=== PATIENT | female | born 1970 | race Caucasian/White ===

== ENCOUNTER → 2019-11-07 | Outpatient (CLI) | payer MEDICAID, SELFPAY | PROVIDERS: Family Provider Family Medicine; Visit Provider Social Worker Clinical | DX: F41.1 Generalized anxiety disorder (principal); F33.2 Major depressive disorder, recurrent severe without psychotic features | CPT/HCPCS: 90834 ==

== ENCOUNTER → 2019-11-16 09:13 | Outpatient (BNVA) | payer MEDICAID, SELFPAY | PROVIDERS: Family Provider Family Medicine; PCP Family Medicine; Visit Provider Social Worker Clinical | DX: F41.1 Generalized anxiety disorder (principal); F33.2 Major depressive disorder, recurrent severe without psychotic features | CPT/HCPCS: 90834 ==

== ENCOUNTER → 2019-11-27 09:47 | Outpatient (BNVA) | payer MEDICAID, SELFPAY | PROVIDERS: Family Provider Family Medicine; PCP Family Medicine; Visit Provider Social Worker Clinical | DX: F41.1 Generalized anxiety disorder (principal); F33.2 Major depressive disorder, recurrent severe without psychotic features | CPT/HCPCS: 90834 ==

== ENCOUNTER → 2019-12-05 08:46 | Outpatient (BNVA) | payer MEDICAID, SELFPAY | PROVIDERS: Family Provider Family Medicine; PCP Family Medicine; Visit Provider Social Worker Clinical | DX: F41.1 Generalized anxiety disorder (principal); F33.2 Major depressive disorder, recurrent severe without psychotic features | CPT/HCPCS: 90834 ==

== ENCOUNTER 2019-12-08 09:39 | Outpatient (CLI) | payer MEDICAID, SELFPAY ==
--- NOTE | 2019-12-08 | US_ITS ---
WS: [id number] ULTRASOUND SOFT TISSUES RIGHT wrist HISTORY: Paresthesias OF RIGHT ARM COMPARISON: None available. TECHNIQUE: 2-D and color Doppler imaging is submitted. Images submitted are labeled RIGHT wrist. On the images submitted there is no soft tissue abnormality . No masses or cystic areas are identified. US/US soft tissue/extremity [id number] IMPRESSION: No abnormality noted in the soft tissues submitted for interpretation.
== END 2019-12-08 09:40 | disposition home or self-care (01) ==
LOC: RADOUTREAD 14:03
PROVIDERS: Family Provider Family Medicine; PCP Family Medicine; Visit Provider Family Medicine
DX: R20.2 Paresthesia of skin (principal)

== ENCOUNTER → 2019-12-12 08:59 | Outpatient (BNVA) | payer MEDICAID, SELFPAY | PROVIDERS: Family Provider Family Medicine; PCP Family Medicine; Visit Provider Social Worker Clinical | DX: F41.1 Generalized anxiety disorder (principal); F33.2 Major depressive disorder, recurrent severe without psychotic features | CPT/HCPCS: 90834 ==

== ENCOUNTER → 2019-12-19 07:59 | Outpatient (BNVA) | payer MEDICAID, SELFPAY | PROVIDERS: Family Provider Family Medicine; PCP Family Medicine; Visit Provider Social Worker Clinical | DX: F41.1 Generalized anxiety disorder (principal) | CPT/HCPCS: 90834 ==

== ENCOUNTER → 2019-12-26 07:58 | Outpatient (BNVA) | payer MEDICAID, SELFPAY | PROVIDERS: Family Provider Family Medicine; PCP Family Medicine; Visit Provider Social Worker Clinical | DX: F41.1 Generalized anxiety disorder (principal); F33.2 Major depressive disorder, recurrent severe without psychotic features | CPT/HCPCS: 90834 ==

== ENCOUNTER → 2020-01-02 08:53 | Outpatient (BNVA) | payer MEDICAID, SELFPAY | PROVIDERS: Family Provider Family Medicine; PCP Family Medicine; Visit Provider Social Worker Clinical | DX: F41.1 Generalized anxiety disorder (principal); F33.2 Major depressive disorder, recurrent severe without psychotic features | CPT/HCPCS: 90832; 90834 ==

== ENCOUNTER → 2020-01-10 08:56 | Outpatient (BNVA) | payer MEDICAID, SELFPAY | PROVIDERS: Family Provider Family Medicine; PCP Family Medicine; Visit Provider Social Worker Clinical | DX: F41.1 Generalized anxiety disorder (principal); F33.2 Major depressive disorder, recurrent severe without psychotic features | CPT/HCPCS: 90834 ==

== ENCOUNTER → 2020-01-24 08:54 | Outpatient (BNVA) | payer MEDICAID, SELFPAY | PROVIDERS: Family Provider Family Medicine; PCP Family Medicine; Visit Provider Social Worker Clinical | DX: F41.1 Generalized anxiety disorder (principal); F33.2 Major depressive disorder, recurrent severe without psychotic features; F68.10 Factitious disorder imposed on self, unspecified | CPT/HCPCS: 90834 ==

== ENCOUNTER → 2020-01-31 08:43 | Outpatient (BNVA) | payer MEDICAID, SELFPAY | PROVIDERS: Family Provider Family Medicine; PCP Family Medicine; Visit Provider Social Worker Clinical | DX: F41.1 Generalized anxiety disorder (principal); F68.10 Factitious disorder imposed on self, unspecified | CPT/HCPCS: 90834 ==

== ENCOUNTER → 2020-02-01 15:34 | Outpatient (BNVA) | payer MEDICAID, SELFPAY | PROVIDERS: Family Provider Family Medicine; PCP Family Medicine; Visit Provider Specialist | DX: G43.711 Chronic migraine without aura, intractable, with status migrainosus (principal); H81.10 Benign paroxysmal vertigo, unspecified ear; R45.89 Other symptoms and signs involving emotional state | CPT/HCPCS: 64615; 99213 ==

== ENCOUNTER → 2020-02-07 08:26 | Outpatient (BNVA) | payer MEDICAID, SELFPAY | PROVIDERS: Family Provider Family Medicine; PCP Family Medicine; Visit Provider Social Worker Clinical | DX: R45.89 Other symptoms and signs involving emotional state (principal); F41.1 Generalized anxiety disorder; F33.2 Major depressive disorder, recurrent severe without psychotic features | CPT/HCPCS: 90834 ==

== ENCOUNTER → 2020-02-14 09:01 | Outpatient (BNVA) | payer MEDICAID, SELFPAY | PROVIDERS: Family Provider Family Medicine; PCP Family Medicine; Visit Provider Social Worker Clinical | DX: F41.1 Generalized anxiety disorder (principal); F60.3 Borderline personality disorder; F68.10 Factitious disorder imposed on self, unspecified | CPT/HCPCS: 90834 ==

== ENCOUNTER → 2020-02-21 07:52 | Outpatient (BNVA) | payer MEDICAID, SELFPAY | PROVIDERS: Family Provider Family Medicine; PCP Family Medicine; Visit Provider Social Worker Clinical | DX: F41.1 Generalized anxiety disorder (principal); F33.2 Major depressive disorder, recurrent severe without psychotic features; F68.10 Factitious disorder imposed on self, unspecified | CPT/HCPCS: 90834 ==

== ENCOUNTER → 2020-02-28 07:54 | Outpatient (BNVA) | payer MEDICAID, SELFPAY | PROVIDERS: Family Provider Family Medicine; PCP Family Medicine; Visit Provider Social Worker Clinical | DX: F41.1 Generalized anxiety disorder (principal); F33.2 Major depressive disorder, recurrent severe without psychotic features; F68.10 Factitious disorder imposed on self, unspecified | CPT/HCPCS: 90834 ==

== ENCOUNTER → 2020-03-11 07:55 | Outpatient (BNVA) | payer MEDICAID, SELFPAY | PROVIDERS: Family Provider Family Medicine; PCP Family Medicine; Visit Provider Social Worker Clinical | DX: F41.1 Generalized anxiety disorder (principal); F33.2 Major depressive disorder, recurrent severe without psychotic features; F68.10 Factitious disorder imposed on self, unspecified | CPT/HCPCS: 90834 ==

== ENCOUNTER → 2020-03-20 08:36 | Outpatient (BNVA) | payer MEDICAID, SELFPAY | PROVIDERS: Family Provider Family Medicine; PCP Family Medicine; Visit Provider Social Worker Clinical | DX: F41.1 Generalized anxiety disorder (principal); F33.2 Major depressive disorder, recurrent severe without psychotic features; F68.10 Factitious disorder imposed on self, unspecified | CPT/HCPCS: 90832; 90834 ==

== ENCOUNTER → 2020-03-25 08:20 | Outpatient (BNVA) | payer MEDICAID, SELFPAY | PROVIDERS: Family Provider Family Medicine; PCP Family Medicine; Visit Provider Social Worker Clinical | DX: F41.1 Generalized anxiety disorder (principal); F33.2 Major depressive disorder, recurrent severe without psychotic features; F68.10 Factitious disorder imposed on self, unspecified | CPT/HCPCS: 90832; 90834 ==

== ENCOUNTER 2020-03-27 09:14 | Outpatient (CLI) | payer MEDICAID, SELFPAY ==
--- NOTE | 2020-03-27 | MR_ITS ---
WS: [id number] MRI LUMBAR SPINE NONCONTRAST TECHNIQUE: Sagittal T1, T2 and STIR imaging. Axial T1 and T2 imaging. CLINICAL INFORMATION: SPINAL STENOSIS COMPARISON: None. FINDINGS: Mild lumbar curve. No acute compression. No high-grade central canal stenosis. L1-L2: Normal L2-L3: Mild annular bulging. Small right foraminal protrusion with mild right foraminal narrowing. Mi ld facet arthropathy. Spinal canal is patent. L3-L4: Mild annular bulging. Small right foraminal protrusion with mild right foraminal narrowing. Sl ight narrowing of the right subarticular recess. Mild facet arthropathy. L4-L5: Mild annular bulging. Mild right and no significant left foraminal narrowing. Moderate facet a rthropathy. Spinal canal is patent. L5-S1: No significant disc bulging. Moderate facet arthropathy. Spinal canal and foramen are patent. Visualized pelvic bony structures: Normal. Paravertebral soft tissues: Normal. MR/MR lumbar spine wo con* [id number] IMPRESSION: 1. Mild lumbar curve. No acute compression. No high-grade central canal stenos is. 2. Small right foraminal protrusion L2-L3 L3-L4 with mild right foraminal narr owing. Slight contact of the exiting right L3 nerve root. 3. Mild right L4-5 foraminal narrowing. 4. Moderate facet arthropathy L3-L5.
== END 2020-03-27 09:15 | disposition home or self-care (01) ==
PROVIDERS: PCP Family Medicine; Visit Provider Family Medicine
DX: M48.00 Spinal stenosis, site unspecified (principal); M51.26 Other intervertebral disc displacement, lumbar region; M47.816 Spondylosis without myelopathy or radiculopathy, lumbar region
CPT/HCPCS: 72148

== ENCOUNTER → 2020-04-02 08:04 | Outpatient (BNVA) | payer MEDICAID, SELFPAY | PROVIDERS: PCP Family Medicine; Visit Provider Social Worker Clinical | DX: F41.1 Generalized anxiety disorder (principal); F33.2 Major depressive disorder, recurrent severe without psychotic features; F68.10 Factitious disorder imposed on self, unspecified | CPT/HCPCS: 90834 ==

== ENCOUNTER → 2020-04-09 07:51 | Outpatient (BNVA) | payer MEDICAID, SELFPAY | PROVIDERS: PCP Family Medicine; Visit Provider Social Worker Clinical | DX: F41.1 Generalized anxiety disorder (principal); F33.2 Major depressive disorder, recurrent severe without psychotic features; F68.10 Factitious disorder imposed on self, unspecified | CPT/HCPCS: 90832 ==

== ENCOUNTER → 2020-04-16 07:57 | Outpatient (BNVA) | payer MEDICAID, SELFPAY | PROVIDERS: PCP Family Medicine; Visit Provider Social Worker Clinical | DX: F41.1 Generalized anxiety disorder (principal); F33.2 Major depressive disorder, recurrent severe without psychotic features; F68.10 Factitious disorder imposed on self, unspecified | CPT/HCPCS: 90834 ==

== ENCOUNTER → 2020-04-23 07:52 | Outpatient (BNVA) | payer MEDICAID, SELFPAY | PROVIDERS: PCP Family Medicine; Visit Provider Social Worker Clinical | DX: F41.1 Generalized anxiety disorder (principal); F33.2 Major depressive disorder, recurrent severe without psychotic features; F68.10 Factitious disorder imposed on self, unspecified | CPT/HCPCS: 90834 ==

== ENCOUNTER → 2020-04-30 07:57 | Outpatient (BNVA) | payer MEDICAID, SELFPAY | PROVIDERS: PCP Family Medicine; Visit Provider Social Worker Clinical | DX: F41.1 Generalized anxiety disorder (principal); F33.2 Major depressive disorder, recurrent severe without psychotic features; F68.10 Factitious disorder imposed on self, unspecified | CPT/HCPCS: 90834 ==

== ENCOUNTER → 2020-05-07 07:22 | Outpatient (BNVA) | payer MEDICAID, SELFPAY | PROVIDERS: PCP Family Medicine; Visit Provider Social Worker Clinical | DX: F41.1 Generalized anxiety disorder (principal); F33.2 Major depressive disorder, recurrent severe without psychotic features; F68.10 Factitious disorder imposed on self, unspecified | CPT/HCPCS: 90834 ==

== ENCOUNTER → 2020-05-14 08:11 | Outpatient (BNVA) | payer MEDICAID, SELFPAY | PROVIDERS: PCP Family Medicine; Visit Provider Social Worker Clinical | DX: F41.1 Generalized anxiety disorder (principal); F33.2 Major depressive disorder, recurrent severe without psychotic features; F68.10 Factitious disorder imposed on self, unspecified | CPT/HCPCS: 90834 ==

== ENCOUNTER → 2020-05-22 07:34 | Outpatient (BNVA) | payer MEDICAID, SELFPAY | PROVIDERS: PCP Family Medicine; Visit Provider Social Worker Clinical | DX: F41.1 Generalized anxiety disorder (principal); F33.2 Major depressive disorder, recurrent severe without psychotic features; F68.10 Factitious disorder imposed on self, unspecified | CPT/HCPCS: 90834 ==

== ENCOUNTER → 2020-05-28 08:03 | Outpatient (BNVA) | payer MEDICAID, SELFPAY | PROVIDERS: PCP Family Medicine; Visit Provider Social Worker Clinical | DX: F41.1 Generalized anxiety disorder (principal); F33.2 Major depressive disorder, recurrent severe without psychotic features; F68.10 Factitious disorder imposed on self, unspecified | CPT/HCPCS: 90834 ==

== ENCOUNTER → 2020-06-04 08:04 | Outpatient (BNVA) | payer MEDICAID, SELFPAY | PROVIDERS: PCP Family Medicine; Visit Provider Social Worker Clinical | DX: F41.1 Generalized anxiety disorder (principal); F33.2 Major depressive disorder, recurrent severe without psychotic features; F68.10 Factitious disorder imposed on self, unspecified | CPT/HCPCS: 90834 ==

== ENCOUNTER → 2020-06-11 08:28 | Outpatient (BNVA) | payer MEDICAID, SELFPAY | PROVIDERS: PCP Family Medicine; Visit Provider Social Worker Clinical | DX: F33.2 Major depressive disorder, recurrent severe without psychotic features (principal); F41.1 Generalized anxiety disorder; F68.10 Factitious disorder imposed on self, unspecified | CPT/HCPCS: 90791 ==

== ENCOUNTER 2020-06-14 07:42 | Outpatient (CLI) | payer MEDICAID, SELFPAY ==
--- NOTE | 2020-06-14 | CT_ITS ---
WS: [id number] CT HEAD TECHNIQUE: Noncontrast and contrast-enhanced CT of the head. CLINICAL INFORMATION: FALL AT HOME COMPARISON: CT head January 27, 2018 DLP: 1984.[address] scans at [facility] use at least one of these dose optimization techniques: automat ed exposure control; mA and/or kV adjustment per patient size (includes targeted exams where dose is matched to clinical indication); or iterative reconstruction. FINDINGS: No evidence of intracranial hemorrhage or mass effect. Ventricular system and basilar cisterns are pa tent. Mild white matter changes. Mild parenchymal volume loss. Stable scattered punctate calcificatio ns unchanged. Paranasal sinuses and mastoid air cells are well aerated. No abnormal intracranial enhancement. CT/CT head wo/w con [id number] IMPRESSION: 1. No evidence of intracranial hemorrhage or mass effect. 2. Stable white matter punctate calcifications unchanged 3. No abnormal intracranial enhancement. 4. Paranasal sinuses and mastoid air cells well aerated.
[2020-06-14] MEDS: iohexol 300 mg/mL 100 mL Btl IV (08:27)
== END 2020-06-14 07:43 | disposition home or self-care (01) ==
PROVIDERS: PCP Family Medicine; Visit Provider Family Medicine
DX: S09.90XA Unspecified injury of head, initial encounter (principal); W19.XXXA Unspecified fall, initial encounter
CPT/HCPCS: 70470; Q9967

== ENCOUNTER → 2020-06-18 08:19 | Outpatient (BNVA) | payer MEDICAID, SELFPAY | PROVIDERS: PCP Family Medicine; Visit Provider Social Worker Clinical | DX: F41.1 Generalized anxiety disorder (principal); F33.2 Major depressive disorder, recurrent severe without psychotic features; F68.10 Factitious disorder imposed on self, unspecified | CPT/HCPCS: 90832 ==

== ENCOUNTER 2020-06-19 07:36 | Emergency (ER) | payer MEDICAID, SELFPAY ==
[2020-06-19 07:41] VITALS: BMI 42.5
[2020-06-19 07:45] VITALS: BP 148/82; PULSE 68; RESP 18; TEMP 37.3; O2SAT 96
--- NOTE | 2020-06-19 07:52 | CT_ITS ---
WS: [id number] CT ABDOMEN PELVIS TECHNIQUE: Contrast-enhanced CT of the abdomen and pelvis with coronal and sagittal reformatted image s. CLINICAL INFORMATION: acute pain,LLQ COMPARISON: None. DLP: 1660.[address] scans at [facility] use at least one of these dose optimization techniques: automat ed exposure control; mA and/or kV adjustment per patient size (includes targeted exams where dose is matched to clinical indication); or iterative reconstruction. FINDINGS: Diffuse fatty infiltration the liver. Cholecystectomy clips. Normal spleen. Adrenal glands are normal . Normal renal parenchymal enhancement. No hydronephrosis. Normal pancreatic enhancement. Portal vein s and splenic vein are normal. Hazy groundglass infiltrates in the lung bases. Normal GE junction. Normal sigmoid colon. No evidence of small or large bowel obstruction. Fat-containing umbilical herni a. Prior postoperative changes hysterectomy with oophorectomy and bladder suspension procedure. Notified NII Chou at 06/19/2020 9:[address]/CT abdomen pelvis w con* [id number] IMPRESSION: 1. Diffuse fatty infiltration liver. 2. Prior cholecystectomy. 3. Prior postoperative changes hysterectomy with bladder suspension procedure 4. No hydronephrosis. Normal renal parenchymal enhancement. 5. No evidence of small or large bowel obstruction. 6. Fat-containing umbilical hernia. 7. Hazy groundglass infiltrates in the lung bases. Recommend correlation for v iral pneumonitis.
--- NOTE | 2020-06-19 07:53 | ED_ITS ---
HPI - Abdominal Pain General: Chief Complaint: Abdominal Pain Stated Complaint: left side pain Time Seen by Provider: 06/19/20 07:41 History of Present Illness: HPI narrative: Patient arrives here with abdominal pain that she has had since this weekend and she saw Dr. Jeffery on Wednesday was diagnosed with a colitis prescribed metronidazole ciprofloxacin and Zofran. Patient states she is not better hurts down her left lower quadrant denies any fever chills nausea vomiting does have some diarrhea. MD elicited complaint: abdominal pain Onset (ago): day(s) Pain Consistency: constant Location: LLQ Severity: moderate Quality: cramping and aching Exacerbating factors: nothing Relieving factors: nothing Associated Symptoms: Reports no associated symptoms; Denies chills, fever(s), nausea and vomiting Review of Systems Const: Denies: fever(s), chills or body aches Eyes: Denies: change in vision or blurry vision ENMT: Denies: throat pain or nasal congestion Card: Denies: chest pain or dyspnea on exertion Resp: Denies: dyspnea, productive cough or non-productive cough GI: Reports: abdominal pain; Denies: nausea or vomiting Musc: Denies: extremity pain Skin/Breast: Denies: rash Neuro: Denies: headache(s) Psych: Denies: anxiety or depression Shimon/Lymph: Denies: easy bruising PFSH ED PFSH: Social History Current gender identity: Female Physical Exam Const: COMMON NORMALS: no acute distress, average body habitus and patient oriented x3 HENMT: COMMON NORMALS: normocephalic HEAD & SCALP: normal to inspection and normocephalic FACE & SINUS: normal facial exam Eye: COMMON NORMALS: conjunctivae normal GENERAL EYE: appearance normal, both eyes and all related structures CONJUNCTIVA: Yes conjunctivae normal Neck/C-Spine: COMMON NORMALS: no JVD Chest: COMMONS NORMALS: normal inspection of the chest Resp: COMMON NORMALS: normal respiratory effort and clear to auscultation bilaterally AUSCULTATION: clear to auscultation bilaterally Cardio: COMMON NORMALS: no JVD, regular rate and regular rhythm RATE: regular rate RHYTHM: regular rhythm GI: COMMON NORMALS: Normal to inspection, nondistended, normoactive bowel sounds present PALPATION: Yes Tenderness to palpation present (GI) Details: LLQ Extremity: COMMON NORMALS: normal to inspection and full ROM Neuro: COMMON NORMALS: patient oriented x3 Course Vital Signs: Vital signs: Vital Signs Temperature 99.1 F 06/19/20 07:45 Pulse Rate 63 06/19/20 08:24 Respiratory Rate 20 H 06/19/20 08:24 Blood Pressure 118/46 06/19/20 08:24 Pulse Oximetry 96 06/19/20 08:24 MDM - Abdominal Pain MDM Narrative: Medical decision making narrative: Discussed CT results with Dr. Bradley. Patient does not have any COVID type symptoms denies any cough shortness of breath fever muscle aches loss of taste or smell. Just says her left lower quadrant hurts. Lab Data: Labs: Lab Results 06/19/20 06/19/20 06/19/20 Range/Units 08:00 08:09 08:09 WBC 7.0 (4.0-10.0) 10^3/ uL RBC 5.48 H (4.1-5.3) 10^6/u L Hgb 16.4 H (11.5-15.3) g/dL Hct 50.3 H (37.0-47.0) % MCV 91.8 (81-99) fL MCH 29.9 (28.0-34.0) pg MCHC 32.6 (30.0-36.0) g/dL RDW 12.9 (12.1-15.1) % Plt Count 136 (130-400) 10^3/c mm MPV 11.5 H (7.4-10.4) fL Neut % (Auto) 83.9 % Lymph % (Auto) 9.6 % Screven % (Auto) 6.2 % Eos % (Auto) 0.0 % Baso % (Auto) 0.0 % Neut # (Auto) 5.83 (1.8-7.7) 10^3/u L Lymph # (Auto) 0.7 L (0.8-4.8) 10^3/u L Screven # (Auto) 0.4 (0.2-0.9) 10^3/u L Eos # (Auto) 0.0 (0.0-0.8) 10^3/u L Baso # (Auto) 0.0 (0.0-0.1) 10^3/u L Nucleated RBC % (a uto) 0 % Nucleated RBCs # 0.0 /100WBC Sodium 137 (136-145) mmol/L Potassium 3.6 (3.5-5.1) mmol/L Chloride 99 (98-107) mmol/L Carbon Dioxide 24 (22-29) mmol/L Anion Gap 17.6 (5-19) BUN 25 H (6-20) mg/dL Creatinine 2.4 H (0.5-0.9) mg/dL GFR Calculation 21.4 L (90-130) mL/min Glucose 122 H (65-115) mg/dL Calculated Osmolal ity 282 L (285-295) mOsm/k g Calcium 9.3 (8.5-10.5) mg/dL Total Bilirubin 0.7 (0.15-1.2) mg/dL AST 37 H (0-32) U/L ALT 42 H (0-33) U/L Alkaline Phosphata se 89 (35-105) IU/L Total Protein 8.1 (6.6-8.7) g/dL Albumin 4.7 (3.5-5.2) g/dL Globulin 3.4 (1.3-4.6) g/dL Lipase 95 H (13-60) U/L Urine Color Yellow (Yellow) Urine Appearance Clear (CLEAR) Urine pH 5.0 (5-7) Ur Specific Gravit y 1.015 (1.005-1.030) Urine Protein Trace (Negative) Urine Glucose (UA) Norm (Normal) Urine Ketones 1+ H (Negative) Urine Blood Neg (Negative) Urine Nitrate Negative (Negative) Urine Bilirubin Neg (NEGATIVE) Urine Urobilinogen Norm (Negative) mg/dL Ur Leukocyte Le ase Negative (Negative) Urine RBC None (0-2) /hpf Urine WBC None (0-5) /hpf Ur Squamous Epith Cells 25-40 H (0-5) Amorphous Sediment Not Reportable Urine Bacteria 1+ H (NONE) Urine Mucus Trace Discharge Plan Discharge Patient Disposition: Home Clinical Impression: Abdominal pain Qualifiers: Abdominal location: left lower quadrant Qualified Code(s): R10.32 - Left lower quadrant pain Condition: Stable Prescriptions: New ketorolac 10 mg tablet 10 mg PO TID PRN (Reason: pain) 2 Days Qty: 7 RF: 0 No Action zonisamide [Zonegran] 100 mg capsule 400 mg PO DAILY RF: 0 pregabalin [Lyrica] 50 mg capsule 50 mg PO BID RF: 0 tramadol 50 mg tablet 50 mg PO TID PRNRF: 0 cyclobenzaprine 5 mg tablet 5 mg PO DAILY PRNRF: 0 bupropion HCl [Wellbutrin XL] 300 mg tablet extended release 24 hr 450 mg PO QAM RF: 0 alprazolam 1 mg tablet 1 mg PO TID PRNRF: 0 propranolol 20 mg tablet 20 mg PO BID Qty: 60 RF: 3 Discharge Orders: Discharge Order (Routine); Ordered 06/19/20 Ordered By: Reji Lombardo Referrals: Don Jeffery MD [Primary Care Provider] - Discharge Diet: Clear Liquid Discharge Activity: Increase activity as tolerated Patient Instructions: Abdominal Pain (ED) Activity Restrictions/Additional Instructions: Follow-up with medical provider as directed. Take medications as prescribed. Return to the ER or your medical provider if condition worsens. Please read and understand discharge instructions. If any questions ask please. Follow-up with Dr. Jeffery if symptoms do not improve Coding Level of Care Code ED Riverboat Captain for Senia Fwd Exam Comprehensive
[2020-06-19 08:24] VITALS: BP 118/46; PULSE 63; RESP 20; O2SAT 96
[2020-06-19 08:25] LABS: Hematocrit 50.3 % (37.0-47.0); Hemoglobin 16.4 g/dL (11.5-15.3); Lymphocytes # 0.7 10^3/uL (0.8-4.8); Lymphocytes % 9.6 %; Mean Corpuscular HGB Conc 32.6 g/dL (30.0-36.0); Mean Corpuscular Hemoglobin 29.9 pg (28.0-34.0); Mean Corpuscular Volume 91.8 fL (81-99); Mean Platelet Volume 11.5 fL (7.4-10.4); Monocytes # 0.4 10^3/uL (0.2-0.9); Monocytes % 6.2 %; Neutrophils # 5.83 10^3/uL (1.8-7.7); Neutrophils % 83.9 %; Nucleated Red Blood Cells % 0 %; Platelet Count 136 10^3/cmm (130-400); Red Blood Count 5.48 10^6/uL (4.1-5.3); Red Cell Distribution Width 12.9 % (12.1-15.1)
[2020-06-19] MEDS: ketorolac 30 mg/mL INJ IVP (08:32)
[2020-06-19] MEDS: sodium chloride 0.9% 1,000 ML 999 ML IV (08:32)
[2020-06-19] MEDS: ondansetron 2 mg/ML SDV 2 mL 8 MG IVP (08:32)
[2020-06-19 08:49] LABS: Alanine Aminotransferase 42 U/L (0-33); Albumin Level 4.7 g/dL (3.5-5.2); Alkaline Phosphatase 89 IU/L (35-105); Anion Gap 17.6 (5-19); Aspartate Amino Transferase 37 U/L (0-32); Blood Urea Nitrogen 25 mg/dL (6-20); Calcium 9.3 mg/dL (8.5-10.5); Carbon Dioxide 24 mmol/L (22-29); Chloride 99 mmol/L (98-107); Globulin 3.4 g/dL (1.3-4.6); Glomerular Filtration Rate 21.4 mL/min (90-130); Glucose 122 mg/dL (65-115); Lipase 95 U/L (13-60); Osmolality Calculated 282 mOsm/kg (285-295); Potassium 3.6 mmol/L (3.5-5.1); Sodium 137 mmol/L (136-145); Total Bilirubin 0.7 mg/dL (0.15-1.2); Total Protein 8.1 g/dL (6.6-8.7)
[2020-06-19] MEDS: iohexol 300 mg/mL 100 mL Btl IV (08:49)
[2020-06-19 08:55] LABS: Add Urine Microscopic? YES; Bilirubin Urine Neg (NEGATIVE); Blood Urine Neg (Negative); Glucose Urine UA Norm (Normal); Ketones Urine 1+ (Negative); Leukocyte Esterase Urine Negative (Negative); Nitrate Urine Negative (Negative); Protein Urine Trace (Negative); Specific Gravity, Urine 1.015 (1.005-1.030); Urine Appearance Clear (CLEAR); Urine Color Yellow (Yellow); Urobilinogen Urine Norm (Negative)
[2020-06-19 09:12] LABS: Add Urine Culture? No; Bacteria Urine 1+; Mucus Urine TRACE; Squamous Epithelial Cell Urine 25-40 (0-5)
[2020-06-19 10:04] VITALS: BP 113/50; PULSE 75; RESP 18; TEMP 36.6; O2SAT 96
[2020-06-19 10:05] VITALS: BP 113/50; PULSE 68; RESP 18; TEMP 37.1; O2SAT 97
[2020-06-19 10:14] VITALS: BP 148/82; PULSE 77; RESP 16; TEMP 36.8; O2SAT 98
== END 2020-06-19 10:28 | disposition home or self-care (01) ==
PROVIDERS: Emergency Provider Nurse Practitioner Family; PCP Family Medicine
DX: R10.32 Left lower quadrant pain (principal)
CPT/HCPCS: 12345; 36415; 74177; 80053; 81001; 83690; 85025; 96361; 96374; 96375; 99283; J1885; J2405; J7030; Q9967

== ENCOUNTER → 2020-06-25 08:11 | Outpatient (BNVA) | payer MEDICAID, SELFPAY | PROVIDERS: PCP Family Medicine; Visit Provider Social Worker Clinical | DX: F41.1 Generalized anxiety disorder (principal); F33.2 Major depressive disorder, recurrent severe without psychotic features; F68.10 Factitious disorder imposed on self, unspecified | CPT/HCPCS: 90834 ==

== ENCOUNTER → 2020-07-02 08:17 | Outpatient (BNVA) | payer MEDICAID, SELFPAY | PROVIDERS: PCP Family Medicine; Visit Provider Social Worker Clinical | DX: F41.1 Generalized anxiety disorder (principal); F33.2 Major depressive disorder, recurrent severe without psychotic features; F68.10 Factitious disorder imposed on self, unspecified | CPT/HCPCS: 90834 ==

== ENCOUNTER → 2020-07-09 08:20 | Outpatient (BNVA) | payer MEDICAID, SELFPAY | PROVIDERS: PCP Family Medicine; Visit Provider Social Worker Clinical | DX: F41.1 Generalized anxiety disorder (principal); F33.2 Major depressive disorder, recurrent severe without psychotic features; F68.10 Factitious disorder imposed on self, unspecified | CPT/HCPCS: 90832 ==

== ENCOUNTER → 2020-07-16 10:14 | Outpatient (BNVA) | payer MEDICAID, SELFPAY | PROVIDERS: PCP Family Medicine; Visit Provider Orthopaedic Surgery | DX: M17.12 Unilateral primary osteoarthritis, left knee (principal); M25.562 Pain in left knee | CPT/HCPCS: 73560; 73565 ==

== ENCOUNTER → 2020-07-17 08:28 | Outpatient (BNVA) | payer MEDICAID, SELFPAY | PROVIDERS: PCP Family Medicine; Visit Provider Social Worker Clinical | DX: F68.10 Factitious disorder imposed on self, unspecified (principal); F33.2 Major depressive disorder, recurrent severe without psychotic features; F41.1 Generalized anxiety disorder | CPT/HCPCS: 90832 ==

== ENCOUNTER → 2020-07-24 08:21 | Outpatient (BNVA) | payer MEDICAID, SELFPAY | PROVIDERS: PCP Family Medicine; Visit Provider Social Worker Clinical | DX: F68.10 Factitious disorder imposed on self, unspecified (principal); F33.2 Major depressive disorder, recurrent severe without psychotic features; F41.1 Generalized anxiety disorder | CPT/HCPCS: 90834 ==

== ENCOUNTER 2020-07-30 06:00 | Outpatient (RCR) | payer MEDICAID, SELFPAY | END 2020-08-07 23:59 | disposition home or self-care (01) | LOC: SPT 06:00 | PROVIDERS: PCP Family Medicine; Referring Provider Orthopaedic Surgery; Visit Provider Orthopaedic Surgery | DX: G89.29 Other chronic pain (principal); M25.562 Pain in left knee | CPT/HCPCS: 97110; 97161 ==

== ENCOUNTER → 2020-07-31 08:19 | Outpatient (BNVA) | payer MEDICAID, SELFPAY | PROVIDERS: PCP Family Medicine; Visit Provider Social Worker Clinical | DX: F68.10 Factitious disorder imposed on self, unspecified (principal); F33.2 Major depressive disorder, recurrent severe without psychotic features; F41.1 Generalized anxiety disorder | CPT/HCPCS: 90834 ==

== ENCOUNTER → 2020-08-01 12:13 | Outpatient (BNVA) | payer MEDICAID, SELFPAY | PROVIDERS: PCP Family Medicine; Visit Provider Specialist | DX: G43.711 Chronic migraine without aura, intractable, with status migrainosus (principal) | CPT/HCPCS: 64615; J0585 ==

== ENCOUNTER → 2020-08-07 08:09 | Outpatient (BNVA) | payer MEDICAID, SELFPAY | PROVIDERS: PCP Family Medicine; Visit Provider Social Worker Clinical | DX: F68.10 Factitious disorder imposed on self, unspecified (principal); F33.2 Major depressive disorder, recurrent severe without psychotic features; F41.1 Generalized anxiety disorder | CPT/HCPCS: 90834 ==

== ENCOUNTER 2020-08-08 06:00 | Outpatient (RCR) | payer MEDICAID, SELFPAY | END 2020-09-07 23:59 | disposition home or self-care (01) | LOC: SPT 06:00 | PROVIDERS: PCP Family Medicine; Referring Provider Orthopaedic Surgery; Visit Provider Orthopaedic Surgery | DX: M25.562 Pain in left knee (principal); G89.29 Other chronic pain | CPT/HCPCS: 97110 ==

== ENCOUNTER 2020-08-09 07:13 | Outpatient (CLI) | payer MEDICAID, SELFPAY ==
--- NOTE | 2020-08-09 07:15 | MR_ITS ---
WS: [id number] MRI HEAD WITHOUT CONTRAST TECHNIQUE: Sagittal T1, T2 axial, T2 axial FLAIR, axial and coronal T1 images, axial susceptibility w eighted imaging, axial diffusion weighted images, and coronal T2 images were obtained. CLINICAL INFORMATION: R42 Dizziness and giddiness COMPARISON: CT June 14, 2020 FINDINGS: No evidence of restricted diffusion to suggest acute ischemia. Ventricular system and basal cisterns are patent. Mild supratentorial white matter changes nonspecific in a patient this age but can be see n with hypertension, diabetes, collagen vascular disease, and migraine headaches. Normal posterior fo ssa. Normal vascular flow voids at the skull base. No extra-axial fluid collections. No evidence of m ass or mass effect. 2 small foci of susceptibility artifact in the left and right parietal lobes largest in the left holly etal lobe measuring 3.5 mm. Findings compatible with small foci of microhemorrhage. No evidence of re cent hemorrhage. Normal optic chiasm and pituitary infundibulum. Temporal lobes hippocampal formations are normal in a ppearance. Cavernous sinuses and Meckel's cave are normal in appearance. Paranasal sinuses and mastoi d air cells are well aerated. MR/MR head wo con* [id number] IMPRESSION: 1. No evidence of restricted diffusion to suggest acute ischemia. 2. Mild supratentorial white matter changes nonspecific in a patient this age but can be seen with hypertension, diabetes, collagen vascular disease, and flip yanely headaches. No significant parenchymal volume loss. 3. Two Small foci of susceptibility artifact in the left and right parietal lo bes compatible with tiny foci of microhemorrhage. 4. Paranasal sinuses and mastoid air cells are well aerated.
== END 2020-08-09 07:14 | disposition home or self-care (01) ==
LOC: RADSHAW 07:15
PROVIDERS: PCP Family Medicine; Visit Provider Specialist
DX: R42 Dizziness and giddiness (principal)
CPT/HCPCS: 70551

== ENCOUNTER → 2020-08-14 08:28 | Outpatient (BNVA) | payer MEDICAID, SELFPAY | PROVIDERS: PCP Family Medicine; Visit Provider Social Worker Clinical | DX: F68.10 Factitious disorder imposed on self, unspecified (principal); F33.2 Major depressive disorder, recurrent severe without psychotic features; F41.1 Generalized anxiety disorder | CPT/HCPCS: 90834 ==

== ENCOUNTER → 2020-08-21 08:18 | Outpatient (BNVA) | payer MEDICAID, SELFPAY | PROVIDERS: PCP Family Medicine; Visit Provider Social Worker Clinical | DX: F68.10 Factitious disorder imposed on self, unspecified (principal); F33.1 Major depressive disorder, recurrent, moderate | CPT/HCPCS: 90834 ==

== ENCOUNTER → 2020-08-28 08:15 | Outpatient (BNVA) | payer MEDICAID, SELFPAY | PROVIDERS: PCP Family Medicine; Visit Provider Social Worker Clinical | DX: F68.10 Factitious disorder imposed on self, unspecified; F33.1 Major depressive disorder, recurrent, moderate | CPT/HCPCS: 90834 ==

== ENCOUNTER 2020-09-08 06:00 | Outpatient (RCR) | payer MEDICAID, SELFPAY | END 2020-10-07 23:59 | disposition home or self-care (01) | LOC: SPT 06:00 | PROVIDERS: PCP Family Medicine; Referring Provider Orthopaedic Surgery; Visit Provider Orthopaedic Surgery | DX: M25.562 Pain in left knee (principal); G89.29 Other chronic pain | CPT/HCPCS: 97110 ==

== ENCOUNTER → 2020-09-09 08:34 | Outpatient (BNVA) | payer MEDICAID, SELFPAY | PROVIDERS: PCP Family Medicine; Visit Provider Social Worker Clinical | DX: F68.10 Factitious disorder imposed on self, unspecified (principal); F33.1 Major depressive disorder, recurrent, moderate | CPT/HCPCS: 90834 ==

== ENCOUNTER → 2020-09-18 07:56 | Outpatient (BNVA) | payer MEDICAID, SELFPAY | PROVIDERS: PCP Family Medicine; Visit Provider Social Worker Clinical | DX: F68.10 Factitious disorder imposed on self, unspecified (principal); F33.1 Major depressive disorder, recurrent, moderate | CPT/HCPCS: 90834 ==

== ENCOUNTER → 2020-09-25 09:38 | Outpatient (BNVA) | payer MEDICAID, SELFPAY | PROVIDERS: PCP Family Medicine; Visit Provider Specialist | DX: I61.8 Other nontraumatic intracerebral hemorrhage (principal); I10 Essential (primary) hypertension; G43.711 Chronic migraine without aura, intractable, with status migrainosus; M17.12 Unilateral primary osteoarthritis, left knee; M96.1 Postlaminectomy syndrome, not elsewhere classified; G37.9 Demyelinating disease of central nervous system, unspecified; E66.01 Morbid (severe) obesity due to excess calories; Z68.41 Body mass index [BMI] 40.0-44.9, adult | CPT/HCPCS: 99215 ==

== ENCOUNTER → 2020-09-27 07:29 | Outpatient (BNVA) | payer MEDICAID, SELFPAY | PROVIDERS: PCP Family Medicine; Visit Provider Social Worker Clinical | DX: F68.10 Factitious disorder imposed on self, unspecified (principal); F33.2 Major depressive disorder, recurrent severe without psychotic features | CPT/HCPCS: 90834 ==

== ENCOUNTER 2020-10-01 06:00 | Outpatient (RCR) | payer MEDICAID, SELFPAY | END 2020-10-07 23:59 | disposition home or self-care (01) | LOC: SPT 06:00 | PROVIDERS: PCP Family Medicine; Referring Provider Family Medicine; Visit Provider Family Medicine | DX: M25.519 Pain in unspecified shoulder (principal) | CPT/HCPCS: 97110; 97161 ==

== ENCOUNTER 2020-10-08 06:00 | Outpatient (RCR) | payer MEDICAID, SELFPAY | END 2020-11-07 23:59 | disposition home or self-care (01) | LOC: SPT 06:00 | PROVIDERS: PCP Family Medicine; Referring Provider Family Medicine; Visit Provider Family Medicine | DX: M25.519 Pain in unspecified shoulder (principal) | CPT/HCPCS: 97110 ==

== ENCOUNTER → 2020-10-14 08:23 | Outpatient (BNVA) | payer MEDICAID, SELFPAY | PROVIDERS: PCP Family Medicine; Visit Provider Social Worker Clinical | DX: F68.10 Factitious disorder imposed on self, unspecified (principal); F33.2 Major depressive disorder, recurrent severe without psychotic features | CPT/HCPCS: 90834 ==

== ENCOUNTER → 2020-10-21 07:51 | Outpatient (BNVA) | payer MEDICAID, SELFPAY | PROVIDERS: PCP Family Medicine; Visit Provider Social Worker Clinical | DX: F68.10 Factitious disorder imposed on self, unspecified (principal); F33.2 Major depressive disorder, recurrent severe without psychotic features | CPT/HCPCS: 90834 ==

== ENCOUNTER → 2020-10-24 08:38 | Outpatient (BNVA) | payer MEDICAID, SELFPAY | PROVIDERS: PCP Family Medicine; Visit Provider Specialist | DX: G43.711 Chronic migraine without aura, intractable, with status migrainosus (principal); E85.4 Organ-limited amyloidosis; I68.0 Cerebral amyloid angiopathy; G31.84 Mild cognitive impairment of uncertain or unknown etiology; I61.8 Other nontraumatic intracerebral hemorrhage; G37.9 Demyelinating disease of central nervous system, unspecified | CPT/HCPCS: 64615; 96116; 99214; J0585 ==

== ENCOUNTER → 2020-10-28 07:34 | Outpatient (BNVA) | payer MEDICAID, SELFPAY | PROVIDERS: PCP Family Medicine; Visit Provider Social Worker Clinical | DX: F68.10 Factitious disorder imposed on self, unspecified (principal); F33.2 Major depressive disorder, recurrent severe without psychotic features | CPT/HCPCS: 90834 ==

== ENCOUNTER → 2020-11-07 07:48 | Outpatient (BNVA) | payer MEDICAID, SELFPAY | PROVIDERS: PCP Family Medicine; Visit Provider Social Worker Clinical | DX: F68.10 Factitious disorder imposed on self, unspecified (principal); F33.2 Major depressive disorder, recurrent severe without psychotic features | CPT/HCPCS: 90834 ==

== ENCOUNTER → 2020-11-12 08:22 | Outpatient (BNVA) | payer MEDICAID, SELFPAY | PROVIDERS: PCP Family Medicine; Visit Provider Social Worker Clinical | DX: F33.2 Major depressive disorder, recurrent severe without psychotic features (principal) | CPT/HCPCS: 90834 ==

== ENCOUNTER → 2020-11-20 08:18 | Outpatient (BNVA) | payer MEDICAID, SELFPAY | PROVIDERS: PCP Family Medicine; Visit Provider Social Worker Clinical | DX: F33.2 Major depressive disorder, recurrent severe without psychotic features (principal); F68.10 Factitious disorder imposed on self, unspecified | CPT/HCPCS: 90834 ==

== ENCOUNTER → 2020-11-27 08:19 | Outpatient (BNVA) | payer MEDICAID, SELFPAY | PROVIDERS: PCP Family Medicine; Visit Provider Social Worker Clinical | DX: F33.2 Major depressive disorder, recurrent severe without psychotic features (principal); F68.10 Factitious disorder imposed on self, unspecified | CPT/HCPCS: 90834; 90832 ==

== ENCOUNTER → 2020-12-03 08:21 | Outpatient (BNVA) | payer MEDICAID, SELFPAY | PROVIDERS: PCP Family Medicine; Visit Provider Social Worker Clinical | DX: F68.10 Factitious disorder imposed on self, unspecified (principal); F33.2 Major depressive disorder, recurrent severe without psychotic features | CPT/HCPCS: 90834 ==

== ENCOUNTER → 2020-12-11 08:17 | Outpatient (BNVA) | payer MEDICAID, SELFPAY | PROVIDERS: PCP Family Medicine; Visit Provider Social Worker Clinical | DX: F68.10 Factitious disorder imposed on self, unspecified (principal); F33.2 Major depressive disorder, recurrent severe without psychotic features | CPT/HCPCS: 90832 ==

== ENCOUNTER → 2020-12-18 07:40 | Outpatient (BNVA) | payer MEDICAID, SELFPAY | PROVIDERS: PCP Family Medicine; Visit Provider Social Worker Clinical | DX: F68.10 Factitious disorder imposed on self, unspecified (principal); F33.2 Major depressive disorder, recurrent severe without psychotic features | CPT/HCPCS: 90834 ==

== ENCOUNTER → 2020-12-25 07:45 | Outpatient (BNVA) | payer MEDICAID, SELFPAY | PROVIDERS: PCP Family Medicine; Visit Provider Social Worker Clinical | DX: F68.10 Factitious disorder imposed on self, unspecified (principal); F33.2 Major depressive disorder, recurrent severe without psychotic features | CPT/HCPCS: 90832 ==

== ENCOUNTER → 2021-01-01 08:03 | Outpatient (BNVA) | payer MEDICAID, SELFPAY | PROVIDERS: PCP Family Medicine; Visit Provider Social Worker Clinical | DX: F68.10 Factitious disorder imposed on self, unspecified (principal); F33.2 Major depressive disorder, recurrent severe without psychotic features | CPT/HCPCS: 90832 ==

== ENCOUNTER → 2021-01-14 08:03 | Outpatient (BNVA) | payer MEDICAID, SELFPAY | PROVIDERS: PCP Family Medicine; Visit Provider Social Worker Clinical | DX: F68.10 Factitious disorder imposed on self, unspecified (principal); F33.2 Major depressive disorder, recurrent severe without psychotic features | CPT/HCPCS: 90834 ==

== ENCOUNTER → 2021-01-16 09:06 | Outpatient (BNVA) | payer MEDICAID, SELFPAY | PROVIDERS: PCP Family Medicine; Visit Provider Specialist | DX: G43.711 Chronic migraine without aura, intractable, with status migrainosus (principal); G31.84 Mild cognitive impairment of uncertain or unknown etiology; G37.9 Demyelinating disease of central nervous system, unspecified | CPT/HCPCS: 64615; 96116; 99215; J0585 ==

== ENCOUNTER → 2021-01-28 08:07 | Outpatient (BNVA) | payer MEDICAID, SELFPAY | PROVIDERS: PCP Family Medicine; Visit Provider Social Worker Clinical | DX: F33.2 Major depressive disorder, recurrent severe without psychotic features (principal); F68.10 Factitious disorder imposed on self, unspecified | CPT/HCPCS: 90832 ==

== ENCOUNTER → 2021-02-04 08:17 | Outpatient (BNVA) | payer MEDICAID, SELFPAY | PROVIDERS: PCP Family Medicine; Visit Provider Social Worker Clinical | DX: F33.2 Major depressive disorder, recurrent severe without psychotic features (principal); F68.10 Factitious disorder imposed on self, unspecified | CPT/HCPCS: 90832 ==

== ENCOUNTER → 2021-02-12 08:22 | Outpatient (BNVA) | payer MEDICAID, SELFPAY | PROVIDERS: PCP Family Medicine; Visit Provider Social Worker Clinical | DX: F33.2 Major depressive disorder, recurrent severe without psychotic features (principal); F68.10 Factitious disorder imposed on self, unspecified | CPT/HCPCS: 90834; 90832 ==

== ENCOUNTER → 2021-02-19 07:57 | Outpatient (BNVA) | payer MEDICAID, SELFPAY | PROVIDERS: PCP Family Medicine; Visit Provider Social Worker Clinical | DX: F33.2 Major depressive disorder, recurrent severe without psychotic features (principal); F68.10 Factitious disorder imposed on self, unspecified | CPT/HCPCS: 90834 ==

== ENCOUNTER → 2021-02-27 07:28 | Outpatient (BNVA) | payer MEDICAID, SELFPAY | PROVIDERS: PCP Family Medicine; Visit Provider Social Worker Clinical | DX: F33.2 Major depressive disorder, recurrent severe without psychotic features (principal); F68.10 Factitious disorder imposed on self, unspecified | CPT/HCPCS: 90834 ==

== ENCOUNTER → 2021-03-10 07:21 | Outpatient (BNVA) | payer MEDICAID, SELFPAY | PROVIDERS: PCP Family Medicine; Visit Provider Social Worker Clinical | DX: F33.2 Major depressive disorder, recurrent severe without psychotic features (principal); F68.10 Factitious disorder imposed on self, unspecified | CPT/HCPCS: 90834 ==

== ENCOUNTER → 2021-03-12 10:06 | Outpatient (BNVA) | payer MEDICAID, SELFPAY | PROVIDERS: PCP Family Medicine; Visit Provider Specialist | DX: G43.711 Chronic migraine without aura, intractable, with status migrainosus (principal) | CPT/HCPCS: 96372; J1885 ==

== ENCOUNTER → 2021-03-17 07:30 | Outpatient (BNVA) | payer MEDICAID, SELFPAY | PROVIDERS: PCP Family Medicine; Visit Provider Social Worker Clinical | DX: F33.2 Major depressive disorder, recurrent severe without psychotic features (principal); F68.10 Factitious disorder imposed on self, unspecified | CPT/HCPCS: 90834 ==

== ENCOUNTER → 2021-03-24 07:38 | Outpatient (BNVA) | payer MEDICAID, SELFPAY | PROVIDERS: PCP Family Medicine; Visit Provider Social Worker Clinical | DX: F33.2 Major depressive disorder, recurrent severe without psychotic features (principal); F68.10 Factitious disorder imposed on self, unspecified | CPT/HCPCS: 90834 ==

== ENCOUNTER → 2021-04-03 08:04 | Outpatient (BNVA) | payer MEDICAID, SELFPAY | PROVIDERS: PCP Family Medicine; Visit Provider Social Worker Clinical | DX: F33.2 Major depressive disorder, recurrent severe without psychotic features (principal); F68.10 Factitious disorder imposed on self, unspecified | CPT/HCPCS: 90834 ==

== ENCOUNTER → 2021-04-08 07:50 | Outpatient (BNVA) | payer MEDICAID, SELFPAY | PROVIDERS: PCP Family Medicine; Visit Provider Social Worker Clinical | DX: F33.2 Major depressive disorder, recurrent severe without psychotic features (principal); F68.10 Factitious disorder imposed on self, unspecified | CPT/HCPCS: 90834 ==

== ENCOUNTER → 2021-04-10 10:13 | Outpatient (BNVA) | payer MEDICAID, SELFPAY | PROVIDERS: PCP Family Medicine; Visit Provider Specialist | DX: G43.709 Chronic migraine without aura, not intractable, without status migrainosus (principal) | CPT/HCPCS: 96372; 99214; J1885 ==

== ENCOUNTER → 2021-04-15 08:17 | Outpatient (BNVA) | payer MEDICAID, SELFPAY | PROVIDERS: PCP Family Medicine; Visit Provider Social Worker Clinical | DX: F33.2 Major depressive disorder, recurrent severe without psychotic features (principal); F68.10 Factitious disorder imposed on self, unspecified | CPT/HCPCS: 90834 ==

== ENCOUNTER → 2021-04-24 08:53 | Outpatient (BNVA) | payer MEDICAID, SELFPAY | PROVIDERS: PCP Family Medicine; Visit Provider Social Worker Clinical | DX: F33.2 Major depressive disorder, recurrent severe without psychotic features (principal); F68.10 Factitious disorder imposed on self, unspecified | CPT/HCPCS: 90834 ==

== ENCOUNTER → 2021-04-29 15:04 | Outpatient (BNVA) | payer MEDICAID, SELFPAY | PROVIDERS: PCP Family Medicine; Visit Provider Specialist | DX: G43.711 Chronic migraine without aura, intractable, with status migrainosus (principal); Z71.89 Other specified counseling | CPT/HCPCS: 96372 ==

== ENCOUNTER → 2021-05-13 09:09 | Outpatient (BNVA) | payer MEDICAID, SELFPAY | PROVIDERS: PCP Family Medicine; Visit Provider Social Worker Clinical | DX: F33.2 Major depressive disorder, recurrent severe without psychotic features (principal); F68.10 Factitious disorder imposed on self, unspecified | CPT/HCPCS: 90832 ==

== ENCOUNTER → 2021-05-23 07:52 | Outpatient (BNVA) | payer MEDICAID, SELFPAY | PROVIDERS: PCP Family Medicine; Visit Provider Social Worker Clinical | DX: F33.2 Major depressive disorder, recurrent severe without psychotic features (principal); F68.10 Factitious disorder imposed on self, unspecified | CPT/HCPCS: 90832 ==

== ENCOUNTER → 2021-05-29 07:54 | Outpatient (BNVA) | payer MEDICAID, SELFPAY | PROVIDERS: PCP Family Medicine; Visit Provider Specialist | DX: G43.711 Chronic migraine without aura, intractable, with status migrainosus (principal); Z71.89 Other specified counseling | CPT/HCPCS: G0463 ==

== ENCOUNTER → 2021-05-30 08:15 | Outpatient (BNVA) | payer MEDICAID, SELFPAY | PROVIDERS: PCP Family Medicine; Visit Provider Social Worker Clinical | DX: F33.2 Major depressive disorder, recurrent severe without psychotic features (principal); F68.10 Factitious disorder imposed on self, unspecified | CPT/HCPCS: 90834 ==

== ENCOUNTER → 2021-06-03 07:34 | Outpatient (BNVA) | payer MEDICAID, SELFPAY | PROVIDERS: PCP Family Medicine; Visit Provider Social Worker Clinical | DX: F33.2 Major depressive disorder, recurrent severe without psychotic features (principal); F68.10 Factitious disorder imposed on self, unspecified | CPT/HCPCS: 90834 ==

== ENCOUNTER → 2021-06-23 07:56 | Outpatient (BNVA) | payer MEDICAID, SELFPAY | PROVIDERS: PCP Family Medicine; Visit Provider Social Worker Clinical | DX: F33.2 Major depressive disorder, recurrent severe without psychotic features (principal); F68.10 Factitious disorder imposed on self, unspecified | CPT/HCPCS: 90834 ==

== ENCOUNTER → 2021-06-30 08:39 | Outpatient (BNVA) | payer MEDICAID, SELFPAY | PROVIDERS: PCP Family Medicine; Visit Provider Specialist | DX: G43.711 Chronic migraine without aura, intractable, with status migrainosus (principal) | CPT/HCPCS: 96372 ==

== ENCOUNTER → 2021-07-01 07:56 | Outpatient (BNVA) | payer MEDICAID, SELFPAY | PROVIDERS: PCP Family Medicine; Visit Provider Social Worker Clinical | DX: F33.2 Major depressive disorder, recurrent severe without psychotic features (principal); F68.10 Factitious disorder imposed on self, unspecified | CPT/HCPCS: 90834 ==

== ENCOUNTER → 2021-07-08 08:09 | Outpatient (BNVA) | payer MEDICAID, SELFPAY | PROVIDERS: PCP Family Medicine; Visit Provider Social Worker Clinical | DX: F33.2 Major depressive disorder, recurrent severe without psychotic features (principal); F68.10 Factitious disorder imposed on self, unspecified | CPT/HCPCS: 90834 ==

== ENCOUNTER → 2021-07-15 08:00 | Outpatient (BNVA) | payer MEDICAID, SELFPAY | PROVIDERS: PCP Family Medicine; Visit Provider Social Worker Clinical | DX: F33.2 Major depressive disorder, recurrent severe without psychotic features (principal); F68.10 Factitious disorder imposed on self, unspecified | CPT/HCPCS: 90834; 90832 ==

== ENCOUNTER → 2021-07-17 07:58 | Outpatient (BNVA) | payer MEDICAID, SELFPAY | PROVIDERS: PCP Family Medicine; Visit Provider Specialist | DX: G43.711 Chronic migraine without aura, intractable, with status migrainosus (principal); G31.84 Mild cognitive impairment of uncertain or unknown etiology; G37.9 Demyelinating disease of central nervous system, unspecified; R45.89 Other symptoms and signs involving emotional state; M54.81 Occipital neuralgia | CPT/HCPCS: 64405; 64450; 99214; J1030; J1885; J3490 ==

== ENCOUNTER → 2021-07-22 08:12 | Outpatient (BNVA) | payer MEDICAID, SELFPAY | PROVIDERS: PCP Family Medicine; Visit Provider Social Worker Clinical | DX: F33.2 Major depressive disorder, recurrent severe without psychotic features (principal); F68.10 Factitious disorder imposed on self, unspecified | CPT/HCPCS: 90791 ==

== ENCOUNTER → 2021-07-29 09:52 | Outpatient (BNVA) | payer MEDICAID, SELFPAY | PROVIDERS: PCP Family Medicine; Visit Provider Social Worker Clinical | DX: F33.2 Major depressive disorder, recurrent severe without psychotic features (principal); F68.10 Factitious disorder imposed on self, unspecified | CPT/HCPCS: 90834 ==

== ENCOUNTER → 2021-08-04 08:14 | Outpatient (BNVA) | payer MEDICAID, SELFPAY | PROVIDERS: PCP Family Medicine; Visit Provider Specialist | DX: G43.711 Chronic migraine without aura, intractable, with status migrainosus (principal) | CPT/HCPCS: 96372 ==

== ENCOUNTER → 2021-08-14 07:37 | Outpatient (BNVA) | payer MEDICAID, SELFPAY | PROVIDERS: PCP Family Medicine; Visit Provider Social Worker Clinical | DX: F33.2 Major depressive disorder, recurrent severe without psychotic features (principal); F68.10 Factitious disorder imposed on self, unspecified | CPT/HCPCS: 90834 ==

== ENCOUNTER → 2021-08-21 07:29 | Outpatient (BNVA) | payer MEDICAID, SELFPAY | PROVIDERS: PCP Family Medicine; Visit Provider Social Worker Clinical | DX: F33.2 Major depressive disorder, recurrent severe without psychotic features (principal); F68.10 Factitious disorder imposed on self, unspecified | CPT/HCPCS: 90834 ==

== ENCOUNTER → 2021-08-27 08:24 | Outpatient (BNVA) | payer MEDICAID, SELFPAY | PROVIDERS: PCP Family Medicine; Visit Provider Social Worker Clinical | DX: F33.2 Major depressive disorder, recurrent severe without psychotic features (principal); F68.10 Factitious disorder imposed on self, unspecified | CPT/HCPCS: 90834 ==

== ENCOUNTER → 2021-09-01 08:58 | Outpatient (BNVA) | payer MEDICAID, SELFPAY | PROVIDERS: PCP Family Medicine; Visit Provider Specialist | DX: G43.711 Chronic migraine without aura, intractable, with status migrainosus (principal); Z71.89 Other specified counseling | CPT/HCPCS: 96372; G0463 ==

== ENCOUNTER → 2021-09-02 07:45 | Outpatient (BNVA) | payer MEDICAID, SELFPAY | PROVIDERS: PCP Family Medicine; Visit Provider Social Worker Clinical | DX: F33.2 Major depressive disorder, recurrent severe without psychotic features (principal); F68.10 Factitious disorder imposed on self, unspecified; G43.711 Chronic migraine without aura, intractable, with status migrainosus | CPT/HCPCS: 90832; 96372 ==

== ENCOUNTER → 2021-09-11 08:10 | Outpatient (BNVA) | payer MEDICAID, SELFPAY | PROVIDERS: PCP Family Medicine; Visit Provider Social Worker Clinical | DX: F33.2 Major depressive disorder, recurrent severe without psychotic features (principal); F68.10 Factitious disorder imposed on self, unspecified | CPT/HCPCS: 90834 ==

== ENCOUNTER → 2021-09-18 07:27 | Outpatient (BNVA) | payer MEDICAID, SELFPAY | PROVIDERS: PCP Family Medicine; Visit Provider Social Worker Clinical | DX: F33.2 Major depressive disorder, recurrent severe without psychotic features (principal); F68.10 Factitious disorder imposed on self, unspecified | CPT/HCPCS: 90834 ==

== ENCOUNTER → 2021-09-22 07:40 | Outpatient (BNVA) | payer MEDICAID, SELFPAY | PROVIDERS: PCP Family Medicine; Visit Provider Social Worker Clinical | DX: F33.2 Major depressive disorder, recurrent severe without psychotic features (principal); F68.10 Factitious disorder imposed on self, unspecified | CPT/HCPCS: 90834 ==

== ENCOUNTER → 2021-09-29 07:19 | Outpatient (BNVA) | payer MEDICAID, SELFPAY | PROVIDERS: PCP Family Medicine; Visit Provider Social Worker Clinical | DX: F33.2 Major depressive disorder, recurrent severe without psychotic features (principal); F68.10 Factitious disorder imposed on self, unspecified | CPT/HCPCS: 90834 ==

== ENCOUNTER → 2021-09-30 08:03 | Outpatient (BNVA) | payer MEDICAID, SELFPAY | PROVIDERS: PCP Family Medicine; Visit Provider Specialist | DX: G43.711 Chronic migraine without aura, intractable, with status migrainosus (principal); Z71.89 Other specified counseling | CPT/HCPCS: 96372 ==

== ENCOUNTER → 2021-10-06 08:00 | Outpatient (BNVA) | payer MEDICAID, SELFPAY | PROVIDERS: PCP Family Medicine; Visit Provider Social Worker Clinical | DX: F33.2 Major depressive disorder, recurrent severe without psychotic features (principal); F68.10 Factitious disorder imposed on self, unspecified | CPT/HCPCS: 90834 ==

== ENCOUNTER → 2021-10-13 08:47 | Outpatient (BNVA) | payer MEDICAID, SELFPAY | PROVIDERS: PCP Family Medicine; Visit Provider Social Worker Clinical | DX: F33.2 Major depressive disorder, recurrent severe without psychotic features (principal); F68.10 Factitious disorder imposed on self, unspecified | CPT/HCPCS: 90834 ==

== ENCOUNTER → 2021-10-20 07:44 | Outpatient (BNVA) | payer MEDICAID, SELFPAY | PROVIDERS: PCP Family Medicine; Visit Provider Social Worker Clinical | DX: F33.2 Major depressive disorder, recurrent severe without psychotic features (principal); F68.10 Factitious disorder imposed on self, unspecified | CPT/HCPCS: 90834 ==

== ENCOUNTER → 2021-10-29 07:48 | Outpatient (BNVA) | payer MEDICAID, SELFPAY | PROVIDERS: PCP Family Medicine; Visit Provider Social Worker Clinical | DX: F33.2 Major depressive disorder, recurrent severe without psychotic features (principal); F68.10 Factitious disorder imposed on self, unspecified | CPT/HCPCS: 90834 ==

== ENCOUNTER → 2021-10-30 10:55 | Outpatient (BNVA) | payer MEDICAID, SELFPAY | PROVIDERS: PCP Family Medicine; Visit Provider Specialist | DX: G43.711 Chronic migraine without aura, intractable, with status migrainosus (principal); Z71.89 Other specified counseling | CPT/HCPCS: 96372 ==

== ENCOUNTER → 2021-11-06 07:40 | Outpatient (BNVA) | payer MEDICAID, SELFPAY | PROVIDERS: PCP Family Medicine; Visit Provider Social Worker Clinical | DX: F33.2 Major depressive disorder, recurrent severe without psychotic features (principal); F43.12 Post-traumatic stress disorder, chronic; F68.10 Factitious disorder imposed on self, unspecified | CPT/HCPCS: 90834 ==

== ENCOUNTER → 2021-11-17 07:50 | Outpatient (BNVA) | payer MEDICAID, SELFPAY | PROVIDERS: PCP Family Medicine; Visit Provider Social Worker Clinical | DX: F33.2 Major depressive disorder, recurrent severe without psychotic features (principal); F68.10 Factitious disorder imposed on self, unspecified | CPT/HCPCS: 90834 ==

== ENCOUNTER → 2021-11-25 07:17 | Outpatient (BNVA) | payer MEDICAID, SELFPAY | PROVIDERS: PCP Family Medicine; Visit Provider Social Worker Clinical | DX: F33.2 Major depressive disorder, recurrent severe without psychotic features (principal); F68.10 Factitious disorder imposed on self, unspecified | CPT/HCPCS: 90834 ==

== ENCOUNTER → 2021-11-27 07:49 | Outpatient (BNVA) | payer MEDICAID, SELFPAY | PROVIDERS: PCP Family Medicine; Visit Provider Specialist | DX: G43.711 Chronic migraine without aura, intractable, with status migrainosus (principal); Z71.89 Other specified counseling | CPT/HCPCS: 96372 ==

== ENCOUNTER → 2021-12-01 07:10 | Outpatient (BNVA) | payer MEDICAID, SELFPAY | PROVIDERS: PCP Family Medicine; Visit Provider Social Worker Clinical | DX: F33.2 Major depressive disorder, recurrent severe without psychotic features (principal); F68.10 Factitious disorder imposed on self, unspecified | CPT/HCPCS: 90834 ==

== ENCOUNTER → 2021-12-08 07:11 | Outpatient (BNVA) | payer MEDICAID, SELFPAY | PROVIDERS: PCP Family Medicine; Visit Provider Social Worker Clinical | DX: F33.2 Major depressive disorder, recurrent severe without psychotic features (principal); F68.10 Factitious disorder imposed on self, unspecified; G43.711 Chronic migraine without aura, intractable, with status migrainosus | CPT/HCPCS: 90834; 99213; 99214 ==

== ENCOUNTER → 2021-12-15 07:30 | Outpatient (BNVA) | payer MEDICAID, SELFPAY | PROVIDERS: PCP Family Medicine; Visit Provider Social Worker Clinical | DX: F33.2 Major depressive disorder, recurrent severe without psychotic features (principal); F68.10 Factitious disorder imposed on self, unspecified | CPT/HCPCS: 90834 ==

== ENCOUNTER → 2021-12-22 07:11 | Outpatient (BNVA) | payer MEDICAID, SELFPAY | PROVIDERS: PCP Family Medicine; Visit Provider Social Worker Clinical | DX: F33.2 Major depressive disorder, recurrent severe without psychotic features (principal); F68.10 Factitious disorder imposed on self, unspecified | CPT/HCPCS: 90834 ==

== ENCOUNTER → 2021-12-25 10:19 | Outpatient (BNVA) | payer MEDICAID, SELFPAY | PROVIDERS: PCP Family Medicine; Visit Provider Specialist | DX: G43.711 Chronic migraine without aura, intractable, with status migrainosus (principal); Z71.89 Other specified counseling | CPT/HCPCS: 96372 ==

== ENCOUNTER → 2021-12-30 07:05 | Outpatient (BNVA) | payer MEDICAID, SELFPAY | PROVIDERS: PCP Family Medicine; Visit Provider Social Worker Clinical | DX: F33.2 Major depressive disorder, recurrent severe without psychotic features (principal); F68.10 Factitious disorder imposed on self, unspecified | CPT/HCPCS: 90834 ==

== ENCOUNTER → 2022-01-06 07:47 | Outpatient (BNVA) | payer MEDICAID, SELFPAY | PROVIDERS: PCP Family Medicine; Visit Provider Social Worker Clinical | DX: F33.2 Major depressive disorder, recurrent severe without psychotic features (principal); F68.10 Factitious disorder imposed on self, unspecified | CPT/HCPCS: 90834 ==

== ENCOUNTER → 2022-01-13 08:03 | Outpatient (BNVA) | payer MEDICAID, SELFPAY | PROVIDERS: PCP Family Medicine; Visit Provider Social Worker Clinical | DX: F33.2 Major depressive disorder, recurrent severe without psychotic features (principal); F68.10 Factitious disorder imposed on self, unspecified | CPT/HCPCS: 90834 ==

== ENCOUNTER → 2022-01-20 07:32 | Outpatient (BNVA) | payer MEDICAID, SELFPAY | PROVIDERS: PCP Family Medicine; Visit Provider Social Worker Clinical | DX: F33.2 Major depressive disorder, recurrent severe without psychotic features (principal); F68.10 Factitious disorder imposed on self, unspecified | CPT/HCPCS: 90832 ==

== ENCOUNTER → 2022-01-22 08:23 | Outpatient (BNVA) | payer MEDICAID, SELFPAY | PROVIDERS: PCP Family Medicine; Visit Provider Specialist | DX: Z71.89 Other specified counseling (principal) | CPT/HCPCS: G0463 ==

== ENCOUNTER → 2022-01-28 08:15 | Outpatient (BNVA) | payer MEDICAID, SELFPAY | PROVIDERS: PCP Family Medicine; Visit Provider Social Worker Clinical | DX: F33.2 Major depressive disorder, recurrent severe without psychotic features (principal); F68.10 Factitious disorder imposed on self, unspecified | CPT/HCPCS: 90834 ==

== ENCOUNTER → 2022-02-03 07:36 | Outpatient (BNVA) | payer MEDICAID, SELFPAY | PROVIDERS: PCP Family Medicine; Visit Provider Social Worker Clinical | DX: F33.2 Major depressive disorder, recurrent severe without psychotic features (principal); F68.10 Factitious disorder imposed on self, unspecified | CPT/HCPCS: 90834 ==

== ENCOUNTER → 2022-02-18 08:26 | Outpatient (BNVA) | payer MEDICAID, SELFPAY | PROVIDERS: PCP Family Medicine; Visit Provider Social Worker Clinical | DX: F33.2 Major depressive disorder, recurrent severe without psychotic features (principal); F68.10 Factitious disorder imposed on self, unspecified | CPT/HCPCS: 90834 ==

== ENCOUNTER → 2022-02-23 07:58 | Outpatient (BNVA) | payer MEDICAID, SELFPAY | PROVIDERS: PCP Family Medicine; Visit Provider Specialist | DX: G43.711 Chronic migraine without aura, intractable, with status migrainosus (principal) | CPT/HCPCS: 96372 ==

== ENCOUNTER → 2022-02-25 08:26 | Outpatient (BNVA) | payer MEDICAID, SELFPAY | PROVIDERS: PCP Family Medicine; Visit Provider Social Worker Clinical | DX: F33.2 Major depressive disorder, recurrent severe without psychotic features (principal); F68.10 Factitious disorder imposed on self, unspecified | CPT/HCPCS: 90832 ==

== ENCOUNTER → 2022-03-03 07:59 | Outpatient (BNVA) | payer MEDICAID, SELFPAY | PROVIDERS: PCP Family Medicine; Visit Provider Social Worker Clinical | DX: F33.2 Major depressive disorder, recurrent severe without psychotic features (principal); F68.10 Factitious disorder imposed on self, unspecified | CPT/HCPCS: 90834 ==

== ENCOUNTER → 2022-03-17 07:15 | Outpatient (BNVA) | payer MEDICAID, SELFPAY | PROVIDERS: PCP Family Medicine; Visit Provider Social Worker Clinical | DX: F33.2 Major depressive disorder, recurrent severe without psychotic features (principal); F68.10 Factitious disorder imposed on self, unspecified | CPT/HCPCS: 90834 ==

== ENCOUNTER 2022-03-25 11:17 | Outpatient (CLI) | payer MEDICAID, SELFPAY ==
--- NOTE | 2022-03-25 11:28 | MM_ITS ---
WS: [id number] Bilateral screening 3D tomosynthesis digital mammogram, 03/25/2022 Clinical Data: SCREENING Comparison: None. Findings: The breast parenchymal pattern shows fibroglandular tissue No spiculated masses or clustered calcific ations are seen. There are no secondary signs of carcinoma. MM/[place] [id number] Impression: 1. Negative bilateral mammogram with no prior exam for review. 2. Recommend annual screening mammograms. BIRADS: 1-Negative FOLLOW UP: 1 Year Follow-up The CAD lumber checker was used.
== END 2022-03-25 11:18 | disposition home or self-care (01) ==
PROVIDERS: PCP Family Medicine; Visit Provider Family Medicine
DX: F33.2 Major depressive disorder, recurrent severe without psychotic features (principal); F68.10 Factitious disorder imposed on self, unspecified; G43.711 Chronic migraine without aura, intractable, with status migrainosus
CPT/HCPCS: 90834; 77063; 77067; 96372

== ENCOUNTER → 2022-03-31 07:31 | Outpatient (BNVA) | payer MEDICAID, SELFPAY | PROVIDERS: PCP Family Medicine; Visit Provider Social Worker Clinical | DX: F33.2 Major depressive disorder, recurrent severe without psychotic features (principal); F68.10 Factitious disorder imposed on self, unspecified | CPT/HCPCS: 90834 ==

== ENCOUNTER → 2022-04-07 07:33 | Outpatient (BNVA) | payer MEDICAID, SELFPAY | PROVIDERS: PCP Family Medicine; Visit Provider Social Worker Clinical | DX: F33.2 Major depressive disorder, recurrent severe without psychotic features (principal); F68.10 Factitious disorder imposed on self, unspecified | CPT/HCPCS: 90834 ==

== ENCOUNTER → 2022-04-08 10:30 | Outpatient (BNVA) | payer MEDICAID, SELFPAY | PROVIDERS: PCP Family Medicine; Visit Provider Specialist | DX: G43.711 Chronic migraine without aura, intractable, with status migrainosus (principal) | CPT/HCPCS: 96372; 99213; 99214 ==

== ENCOUNTER → 2022-04-14 11:05 | Outpatient (BNVA) | payer MEDICAID, SELFPAY | PROVIDERS: PCP Family Medicine; Visit Provider Social Worker Clinical | DX: F41.1 Generalized anxiety disorder (principal) | CPT/HCPCS: 90791 ==

== ENCOUNTER → 2022-04-21 09:00 | Outpatient (BNVA) | payer MEDICAID, SELFPAY | PROVIDERS: PCP Family Medicine; Visit Provider Social Worker Clinical | DX: F33.2 Major depressive disorder, recurrent severe without psychotic features (principal); F68.10 Factitious disorder imposed on self, unspecified | CPT/HCPCS: 90832 ==

== ENCOUNTER → 2022-04-22 07:51 | Outpatient (BNVA) | payer MEDICAID, SELFPAY | PROVIDERS: PCP Family Medicine; Visit Provider Specialist | DX: G43.711 Chronic migraine without aura, intractable, with status migrainosus (principal); Z71.89 Other specified counseling | CPT/HCPCS: 96372 ==

== ENCOUNTER → 2022-05-05 07:33 | Outpatient (BNVA) | payer MEDICAID, SELFPAY | PROVIDERS: PCP Family Medicine; Visit Provider Social Worker Clinical | DX: F68.10 Factitious disorder imposed on self, unspecified (principal); F41.1 Generalized anxiety disorder | CPT/HCPCS: 90834 ==

== ENCOUNTER → 2022-05-20 07:58 | Outpatient (BNVA) | payer MEDICAID, SELFPAY | PROVIDERS: PCP Family Medicine; Visit Provider Specialist | DX: G43.711 Chronic migraine without aura, intractable, with status migrainosus (principal) | CPT/HCPCS: 96372 ==

== ENCOUNTER → 2022-06-23 07:58 | Outpatient (BNVA) | payer MEDICAID, SELFPAY | PROVIDERS: PCP Family Medicine; Visit Provider Specialist | DX: G43.711 Chronic migraine without aura, intractable, with status migrainosus (principal); Z71.89 Other specified counseling | CPT/HCPCS: 96372 ==

== ENCOUNTER → 2022-07-23 08:02 | Outpatient (BNVA) | payer MEDICAID, SELFPAY | PROVIDERS: PCP Family Medicine; Visit Provider Specialist | DX: G43.711 Chronic migraine without aura, intractable, with status migrainosus (principal); Z71.89 Other specified counseling | CPT/HCPCS: 96372; G0463 ==

== ENCOUNTER → 2022-08-24 07:46 | Outpatient (BNVA) | payer MEDICARE, MEDICAID, SELFPAY | PROVIDERS: PCP Family Medicine; Visit Provider Specialist | DX: G43.711 Chronic migraine without aura, intractable, with status migrainosus (principal) | CPT/HCPCS: 96372 ==

== ENCOUNTER → 2022-09-14 08:58 | Outpatient (BNVA) | payer MEDICARE, MEDICAID, SELFPAY | PROVIDERS: PCP Family Medicine; Visit Provider Specialist | DX: G43.711 Chronic migraine without aura, intractable, with status migrainosus (principal) | CPT/HCPCS: 96372 ==

== ENCOUNTER → 2022-09-24 07:59 | Outpatient (BNVA) | payer MEDICARE, MEDICAID, SELFPAY | PROVIDERS: PCP Family Medicine; Visit Provider Specialist | DX: G43.711 Chronic migraine without aura, intractable, with status migrainosus (principal) | CPT/HCPCS: 96372 ==

== ENCOUNTER → 2022-10-12 11:04 | Outpatient (BNVA) | payer MEDICARE, MEDICAID, SELFPAY | PROVIDERS: PCP Family Medicine; Visit Provider Specialist | DX: G43.711 Chronic migraine without aura, intractable, with status migrainosus (principal) | CPT/HCPCS: 99213 ==

== ENCOUNTER → 2022-10-27 08:00 | Outpatient (BNVA) | payer MEDICARE, MEDICAID, SELFPAY | PROVIDERS: PCP Family Medicine; Visit Provider Specialist | DX: G43.711 Chronic migraine without aura, intractable, with status migrainosus (principal) | CPT/HCPCS: 96372 ==

== ENCOUNTER → 2022-11-26 07:54 | Outpatient (BNVA) | payer MEDICARE, MEDICAID, SELFPAY | PROVIDERS: PCP Family Medicine; Visit Provider Specialist | DX: G43.711 Chronic migraine without aura, intractable, with status migrainosus (principal) | CPT/HCPCS: 96372 ==

== ENCOUNTER → 2022-12-28 07:45 | Outpatient (BNVA) | payer MEDICARE, MEDICAID, SELFPAY | PROVIDERS: PCP Family Medicine; Visit Provider Specialist | DX: G43.711 Chronic migraine without aura, intractable, with status migrainosus (principal) | CPT/HCPCS: 96372 ==

== ENCOUNTER → 2022-12-30 09:02 | Outpatient (BNVA) | payer MEDICARE, MEDICAID, SELFPAY | PROVIDERS: PCP Family Medicine; Visit Provider Internal Medicine Pulmonary Disease | DX: R05.3 Chronic cough (principal); R06.02 Shortness of breath; R06.09 Other forms of dyspnea | CPT/HCPCS: 36415; 80053; 82785; 83880; 85651; 86003; 86140 ==

== ENCOUNTER → 2022-12-30 11:19 | Outpatient (BNVA) | payer MEDICARE, MEDICAID, SELFPAY | PROVIDERS: PCP Family Medicine; Visit Provider Internal Medicine Pulmonary Disease | DX: R05.3 Chronic cough (principal); R06.02 Shortness of breath; J45.909 Unspecified asthma, uncomplicated; M25.541 Pain in joints of right hand; M25.542 Pain in joints of left hand | CPT/HCPCS: 36415; 71046; 80053; 82785; 83880; 85651; 86003; 86140; 99204 ==

== ENCOUNTER 2023-01-20 07:14 | Outpatient (CLI) | payer MEDICARE, MEDICAID, SELFPAY ==
[2023-01-20 07:44] VITALS: PULSE 69; RESP 18; O2SAT 96
[2023-01-20] MEDS: albuterol 2.5 mg/3 mL Neb INHALATION (07:44)
[2023-01-20 07:49] VITALS: PULSE 73
== END 2023-01-20 07:15 | disposition home or self-care (01) ==
PROVIDERS: PCP Family Medicine; Visit Provider Internal Medicine Pulmonary Disease
DX: R06.09 Other forms of dyspnea (principal)
CPT/HCPCS: 36415; 80053; 82785; 83880; 85651; 86003; 86140; 94060; 94618; 94726; 94729; J7613

== ENCOUNTER → 2023-01-25 07:52 | Outpatient (BNVA) | payer MEDICARE, MEDICAID, SELFPAY | PROVIDERS: PCP Family Medicine; Visit Provider Specialist | DX: G43.711 Chronic migraine without aura, intractable, with status migrainosus (principal) | CPT/HCPCS: 96372 ==

== ENCOUNTER → 2023-02-09 13:35 | Outpatient (BNVA) | payer MEDICARE, MEDICAID, SELFPAY | PROVIDERS: PCP Family Medicine; Visit Provider Internal Medicine Pulmonary Disease | DX: R05.3 Chronic cough (principal); J45.909 Unspecified asthma, uncomplicated; M25.541 Pain in joints of right hand; M25.542 Pain in joints of left hand | CPT/HCPCS: 99214 ==

== ENCOUNTER → 2023-03-01 08:42 | Outpatient (BNVA) | payer MEDICARE, MEDICAID, SELFPAY | PROVIDERS: PCP Family Medicine; Visit Provider Specialist | DX: G43.711 Chronic migraine without aura, intractable, with status migrainosus (principal) | CPT/HCPCS: 96372 ==

== ENCOUNTER → 2023-04-06 13:03 | Outpatient (BNVA) | payer MEDICARE, MEDICAID, SELFPAY | PROVIDERS: PCP Family Medicine; Visit Provider Specialist | DX: G43.711 Chronic migraine without aura, intractable, with status migrainosus (principal) | CPT/HCPCS: 99213 ==

== ENCOUNTER → 2023-08-06 07:59 | Outpatient (BNVA) | payer MEDICARE, MEDICAID, SELFPAY | PROVIDERS: PCP Family Medicine; Visit Provider Internal Medicine Pulmonary Disease | DX: R05.3 Chronic cough (principal); J45.909 Unspecified asthma, uncomplicated; M25.541 Pain in joints of right hand; M25.542 Pain in joints of left hand | CPT/HCPCS: 99214 ==

== ENCOUNTER → 2024-02-03 07:44 | Outpatient (BNVA) | payer MEDICARE, MEDICAID, SELFPAY | PROVIDERS: PCP Family Medicine; Visit Provider Internal Medicine Pulmonary Disease | DX: R05.3 Chronic cough (principal); J45.909 Unspecified asthma, uncomplicated; M25.541 Pain in joints of right hand; M25.542 Pain in joints of left hand | CPT/HCPCS: 99214 ==

== ENCOUNTER → 2024-03-13 08:00 | Outpatient (BNVA) | payer MEDICARE, MEDICAID, SELFPAY | PROVIDERS: PCP Family Medicine; Visit Provider Internal Medicine Pulmonary Disease | DX: R05.3 Chronic cough (principal); J45.40 Moderate persistent asthma, uncomplicated; M25.541 Pain in joints of right hand; M25.542 Pain in joints of left hand | CPT/HCPCS: 99214 ==

== ENCOUNTER → 2024-03-17 13:50 | Outpatient (BNVA) | payer MEDICARE, OTHER, SELFPAY | PROVIDERS: PCP Family Medicine; Visit Provider Nurse Practitioner Psychiatric/Mental Health | DX: Z79.899 Other long term (current) drug therapy (principal); F33.1 Major depressive disorder, recurrent, moderate; F43.12 Post-traumatic stress disorder, chronic; F41.1 Generalized anxiety disorder | CPT/HCPCS: 82306; 82607 ==

== ENCOUNTER → 2024-03-29 12:24 | Outpatient (BNVA) | payer MEDICARE, MEDICAID, SELFPAY | PROVIDERS: PCP Family Medicine; Visit Provider Specialist | DX: G43.711 Chronic migraine without aura, intractable, with status migrainosus (principal) | CPT/HCPCS: 99213 ==

== ENCOUNTER 2024-05-05 14:48 | Outpatient (CLI) | payer MEDICARE, MEDICAID, SELFPAY ==
--- NOTE | 2024-05-05 14:53 | USCV_ITS ---
Greta Alvarado Age: 53 Gender: F : 1970 Exam Date: 05/05/2024 15:09 Ordering Phys: Don Jeffery MD Technologist: JACKELIN Exam Location: [facility] [place], [place] Indication: LLE PAIN AND SWELLING HISTORY: Lower extremity pain. Lower extremity swelling. PROCEDURES: Venous duplex imaging was performed in only the left lower extremity. The following venous structures were evaluated: common femoral vein, profunda vein, proximal portion of the greater saphenous vein, superficial femoral vein, and the popliteal vein. In addition, the posterior tibial and peroneal trunk were evaluated. Serial compression, augmentation maneuvers, and spectral Doppler flow evaluation were performed. FINDINGS: Normal 2-D Doppler and augmentation and compressibility throughout the lower extremity venous structures. Additional imaging through the proximal calf veins also reveals no thrombus. Limited evaluation of the greater saphenous vein is patent with no thrombus. CONCLUSIONS No DVT left lower extremity. Technically limited evaluation due to poor imaging parameters. Dr. Sita Jacobson DO (Electronically Signed) Final Date: 05 May 2024 15:47 S
== END 2024-05-05 14:49 | disposition home or self-care (01) ==
PROVIDERS: PCP Family Medicine; Visit Provider Family Medicine
DX: M79.662 Pain in left lower leg (principal)
CPT/HCPCS: 93971

== ENCOUNTER → 2024-12-26 10:28 | Outpatient (BNVA) | payer MEDICARE, MEDICAID, SELFPAY | PROVIDERS: PCP Family Medicine; Visit Provider Specialist | DX: G43.711 Chronic migraine without aura, intractable, with status migrainosus (principal); I61.8 Other nontraumatic intracerebral hemorrhage | CPT/HCPCS: 99213 ==

== ENCOUNTER 2025-01-30 07:54 | Outpatient (CLI) | payer MEDICARE, MEDICAID, SELFPAY ==
--- NOTE | 2025-01-30 07:58 | MR_ITS ---
WS: [id number] MRI BRAIN WITHOUT CONTRAST HISTORY: CHRONIC MIGRAINE W/O AURA, INTRACTABLE/MICROHEMORRHAGES COMPARISON: 08/09/2020 TECHNIQUE: Diffusion imaging, multiplanar T1, T2 and FLAIR imaging obtained. No evidence for acute infarct or hemorrhage. Maddox-white matter differentiation is normal. No large territory infarct. Mild supratentorial white matter changes are nonspecific. These are unchanged since the prior study with no progression. No significant volume loss in the posterior fossa. Reidentified are 2 small foci of susceptibility artifact in the LEFT and RIGHT parietal lobes. No interval change. No surrounding edema and no progression of microhemorrhages. No hippocampal atrophy. Ventricles and extra-axial spaces are normal. No inferior displacement of cerebellar tonsils. The sella turcica and pituitary gland are unremarkable. Dural venous sinuses and soboba of Hawthorne demonstrate no abnormality on this unenhanced studies. Paranasal sinuses: Tiny air-fluid level in the LEFT maxillary sinus. Mastoid air cells: Normal. Calvarium and scalp: Intact. MR/MR head wo con* [id number] IMPRESSION: 1. No acute infarct, edema or mass effect. 2. Stable microhemorrhages in the LEFT and RIGHT parietal lobes since 2019. 3. Mild and stable white matter changes as seen on the prior study. This can b e seen with small vessel disease, migraines, diabetes and hypertension. 4. No significant volume loss. No hippocampal atrophy.
== END 2025-01-30 07:55 | disposition home or self-care (01) ==
PROVIDERS: PCP Family Medicine; Visit Provider Specialist
DX: G43.711 Chronic migraine without aura, intractable, with status migrainosus (principal); R93.0 Abnormal findings on diagnostic imaging of skull and head, not elsewhere classified; I61.8 Other nontraumatic intracerebral hemorrhage
CPT/HCPCS: 70551

== ENCOUNTER 2025-05-29 18:59 | Emergency (ER) | payer MEDICARE, MEDICAID, SELFPAY ==
[2025-05-29 19:00] VITALS: BP 123/77; PULSE 76; RESP 16; TEMP 36.6; O2SAT 100
--- OUTSIDE RECORDS SUMMARY | 2025-05-29 19:04 | XMS_ITS | Clinical Summary ---
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 Gender Identity Not on file Sexual Orientation Not on file Plan of Treatment Health Maintenance Due Date Last Done Comments DTAP/TDAP/TD VACCINES (1 - Tdap) 1988 HEPATITIS B VACCINES (1 of 3 - 19+ 3-dose series) 10/08 HPV/Cotest (21-29) 1990 CERVICAL CANCER SCREENING 1999 HPV/Cotest (30-65) 1999 PAP SMEAR 1999 BREAST CANCER SCREENING 2009 COLORECTAL SCREENING 2014 Colorectal Cancer Screening 2014 FIT-DNA Q 3 years 2014 FIT/FOBT Q 1 year 2014 Flex Sig/CT Colonography Q 5 years 2014 ZOSTER VACCINE (1 of 2) 2019 INFLUENZA VACCINE (#1) 2025 Insurance [place]ICAID [place] Care Teams Wallpaperer Relationship Specialty Start Date End Date Conversion, History NO ADDRESS ON FILE PCP - General 05/22/07
--- OUTSIDE RECORDS SUMMARY | 2025-05-29 19:04 | XMS_ITS | Encounter Summary ---
Author Organization [facility] Address [address] [place] [address] Care Team Providers Care Ditch Tender Name Role Phone Conversion, History Primary Care Provider Paolo loza Encounter Details Date Type Department Care Team (Late st Contact Info) Description 05/22/2007 Emergency [facility] Emergency Services [address] [place] [phone] Javier Marino, DO NO ADDRESS ON FILE Ed, Physician NO ADDRESS ON FILE Other Closed Fractures of Distal End of Radius (Alone) (Primary Dx) Social History Tobacco Use Types Packs/Day Years Used Date Smoking Tobacco: Never Assessed Comments Unknown Sex and Gender Information Value Date Recorded Sex Assigned at Not on file 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
--- OUTSIDE RECORDS SUMMARY | 2025-05-29 19:04 | XMS_ITS | Patient Health Record ---
Author Organization [facility] Address [address] [place], [place] [id number] Care Team Providers Care Mounter Hand Name Role Phone Don Jeffery MD Primary Care Provider Nupur Llamas MD, Nick Unavailable [phone] Allergies Allergen (clinical drug ingredient) Drug/Non Drug Allergy documented on EMR Reaction Allergy Type Onset Date Status Not verifiable (uncoded) Unknown Allergy Active Reason For Referral No Information Medications Medication SIG (Take, Route, Frequency, Duration) Notes Start Date End Date Status Linzess 145 mcg 1 cap orally once a day Active omeprazole 20 mg 1 cap orally once a day Active montelukast 10 mg 1 tab orally once a day Active busPIRone 30 mg 1 tab orally 2 times a day Active hydrOXYzine hydrochloride 25 mg 1 tab orally 3 times a day Active ibuprofen 600 mg 1 tab po orally Q6H prn pain; take with food Active propranolol 20 mg 1 tab orally 2 times a day Active tiZANidine 4 mg 1 tab po orally QID prn spasm Active buPROPion 300 mg/24 hours 1 tab orally e very 24 hours / also takes 150 mg once a day Active doxepin 50 mg 1 cap orally 3 times a day Active gabapentin 100 mg 1 cap po orally TID Active traMADol 50 mg 1 tab po orally Q4H prn pain Active dicyclomine 20 mg 1 tab orally 2 times a day Active clonazePAM 0.5 mg 1/2 - 1 tab orally 2 times a day Active Social History Tobacco Use: Social History Observation Description Date Details (start date - stop date) Never Smoker NA - NA alcohol Question Answer Notes Did you have a drink containing alcohol in the p ast year? No Points 0 Interpretation Negative Tobacco use: Question Answer Notes : nonsmoker Problems Problem Type SNOMED Code ICD Code Onset Dates Problem Status W/U Status Risk Notes Problem Solitary sacroiliitis (291285742) Sacroiliitis, not elsewhere classified (M46.1) Active confirmed Problem Low back pain (025850440) Low back pain (M54.5) Active confirmed Problem High risk drug monitoring status (916970014) custodial (current) use of opiate analgesic (Z79.891) Active confirmed Problem Obstructive sleep apnea syndrome (34395519) Obstructive sleep apnea (adult) (pediatric) (G47.33) Active confirmed Problem Acquired spondylolisthesis (969636895) Spondylolisthesis , lumbar region (M43.16) Active confirmed Problem Disorder of lumbar disc (187374913) Other intervertebral disc disorders, 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) Active confirmed Problem Long-term current use of drug therapy (023100021) Other snf (current) drug therapy (Z79.899) Active confirmed Plan Of Treatment No Information Insurance Providers Payer Name Payer Address Payer Phone Subscriber Number Group Number Insured Name Patient Relationship to Insured Coverage Start Date Coverage End Date [facility] [employer] [address] [place] [address] [id number] Greta Cash Self - patient is the insured Medical (General) History Medical History History ICD Code See prior documentation Surgical History Surgery Date(Month/Year) , 1995 LAVH (ovaries remain), 2001 Cholecystectomy, 03/2016 Neck surgery, performed at [facility] [place] by Dr. Victoriano drake, 11/2017 Hospitalization History Reason Date(Month/Year) Child , 02/02/92, 05/05/96, 05/18/97
--- OUTSIDE RECORDS SUMMARY | 2025-05-29 19:04 | XMS_ITS | Encounter Summary ---
Author Organization [facility] Address [address] [place] [address] Care Team Providers Care Lot Boss Name Role Phone Conversion, History Primary Care Provider Paolo loza Encounter Details Date Type Department Care Team (Latest Contact Info) Description 03/11/2005 Outpatient Historical [facility] Oral and Maxillo Surgery[address] [place] [address] Shabbir Emanuel, DDS [address] [place] [phone] UNSPEC DENTAL CARIES (Primary Dx) Social History Tobacco Use Types Packs/Day Years Used Date Smoking Tobacco: Never Assessed Comments Unknown Sex and Gender Information Value Date Recorded Sex Assigned at Not on file 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
[2025-05-29 19:35] VITALS: BP 155/88; PULSE 74; O2SAT 97
[2025-05-29 19:54] LABS: Hematocrit 44.8 % (36-47); Hemoglobin 14.60 g/dL (11.27-16.99); Mean Corpuscular HGB Conc 32.6 g/dL (30-55); Mean Corpuscular Hemoglobin 30.0 pg (27-33); Mean Corpuscular Volume 92.0 fl (85-98); Nucleated Red Blood Cells % 0 %; Platelet Count 224 10^3/cmm (157-399); Red Blood Count 4.87 10^6/uL (3.85-5.65); White Blood Count 8.28 10^3/uL (3.29-11.43)
[2025-05-29 20:04] LABS: Glucose Urine UA Negative (Normal); Nitrate Urine Positive (Negative); Specific Gravity, Urine 1.028 (1.005-1.030)
[2025-05-29 20:09] LABS: Add Urine Microscopic? YES; Universal Test for UA Present (0)
--- NOTE | 2025-05-29 20:15 | CTR_ITS ---
PROCEDURE INFORMATION: Exam: CT Abdomen And Pelvis With Contrast Exam date and time: 05/29/2025 8:36 PM Age: 54 years old Clinical indication: Abdominal pain; Epigastric; Prior surgery; Surgery date: 6+ months; Surgery type: Gb, tubal, gastric bypass; Additional info: Sbo, gastric pain, h/o gastric bypass TECHNIQUE: Imaging protocol: Computed tomography of the abdomen and pelvis with contrast. Radiation optimization: All CT scans at this facility use at least one of these dose optimization techniques: automated exposure control; mA and/or kV adjustment per patient size (includes targeted exams where dose is matched to clinical indication); or iterative reconstruction. Contrast material: OMNI 350; Contrast volume: 100 ml; Contrast route: INTRAVENOUS (IV); COMPARISON: CT abdomen pelvis w con* [id number] 06/19/2020 8:39 AM RADIATION DOSE METRICS: Total DLP (mGy-cm): 635.9 FINDINGS: Liver: Normal. No mass. Gallbladder and biliary ducts: Post cholecystectomy. Pancreas: Normal. No ductal dilation. Spleen: Normal. No splenomegaly. Adrenal glands: Normal. No mass. Kidneys and ureters: Normal. No hydronephrosis. Stomach and bowel: Status post Angie-en-Y gastric bypass. Appendix: No evidence of appendicitis. Intraperitoneal space: Unremarkable. No free air. No significant fluid collection. Vasculature: Unremarkable. No abdominal aortic aneurysm. Lymph nodes: Unremarkable. No enlarged lymph nodes. Urinary bladder: Unremarkable as visualized. Reproductive: Status post hysterectomy. Bones/joints: Unremarkable. No acute fracture. Soft tissues: Unremarkable. CT/CT abdomen pelvis w con* [id number] IMPRESSION: No acute findings.
--- NOTE | 2025-05-29 20:18 | W.ED.ABDPA2 ---
HPI - Abdominal Pain General: Chief Complaint: Abdominal Pain Stated Complaint: abd pain, n/d Time Seen by Provider: 05/29/25 19:59 History of Present Illness: Patient is a 54-year-old female presents ED with ongoing nausea, inability to vomit, and feels as if she has fullness in her upper abdomen. She has a history of gastric bypass 2 years ago, however has not had any issues. She has not had any sick contact. Denies ability to pass gas. Last bowel movement was yesterday and was loose. No fevers. Potentially bloating. Status post cholecystectomy. Associated Symptoms: Reports belching, change in bowel habits, diarrhea, heartburn, nausea, vomiting (c/n vomit; however feels as if she should) and other (c/n pass gas); Denies constipation, excessive flatus, fever(s), hematochezia and syncope Related Data Home Medications ?Medication ?Instructions ?Recorded ?Confirmed tizanidine 4 mg capsule 4 mg PO BID PRN 12/30/22 05/10/25 albuterol sulfate 90 mcg/actuation 2 puff inhalation Q6H PRN 02/09/23 05/10/25 aerosol inhaler azelastine 137 mcg (0.1 %) nasal 2 spray intranasal BID 02/09/23 05/10/25 spray diclofenac sodium 75 mg 75 mg PO BID 02/09/23 05/10/25 tablet,delayed release dicyclomine 20 mg tablet 20 mg PO BID 02/09/23 05/10/25 fluticasone propionate 50 2 spray intranasal DAILY 02/09/23 05/10/25 mcg/actuation nasal spray,suspension (Allergy Relief (fluticasone)) Held on 02/01/25. Instructions: Patient No Longer Taking montelukast 10 mg tablet 10 mg PO DAILY 02/09/23 05/10/25 famotidine 20 mg tablet 20 mg PO BID 11/12/23 05/10/25 cholecalciferol (vitamin D3) 1,250 PO .BID WEEKLY 12/17/23 05/10/25 mcg (50,000 unit) tablet pregabalin 225 mg capsule 225 mg PO BID 11/29/24 05/10/25 cyanocobalamin (vitamin B-12) mcg IM 12/26/24 05/10/25 1,000 mcg/mL injection solution pantoprazole 40 mg tablet,delayed mg PO 12/26/24 05/10/25 release Previous Rx's ?Medication ?Instructions ?Recorded CPAP #1 ea 10/12/22 erenumab-aooe 140 mg/mL See Rx Instructions .Route 12/26/24 subcutaneous auto-injector .COMPLEX #1 mL (Aimovig Autoinjector) bupropion HCl 150 mg 24 hr tablet, 150 mg PO QAM #30 tabs 05/10/25 extended release doxepin 50 mg capsule 50 mg PO DAILY #30 caps 05/10/25 cefdinir 300 mg capsule 300 mg PO BID 10 days #20 caps 05/29/25 ondansetron 4 mg disintegrating 4 mg PO Q8H PRN nausea and 05/29/25 tablet vomiting 4 days #14 tabs Allergies Allergy/AdvReac Type Severity Reaction Status Date / Time clonazepam (From Klonopin) Allergy ADR-Dizzine Verified 05/10/25 08:21 ss morphine Allergy irritation Verified 05/10/25 08:21 duloxetine (From Cymbalta) AdvReac Severe ADR-Confusi Verified 05/10/25 08:21 on latex AdvReac Mild rash Verified 05/10/25 08:21 Review of Systems Const: Reports: change in appetite, fatigue and malaise; Denies: fever(s) or change in weight Eyes: Denies: change in vision, blurry vision, blind spots, photophobia, eye discomfort or seeing flashes ENMT: Reports: change in hearing; Denies: throat pain, odynophagia, hoarseness, tinnitus, sinus pain or other (loss of taste/smell) Card: Denies: chest pain, palpitations or syncope Resp: Reports: dyspnea; Denies: non-productive cough, wheezing or hemoptysis GI: Reports: nausea, vomiting (c/n vomit; however feels as if she should), heartburn, diarrhea, belching, change in bowel habits and other (c/n pass gas); Denies: abdominal pain, dysphagia, constipation, excessive flatus or hematochezia : Denies: urinary frequency or urinary incontinence Musc: Denies: neck pain or muscle weakness Skin/Breast: Denies: rash, new lesions or breast mass Neuro: Reports: difficulty walking and other (sleep apnea); Denies: headache(s), numbness in extremities, weakness in extremities, sensory changes, Slurred speech present or seizure-like activity Psych: Reports: irritability, memory loss and difficulty concentrating; Denies: depression or other (personality changes) Endo: Reports: polydipsia; Denies: polyuria, excessive sweating or change in body appearance Shimon/Lymph: Reports: easy bruising; Denies: easy bleeding or enlarged lymph nodes PFS ED PFSH: Medical History (Updated 05/29/25 @ 21:06 by WES Alfaro) Post-traumatic stress disorder, chronic Major depressive disorder, recurrent, moderate Generalized anxiety disorder Psychiatric care Family History Other Cancer Diabetes Hypertension Denies family history of CAD (coronary artery disease) Anesthesia complication Bleeding disorder Social History Smoking and tobacco/nicotine status: never used tobacco/nicotine Alcohol intake: never Substance/Drug Use: never Household members: spouse Marital status: Current occupational status: disabled Current gender identity: Female Physical Exam Const: COMMON NORMALS: no acute distress, average body habitus, patient oriented x3 and alert GENERAL APPEARANCE: cooperative HENMT: COMMON NORMALS: normocephalic and atraumatic HEAD & SCALP: normocephalic and atraumatic Eye: COMMON NORMALS: Equal, round and reactive pupils present and EOMs intact bilaterally PUPIL: Yes Equal, round and reactive pupils present Lymph: LYMPHATIC: no lymphadenopathy noted Chest: COMMONS NORMALS: normal inspection of the chest and normal palpation of entire chest wall Resp: COMMON NORMALS: normal respiratory effort and clear to auscultation bilaterally AUSCULTATION: clear to auscultation bilaterally Cardio: COMMON NORMALS: regular rate and regular rhythm RATE: regular rate RHYTHM: regular rhythm GI: AUSCULTATION: Yes High-pitched bowel sounds present PALPATION: Yes Firmness to palpation present (GI) (semi), Yes Tenderness to palpation present (GI) Details: other (diffusely mildly without guarding), No Guarding due to palpation present (GI), No Rigid due to palpation and No Ascites present : COMMON NORMALS: Yes no CVA tenderness BLADDER/KIDNEY EXAM: Yes no CVA tenderness Back/Pelvis: COMMON NORMALS: no CVA tenderness Extremity: COMMON NORMALS: normal to inspection, full ROM and capillary refill normal Neuro: COMMON NORMALS: patient oriented x3 SENSORIUM/ORIENTATION: Yes alert Psych: COMMON NORMALS: mental status grossly normal and Normal thought process present THOUGHT PROCESS: Normal thought process present Skin: COMMON NORMALS: no rashes or lesions noted and no wounds GENERAL SKIN EXAM: no rashes or lesions noted Course Vital Signs: Vital signs: Vital Signs Temperature 97.9 F 05/29/25 19:00 Pulse Rate 61 05/29/25 20:25 Respiratory Rate 16 05/29/25 19:00 Blood Pressure 155/88 05/29/25 20:25 Pulse Oximetry 98 05/29/25 20:25 Oxygen Delivery Me thod Room Air 05/29/25 20:25 MDM - Abdominal Pain Medical Decision Making Patient is a 54-year-old female status post gastric bypass and cholecystectomy that presented to ED with upper abdominal pain tenderness, semifirm, high-pitched bowel sounds, and not passing gas. Clinically she has an SBO. Will obtain routine workup, CT with contrast given her history of gastric bypass, continue n.p.o. status, place IV, give IV fluids, antiemetics, and will check with primary surgeon of gastric bypass at [facility] after initial workup. CT was negative for small bowel obstruction. There was some nonspecific gas patterns, not mention by radiology. In any event, appears to be consistent with pyuria and UTI. Will discharge with antiemetic and antibiotic and follow-up closely with primary care physician. Lab Data 05/29/25 19:48 05/29/25 19:48 Labs/Radiology: Radiology Impressions Abdomen/Pelvis CT 05/29/25 20:15 IMPRESSION: No acute findings. Laboratory Results WBC 8.28 10^3/uL (3.29-11.43) 05/29/25 19:48 RBC 4.87 10^6/uL (3.85-5.65) 05/29/25 19:48 Hgb 14.60 g/dL (11.27-16.99) 05/29/25 19:48 Hct 44.8 % (36-47) 05/29/25 19:48 MCV 92.0 fl (85-98) 05/29/25 19:48 MCH 30.0 pg (27-33) 05/29/25 19:48 MCHC 32.6 g/dL (30-55) 05/29/25 19:48 RDW 13.3 % (12.1-15.1) 05/29/25 19:48 Plt Count 224 10^3/cmm (157-399) 05/29/25 19:48 MPV 11.9 fL (7.4-10.4) H 05/29/25 19:48 Neut % (Auto) 70.9 % 05/29/25 19:48 Lymph % (Auto) 19.7 % 05/29/25 19:48 [place] % (Auto) 6.8 % 05/29/25 19:48 Eos % (Auto) 1.6 % 05/29/25 19:48 Baso % (Auto) 0.6 % 05/29/25 19:48 Neut # (Auto) 5.88 10^3/uL (1.8-7.7) 05/29/25 19:48 Lymph # (Auto) 1.6 10^3/uL (0.8-4.8) 05/29/25 19:48 [place] # (Auto) 0.6 10^3/uL (0.2-0.9) 05/29/25 19:48 Eos # (Auto) 0.1 10^3/uL (0.0-0.8) 05/29/25 19:48 Baso # (Auto) 0.1 10^3/uL (0.0-0.1) 05/29/25 19:48 Nucleated RBC % (auto) 0 % 05/29/25 19:48 Nucleated RBCs # 0.0 /100WBC 05/29/25 19:48 Sodium 143 mmol/L (136-145) 05/29/25 19:48 Potassium 3.6 mmol/L (3.5-5.1) 05/29/25 19:48 Chloride 104 mmol/L (98-107) 05/29/25 19:48 Carbon Dioxide 25 mmol/L (22-29) 05/29/25 19:48 Anion Gap 17.6 (5-19) 05/29/25 19:48 BUN 27 mg/dL (6-20) H 05/29/25 19:48 Creatinine 1.3 mg/dL (0.5-0.9) H 05/29/25 19:48 GFR Calculation 42.5 mL/min (90-130) L 05/29/25 19:48 Glucose 80 mg/dL (65-115) 05/29/25 19:48 Calculated Osmolality 300 mOsm/kg (285-295) H 05/29/25 19:48 Calcium 9.3 mg/dL (8.5-10.5) 05/29/25 19:48 Total Bilirubin 0.5 mg/dL (0.15-1.2) 05/29/25 19:48 AST 16 U/L (0-32) 05/29/25 19:48 ALT 15 U/L (0-33) 05/29/25 19:48 Alkaline Phosphatase 134 U/L (35-105) H 05/29/25 19:48 Total Protein 7.7 g/dL (6.6-8.7) 05/29/25 19:48 Albumin 4.7 g/dL (3.5-5.2) 05/29/25 19:48 Globulin 3.0 g/dL (1.3-4.6) 05/29/25 19:48 Lipase 49 U/L (13-60) 05/29/25 19:48 Urine Color Dark yellow (Yellow) A 05/29/25 19:45 Urine Appearance Cloudy (CLEAR) A 05/29/25 19:45 Urine pH 5.0 (5-7) 05/29/25 19:45 Ur Specific [place] 1.028 (1.005-1.030) 05/29/25 19:45 Urine Protein 1+ (Negative) A 05/29/25 19:45 Urine Glucose (UA) Negative (Normal) 05/29/25 19:45 Urine Ketones Trace (Negative) 05/29/25 19:45 Urine Blood Negative (Negative) 05/29/25 19:45 Urine Nitrate Positive (Negative) A 05/29/25 19:45 Urine Bilirubin Negative (Negative) 05/29/25 19:45 Urine Urobilinogen 2.0 mg/dL (Negative) H 05/29/25 19:45 Ur Leukocyte Esterase 1+ (Negative) A 05/29/25 19:45 Urine RBC 11-20 /hpf (0-2) H 05/29/25 19:45 Urine WBC 6-10 /hpf (0-5) 05/29/25 19:45 Ur Squamous Epith Cells 0-5 /hpf (0-5) 05/29/25 19:45 Calcium Oxalate Crystal 25-40 /hpf H 05/29/25 19:45 Amorphous Sediment Not Reportable 05/29/25 19:45 Urine Bacteria 4+ /hpf (NONE) H 05/29/25 19:45 Hyaline Casts 30.59 /lpf 05/29/25 19:45 All radiology interpretation(s) finalized by discharge ED provider radiology interpretation(s): Nonspecific bowel gas pattern Discharge Plan Discharge Patient Disposition: Home Clinical Impression: Pyuria Condition: Stable Prescriptions: New ondansetron 4 mg tablet,disintegrating 4 mg PO Q8H PRN (Reason: nausea and vomiting) 4 Days Qty: 14 0RF cefdinir 300 mg capsule 300 mg PO BID 10 Days Qty: 20 0RF No Action famotidine 20 mg tablet 20 mg PO BID pantoprazole 40 mg tablet,delayed release (DR/EC) PO cyanocobalamin (vitamin B-12) 1,000 mcg/mL solution IM Aimovig Autoinjector 140 mg/mL auto-injector See Rx Instructions .ROUTE .COMPLEX Qty: 1 11RF Dose Instruction: INJECT 140MG SUBCUTANEOUSLY every month Rx Instructions: INJECT 140MG SUBCUTANEOUSLY every month pregabalin 225 mg capsule 225 mg PO BID (DME) CPAP See Rx Instructions .Route .MEDSUPPLY Qty: 1 0RF Rx Instructions: As directed tizanidine 4 mg capsule 4 mg PO BID PRN dicyclomine 20 mg tablet 20 mg PO BID diclofenac sodium 75 mg tablet,delayed release (DR/EC) 75 mg PO BID montelukast 10 mg tablet 10 mg PO DAILY azelastine 137 mcg (0.1 %) aerosol,spray 2 spray intranasal BID Rx Instructions: administer into each nostril albuterol sulfate 90 mcg/actuation HFA aerosol inhaler 2 puff inhalation Q6H PRN fluticasone propionate [Allergy Relief (fluticasone)] 50 mcg/actuation spray,suspension 2 spray intranasal DAILY Rx Instructions: administer into each nostril cholecalciferol (vitamin D3) 1,250 mcg (50,000 unit) tablet PO .BID WEEKLY bupropion HCl 150 mg tablet extended release 24 hr 150 mg PO QAM Qty: 30 2RF Rx Instructions: Take 1 tablet by mouth every morning doxepin 50 mg capsule 50 mg PO DAILY Qty: 30 2RF Rx Instructions: Take one capsule daily at bedtime Discharge Orders: Discharge ED (Routine); Ordered 05/29/25 Ordered By: Joana Franklin Referrals: Don Jeffery MD [Primary Care Provider, [facility]] Discharge Diet: Clear Liquid and Full LIquid Patient Instructions: Full Liquid Diet, Urinary Tract Infection in Women (ED), Clear Liquid Diet (ED), Patient Portal & Sanam Instructions Activity Restrictions/Additional Instructions: Take antibiotics as prescribed. Utilize a probiotic or active culture yogurt to avoid infectious diarrhea Zofran has been sent to your pharmacy as well as with antibiotics. Take as needed for nausea. Follow-up with your primary care physician regarding today's visit. Continue with your appointment with Dr. Jeffery tomorrow. Reduce diet to clear liquids only. If you tolerate a clear liquid diet, advance to a full liquid diet after 24 hours. If you tolerate a full liquid diet for 24 hours, may advance to a bland diet only. Return to ED with ongoing nausea, vomiting, inability to pass gas, fever greater than 100.4 ?F. Stand Alone Forms: Work/School Release Print Language: Pakistani Coding Level of Care Code ED [employer] Operator for Senia Morales
[2025-05-29] MEDS: diphenhydrAMINE 50 mg/mL SDV 1mL IVP (20:23)
[2025-05-29 20:24] LABS: Alanine Aminotransferase 15 U/L (0-33); Albumin Level 4.7 g/dL (3.5-5.2); Alkaline Phosphatase 134 U/L (35-105); Anion Gap 17.6 (5-19); Aspartate Amino Transferase 16 U/L (0-32); Blood Urea Nitrogen 27 mg/dL (6-20); Calcium 9.3 mg/dL (8.5-10.5); Carbon Dioxide 25 mmol/L (22-29); Chloride 104 mmol/L (98-107); Creatinine Clr Calc Pharmacy 46.6769; Globulin 3.0 g/dL (1.3-4.6); Glucose 80 mg/dL (65-115); Lipase 49 U/L (13-60); Osmolality Calculated 300 mOsm/kg (285-295); Potassium 3.6 mmol/L (3.5-5.1); Sodium 143 mmol/L (136-145); Total Protein 7.7 g/dL (6.6-8.7)
[2025-05-29] MEDS: metoclopramide 5 mg/mL SDV 2 mL IVP (20:24)
[2025-05-29 20:25] VITALS: BP 155/88; PULSE 61; O2SAT 98
[2025-05-29 20:37] LABS: UA Slide Review UA Slide Review Perf
[2025-05-29] MEDS: iohexol 350 mg/mL 500 mL Btl (per mL) IV (20:37)
[2025-05-29] MEDS: cefTRIAXone 1,000 mg SDV 1000 MG IVP (22:33)
[2025-05-29 22:42] VITALS: BP 112/71; PULSE 53; O2SAT 96
== END 2025-05-29 22:43 | disposition home or self-care (01) ==
PROVIDERS: Emergency Medicine; Emergency Provider Physician Assistant; PCP Family Medicine
DX: R82.81 Pyuria (principal)
CPT/HCPCS: 36415; 74177; 80053; 81001; 83690; 85025; 87077; 87086; 87186; 96361; 96374; 96375; 99285; J0696; J1200; J2765; J7030

== ENCOUNTER → 2025-05-31 13:59 | Outpatient (BNVA) | payer MEDICARE, MEDICAID, SELFPAY | PROVIDERS: PCP Family Medicine; Visit Provider Orthopaedic Surgery | DX: M25.562 Pain in left knee (principal); G89.29 Other chronic pain; M17.12 Unilateral primary osteoarthritis, left knee | CPT/HCPCS: 73560; 73565; 99204 ==

== ENCOUNTER 2025-07-04 08:58 | Observation (INO) | payer MEDICARE, MEDICAID, SELFPAY ==
[2025-07-04] VITALS (17 sets, daily range): BP systolic 97–127; BP diastolic 52–83; PULSE 55–84; RESP 8–17; TEMP 36.3–37.3; O2SAT 92–100; BMI 30.8
[2025-07-04 06:08] LABS: Glucose Urine UA Negative (Normal); Nitrate Urine Negative (Negative); Specific Gravity, Urine 1.014 (1.005-1.030)
--- NOTE | 2025-07-04 06:09 | ANES.PREANE2 ---
Pre-Anesthetic Assessment Height/Weight: Height 5 ft 3 in Preop Diagnosis: Knee pain Operation Date: 07/04/25 07:00 Proposed Procedures p LEFT Total Knee Arthroplasty(Left) - Derik Cain MD Was Beta Alla taken within 24 hours: N/A Was Clonidine taken within 24 hours: N/A Social No alcohol and No tobacco Exam alert, oriented x 3 and regular rate & rhythm Airway Submandibular: within normal limits Cervical ROM: within normal limits Mallampati: Class III Comments: Comments: No upper teeth, bottom partial is removed. 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 Patient is supposed to walk with a walker but is not very compliant with this Demyelinating disease noted on chart but patient does not know anything about this Patient is on Aimovig for chronic migraines Recent labs reviewed and acceptable for procedure. Patient had a positive UA in May. Repeat performed today is clean Plan for general anesthesia with postop peripheral nerve block Medications/Allergies Home Medications ?Medication ?Instructions ?Recorded ?Confirmed ?Last Taken ?Type CPAP #1 ea 10/12/22 07/03/25 Unknown Rx tizanidine 4 mg capsule 4 mg PO BID PRN Pain (Scale Score 12/30/22 07/03/25 Unknown History 7-10) albuterol sulfate 90 mcg/actuation 2 puff inhalation Q6H PRN Severe 02/09/23 07/03/25 07/02/25 History aerosol inhaler Pain (Scale Score 7-10) azelastine 137 mcg (0.1 %) nasal 2 spray intranasal BID 02/09/23 07/03/25 07/02/25 History spray diclofenac sodium 75 mg 75 mg PO BID 02/09/23 07/03/25 07/02/25 History tablet,delayed release dicyclomine 20 mg tablet 20 mg PO BID 02/09/23 07/03/25 07/02/25 History fluticasone propionate 50 2 spray intranasal DAILY 02/09/23 07/03/25 07/02/25 History mcg/actuation nasal spray,suspension (Allergy Relief (fluticasone)) Held on 02/01/25. Instructions: Patient No Longer Taking montelukast 10 mg tablet 10 mg PO DAILY 02/09/23 07/03/25 07/02/25 History famotidine 20 mg tablet 20 mg PO BID 11/12/23 07/03/25 07/02/25 History cholecalciferol (vitamin D3) 1,250 1,250 mcg PO .BID WEEKLY 12/17/23 07/03/25 07/02/25 History mcg (50,000 unit) tablet pregabalin 225 mg capsule 225 mg PO BID 11/29/24 07/03/25 07/02/25 History cyanocobalamin (vitamin B-12) 100 mcg IM .WEEK 12/26/24 07/03/25 07/02/25 History 1,000 mcg/mL injection solution pantoprazole 40 mg tablet,delayed 40 mg PO DAILY 12/26/24 07/03/25 07/02/25 History release bupropion HCl 150 mg 24 hr tablet, 150 mg PO QAM #30 tabs 05/10/25 07/04/25 07/04/25 Rx extended release doxepin 50 mg capsule 50 mg PO DAILY #30 caps 05/10/25 07/03/25 07/02/25 Rx ergocalciferol (vitamin D2) 1,250 1,250 mcg PO .WEEK 05/31/25 07/03/25 07/02/25 History mcg (50,000 unit) capsule (Vitamin D2) alprazolam 1 mg tablet 1 mg PO TID 07/03/25 07/04/25 07/04/25 History erenumab-aooe 140 mg/mL 140 mg SUBCUT Q30D 07/03/25 07/03/25 07/02/25 History subcutaneous auto-injector (Aimovig Autoinjector) hydrocodone 5 mg-acetaminophen 325 1 tab PO PRN PRN Severe Pain 07/03/25 07/03/25 07/02/25 History mg tablet (Scale Score 7-10) Allergies Allergy/AdvReac Type Severity Reaction Status Date / Time clonazepam (From Klonopin) Allergy ADR-Dizzine Verified 05/31/25 14:01 ss morphine Allergy irritation Verified 05/31/25 14:01 duloxetine (From Cymbalta) AdvReac Severe ADR-Confusi Verified 05/31/25 14:01 on latex AdvReac Mild rash Verified 05/31/25 14:01 [facility] Anesthesia Medical History (Updated 06/06/25 @ 00:00 by BOB Walden) Post-traumatic stress disorder, chronic Major depressive disorder, recurrent, moderate Generalized anxiety disorder Psychiatric care Family History Other Cancer Diabetes Hypertension Denies family history of CAD (coronary artery disease) Anesthesia complication Bleeding disorder Social History Smoking and tobacco/nicotine status: never used tobacco/nicotine Alcohol intake: never Substance/Drug Use: never Household members: spouse Marital status: Current occupational status: disabled Current gender identity: Female
--- NOTE | 2025-07-04 06:53 | W.PM.OPSUD ---
Surgery/Procedure H&P Update DATE OF PROCEDURE: July 04, 2025 DATE H&P PERFORMED: 05/31/25 H&P UPDATE INFORMATION: I have reviewed H&P completed within last 30 days, I have examined patient prior to procedure and No changes to prior documentation PREOP DIAGNOSIS: Knee pain, left knee osteoarthritis PLANNED PROCEDURE: Operation Date: 07/04/25 07:00 Proposed Procedures p LEFT Total Knee Arthroplasty(Left) - Derik Cain MD
[2025-07-04] MEDS: ceFAZolin 2,000 mg SDV 2000 MG IVP ×3 (07:00→23:53)
[2025-07-04] MEDS: tranexamic acid 1,000 mg/10mL SDV 1000 MG IV (07:15)
--- NOTE | 2025-07-04 08:26 | XR_ITS ---
WS: [id number] Exam: XR knee LT 3V* [id number] Date/Time of Exam: 07/04/2025 8:26 AM Reason For Exam: Left total knee arthroplasty Comparison 05/31/2025. LEFT total knee replacement is in excellent position. Postop changes in the adjacent soft tissues. Anterior surgical skin clips. XR/XR knee LT 3V* [id number] IMPRESSION: 1. Total LEFT knee arthroplasty in excellent position.
--- NOTE | 2025-07-04 08:30 | PM.OP ---
Operative Report Date of procedure: July 04, 2025 Surgeon: Derik Cain MD Procedure: Preoperative diagnosis: End-stage degenerative joint disease left knee Postoperative diagnosis: Same Procedure: Left total knee arthroplasty Surgeon: Derik Cain MD Claims Consultant: NII Monte's ophthalmology assistant was necessary for positioning the patient, assistance during the procedure, closure of the wound and dressing placement, transfer the patient to PACU Anesthesia: General EBL: 20 cc Tourniquet time: 41 minutes at 250 mmHg Indications: Greta is a 54-year-old white female was seen in the orthopedic clinic for debilitating left knee pain. She has failed all conservative measures including physical therapy, anti-inflammatory medication, corticosteroid injections, and she has x-ray findings of [id number] presentation medial compartment. As well as changes of posterior patella. Therefore at this time was offered a total knee arthroplasty. All risk benefits treatment alternatives were discussed with her and she is agreeable to this at this time. Procedure: After obtaining her consent patient was taken the operative room placed the op table supine position general anesthetic administered. Once good anesthesia was achieved pneumatic cuffs placed on proximal left thigh. Left leg and foot were prepped and draped usual fashion. After surgical timeout as well as gravity exsanguination pneumatic cuff was inflated the 250 mmHg. Left foot was in a foot holding device the knee was held at 90 degrees flexion. Longitudinal incision made from tibial tubercle to superior pole the patella. Sharp dissection taken on down to subcutaneous tissues electrocautery used hemostasis. Knee is opened up along medial parapatellar incision line. Soft tissue was sharply debrided including fat pad ACL and anterior horns of the menisci. Capsule was stripped from the proximal medial aspect of the tibia to expose the knee joint more. Leg is put at the full extension patella was then everted. Soft tissue was debrided with electrocautery around its periphery. Rongeur was used to remove osteophytes. Patient's patellas sized a size 38 reaming male. Patella was reamed down to 14 mm thickness. Patella was then placed in the lateral gutter and knee was flexed back to 90 degrees. Appropriate retractors were placed including a PCL retractor. Tibial cutting guide was position for 2 mm cut off the most affected side that being medial. Small osteotome driven anterior to the PCL to protect during cutting the tibial plateau. Once cutting block was pinned in place with appropriate posterior slope sagittal saw was then used to make tibial cut. Tibial cut was removed piecemeal. PCL retractor was removed at this time and drill holes placed in the distal femur just anterior to the intercondylar notch. Guide mackenzie is placed at the interventionally canal of the femur and distal cutting block of the femur was positioned and pinned in place. Distal cut of the femur was made without any difficulties. Distal femur sized to size 6 femoral cutting block. Drill holes were placed through the sizer and then cutting blocks posterior were then placed on these holes and impacted on the distal femur. Anterior posterior and chamfer cuts were made without any difficulties. PCL retractor was replaced back into the joint line to expose the proximal tibia. Remainder of the menisci was removed as well as any other nonviable tissue within the joint line. Tibia sized to size D tibial tray and positioned with an external guide mackenzie. This is pinned in place. Trial 10millimeter spacer was placed on the tibial trial. Trial femoral component was placed on the distal femur and put through range of motion. Is found to have a slight flexion contracture at full extension otherwise had good range of motion good tracking. Patella was sized a size 29 patellar button and appropriate drill holes placed. Trial button was placed knee was put through range of motion found to have stability. Trial components were removed after femoral drill holes were placed in the trial component for permanent post of the femoral component. Soft tissue release along the subcutaneous region of the lateral patella and extensor mechanism was done. All trial components were removed other than the tibial tray. This then had appropriate drill holes for release for the spikes off the permanent component as well as tibial punch to prepare for the post of the tibial tray. Also at this time a curved osteotome was used to release the capsule off the posterior aspect of the femur at this point. Permanent tibia tray was placed and impacted that being a size D. Subsequently improvement 76 femoral component was impacted on the distal femur. A trial 10 mm spacer was placed and the expected range of motion found to have full extension now. This was then removed and a permanent size 10 tibial spacer was placed and locked in place. Subsequently a 29 patellar button was placed and impacted posterior patella. Knee was put through range of motion found to be stable in all positions. Knee was put on a knee bump. Pneumatic cuff deflated after 41 minutes total tourniquet time. Extensor mechanism repaired with #1 Vicryl [id number] sutures. Subcutaneous tissue reapproximated 0 Vicryl interrupted sutures. Skin was closed with skin jordan. Wounds are clean and dry dressed with Xeroform gauze sterile gauze dressing ABDs Curlex wrap and Piero wrap for compression. Patient was then awakened transferred recovery room stable condition
--- NOTE | 2025-07-04 09:13 | ANES.PROC ---
Anesthesia Procedures Procedure/Date: 07/04/25 Left adductor canal block and left iPACK block for postoperative pain control Nerve Block ^: Nerve Block 1: Main Anesthesia: general anesthesia Time Out Performed: Yes Consent: requested by attending/covering physician and from patient Laterality: Left Nerve block location: other (IPACK) Anesthesia monitors applied: pulse oximetry, EKG, BP cuff and oxygen Nerve block position: supine Anesthetic Used: other (ropivacaine 0.2%) Amount of anesthesia used (mL): 20 Ultrasound used to: recognize landmarks Nerve Stimulator Used?: No Interscalene/Femoral BLK: other needle (pjunk 4inch) Injection: neg aspiration of heme Patient Tolerated Procedure: well Complications: none Nerve Block 2: Main Anesthesia: general anesthesia Time Out Performed: Yes Consent: requested by attending/covering physician and from patient Laterality: Left Nerve block location: adductor canal Anesthesia monitors applied: pulse oximetry, EKG, BP cuff and oxygen Nerve block position: supine Anesthetic Used: ropivicaine 0.5% Amount of anesthesia used (mL): 20 Ultrasound used to: recognize landmarks Nerve Stimulator Used?: No Interscalene/Femoral BLK: other needle (pjunk 4inch) Injection: neg aspiration of heme Patient Tolerated Procedure: well Complications: none
--- NOTE | 2025-07-04 09:16 | ANE.PACU2 ---
Inpatient post-anesthesia follow up: Airway intact: Yes Vital signs: Temperature 98.0 F Pulse Rate 65 Respiratory Rate 17 Blood Pressure 102/64 Pulse Oximetry 94 Oxygen Delivery Me thod Nasal Cannula Oxygen Flow Rate 8 Fraction of Inspir ed Oxygen Hydration adequate: Yes Nausea and vomiting: No Pain level: 1 Mental status: Baseline
--- NOTE | 2025-07-04 09:27 | PC.NURSE ---
- pulse 25 - accepted into room 270 with no distress noted upon this nurse exiting care - BP 115/75 - RR 20 pulse 66 - 97%
[2025-07-04] MEDS: HYDROcodone-acetaminophen 5-325 mg Tablet 1 TAB PO ×3 (09:48→20:06)
[2025-07-04] MEDS: chlorhexidine gluconate 0.12% Btl 473 mL 30 ML MUCOUS MEM ×2 (13:00→17:23)
[2025-07-04] MEDS: mupirocin oint 22 gm 1 APPLIC NASAL (17:22)
[2025-07-04] MEDS: sennosides-docusate Tablet 2 TAB PO (17:23)
[2025-07-05] VITALS: BP 104/60; PULSE 63; RESP 18; TEMP 37.3; O2SAT 92
[2025-07-05 04:00] VITALS: BP 116/68; PULSE 68; RESP 17; TEMP 36.7; O2SAT 96
[2025-07-05] MEDS: ceFAZolin 2,000 mg SDV 2000 MG IVP (06:31)
[2025-07-05] MEDS: HYDROcodone-acetaminophen 5-325 mg Tablet 1 TAB PO (06:31)
[2025-07-05 07:16] LABS: Hematocrit 33.1 % (36-47); Hemoglobin 10.90 g/dL (11.27-16.99); Mean Corpuscular HGB Conc 32.9 g/dL (30-55); Mean Corpuscular Hemoglobin 30.2 pg (27-33); Mean Corpuscular Volume 91.7 fl (85-98); Nucleated Red Blood Cells % 0 %; Platelet Count 144 10^3/cmm (157-399); Red Blood Count 3.61 10^6/uL (3.85-5.65); White Blood Count 6.85 10^3/uL (3.29-11.43)
[2025-07-05 07:36] LABS: Anion Gap 14.7 (5-19); Blood Urea Nitrogen 18 mg/dL (6-20); Calcium 8.6 mg/dL (8.5-10.5); Carbon Dioxide 28 mmol/L (22-29); Chloride 96 mmol/L (98-107); Creatinine Clr Calc Pharmacy 59.3840; Glucose 161 mg/dL (65-115); Osmolality Calculated 285 mOsm/kg (285-295); Potassium 3.7 mmol/L (3.5-5.1); Sodium 135 mmol/L (136-145)
[2025-07-05 07:51] VITALS: BP 114/65; PULSE 67; RESP 17; TEMP 36.4; O2SAT 98
[2025-07-05] MEDS: mupirocin oint 22 gm 1 APPLIC NASAL (07:57)
[2025-07-05] MEDS: chlorhexidine gluconate 0.12% Btl 473 mL 30 ML MUCOUS MEM (07:57)
[2025-07-05] MEDS: sennosides-docusate Tablet 2 TAB PO (07:58)
[2025-07-05] MEDS: multivitamin therapeutic Tablet 1 TAB PO (07:58)
[2025-07-05 11:55] VITALS: BP 133/90; PULSE 64; RESP 17; TEMP 36.6; O2SAT 96
--- NOTE | 2025-07-05 12:42 | PM.DCS ---
Discharge Providers Date of Admission: 07/04/25 08:58 Date of Discharge: July 05, 2025 Attending Provider at Admission: Derik Cain MD Attending Provider at Discharge: Derik Cain MD Primary Care Provider: Don Jeffery MD Reason for Visit Reason for Visit: m25.562 Brief History: Patient has had debilitating left knee pain for quite some time now. She has failed all conservative measures and therefore was offered a total knee arthroplasty on the left side. Patient is well understand all risk benefits of treatment alternatives. Hospital Course Hospital Course Patient was admitted on 07/04/2025 and underwent the above-stated procedure. She tolerated this well. First night pain was under good control. The following day physical therapy was very happy with her progress and advancement of her activities. Her only complaint is some achiness in the popliteal fossa region as to be expected after this type of surgery. Physical Exam Narrative: Left knee is still in postoperative dressing. The dressing is clear with no signs of an bleeding through or shadowing. She is neurovascular tact distally in left foot. She is demonstrating nearly full extension as well as nearly flexion up to 90 degrees. Urinary Catheter Management: Wright Latex Free: Cath Placed During This Visit: yes, but has since been removed by the nurse Reason for Continuing Indwelling Catheter: Decision to DC Catheter Urinary Catheter Date of Insertion: 07/04/25 Urinary Catheter Time of Insertion: 07:11 Date Urinary Catheter Removed: 07/04/25 Time Urinary Catheter Discontinued: 20:53 Discharge Data Studies Completed and Pending Completed Studies During Hospitalization Category Date Time Status XR knee LT 3V* [id number] Stat Exams 07/04/25 08:26 Completed Pending at discharge Category Date Time Status Complete Blood Count w/Auto AM LABS Lab 07/06/25 04:00 Uncollected Complete Blood Count w/Auto AM LABS Lab 07/07/25 04:00 Uncollected Radiology Impressions Knee X-Ray 07/04/25 08:26 IMPRESSION: 1. Total LEFT knee arthroplasty in excellent position. Laboratory Results WBC 6.85 10^3/uL (3.29-11.43) 07/05/25 07:11 RBC 3.61 10^6/uL (3.85-5.65) L 07/05/25 07:11 Hgb 10.90 g/dL (11.27-16.99) L 07/05/25 07:11 Hct 33.1 % (36-47) L 07/05/25 07:11 MCV 91.7 fl (85-98) 07/05/25 07:11 MCH 30.2 pg (27-33) 07/05/25 07:11 MCHC 32.9 g/dL (30-55) 07/05/25 07:11 RDW 13.2 % (12.1-15.1) 07/05/25 07:11 Plt Count 144 10^3/cmm (157-399) L 07/05/25 07:11 MPV 11.8 fL (7.4-10.4) H 07/05/25 07:11 Neut % (Auto) 76.9 % 07/05/25 07:11 Lymph % (Auto) 16.8 % 07/05/25 07:11 Mason % (Auto) 5.7 % 07/05/25 07:11 Eos % (Auto) 0.1 % 07/05/25 07:11 Baso % (Auto) 0.1 % 07/05/25 07:11 Neut # (Auto) 5.26 10^3/uL (1.8-7.7) 07/05/25 07:11 Lymph # (Auto) 1.2 10^3/uL (0.8-4.8) 07/05/25 07:11 Mason # (Auto) 0.4 10^3/uL (0.2-0.9) 07/05/25 07:11 Eos # (Auto) 0.0 10^3/uL (0.0-0.8) 07/05/25 07:11 Baso # (Auto) 0.0 10^3/uL (0.0-0.1) 07/05/25 07:11 Nucleated RBC % (auto) 0 % 07/05/25 07:11 Nucleated RBCs # 0.0 /100WBC 07/05/25 07:11 Sodium 135 mmol/L (136-145) L 07/05/25 07:11 Potassium 3.7 mmol/L (3.5-5.1) 07/05/25 07:11 Chloride 96 mmol/L (98-107) L 07/05/25 07:11 Carbon Dioxide 28 mmol/L (22-29) 07/05/25 07:11 Anion Gap 14.7 (5-19) 07/05/25 07:11 BUN 18 mg/dL (6-20) 07/05/25 07:11 Creatinine 1.1 mg/dL (0.5-0.9) H 07/05/25 07:11 GFR Calculation 51.6 mL/min (90-130) L 07/05/25 07:11 Glucose 161 mg/dL (65-115) H 07/05/25 07:11 Calculated Osmolality 285 mOsm/kg (285-295) 07/05/25 07:11 Calcium 8.6 mg/dL (8.5-10.5) 07/05/25 07:11 Urine Color Yellow (Yellow) 07/04/25 05:59 Urine Appearance Clear (CLEAR) 07/04/25 05:59 Urine pH 5.5 (5-7) 07/04/25 05:59 Ur Specific [place] 1.014 (1.005-1.030) 07/04/25 05:59 Urine Protein Negative (Negative) 07/04/25 05:59 Urine Glucose (UA) Negative (Normal) 07/04/25 05:59 Urine Ketones Negative (Negative) 07/04/25 05:59 Urine Blood Negative (Negative) 07/04/25 05:59 Urine Nitrate Negative (Negative) 07/04/25 05:59 Urine Bilirubin Negative (Negative) 07/04/25 05:59 Urine Urobilinogen 1.0 mg/dL (Negative) 07/04/25 05:59 Ur Leukocyte Esterase Trace (Negative) A 07/04/25 05:59 Urine RBC 0-2 /hpf (0-2) 07/04/25 05:59 Urine WBC 6-10 /hpf (0-5) 07/04/25 05:59 Ur Squamous Epith Cells 0-5 /hpf (0-5) 07/04/25 05:59 Amorphous Sediment Not Reportable 07/04/25 05:59 Urine Bacteria None seen /hpf (NONE) 07/04/25 05:59 Hyaline Casts 2.46 /lpf 07/04/25 05:59 Procedures Performed Left total knee arthroplasty Vitals Last Vital Signs Temp 97.8 F 07/05/25 11:55 Pulse 64 07/05/25 11:55 Resp 17 07/05/25 11:55 BP 133/90 07/05/25 11:55 Pulse Ox 96 08/28/25 11:55 O2 Del Method Room Air 07/05/25 04:00 O2 Flow Rate 8 07/04/25 08:49 Discharge Plan Discharge Patient Disposition: Home Health Service Condition: Stable Prescriptions: New hydrocodone-acetaminophen 5-325 mg tablet 1 tab PO Q6H PRN (Reason: pain) Qty: 30 0RF Continued famotidine 20 mg tablet 20 mg PO BID pantoprazole 40 mg tablet,delayed release (DR/EC) 40 mg PO DAILY cyanocobalamin (vitamin B-12) 1,000 mcg/mL solution 100 mcg IM .WEEK pregabalin 225 mg capsule 225 mg PO BID (DME) CPAP See Rx Instructions .Route .MEDSUPPLY Qty: 1 0RF Rx Instructions: As directed tizanidine 4 mg capsule 4 mg PO BID PRN (Reason: Pain (Scale Score 7-10)) dicyclomine 20 mg tablet 20 mg PO BID diclofenac sodium 75 mg tablet,delayed release (DR/EC) 75 mg PO BID montelukast 10 mg tablet 10 mg PO DAILY azelastine 137 mcg (0.1 %) aerosol,spray 2 spray intranasal BID Rx Instructions: administer into each nostril albuterol sulfate 90 mcg/actuation HFA aerosol inhaler 2 puff inhalation Q6H PRN (Reason: Severe Pain (Scale Score 7-10)) fluticasone propionate [Allergy Relief (fluticasone)] 50 mcg/actuation spray,suspension 2 spray intranasal DAILY Rx Instructions: administer into each nostril cholecalciferol (vitamin D3) 1,250 mcg (50,000 unit) tablet 1,250 mcg PO .BID WEEKLY bupropion HCl 150 mg tablet extended release 24 hr 150 mg PO QAM Qty: 30 2RF Rx Instructions: Take 1 tablet by mouth every morning doxepin 50 mg capsule 50 mg PO DAILY Qty: 30 2RF Rx Instructions: Take one capsule daily at bedtime ergocalciferol (vitamin D2) [Vitamin D2] 1,250 mcg (50,000 unit) capsule 1,250 mcg PO .WEEK alprazolam 1 mg tablet 1 mg PO TID hydrocodone-acetaminophen 5-325 mg tablet 1 tab PO PRN PRN (Reason: Severe Pain (Scale Score 7-10)) Aimovig Autoinjector 140 mg/mL auto-injector 140 mg SUBCUT Q30D Rx Instructions: INJECT 140MG SUBCUTANEOUSLY every month Discharge Order = DC NOW: Discharge Order (Routine); Ordered 07/05/25 Ordered By: Derik Cain Other Ambulatory Orders: DME: Walker (Order) Location: None Selected Ordered By: Derik Cain Referrals: [facility] [Outside] [facility] [Outside] Derik Cain MD [Physician, Orthopedics] - 07/24/25 9:15 am Discharge Diet: Advance as tolerated Discharge Activity: Increase activity as tolerated Patient Instructions: Acute Wound Care (DC), Opioid Safety, Post Anesthesia Care, Patient Portal & Sanam Instructions Activity Restrictions/Additional Instructions: Ambulate daily with a walker Outpatient physical therapy May change dressing in 3 to 4 days., Cover wound to shower Follow-up on previously scheduled date Ice and elevate as needed. Discharge Attestations Time Spent in Discharge Care*: less than 30 min Quality Metrics Clinical Quality Measures [ No reported AMI, CVA or VTE this stay] Coding Level of Care Code Critical Care >/= 30 minutes
--- NOTE | 2025-07-05 13:14 | PC.NURSE ---
Discharge instructions provided to pt and her . No questions or concerns voiced at this time. Pt's cream colored purse and red wallet returned to her at this time. To private vehicle via wheelchair with all belongings.
[2025-07-05 13:15] VITALS: BP 133/90; PULSE 64; RESP 17; TEMP 36.6; O2SAT 96
== END 2025-07-05 13:16 | disposition home health service (06) ==
LOC: MEDSURG 08:58
PROVIDERS: Admitting Provider Orthopaedic Surgery; PCP Family Medicine; Visit Provider Orthopaedic Surgery
PROC: (CPT 27447; principal; 2025-07-04 07:00)
DX: M17.12 Unilateral primary osteoarthritis, left knee (principal); K21.9 Gastro-esophageal reflux disease without esophagitis; G47.33 Obstructive sleep apnea (adult) (pediatric); Z99.89 Dependence on other enabling machines and devices; Z79.891 Long term (current) use of opiate analgesic; F43.12 Post-traumatic stress disorder, chronic; F32.9 Major depressive disorder, single episode, unspecified; F41.9 Anxiety disorder, unspecified
CPT/HCPCS: 64447; 27447; 36415; 51702; 51798; 73562; 80048; 81001; 85025; 97110; 97116; 97161; 97165; 97530; A4216; C1722; C1776; G0378; J0690; J1100; J1171; J1885; J2405; J2704; J3010; J3490; J7030; J9999

== ENCOUNTER 2025-07-06 18:25 | Emergency (ER) | payer MEDICARE, MEDICAID, SELFPAY ==
--- OUTSIDE RECORDS SUMMARY | 2025-07-06 18:27 | XMS_ITS | Encounter Summary ---
Author Organization [facility] Address [address] [place] [address] Care Team Providers Care Manager Architecture Name Role Phone Conversion, History Primary Care Provider Paolo loza Encounter Details Date Type Department Care Team (Late st Contact Info) Description 05/22/2007 Emergency [facility] [address] [place] [id number] Javier Marino, DO NO ADDRESS ON FILE Ed, Physician NO ADDRESS ON FILE Other Closed Fractures of Distal End of Radius (Alone) (Primary Dx) Social History Tobacco Use Types Packs/Day Years Used Date Smoking Tobacco: Never Assessed Comments Unknown Sex and Gender Information Value Date Recorded Sex Assigned at Not on file 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
--- OUTSIDE RECORDS SUMMARY | 2025-07-06 18:27 | XMS_ITS | Patient Health Record ---
Author Organization [facility] Address [address] [place], [place] [id number] Care Team Providers Care Office Equipment Technician Name Role Phone Don Jeffery MD Primary Care Provider Nupur Llamas MD, Nick Unavailable [phone] Allergies Allergen (clinical drug ingredient) Drug/Non Drug [...] W/U Status Risk Notes Problem Solitary sacroiliitis (151843435) Sacroiliitis, not elsewhere classified (M46.1) Active confirmed Problem Low back pain (843387107) Low back pain (M54.5) Active confirmed Problem High risk drug monitoring status (289336125) buttermaker (current) use of opiate analgesic (Z79.891) Active confirmed Problem Obstructive sleep apnea syndrome (disorder) (99790587) Obstructive sleep apnea (adult) (pediatric) (G47.33) Active confirmed Problem Acquired spondylolisthesis (625449010) Spondylolisthesis , lumbar region (M43.16) Active confirmed Problem Disorder of lumbar disc (239832362) Other intervertebral disc disorders, 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) Active confirmed Problem Other rodent exterminator (current) drug therapy (Z79.899) Active confirmed Plan Of Treatment No Information Insurance Providers Payer Name Payer Address Payer Phone Subscriber Number Group Number Insured Name Patient Relationship to Insured Coverage Start Date Coverage End Date [facility] [employer] [address] [place] [phone] [id number] Greta Cash Self - patient is the insured Medical (General) History Medical History History ICD Code See prior documentation Surgical History Surgery Date(Month/Year) , 1995 LAVH (ovaries remain), 2001 Cholecystectomy, 03/2016 Neck surgery, performed at [facility] by Dr. Victoriano drake, 11/2017 Hospitalization History Reason Date(Month/Year) Child , 02/02/92, 05/05/96, 05/18/97
--- OUTSIDE RECORDS SUMMARY | 2025-07-06 18:27 | XMS_ITS | Clinical Summary ---
Author Organization [facility] Address [address] Guerrero: [place] [address] Care Team Providers Care Butadiene Convertor Operator Name Role Phone Conversion, History Primary Care Provider Unavai lable Allergies Active Allergy Reactions Criticality Noted Date Comments Latex Rash Low 01/23/2022 Morphine Anxiety Low 01/23/2022 Medications hydrOXYzine HCL (ATARAX) 25 mg tablet Take 25 mg by mouth 3 times daily as needed for Itching. Active omeprazole (PriLOSEC) 20 mg Capsule, Delayed Release(E.C.) Take 20 mg by mouth daily. Active traMADoL (ULTRAM) 50 mg tablet Take by mouth every 6 hours as needed for Pain. Active ALPRAZolam (XANAX) 0.5 mg tablet Take 0.5 mg by mouth 3 times daily as needed for Anxiety. Active diclofenac sodium (VOLTAREN) 75 mg Tablet, Delayed Release (E.C.) Take 75 mg by mouth 2 times daily. Active ergocalciferol (VITAMIN D2) 50,000 unit capsule Take 1 Capsule (50,000 Units) by mouth every 7 days. 4 Capsule 3 06/23/2022 Active Active Problems Problem Noted Date Diagnosed Date Infection of index finger 11/17/2022 Abnormal weight gain 06/22/2022 Obstructive sleep apnea (adult) (pediatric) 06/08 Benign hypertension 06/22/2022 Morbid obesity 06/22/2022 Primary osteoarthritis of both knees 06/22/2022 Social History Tobacco Use Types Packs/Day Years Used Date Smoking Tobacco: Never Smokeless Tobacco: Never Tobacco Cessation:Counseling Given: Not Answered Alcohol Use Standard Drinks/Week Comments Never 0 (1 standard drink = 0.6 oz pur e alcohol) Comments No Sex and Gender Information Value Date Recorded Sex Assigned at Not on file 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 Gender Identity Not on file Sexual Orientation Not on file Last Filed Vital Signs Vital Sign Reading Time Taken Comments Blood Pressure 144/79 11/17/2022 12:00 PM AUTOMATION AND CONTROLS MANAGER Pulse 64 11/17/2022 12:00 PM AUTOMATION AND CONTROLS MANAGER Temperature 36.7 C (98.1 F) 11/17/2022 11:30 AM AUTOMATION AND CONTROLS MANAGER Respiratory Rate 20 11/17/2022 12:0 0 PM AUTOMATION AND CONTROLS MANAGER Oxygen Saturation 96% 11/17/2022 12: 00 PM AUTOMATION AND CONTROLS MANAGER Inhaled Oxygen Concentration - - Weight 112.4 kg (247 lb 12.8 oz) 2022 11:30 AM AUTOMATION AND CONTROLS MANAGER Height 160 cm (5' 3 ) 11/17/2022 11:30 AM AUTOMATION AND CONTROLS MANAGER Body Mass Index 43.9 11/17/2022 11:30 AM AUTOMATION AND CONTROLS MANAGER Plan of Treatment Health Maintenance Due Date [...] of 2) 2019 INFLUENZA VACCINE (#1) 2025 Pre-Diabetes and Diabetes Screening 06/22/202506/22 Procedures Procedure Name Priority Date/Time Associated Diagnosis Comments HEMOGLOBIN A1C Routine 06/22/2022 10:10 AM CDT Abnormal weight gain Morbid obesity (CMS/HCC) Obstructive sleep apnea (adult) (pediatric) Benign hypertension Primary osteoarthritis of both knees from Last 3 Months or Most Recently Relevant to Health Maintenance Results * (ABNORMAL) HEMOGLOBIN A1C (06/22/2022 10:10 AM CDT) HEMOGLOBIN A1C 5.8(H) <5.7 % of total Hgb [facility] Comment: For someone without known diabetes, a hemoglobin A1c value between 5.7% and 6.4% is consistent with prediabetes and should be confirmed with a follow-up test. For someone with known diabetes, a value <7% indicates that their diabetes is well controlled. A1c targets should be individualized based on duration of diabetes, age, comorbid conditions, and other considerations. This assay result is consistent with an increased risk of diabetes. Currently, no consensus exists regarding use of hemoglobin A1c for diagnosis of diabetes for children. ESTIMATED AVERAGE GLUCOSE (MG/DL) 120 mg/dL [facility] ESTIMATED AVERAGE GLUCOSE (MMOL/L) 6.6 mmol/L [facility] Comment: FASTING:NO FASTING: NO Test Performed at: [facility] [id number] [id number] Adrian Flores D.O., MPH Blood 06/22/2022 10:1 0 AM CDT 06/22/2022 10:10 AM CDT Ladi Perea MD CHEMISTRY ORDERABLES Final Resul t [facility] [address] [phone] [facility] [address] [place] [address] from Last 3 Months or Most Recently Relevant to Health Maintenance Insurance MEDICAID [place] MEDICARE PART A AND B Care Teams Butadiene Convertor Operator Relationship Specialty Start Date End Date Conversion, History NO ADDRESS ON FILE PCP - General 05/22/07
--- OUTSIDE RECORDS SUMMARY | 2025-07-06 18:27 | XMS_ITS | Clinical Summary ---
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
--- OUTSIDE RECORDS SUMMARY | 2025-07-06 18:27 | XMS_ITS | Encounter Summary ---
Author Organization [facility] Address [address] [place] [address] Care Team Providers Care Engraved Roller Inspector Name Role Phone Conversion, History Primary Care Provider Paolo loza Encounter Details Date Type Department Care Team (Latest Contact Info) Description 03/11/2005 Outpatient Historical [facility] Oral and Maxillo Surgery[address] [place] [address] Shabbir Emanuel, DDS [address] [place] [phone] UNSPEC DENTAL CARIES (Primary Dx) Social History Tobacco Use Types Packs/Day Years Used Date Smoking Tobacco: Never Assessed Comments Unknown Sex and Gender Information Value Date Recorded Sex Assigned at Not on file 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
[2025-07-06 18:40] VITALS: BP 119/71; PULSE 73; RESP 17; TEMP 36.8; O2SAT 97; BMI 30.8
--- NOTE | 2025-07-06 22:18 | W.ED.WOUNDLC ---
HPI - Wound/Laceration General: Chief Complaint: Wound/Laceration Stated Complaint: bandages changed, blood oozing Time Seen by Provider: 07/06/25 21:49 History of Present Illness: Patient comes in with concerns for excessive bleeding from her surgical wound. States that 2 days ago she had a total knee replacement on the left. States that today she was supposed to have home health come out and change the dressing, but they cannot come till next Wednesday. States that they recommended to change it because she noticed a lot of blood. I was able to take down the dressing. There was a lot of dried blood on the dressing but no active bleeding. The surgical wound is clean dry and intact. Using sterile procedure I replaced the dressing with a new clean dressing. We wrapped the leg. We talked about symptoms that should prompt immediate return to the emergency department. Will discharge at this time with precautions to return for worsening or changing symptoms. Related Data Home Medications ?Medication ?Instructions ?Recorded ?Confirmed tizanidine 4 mg capsule 4 mg PO BID PRN Pain (Scale Score 12/30/22 07/03/25 7-10) albuterol sulfate 90 mcg/actuation 2 puff inhalation Q6H PRN Severe 02/09/23 07/03/25 aerosol inhaler Pain (Scale Score 7-10) azelastine 137 mcg (0.1 %) nasal 2 spray intranasal BID 02/09/23 07/03/25 spray diclofenac sodium 75 mg 75 mg PO BID 02/09/23 07/03/25 tablet,delayed release dicyclomine 20 mg tablet 20 mg PO BID 02/09/23 07/03/25 fluticasone propionate 50 2 spray intranasal DAILY 02/09/23 07/03/25 mcg/actuation nasal spray,suspension (Allergy Relief (fluticasone)) montelukast 10 mg tablet 10 mg PO DAILY 02/09/23 07/03/25 famotidine 20 mg tablet 20 mg PO BID 11/12/23 07/03/25 cholecalciferol (vitamin D3) 1,250 1,250 mcg PO .BID WEEKLY 12/17/23 07/03/25 mcg (50,000 unit) tablet pregabalin 225 mg capsule 225 mg PO BID 11/29/24 07/03/25 cyanocobalamin (vitamin B-12) 100 mcg IM .WEEK 12/26/24 07/03/25 1,000 mcg/mL injection solution pantoprazole 40 mg tablet,delayed 40 mg PO DAILY 12/26/24 07/03/25 release ergocalciferol (vitamin D2) 1,250 1,250 mcg PO .WEEK 05/31/25 07/03/25 mcg (50,000 unit) capsule (Vitamin D2) alprazolam 1 mg tablet 1 mg PO TID 07/03/25 07/04/25 erenumab-aooe 140 mg/mL 140 mg SUBCUT Q30D 07/03/25 07/03/25 subcutaneous auto-injector (Aimovig Autoinjector) hydrocodone 5 mg-acetaminophen 325 1 tab PO PRN PRN Severe Pain 07/03/25 07/03/25 mg tablet (Scale Score 7-10) Previous Rx's ?Medication ?Instructions ?Recorded CPAP #1 ea 10/12/22 bupropion HCl 150 mg 24 hr tablet, 150 mg PO QAM #30 tabs 05/10/25 extended release doxepin 50 mg capsule 50 mg PO DAILY #30 caps 05/10/25 hydrocodone 5 mg-acetaminophen 325 1 tab PO Q6H PRN pain #30 tabs 07/05/25 mg tablet Allergies Allergy/AdvReac Type Severity Reaction Status Date / Time clonazepam (From Klonopin) Allergy ADR-Dizzine Verified 05/31/25 14:01 ss morphine Allergy irritation Verified 05/31/25 14:01 duloxetine (From Cymbalta) AdvReac Severe ADR-Confusi Verified 05/31/25 14:01 on latex AdvReac Mild rash Verified 05/31/25 14:01 Review of Systems Musc: Reports: other (Bleeding from the surgical site) PFSH ED PFSH: Medical History (Updated 07/06/25 @ 22:22 by Ra Malagon MD) Post-traumatic stress disorder, chronic Major depressive disorder, recurrent, moderate Generalized anxiety disorder Psychiatric care Family History Other Cancer Diabetes Hypertension Denies family history of CAD (coronary artery disease) Anesthesia complication Bleeding disorder Social History Smoking and tobacco/nicotine status: never used tobacco/nicotine Alcohol intake: never Substance/Drug Use: never Household members: spouse Marital status: Current occupational status: disabled Current gender identity: Female Physical Exam Extremity: NARRATIVE EXTREMITY EXAM: Surgical wound is clean dry and intact significant bruising of the left leg Course Vital Signs: Vital signs: Vital Signs Temperature 98.2 F 07/06/25 18:40 Pulse Rate 73 07/06/25 18:40 Respiratory Rate 17 07/06/25 18:40 Blood Pressure 119/71 07/06/25 18:40 Pulse Oximetry 97 07/06/25 18:40 Oxygen Delivery Me thod Room Air 07/06/25 18:40 MDM - Wound/Laceration Medical Decision Making na No radiology studies performed this visit Discharge Plan Discharge Patient Disposition: Home Clinical Impression: Visit for wound check Condition: Stable Prescriptions: No Action famotidine 20 mg tablet 20 mg PO BID pantoprazole 40 mg tablet,delayed release (DR/EC) 40 mg PO DAILY cyanocobalamin (vitamin B-12) 1,000 mcg/mL solution 100 mcg IM .WEEK pregabalin 225 mg capsule 225 mg PO BID (DME) CPAP See Rx Instructions .Route .MEDSUPPLY Qty: 1 0RF Rx Instructions: As directed tizanidine 4 mg capsule 4 mg PO BID PRN (Reason: Pain (Scale Score 7-10)) dicyclomine 20 mg tablet 20 mg PO BID diclofenac sodium 75 mg tablet,delayed release (DR/EC) 75 mg PO BID montelukast 10 mg tablet 10 mg PO DAILY azelastine 137 mcg (0.1 %) aerosol,spray 2 spray intranasal BID Rx Instructions: administer into each nostril albuterol sulfate 90 mcg/actuation HFA aerosol inhaler 2 puff inhalation Q6H PRN (Reason: Severe Pain (Scale Score 7-10)) fluticasone propionate [Allergy Relief (fluticasone)] 50 mcg/actuation spray,suspension 2 spray intranasal DAILY Rx Instructions: administer into each nostril cholecalciferol (vitamin D3) 1,250 mcg (50,000 unit) tablet 1,250 mcg PO .BID WEEKLY bupropion HCl 150 mg tablet extended release 24 hr 150 mg PO QAM Qty: 30 2RF Rx Instructions: Take 1 tablet by mouth every morning doxepin 50 mg capsule 50 mg PO DAILY Qty: 30 2RF Rx Instructions: Take one capsule daily at bedtime ergocalciferol (vitamin D2) [Vitamin D2] 1,250 mcg (50,000 unit) capsule 1,250 mcg PO .WEEK alprazolam 1 mg tablet 1 mg PO TID hydrocodone-acetaminophen 5-325 mg tablet 1 tab PO PRN PRN (Reason: Severe Pain (Scale Score 7-10)) Aimovig Autoinjector 140 mg/mL auto-injector 140 mg SUBCUT Q30D Rx Instructions: INJECT 140MG SUBCUTANEOUSLY every month hydrocodone-acetaminophen 5-325 mg tablet 1 tab PO Q6H PRN (Reason: pain) Qty: 30 0RF Discharge Orders: Discharge ED (Routine); Ordered 07/06/25 Ordered By: Ra Malagon Referrals: Don Jeffery MD [Primary Care Provider, Family Practice] Patient Instructions: Patient Portal & Sanam Instructions, Wound Care (General) Print Language: Romanian Coding Level of Care Code ED Electronic Development Technician for Senia Morales
== END 2025-07-06 22:36 | disposition home or self-care (01) ==
PROVIDERS: Emergency Provider Emergency Medicine; PCP Family Medicine
DX: Z48.01 Encounter for change or removal of surgical wound dressing (principal); Z96.652 Presence of left artificial knee joint; Z98.890 Other specified postprocedural states
CPT/HCPCS: 99281

== ENCOUNTER → 2025-07-24 08:59 | Outpatient (BNVA) | payer MEDICARE, MEDICAID, SELFPAY | PROVIDERS: PCP Family Medicine; Visit Provider Orthopaedic Surgery | DX: Z98.890 Other specified postprocedural states (principal); Z96.652 Presence of left artificial knee joint | CPT/HCPCS: 73560; 73565; 99024 ==

== ENCOUNTER 2025-08-14 09:56 | Outpatient (RCR) | payer MEDICARE, MEDICAID, SELFPAY | END 2025-09-07 23:59 | disposition home or self-care (01) | LOC: SPT 09:56 | PROVIDERS: Visit Provider Nurse Practitioner | DX: Z47.1 Aftercare following joint replacement surgery (principal); Z96.652 Presence of left artificial knee joint | CPT/HCPCS: 97110; 97161; 97530 ==

== ENCOUNTER 2025-09-08 05:00 | Outpatient (RCR) | payer MEDICARE, MEDICAID, SELFPAY | END 2025-10-07 23:59 | disposition home or self-care (01) | LOC: SPT 05:00 | PROVIDERS: PCP Family Medicine; Visit Provider Nurse Practitioner | DX: Z47.1 Aftercare following joint replacement surgery (principal); Z96.652 Presence of left artificial knee joint | CPT/HCPCS: 97110 ==

== ENCOUNTER → 2025-09-11 10:13 | Outpatient (BNVA) | payer MEDICARE, MEDICAID, SELFPAY | PROVIDERS: PCP Family Medicine; Visit Provider Orthopaedic Surgery | DX: M17.11 Unilateral primary osteoarthritis, right knee (principal) | CPT/HCPCS: 73560; 73565; 99214 ==

== ENCOUNTER → 2025-09-24 09:35 | Outpatient (BNVA) | payer MEDICARE, MEDICAID, SELFPAY | PROVIDERS: PCP Family Medicine; Visit Provider Orthopaedic Surgery | DX: M17.11 Unilateral primary osteoarthritis, right knee (principal); Z96.652 Presence of left artificial knee joint; Z01.818 Encounter for other preprocedural examination; M25.561 Pain in right knee | CPT/HCPCS: 36415; 73560; 73565; 80053; 81001; 85025; 87086; 99214 ==

== ENCOUNTER → 2025-10-16 07:46 | Outpatient (BNVA) | payer MEDICARE, MEDICAID, SELFPAY | PROVIDERS: PCP Family Medicine; Visit Provider Specialist | DX: G43.711 Chronic migraine without aura, intractable, with status migrainosus (principal); I61.8 Other nontraumatic intracerebral hemorrhage; R03.0 Elevated blood-pressure reading, without diagnosis of hypertension | CPT/HCPCS: 99213 ==

== ENCOUNTER 2025-10-17 09:06 | Observation (INO) | payer MEDICARE, MEDICAID, SELFPAY ==
[2025-10-17] VITALS (17 sets, daily range): BP systolic 96–140; BP diastolic 57–86; PULSE 57–69; RESP 16–18; TEMP 36.2–36.7; O2SAT 90–98; BMI 30.8
--- NOTE | 2025-10-17 06:21 | ANES.PREANE2 ---
Pre-Anesthetic Assessment Height/Weight: Height 5 ft 3 in Weight 174 lb Temp Pulse Resp BP Pulse Ox O2 Del Method 97.9 F 61 18 96/57 97 Room Air 10/17/25 06:00 10/17/25 06:00 10/17/25 06:00 10/17/25 06:00 10/17/25 06:00 10/17/25 06:00 Preop Diagnosis: Knee arthritis Operation Date: 10/17/25 07:00 Proposed Procedures p RIGHT Total Knee Arthroplasty(Right) - Derik Cain MD Was Beta Alla taken within 24 hours: N/A Was Clonidine taken within 24 hours: N/A Last intake: Intake Last Liquid Date 10/16/25 Last Liquid Time 21:00 Last Solid Date 10/16/25 Last Solid Time 19:30 Social No alcohol and No tobacco Exam alert, oriented x 3, clear to auscultation bilaterally and regular rate & rhythm Airway Submandibular: within normal limits Cervical ROM: within normal limits Mallampati: Class III Comments: Comments: No upper teeth, bottom partial Anesthetic Plan ASA status: 3 Anesthesia: General and Regional (specify below) Other: Patient states that she wakes up very aggressive from anesthesia, patient did well last time NPO since yesterday evening History of GERD, controlled with Pepcid and Protonix AMBER, CPAP nightly 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 stable since 2019 Patient is on Aimovig for chronic migraines Recent labs reviewed and acceptable for procedure. Plan for general anesthesia with postop peripheral nerve block Medications/Allergies Home Medications ?Medication ?Instructions ?Recorded ?Confirmed ?Last Taken ?Type tizanidine 4 mg capsule 4 mg PO BID PRN Pain (Scale Score 12/30/22 10/16/25 10/16/25 History 7-10) albuterol sulfate 90 mcg/actuation 2 puff inhalation Q6H PRN Wheezing 02/09/23 10/16/25 07/02/25 History aerosol inhaler azelastine 137 mcg (0.1 %) nasal 2 spray intranasal BID 02/09/23 10/16/25 10/16/25 History spray diclofenac sodium 75 mg 75 mg PO BID 02/09/23 10/16/25 10/16/25 History tablet,delayed release dicyclomine 20 mg tablet 20 mg PO BID 02/09/23 10/16/25 10/15/25 History fluticasone propionate 50 2 spray intranasal DAILY 02/09/23 10/16/25 10/16/25 History mcg/actuation nasal spray,suspension (Allergy Relief (fluticasone)) montelukast 10 mg tablet 10 mg PO DAILY 02/09/23 10/16/25 10/16/25 History famotidine 20 mg tablet 20 mg PO BID 11/12/23 10/16/25 10/16/25 History cholecalciferol (vitamin D3) 1,250 1,250 mcg PO .BID WEEKLY 12/17/23 10/16/25 10/15/25 History mcg (50,000 unit) tablet pregabalin 225 mg capsule 225 mg PO BID 11/29/24 10/16/25 10/16/25 History cyanocobalamin (vitamin B-12) 100 mcg IM .WEEK 12/26/24 10/16/25 10/15/25 History 1,000 mcg/mL injection solution pantoprazole 40 mg tablet,delayed 40 mg PO DAILY 12/26/24 10/16/25 10/17/25 04:00 History release ergocalciferol (vitamin D2) 1,250 1,250 mcg PO .WEEK 05/31/25 10/16/25 10/15/25 History mcg (50,000 unit) capsule (Vitamin D2) alprazolam 1 mg tablet 1 mg PO TID PRN Anxiety 07/03/25 10/16/25 10/17/25 04:00 History tramadol 50 mg tablet 50 mg PO Q6H PRN pain #30 tabs 08/31/25 10/16/25 Unknown Rx bupropion HCl 300 mg 24 hr tablet, 300 mg PO QAM #30 tabs 10/01/25 10/16/25 10/16/25 Rx extended release doxepin 50 mg capsule 50 mg PO DAILY #30 caps 10/01/25 10/16/25 10/15/25 Rx escitalopram oxalate 10 mg tablet 10 mg PO DAILY #30 tabs 10/01/25 10/16/25 10/16/25 Rx fremanezumab-vfrm 225 mg/1.5 mL 225 mg (1.5 mL) SUBCUT Q30D #1.5 mL 10/16/25 10/16/25 10/09/25 Rx subcutaneous auto-injector (Ajovy) Allergies Allergy/AdvReac Type Severity Reaction Status Date / Time clonazepam (From Klonopin) Allergy ADR-Dizzine Verified 10/17/25 05:56 ss morphine Allergy irritation Verified 10/17/25 05:56 duloxetine (From Cymbalta) AdvReac Severe ADR-Confusi Verified 10/17/25 05:56 on latex AdvReac Mild rash Verified 10/17/25 05:56 Current Medications Generic Name Dose Route Start Last Admin Trade Name Freq PRN Reason Stop Dose Admin Sodium Chloride 1,000 mls @ 30 mls/hr 10/17/25 05:45 10/17/25 06:06 Sodium Chloride 0.9% IV 10/18/25 05:44 30 mls/hr .Q24H ROSENDO Administration PFSH Anesthesia Medical History Post-traumatic stress disorder, chronic Major depressive disorder, recurrent, moderate Generalized anxiety disorder Psychiatric care Family History Other Cancer Diabetes Hypertension Denies family history of CAD (coronary artery disease) Anesthesia complication Bleeding disorder Social History Smoking and tobacco/nicotine status: never used tobacco/nicotine Alcohol intake: never Substance/Drug Use: never Household members: spouse Marital status: Current occupational status: disabled Current gender identity: Female
--- NOTE | 2025-10-17 06:40 | W.PM.OPSUD ---
Surgery/Procedure H&P Update DATE OF PROCEDURE: October 17, 2025 DATE H&P PERFORMED: 10/15/25 H&P UPDATE INFORMATION: I have reviewed H&P completed within last 30 days, I have examined patient prior to procedure and No changes to prior documentation PREOP DIAGNOSIS: Knee arthritis PLANNED PROCEDURE: Operation Date: 10/17/25 07:00 Proposed Procedures p RIGHT Total Knee Arthroplasty(Right) - Derik Cain MD
[2025-10-17] MEDS: ceFAZolin 2,000 mg SDV 2000 MG IVP ×3 (07:15→22:37)
[2025-10-17] MEDS: tranexamic acid 1,000 mg/10mL SDV 1000 MG (07:22)
--- NOTE | 2025-10-17 08:30 | XR_ITS ---
WS: [id number] XR knee RT 1-2V [id number] REASON FOR EXAM: Right total knee arthroplasty FINDINGS: Total right knee arthroplasty. Components of the arthroplasty are intact and in proper position and alignment. No focal bone abnormality. XR/XR knee RT 1-2V [id number] IMPRESSION: Total right knee arthroplasty without abnormality.
--- NOTE | 2025-10-17 08:36 | P.OP_ITS ---
Operative Report Date of procedure: October 17, 2025 Surgeon: Derik Cain MD Procedure: Preoperative diagnosis: End-stage degenerative joint disease right knee Postoperative diagnosis: Same Procedure: Right total knee arthroplasty Surgeon: Derik Cain MD Water Valve Repairer: NII Monte'yahaira assistance was necessary for positioning the patient, assistance during the procedure, wound closure, dressing placement and transfer the patient Anesthesia: General EBL: 50 cc Tourniquet time: 30 minutes at 250 mmHg Indications: Gerta is a 54-year-old white female who has previously had left total knee arthroplasty within the last 3 months. She originally presented with bilateral knee pain that was debilitating. She had failed all conservative measures. X-rays demonstrated degenerative changes within her knee with [id number] presentation medial compartments as well as change of the posterior patella. Therefore at that time she was offered total knee arthroplasty. She underwent a left total knee arthroplasty and she did through this very well is back up to full range of motion and strength and now is requesting the right knee to be done. Patient is well aware of all risk benefits treatment alternat matt and is agreeable to surgery at this time. Procedure: After obtaining her consent patient was taken to the operating room placed Table supine position general anesthetic administered. Once Konesky was achieved pneumatic cuffs placed on proximal right leg right leg was prepped and draped usual fashion. After surgical timeout and gravity exsanguination of the leg pneumatic cuff inflated 250 mmHg. Knee was then flexed to 90 degrees and held in foot holding device. Longitudinal incision was made from superior pole the patella down to the tibial tubercle. Sharp dissection taken down down to subcutaneous tissues electrocautery and hemostasis. Knee was opened up along medial parapatellar incision line and soft tissue was sharply debriding and from the anterior part of the joint including fat pad and anterior horn medial meniscus as well as the ACL. Portion of the capsule was stripped from the medial aspect of the tibia for better exposure. Legs put out the full extension patella was then everted. Electrocautery is used to remove all soft tissue around his periphery. Rongeur's were used to remove osteophytes. Patella was then reamed down to 14 mm thickness with a patellar reamer. Further soft tissue was debrided from the knee. Knee was flexed back up to 90 degrees and the patella was placed in the lateral gutter. Appropriate retractors were placed including PCL retractor to expose the proximal tibia. Tibial cutting guide was position along the longitudinal line of the tibia. Cutting block was set for 2 mm cut out the most affected side that being medial. This is pinned in place small osteotome driven anterior to the PCL to protect it during this cut. Sagittal saw was then used to make the tibial plateau cut. Subsequently tibial plateau cut was removed piecemeal. PCL retractor was removed drill hole placed to the distal femur just anterior to the intercondylar notch. Guide mackenzie placed up to intramedullary canal of the femur and distal femoral cutting block was positioned and pinned in place. Cuts were made with a sagittal saw without any difficulties. Distal femur sized to size 6 femoral cutting block. Drill holes were placed through this. Cutting block was then impacted into these drill holes anterior posterior and chamfer cuts were done at this time without any difficulties. PCL retractor was replaced further soft tissue removed from the joint line including menisci and remnants of the ACL. Tibial tray size D is then dog was positioned on the tibia and aligned with the guide mackenzie. This is pinned in place. Trial 10 mm space was placed on there. Trial femoral component was then impacted on the distal femur and the knee was put through range of motion found to be stable in all positions. She had full range of motion also. Patella was then everted and sized a size 29 patella button. Drill guide was placed on the posterior aspect of the patella and drilled. Trial component was placed and used with range of motion found to have good stability good patellar tracking. Drill holes were then placed through the trial femoral component for permanent post of the permanent component. All trial components were removed except for the tibial tray. This then had drill tower placed on it and intermittently drill holes placed and then interventionally punch was used to prepare for permanent tray. Trial component was removed. Knee was then washed with copious amounts of pulse lavage irrigation and dried. Portion growth size D tibial tray was impacted in the proximal tibia. Size 6 femoral component was impacted on the distal femur. Trial size 10 tibial spacer was placed and knee put the range of motion found to be stable with good stability in all positions. This was then removed and a permanent size 10 polyethylene spacer was placed in and locked in place. A size 29 patella button was then placed on the posterior patella and this is a portion ingrowth also and patellar clamp was used to impact this into the patella. Pneumatic cuff is deflated after 30 minutes of total tourniquet time. Knee is washed sterile irrigation again. Knee was put up on a knee bump for slight flexion and extensor mechanism repaired #1 Vicryl [id number] sutures. Subcutaneous tissue reapproximated 0 Vicryl interrupted sutures. Skin was closed with skin jordan. Wounds are cleaned and dry dressed with Xeroform gauze and OpSite dressing. Patient then awakened transferred to cover room in stable condition
--- NOTE | 2025-10-17 09:03 | ANES.PROC ---
Anesthesia Procedures Procedure/Date: 10/17/25 Right adductor canal block and right iPAQ block for postoperative pain control Nerve Block ^: Nerve Block 1: Main Anesthesia: general anesthesia Time Out Performed: Yes Consent: requested by attending/covering physician and from patient Laterality: Right Nerve block location: adductor canal Anesthesia monitors applied: pulse oximetry, EKG, BP cuff and oxygen Nerve block position: supine Anesthetic Used: ropivicaine 0.5% Amount of anesthesia used (mL): 20 Ultrasound used to: recognize landmarks Nerve Stimulator Used?: No Interscalene/Femoral BLK: other needle (pjunk 4inch) Injection: neg aspiration of heme Patient Tolerated Procedure: well Complications: none Nerve Block 2: Main Anesthesia: general anesthesia Time Out Performed: Yes Consent: requested by attending/covering physician and from patient Laterality: Right Nerve block location: other (IPACK) Anesthesia monitors applied: pulse oximetry, EKG, BP cuff and oxygen Nerve block position: supine Anesthetic Used: other (ropivacaine 0.2%) Amount of anesthesia used (mL): 20 Ultrasound used to: recognize landmarks Nerve Stimulator Used?: No Interscalene/Femoral BLK: other needle (pjunk 4inch) Injection: neg aspiration of heme Patient Tolerated Procedure: well Complications: none
--- NOTE | 2025-10-17 09:35 | ANE.PACU2 ---
Inpatient post-anesthesia follow up: Airway intact: Yes Vital signs: Temperature 97.8 F Pulse Rate 58 Respiratory Rate 16 Blood Pressure 120/74 Pulse Oximetry 97 Oxygen Delivery Me thod Nasal Cannula Oxygen Flow Rate 2 Fraction of Inspir ed Oxygen Hydration adequate: Yes Nausea and vomiting: No Pain level: 1 Mental status: Baseline
[2025-10-17] MEDS: chlorhexidine gluconate 0.12% Btl 473 mL 30 ML MUCOUS MEM ×3 (11:30→22:44)
--- NOTE | 2025-10-17 16:35 | PM.PN ---
Subjective Subjective: Patient was admitted to the hospital for observation today after a right total hip arthroplasty. Tolerated this well Vitals/I&O/Wt Last Vital Signs Temp 97.5 F L 10/17/25 15:56 Pulse 62 10/17/25 15:56 Resp 16 10/17/25 15:56 BP 110/62 10/17/25 15:56 Pulse Ox 91 10/17/25 15:56 O2 Del Method Nasal Cannula 10/17/25 15:56 O2 Flow Rate 2 10/17/25 13:59 10/17/25 10/17/25 10/17/25 06:59 14:59 22:59 Intake Total 780 / 780 Output Total 150 / 150 Balance 630 / 630 Weight last 48 hrs Weight 174 lb Weight 174 lb Physical Exam Narrative: On exam patient's dressings are clear. She is neurovasc intact distally. Urinary Catheter Management: Wright: Cath Placed During This Visit: yes Urinary Catheter Date of Insertion: 10/17/25 Urinary Catheter Time of Insertion: 07:15 A&P Assessment and plan 1. Status post total right knee replacement: Patient is status post right total knee arthroplasty from today. Presently is comfortable and has no complaints Plan: Plan at this time is for overnight observation and pain control. Physical therapy tomorrow for walker ambulation PDMP PDMP Reviewed: Not Reviewed Attestations Medical Necessity Statement*: Patient in need of pain control and physical therapy Coding Level of Care Code Acute Code for Chg Fwd Diagnoses Status post total right knee replacement Z96.651 Laterality: right
[2025-10-17] MEDS: mupirocin oint 22 gm 1 APPLIC NASAL (16:57)
[2025-10-17] MEDS: HYDROcodone-acetaminophen 5-325 mg Tablet 1 TAB PO ×2 (16:57→21:10)
[2025-10-17] MEDS: sennosides-docusate Tablet 2 TAB PO (16:57)
[2025-10-18] MEDS: HYDROcodone-acetaminophen 5-325 mg Tablet 1 TAB PO ×3 (01:28→12:25)
[2025-10-18 04:00] VITALS: BP 113/68; PULSE 57; RESP 18; TEMP 36.6; O2SAT 92
[2025-10-18] MEDS: sennosides-docusate Tablet 2 TAB PO (05:23)
[2025-10-18] MEDS: multivitamin therapeutic Tablet 1 TAB PO (05:24)
[2025-10-18] MEDS: chlorhexidine gluconate 0.12% Btl 473 mL 30 ML MUCOUS MEM ×2 (05:27→11:46)
[2025-10-18] MEDS: mupirocin oint 22 gm 1 APPLIC NASAL (05:27)
[2025-10-18] MEDS: ceFAZolin 2,000 mg SDV 2000 MG IVP (06:24)
[2025-10-18 07:26] VITALS: BP 103/61; PULSE 55; RESP 16; TEMP 36.7; O2SAT 94
[2025-10-18 08:45] LABS: Hematocrit 32.1 % (36-47); Hemoglobin 10.50 g/dL (11.27-16.99); Mean Corpuscular HGB Conc 32.7 g/dL (30-55); Mean Corpuscular Hemoglobin 29.1 pg (27-33); Mean Corpuscular Volume 88.9 fl (85-98); Nucleated Red Blood Cells % 0 %; Platelet Count 151 10^3/cmm (157-399); Red Blood Count 3.61 10^6/uL (3.85-5.65); White Blood Count 8.13 10^3/uL (3.29-11.43)
[2025-10-18 09:16] LABS: Anion Gap 11.2 (5-19); Blood Urea Nitrogen 11 mg/dL (6-20); Calcium 8.6 mg/dL (8.5-10.5); Carbon Dioxide 27 mmol/L (22-29); Chloride 109 mmol/L (98-107); Glucose 107 mg/dL (65-115); Osmolality Calculated 296 mOsm/kg (285-295); Potassium 4.2 mmol/L (3.5-5.1); Sodium 143 mmol/L (136-145)
[2025-10-18 11:29] VITALS: BP 111/71; PULSE 61; RESP 17; TEMP 36.7; O2SAT 91
--- NOTE | 2025-10-18 12:23 | P.DS_ITS ---
Discharge Providers Date of Admission: 10/17/25 09:06 Date of Discharge: October 18, 2025 Attending Provider at Admission: Derik Cain MD Attending Provider at Discharge: Derik Cain MD Primary Care Provider: Don Jeffery MD Diagnoses at Discharge Discharge Diagnosis 1. Status post total right knee replacement: Details from hospital stay: Greta is a 54-year-old white female who was admitted on 10/17/2025 for a right total knee arthroplasty. She previously had left total knee arthroplasty in the last 3 months. She is doing quite well with this now is requested for replacement of her right knee. Patient tolerated procedure well and did well overnight. Pain is under control and she did well with physical therapy Reason for Visit Reason for Visit: M17.11 Brief History: Patient 54-year-old white female with end-stage degenerative joint disease of her right knee. Patient was admitted for right total knee arthroplasty. Hospital Course Hospital Course Patient had the above-stated surgery on 10/17/2025 and tolerated this well. Over the course the evening she had good pain control and today has done well with physical therapy. Now request to be discharged home. Physical Exam Narrative: Patient with ice pack on her knee today and dressings are dry and clear. No other gross abnormalities noted. She is neurovasc intact distally Urinary Catheter Management: Wright: Cath Placed During This Visit: yes, but has since been removed by the nurse Reason for Continuing Indwelling Catheter: Perioperative Use in Selected Surgeries Urinary Catheter Date of Insertion: 10/17/25 Urinary Catheter Time of Insertion: 07:15 Date Urinary Catheter Removed: 10/18/25 Time Urinary Catheter Discontinued: 06:10 Discharge Data Studies Completed and Pending Completed Studies During Hospitalization Category Date Time Status XR knee RT 1-2V [id number] Routine Exams 10/17/25 08:30 Completed Pending at discharge Category Date Time Status Complete Blood Count w/Auto AM LABS Lab 10/19/25 04:00 Uncollected Complete Blood Count w/Auto AM LABS Lab 10/20/25 04:00 Uncollected Radiology Impressions Knee X-Ray 10/17/25 08:30 IMPRESSION: Total right knee arthroplasty without abnormality. Laboratory Results WBC 8.13 10^3/uL (3.29-11.43) 10/18/25 08:15 RBC 3.61 10^6/uL (3.85-5.65) L 10/18/25 08:15 Hgb 10.50 g/dL (11.27-16.99) L 10/18/25 08:15 Hct 32.1 % (36-47) L 10/18/25 08:15 MCV 88.9 fl (85-98) 10/18/25 08:15 MCH 29.1 pg (27-33) 10/18/25 08:15 MCHC 32.7 g/dL (30-55) 10/18/25 08:15 RDW 12.9 % (12.1-15.1) 10/18/25 08:15 Plt Count 151 10^3/cmm (157-399) L 10/18/25 08:15 MPV 11.7 fL (7.4-10.4) H 10/18/25 08:15 Neut % (Auto) 78.7 % 10/18/25 08:15 Lymph % (Auto) 14.3 % 10/18/25 08:[address] [place] % (Auto) 6.4 % 10/18/25 08:15 Eos % (Auto) 0.2 % 10/18/25 08:15 Baso % (Auto) 0.2 % 10/18/25 08:15 Neut # (Auto) 6.39 10^3/uL (1.8-7.7) 10/18/25 08:15 Lymph # (Auto) 1.2 10^3/uL (0.8-4.8) 10/18/25 08:15 [place] # (Auto) 0.5 10^3/uL (0.2-0.9) 10/18/25 08:15 Eos # (Auto) 0.0 10^3/uL (0.0-0.8) 10/18/25 08:15 Baso # (Auto) 0.0 10^3/uL (0.0-0.1) 10/18/25 08:15 Nucleated RBC % (auto) 0 % 10/18/25 08:15 Nucleated RBCs # 0.0 /100WBC 10/18/25 08:15 Sodium 143 mmol/L (136-145) 10/18/25 08:15 Potassium 4.2 mmol/L (3.5-5.1) 10/18/25 08:15 Chloride 109 mmol/L (98-107) H 10/18/25 08:15 Carbon Dioxide 27 mmol/L (22-29) 10/18/25 08:15 Anion Gap 11.2 (5-19) 10/18/25 08:15 BUN 11 mg/dL (6-20) 10/18/25 08:15 Creatinine 0.7 mg/dL (0.5-0.9) 10/18/25 08:15 GFR Calculation 86.9 mL/min (90-130) L 10/18/25 08:15 Glucose 107 mg/dL (65-115) 10/18/25 08:15 Calculated Osmolality 296 mOsm/kg (285-295) H 10/18/25 08:15 Calcium 8.6 mg/dL (8.5-10.5) 10/18/25 08:15 Vitals Last Vital Signs Temp 98.0 F 10/18/25 11:29 Pulse 61 10/18/25 11:29 Resp 17 10/18/25 11:29 BP 111/71 10/18/25 11:29 Pulse Ox 91 10/18/25 11:29 O2 Del Method Room Air 10/18/25 11:29 O2 Flow Rate 2 10/17/25 13:59 Discharge Plan Discharge Patient Disposition: Home Condition: Stable Prescriptions: New hydrocodone-acetaminophen 5-325 mg tablet 1 tab PO Q6H PRN (Reason: pain) Qty: 30 0RF Continued famotidine 20 mg tablet 20 mg PO BID pantoprazole 40 mg tablet,delayed release (DR/EC) 40 mg PO DAILY cyanocobalamin (vitamin B-12) 1,000 mcg/mL solution 100 mcg IM .WEEK pregabalin 225 mg capsule 225 mg PO BID [place] Autoinjector 225 mg/1.5 mL auto-injector 225 mg SUBCUT Q30D Qty: 1.5 5RF tizanidine 4 mg capsule 4 mg PO BID PRN (Reason: Pain (Scale Score 7-10)) dicyclomine 20 mg tablet 20 mg PO BID diclofenac sodium 75 mg tablet,delayed release (DR/EC) 75 mg PO BID montelukast 10 mg tablet 10 mg PO DAILY azelastine 137 mcg (0.1 %) aerosol,spray 2 spray intranasal BID Rx Instructions: administer into each nostril albuterol sulfate 90 mcg/actuation HFA aerosol inhaler 2 puff inhalation Q6H PRN (Reason: Wheezing) fluticasone propionate [Allergy Relief (fluticasone)] 50 mcg/actuation spray,suspension 2 spray intranasal DAILY Rx Instructions: administer into each nostril cholecalciferol (vitamin D3) 1,250 mcg (50,000 unit) tablet 1,250 mcg PO .BID WEEKLY ergocalciferol (vitamin D2) [Vitamin D2] 1,250 mcg (50,000 unit) capsule 1,250 mcg PO .WEEK doxepin 50 mg capsule 50 mg PO DAILY Qty: 30 3RF Rx Instructions: Take one capsule daily at bedtime escitalopram oxalate 10 mg tablet 10 mg PO DAILY Qty: 30 3RF Rx Instructions: Take one tablet daily bupropion HCl 300 mg tablet extended release 24 hr 300 mg PO QAM Qty: 30 3RF Rx Instructions: Take one tablet by mouth every morning tramadol 50 mg tablet 50 mg PO Q6H PRN (Reason: pain) Qty: 30 0RF alprazolam 1 mg tablet 1 mg PO TID PRN (Reason: Anxiety) Discharge Order = DC NOW: Discharge Order (Routine); Ordered 10/18/25 Ordered By: Derik Cain Referrals: [facility] [Outside] Derik Cain MD [Physician, Orthopedics] - 11/06/25 9:45 am Discharge Diet: Advance as tolerated Discharge Activity: Increase activity as tolerated Patient Instructions: Hydrocodone/Acetaminophen (By mouth), Acute Wound Care (DC), Opioid Safety, Post Anesthesia Care, Patient Portal & Sanam Instructions Activity Restrictions/Additional Instructions: Leave dressing in place until follow-up. May shower with dressing on her dressing covered Ice and elevate often Home exercise program Adult aspirin 1 p.o. daily Discharge Attestations Time Spent in Discharge Care*: less than 30 min Quality Metrics Clinical Quality Measures [ No reported AMI, CVA or VTE this stay] Coding Level of Care Code Acute Code for Chg Fwd Diagnoses Status post total right knee replacement Z96.651 Laterality: right
[2025-10-18 13:15] VITALS: BP 111/71; PULSE 61; RESP 17; TEMP 36.7; O2SAT 91
== END 2025-10-18 13:16 | disposition home health service (06) ==
LOC: OR 09:06 → MEDSURG 09:06
PROVIDERS: Admitting Provider Orthopaedic Surgery; PCP Family Medicine; Visit Provider Orthopaedic Surgery
PROC: (CPT 27447; principal; 2025-10-17 07:00)
DX: M17.11 Unilateral primary osteoarthritis, right knee (principal); K21.9 Gastro-esophageal reflux disease without esophagitis; G47.33 Obstructive sleep apnea (adult) (pediatric); Z99.89 Dependence on other enabling machines and devices; F43.12 Post-traumatic stress disorder, chronic; F41.9 Anxiety disorder, unspecified; Z80.9 Family history of malignant neoplasm, unspecified
CPT/HCPCS: 64447; 27447; 36415; 51702; 73560; 80048; 85025; 97110; 97116; 97161; 97165; A4216; C1722; C1776; G0378; J0690; J1100; J1885; J2250; J2405; J2704; J3010; J3490; J7030; J9999

== ENCOUNTER 2025-10-25 14:35 | Emergency (ER) | payer MEDICARE, MEDICAID, SELFPAY ==
[2025-10-25 14:37] VITALS: BP 98/58; PULSE 66; RESP 18; TEMP 37.7; O2SAT 89; BMI 30.1
--- NOTE | 2025-10-25 14:59 | XR_ITS ---
WS: [id number] Right knee, 3 views, 10/25/2025 Clinical Data: recent surgery; redness/warmth/pain Comparison: Right knee, 10/17/2025 Findings: The knee arthroplasty components remain in the same position. No periprosthetic fractures or loosening is seen. The anterior surgical jordan remain in the same position. XR/XR knee RT 3V* [id number] Impression: Stable right knee arthroplasty.
--- NOTE | 2025-10-25 15:02 | USCV_ITS ---
Greta Cash Age: 54 Gender: F : 1970 Exam Date: 10/25/2025 15:25 Ordering Phys: Genevieve Ballard Technologist: Exam Location: [facility] – [place] Indication: pain post op HISTORY: post op pain PROCEDURES: Venous duplex imaging was performed in only the right lower extremity. FINDINGS: No evidence of DVT seen in any vessel visualized at this time. small fluid collection behind rt knee CONCLUSIONS No evidence of right lower extremity DVT. 1.7 x 1.0cm small fluid collection popliteal fossa Héctor Moreira MD (Electronically Signed) Final Date: 25 October 2025 16:49 S
--- NOTE | 2025-10-25 15:03 | W.ED.EXTPRO ---
Documented by User: WES Oliver 10/26/25 16:28 HPI - Extremity Problem General: Chief complaint: Extremity Problem,Nontraumatic Stated complaint: KNEE PAIN Time Seen by Provider: 10/25/25 14:41 Source: patient Mode of arrival: wheelchair Limitations: no limitations History of Present Illness: Patient is a pleasant 54-year-old female with history of COPD, depression, status post right TKA on 10/17, presents to the emergency room with increasing pain to her right knee. This is contained in her right knee, she has increasing pain and redness. Context: Patient fell in her home missing a step, and hit her right knee. This was 2 days ago. She has difficulty with movement. This was improved after her TKA, however now is worsening since her new fall. There is been no systemic temperature at home that she is aware of, however here she was 99.9 ?F. No nausea, or vomiting. Patient is a 55-year-old female presents to ED today with a complaint of right knee pain. Patient states she has status post total knee arthroplasty by Dr. Santos performed 8 days ago. Patient states she was doing okay until 2 days ago when she was walking down a set of stairs and missed a step causing her to almost fall. Patient states she did not fall or land directly onto her knee but thinks she may have twisted it on the way down. She states since then her pain has been significantly worse. She has noticed swelling to the knee and leg but is unsure if this is new or present since the surgery. She has no other complaints at this time. Blood pressure was soft upon arrival but states her normal blood pressure is 100/60. She does have a low-grade temp of 99.9. Oxygen running anywhere from 89 to 91%. She states she has COPD and probably needs oxygen at baseline but does not wear it. She also reportedly has a history of sleep apnea. MD Complaint: joint pain Onset (ago): day(s) Pain Consistency: constant Location: right and knee Radiation: none Relieving factors: nothing Exacerbating factors: range of motion, weight bearing and walking Context: recent surgery/procedure Related Data Home Medications ?Medication ?Instructions ?Recorded ?Confirmed tizanidine 4 mg capsule 4 mg PO BID PRN Pain (Scale Score 12/30/22 10/26/25 7-10) albuterol sulfate 90 mcg/actuation 2 puff inhalation Q6H PRN Wheezing 02/09/23 10/26/25 aerosol inhaler azelastine 137 mcg (0.1 %) nasal 2 spray intranasal BID 02/09/23 10/26/25 spray diclofenac sodium 75 mg 75 mg PO BID 02/09/23 10/26/25 tablet,delayed release dicyclomine 20 mg tablet 20 mg PO BID 02/09/23 10/26/25 fluticasone propionate 50 2 spray intranasal DAILY 02/09/23 10/26/25 mcg/actuation nasal spray,suspension (Allergy Relief (fluticasone)) montelukast 10 mg tablet 10 mg PO DAILY 02/09/23 10/26/25 famotidine 20 mg tablet 20 mg PO BID 11/12/23 10/26/25 cholecalciferol (vitamin D3) 1,250 1,250 mcg PO .BID WEEKLY 12/17/23 10/26/25 mcg (50,000 unit) tablet pregabalin 225 mg capsule 225 mg PO BID 11/29/24 10/26/25 cyanocobalamin (vitamin B-12) 100 mcg IM .WEEK 12/26/24 10/26/25 1,000 mcg/mL injection solution pantoprazole 40 mg tablet,delayed 40 mg PO DAILY 12/26/24 10/26/25 release ergocalciferol (vitamin D2) 1,250 1,250 mcg PO .WEEK 05/31/25 10/26/25 mcg (50,000 unit) capsule (Vitamin D2) alprazolam 1 mg tablet 1 mg PO TID PRN Anxiety 07/03/25 10/26/25 Previous Rx's ?Medication ?Instructions ?Recorded tramadol 50 mg tablet 50 mg PO Q6H PRN pain #30 tabs 08/31/25 bupropion HCl 300 mg 24 hr tablet, 300 mg PO QAM #30 tabs 10/01/25 extended release doxepin 50 mg capsule 50 mg PO DAILY #30 caps 10/01/25 escitalopram oxalate 10 mg tablet 10 mg PO DAILY #30 tabs 10/01/25 fremanezumab-vfrm 225 mg/1.5 mL 225 mg (1.5 mL) SUBCUT Q30D #1.5 mL 10/16/25 subcutaneous auto-injector (Ajovy) hydrocodone 5 mg-acetaminophen 325 1 tab PO Q6H PRN pain #30 tabs 10/18/25 mg tablet doxycycline hyclate 100 mg capsule 100 mg PO BID 10 days #20 caps 10/25/25 hydrocodone 5 mg-acetaminophen 325 1 tab PO Q6H PRN pain #14 tabs 10/25/25 mg tablet Allergies Allergy/AdvReac Type Severity Reaction Status Date / Time clonazepam (From Klonopin) Allergy ADR-Dizzine Verified 10/26/25 11:20 ss morphine Allergy irritation Verified 10/26/25 11:20 duloxetine (From Cymbalta) AdvReac Severe ADR-Confusi Verified 10/26/25 11:20 on latex AdvReac Mild rash Verified 10/26/25 11:20 Review of Systems Const: Denies: chills or body aches Resp: Reports: dyspnea (chronic with her COPD) Musc: Reports: joint pain (R knee), joint swelling (R knee), joint redness (R knee) and limited range of motion (R knee); Denies: back pain, extremity pain or muscle cramps Neuro: Reports: difficulty walking (secondary to R knee pain) PFSH ED PFSH: Medical History Post-traumatic stress disorder, chronic Major depressive disorder, recurrent, moderate Generalized anxiety disorder Psychiatric care Family History Other Cancer Diabetes Hypertension Denies family history of CAD (coronary artery disease) Anesthesia complication Bleeding disorder Social History Smoking and tobacco/nicotine status: never used tobacco/nicotine Alcohol intake: never Substance/Drug Use: never Household members: spouse Marital status: Current occupational status: disabled Current gender identity: Female Physical Exam Const: COMMON NORMALS: no limitations, alert and well nourished GENERAL APPEARANCE: cooperative ORIENTATION/CONSCIOUSNESS: Yes awake, Yes oriented to person, Yes oriented to place and Yes oriented to time OTHER: appears drowsy at times HENMT: HEAD & SCALP: normal to inspection FACE & SINUS: normal facial exam and face symmetric Eye: GENERAL EYE: appearance normal, both eyes and all related structures Neck/C-Spine: COMMON NORMALS: no lymphadenopathy and no meningeal signs GENERAL: Yes normal visual inspection Resp: COMMON NORMALS: clear to auscultation bilaterally EFFORT & INSPECTION: Yes able to speak in complete sentences AUSCULTATION: clear to auscultation bilaterally OTHER: patient satting 89-91% on RA Cardio: COMMON NORMALS: regular rhythm RHYTHM: regular rhythm GI: COMMON NORMALS: Soft to palpation and non-tender PALPATION: Yes Soft to palpation Extremity: RIGHT LOWER EXTREMITY: Yes knee joint OTHER: R knee with expected post op ecchymosis. She does have erythema and warmth overlying anterior joint line-no streaking. Elo intact and appear normal. Expected small amount of serosanguineous drainage on her bandage. No odor. Pedal pulses present. She has a significant amount of pain with attempted ROM of knee joint. Neuro: SENSORIUM/ORIENTATION: Yes alert, Yes oriented to person, Yes oriented to place and Yes oriented to time MENINGEAL SIGNS: Yes no meningeal signs Course Consultations: Consultation #1: Dr. Santos-discussed clinical findings/labs/imaging/low grade temp/etc-he felt this was all normal post operative and recommended ice/heat-he will see early tomorrow morning for re-evaluation Vital Signs: Vital signs: Vital Signs Temperature 99.6 F 10/25/25 18:25 Pulse Rate 90 10/25/25 18:25 Respiratory Rate 15 10/25/25 18:25 Blood Pressure 98/58 10/25/25 18:25 Pulse Oximetry 91 10/25/25 18:25 Oxygen Delivery Me thod Nasal Cannula 10/25/25 16:01 Oxygen Flow Rate 2 10/25/25 16:01 MDM - Extremity (Nontraumatic) Medical Decision Making Patient is a 54-year-old female that was assumed care from WES Ballard, with a red swollen right knee status post TKA 8 days ago. Previous PA discussed with orthopedist Dr. Santos, that we will see patient early in the morning. Pain was treated. I individually saw the patient and patient underwent a full medical screening examination. Unfortunately, there was a miscommunication, and patient thought it was time for her to leave, she eloped, and she left just before she got her Rocephin shot. She is coming back to the hospital to obtain her Rocephin IM. Antibiotics will be sent to the pharmacy for continuation as well. Patient refused to come back to the hospital for her Rocephin IM. Discussed with patient that doxycycline has been sent to the pharmacy. Patient is a 55-year-old female who presented to the ED today with a complaint of right knee pain. Patient states she had been doing okay since the surgery but injured it 2 days ago while going down a flight of stairs. Her XR showing a stable right knee arthroplasty. While here, her blood pressures have alternated between high and low (90s/50s at times and others 160s/90). She often was seen lying on the bp cuff arm so not sure the accuracy of these numbers. Sats were on the low side. She states she has COPD and sleep apnea and probably needs oxygen but does not wear any. She had leg swelling/pain probably normal post op but due to hypoxia US of leg and CTA of chest was obtained to rule out DVT/PE. These were normal. She does have some probable post op atelectasis. Her main concern was her knee. I did discuss her case with her ortho surgeon Dr. Santos who is not concerned for a septic arthritis at this time but was graciously willing to see her first thing in the morning to re-evaluate. We were still awaiting a few results at time of my shift end thus care transferred to Joana Franklin PA-C for final disposition. Lab Data 10/25/25 16:25 10/25/25 16:25 Radiology Impressions Knee X-Ray 10/25/25 14:59 Impression: Stable right knee arthroplasty. Chest CTA 10/25/25 15:07 IMPRESSION: 1. No pulmonary embolism. 2. Bibasilar atelectasis. Laboratory Results WBC 10.35 10^3/uL (3.29-11.43) 10/25/25 16: RBC 2.97 10^6/uL (3.85-5.65) L 10/25/25 16:25 Hgb 8.60 g/dL (11.27-16.99) L 10/25/25 16: Hct 26.8 % (36-47) L 10/25/25 16:25 MCV 90.2 fl (85-98) 10/25/25 16: MCH 29.0 pg (27-33) 10/25/25 16: MCHC 32.1 g/dL (30-55) 10/25/25 16: RDW 13.2 % (12.1-15.1) 10/25/25 16:25 Plt Count 167 10^3/cmm (157-399) 10/25/25 16:25 MPV 11.3 fL (7.4-10.4) H 10/25/25 16:25 Neut % (Auto) 82.6 % 10/25/25 16:25 Lymph % (Auto) 8.2 % 10/25/25 16:25 Waldo % (Auto) 8.1 % 10/25/25 16:25 Eos % (Auto) 0.2 % 10/25/25 16: Baso % (Auto) 0.2 % 10/25/25: Neut # (Auto) 8.55 10^3/uL (1.8-7.7) H 10/25/25 16:25 Lymph # (Auto) 0.9 10^3/uL (0.8-4.8) 10/25/25 16:25 Waldo # (Auto) 0.8 10^3/uL (0.2-0.9) 10/25/25 16:25 Eos # (Auto) 0.0 10^3/uL (0.0-0.8) 10/25/25 16:25 Baso # (Auto) 0.0 10^3/uL (0.0-0.1) 10/25/25 16:25 Nucleated RBC % (auto) 0 % 10/25/25 16: Nucleated RBCs # 0.0 /100WBC 10/25/25 16:25 ESR 19 mm/hr (0-15) H 10/25/25 16:25 Sodium 133 mmol/L (136-145) L 10/25/25 16:25 Potassium 3.9 mmol/L (3.5-5.1) 10/25/25 16:25 Chloride 98 mmol/L (98-107) 10/25/25 16:25 Carbon Dioxide 24 mmol/L (22-29) 10/25/25 16:25 Anion Gap 14.9 (5-19) 10/25/25 16:25 BUN 21 mg/dL (6-20) H 10/25/25 16:25 Creatinine 1.0 mg/dL (0.5-0.9) H 10/25/25 16:25 GFR Calculation 57.6 mL/min (90-130) L 10/25/25 16:25 Glucose 121 mg/dL (65-115) H 10/25/25 16:25 Calculated Osmolality 280 mOsm/kg (285-295) L 10/25/25 16:25 Lactic Acid 2.2 mmol/L (0.5-2.2) 10/25/25 16:25 Lactic Acid (Sepsis) 1.8 mmol/L (0.5-2.2) 10/25/25 17:50 Calcium 8.2 mg/dL (8.5-10.5) L 10/25/25 16:25 Total Bilirubin 1.4 mg/dL (0.15-1.2) H 10/25/25 16:25 AST 11 U/L (0-32) 10/25/25 16:25 ALT 6 U/L (0-33) 10/25/25 16:25 Alkaline Phosphatase 113 U/L (35-105) H 10/25/25 16:25 C-Reactive Protein 240.0 mg/L (0.0-4.9) H 10/25/25 16:25 Total Protein 5.5 g/dL (6.6-8.7) L 10/25/25 16:25 Albumin 3.1 g/dL (3.5-5.2) L 10/25/25 16:25 Globulin 2.4 g/dL (1.3-4.6) 10/25/25 16:25 Lipase 12 U/L (13-60) L 10/25/25 16:25 Urine Color Dark yellow (Yellow) A 10/25/25 17:43 Urine Appearance Clear (CLEAR) 10/25/25 17:43 Urine pH 7.5 (5-7) 10/25/25 17:43 Ur Specific [place] 1.032 (1.005-1.030) H 10/25/25 17:43 Urine Protein Trace (Negative) A 10/25/25 17:43 Urine Glucose (UA) Negative (Normal) 10/25/25 17:43 Urine Ketones Negative (Negative) 10/25/25 17:43 Urine Blood Negative (Negative) 10/25/25 17:43 Urine Nitrate Negative (Negative) 10/25/25 17:43 Urine Bilirubin Negative (Negative) 10/25/25 17:43 Urine Urobilinogen >=8.0 mg/dL (Negative) H 10/25/25 17:43 Ur Leukocyte Esterase Negative (Negative) 10/25/25 17:43 Urine RBC 0-2 /hpf (0-2) 10/25/25 17:43 Urine WBC 0-5 /hpf (0-5) 10/25/25 17:43 Ur Squamous Epith Cells 0-5 /hpf (0-5) 10/25/25 17:43 Amorphous Sediment Not Reportable 10/25/25 17:43 Urine Bacteria None seen /hpf (NONE) 10/25/25 17:43 Hyaline Casts 0.40 /lpf 10/25/25 17:43 Urine Opiates Screen Positive ng/mL (Negative) H 10/25/25 17:43 Ur Barbiturates Screen Negative ng/mL (Negative) 10/25/25 17:43 Ur Phencyclidine Scrn Negative ng/mL (Negative) 10/25/25 17:43 Ur Amphetamines Screen Negative ng/mL (Negative) 10/25/25 17:43 U Benzodiazepines Scrn Positive ng/mL (Negative) H 10/25/25 17:43 Urine Cocaine Screen Negative ng/mL (Negative) 10/25/25 17:43 U Marijuana (THC) Screen Negative ng/mL (Negative) 10/25/25 17:43 Discharge Plan Discharge Patient Disposition: Home Clinical Impression: Cellulitis of knee, right Condition: Stable Prescriptions: New hydrocodone-acetaminophen 5-325 mg tablet 1 tab PO Q6H PRN (Reason: pain) Qty: 14 0RF doxycycline hyclate 100 mg capsule 100 mg PO BID 10 Days Qty: 20 0RF No Action famotidine 20 mg tablet 20 mg PO BID pantoprazole 40 mg tablet,delayed release (DR/EC) 40 mg PO DAILY cyanocobalamin (vitamin B-12) 1,000 mcg/mL solution 100 mcg IM .WEEK pregabalin 225 mg capsule 225 mg PO BID Ajovy Autoinjector 225 mg/1.5 mL auto-injector 225 mg SUBCUT Q30D Qty: 1.5 5RF tizanidine 4 mg capsule 4 mg PO BID PRN (Reason: Pain (Scale Score 7-10)) dicyclomine 20 mg tablet 20 mg PO BID diclofenac sodium 75 mg tablet,delayed release (DR/EC) 75 mg PO BID montelukast 10 mg tablet 10 mg PO DAILY azelastine 137 mcg (0.1 %) aerosol,spray 2 spray intranasal BID Rx Instructions: administer into each nostril albuterol sulfate 90 mcg/actuation HFA aerosol inhaler 2 puff inhalation Q6H PRN (Reason: Wheezing) fluticasone propionate [Allergy Relief (fluticasone)] 50 mcg/actuation spray,suspension 2 spray intranasal DAILY Rx Instructions: administer into each nostril cholecalciferol (vitamin D3) 1,250 mcg (50,000 unit) tablet 1,250 mcg PO .BID WEEKLY ergocalciferol (vitamin D2) [Vitamin D2] 1,250 mcg (50,000 unit) capsule 1,250 mcg PO .WEEK doxepin 50 mg capsule 50 mg PO DAILY Qty: 30 3RF Rx Instructions: Take one capsule daily at bedtime escitalopram oxalate 10 mg tablet 10 mg PO DAILY Qty: 30 3RF Rx Instructions: Take one tablet daily bupropion HCl 300 mg tablet extended release 24 hr 300 mg PO QAM Qty: 30 3RF Rx Instructions: Take one tablet by mouth every morning tramadol 50 mg tablet 50 mg PO Q6H PRN (Reason: pain) Qty: 30 0RF alprazolam 1 mg tablet 1 mg PO TID PRN (Reason: Anxiety) hydrocodone-acetaminophen 5-325 mg tablet 1 tab PO Q6H PRN (Reason: pain) Qty: 30 0RF Discharge Orders: Discharge ED (Routine); Ordered 10/25/25 Ordered By: Joana Franklin Discharge Diet: Usual diet Discharge Activity: Limit activity as instructed and Use walker/crutches as instructed Patient Instructions: Cellulitis (ED), Patient Portal & Sanam Instructions Activity Restrictions/Additional Instructions: WE DISCUSSED DR. SANTOS IS WILLING TO FOLLOW UP WITH YOU TOMORROW MORNING IN CLINIC FOR RE-EVALUATION. Thank you for choosing [facility] for your healthcare needs today. You have been screened and evaluated and felt safe for discharge. Health conditions do change or evolve sometimes and as such it is important that you follow up with your Primary Doctor to be re checked, 3-5 days is a general good time frame for follow up. You are always welcome to return to the ED for re assessment if your symptoms are worsening or you have new concerns Print Language: Maori Coding Level of Care Code ED Ton [employer] Filler for Bryang Fwd Documented by User: WES Alfaro 10/25/25 21:45 HPI - Extremity Problem General: Chief complaint: Extremity Problem,Nontraumatic Stated complaint: KNEE PAIN Time Seen by Provider: 10/25/25 14:41 History of Present Illness: Patient is a pleasant 54-year-old female with history of COPD, depression, status post right TKA on 10/17, presents to the emergency room with increasing pain to her right knee. This is contained in her right knee, she has increasing pain and redness. Context: Patient fell in her home missing a step, and hit her right knee. This was 2 days ago. She has difficulty with movement. This was improved after her TKA, however now is worsening since her new fall. There is been no systemic temperature at home that she is aware of, however here she was 99.9 ?F. No nausea, or vomiting. Associated symptoms: Deny chest pain, fever(s) or rash Related Data Home Medications ?Medication ?Instructions ?Recorded ?Confirmed tizanidine 4 mg capsule 4 mg PO BID PRN Pain (Scale Score 12/30/22 10/26/25 7-10) albuterol sulfate 90 mcg/actuation 2 puff inhalation Q6H PRN Wheezing 02/09/23 10/26/25 aerosol inhaler azelastine 137 mcg (0.1 %) nasal 2 spray intranasal BID 02/09/23 10/26/25 spray diclofenac sodium 75 mg 75 mg PO BID 02/09/23 10/26/25 tablet,delayed release dicyclomine 20 mg tablet 20 mg PO BID 02/09/23 10/26/25 fluticasone propionate 50 2 spray intranasal DAILY 02/09/23 10/26/25 mcg/actuation nasal spray,suspension (Allergy Relief (fluticasone)) montelukast 10 mg tablet 10 mg PO DAILY 02/09/23 10/26/25 famotidine 20 mg tablet 20 mg PO BID 11/12/23 10/26/25 cholecalciferol (vitamin D3) 1,250 1,250 mcg PO .BID WEEKLY 12/17/23 10/26/25 mcg (50,000 unit) tablet pregabalin 225 mg capsule 225 mg PO BID 11/29/24 10/26/25 cyanocobalamin (vitamin B-12) 100 mcg IM .WEEK 12/26/24 10/26/25 1,000 mcg/mL injection solution pantoprazole 40 mg tablet,delayed 40 mg PO DAILY 12/26/24 10/26/25 release ergocalciferol (vitamin D2) 1,250 1,250 mcg PO .WEEK 05/31/25 10/26/25 mcg (50,000 unit) capsule (Vitamin D2) alprazolam 1 mg tablet 1 mg PO TID PRN Anxiety 07/03/25 10/26/25 Previous Rx's ?Medication ?Instructions ?Recorded tramadol 50 mg tablet 50 mg PO Q6H PRN pain #30 tabs 08/31/25 bupropion HCl 300 mg 24 hr tablet, 300 mg PO QAM #30 tabs 10/01/25 extended release doxepin 50 mg capsule 50 mg PO DAILY #30 caps 10/01/25 escitalopram oxalate 10 mg tablet 10 mg PO DAILY #30 tabs 10/01/25 fremanezumab-vfrm 225 mg/1.5 mL 225 mg (1.5 mL) SUBCUT Q30D #1.5 mL 10/16/25 subcutaneous auto-injector (Ajovy) hydrocodone 5 mg-acetaminophen 325 1 tab PO Q6H PRN pain #30 tabs 10/18/25 mg tablet doxycycline hyclate 100 mg capsule 100 mg PO BID 10 days #20 caps 10/25/25 hydrocodone 5 mg-acetaminophen 325 1 tab PO Q6H PRN pain #14 tabs 10/25/25 mg tablet Allergies Allergy/AdvReac Type Severity Reaction Status Date / Time clonazepam (From Klonopin) Allergy ADR-Dizzine Verified 10/26/25 11:20 ss morphine Allergy irritation Verified 10/26/25 11:20 duloxetine (From Cymbalta) AdvReac Severe ADR-Confusi Verified 10/26/25 11:20 on latex AdvReac Mild rash Verified 10/26/25 11:20 Review of Systems General: Reports: 10 or more systems reviewed and unremarkable except in HPI and below Const: Reports: change in appetite, fatigue and malaise; Denies: fever(s) or change in weight Eyes: Denies: change in vision, blurry vision, blind spots, photophobia, eye discomfort or seeing flashes ENMT: Reports: change in hearing; Denies: throat pain, odynophagia, hoarseness, tinnitus or sinus pain Card: Denies: chest pain, palpitations or syncope Resp: Reports: dyspnea; Denies: non-productive cough, wheezing or hemoptysis GI: Reports: change in bowel habits and other; Denies: abdominal pain, nausea, vomiting, dysphagia, diarrhea, constipation, belching, excessive flatus or hematochezia : Denies: urinary frequency or urinary incontinence Musc: Reports: extremity pain, extremity swelling, joint pain, joint swelling, joint redness, joint stiffness, limited range of motion and muscle cramps; Denies: neck pain or muscle weakness Skin/Breast: Denies: rash, new lesions or breast mass Neuro: Reports: difficulty walking and other (sleep apnea); Denies: headache(s), numbness in extremities, weakness in extremities, sensory changes, Slurred speech present or seizure-like activity Psych: Reports: irritability, memory loss and difficulty concentrating; Denies: depression or other (personality changes) Endo: Reports: polydipsia; Denies: polyuria, excessive sweating or change in body appearance Shimon/Lymph: Reports: easy bruising; Denies: easy bleeding or enlarged lymph nodes PFSH ED PFSH: Medical History Post-traumatic stress disorder, chronic Major depressive disorder, recurrent, moderate Generalized anxiety disorder Psychiatric care Family History Other Cancer Diabetes Hypertension Denies family history of CAD (coronary artery disease) Anesthesia complication Bleeding disorder Social History Smoking and tobacco/nicotine status: never used tobacco/nicotine Alcohol intake: never Substance/Drug Use: never Household members: spouse Marital status: Current occupational status: disabled Current gender identity: Female Physical Exam Const: COMMON NORMALS: no acute distress, average body habitus and patient oriented x3 HENMT: COMMON NORMALS: normocephalic and atraumatic HEAD & SCALP: normocephalic and atraumatic Neck/C-Spine: COMMON NORMALS: full ROM Chest: COMMONS NORMALS: normal inspection of the chest Resp: COMMON NORMALS: normal respiratory effort, No retractions and No use of accessory muscles Cardio: COMMON NORMALS: regular rate and Peripheral pulses 2+ throughout RATE: regular rate PERIPHERAL PULSES: Peripheral pulses 2+ throughout GI: COMMON NORMALS: Normal to inspection, nondistended, normoactive bowel sounds present : COMMON NORMALS: Yes no CVA tenderness BLADDER/KIDNEY EXAM: Yes no CVA tenderness Back/Pelvis: COMMON NORMALS: no CVA tenderness and thoracic and lumbar spine normal to inspection Extremity: COMMON NORMALS: capillary refill normal; negative for full ROM NARRATIVE EXTREMITY EXAM: Redness contained to right knee anteriorly, pain with touching, warmth, decrease in range of motion due to pain. Unable to perform special tests due to pain. GENERAL: Yes normal exam except as noted OTHER: Pedal pulses present Neuro: COMMON NORMALS: patient oriented x3, moves all extremities, no focal motor deficits and no sensory deficits noted Psych: COMMON NORMALS: mental status grossly normal, Normal thought process present, cooperative and normal affect THOUGHT PROCESS: Normal thought process present Skin: COMMON NORMALS: no rashes or lesions noted and no wounds GENERAL SKIN EXAM: no rashes or lesions noted Course Vital Signs: Vital signs: Vital Signs Temperature 99.6 F 10/25/25 18:25 Pulse Rate 90 10/25/25 18:25 Respiratory Rate 15 10/25/25 18:25 Blood Pressure 98/58 10/25/25 18:25 Pulse Oximetry 91 10/25/25 18:25 Oxygen Delivery Me thod Nasal Cannula 10/25/25 16:01 Oxygen Flow Rate 2 10/25/25 16:01 MDM - Extremity (Nontraumatic) Medical Decision Making Patient is a 54-year-old female that was assumed care from [place], PA, with a red swollen right knee status post TKA 8 days ago. Previous PA discussed with orthopedist Dr. Santos, that we will see patient early in the morning. Pain was treated. I individually saw the patient and patient underwent a full medical screening examination. Unfortunately, there was a miscommunication, and patient thought it was time for her to leave, she eloped, and she left just before she got her Rocephin shot. She is coming back to the hospital to obtain her Rocephin IM. Antibiotics will be sent to the pharmacy for continuation as well. Patient refused to come back to the hospital for her Rocephin IM. Discussed with patient that doxycycline has been sent to the pharmacy. Medical Records I reviewed the patient's medical records. Lab Data I reviewed the patient's lab results. 10/25/25 16:25 10/25/25 16:25 Radiology Impressions Knee X-Ray 10/25/25 14:59 Impression: Stable right knee arthroplasty. Chest CTA 10/25/25 15:07 IMPRESSION: 1. No pulmonary embolism. 2. Bibasilar atelectasis. Laboratory Results WBC 10.35 10^3/uL (3.29-11.43) 10/25/25 16: RBC 2.97 10^6/uL (3.85-5.65) L 10/25/25 16:25 Hgb 8.60 g/dL (11.27-16.99) L 10/25/25 16: Hct 26.8 % (36-47) L 10/25/25 16: MCV 90.2 fl (85-98) 10/25/25 16: MCH 29.0 pg (27-33) 10/25/25 16: MCHC 32.1 g/dL (30-55) 10/25/25 16: RDW 13.2 % (12.1-15.1) 10/25/25 16:25 Plt Count 167 10^3/cmm (157-399) 10/25/25 16: MPV 11.3 fL (7.4-10.4) H 10/25/25 16: Neut % (Auto) 82.6 % 10/25/25 16:25 Lymph % (Auto) 8.2 % 10/25/25 16:25 Waldo % (Auto) 8.1 % 10/25/25 16:25 Eos % (Auto) 0.2 % 10/25/25 16: Baso % (Auto) 0.2 % 10/25/25 16:25 Neut # (Auto) 8.55 10^3/uL (1.8-7.7) H 10/25/25 16:25 Lymph # (Auto) 0.9 10^3/uL (0.8-4.8) 10/25/25 16:25 Waldo # (Auto) 0.8 10^3/uL (0.2-0.9) 10/25/25 16:25 Eos # (Auto) 0.0 10^3/uL (0.0-0.8) 10/25/25 16:25 Baso # (Auto) 0.0 10^3/uL (0.0-0.1) 10/25/25 16:25 Nucleated RBC % (auto) 0 % 10/25/25 16: Nucleated RBCs # 0.0 /100WBC 10/25/25 16:25 ESR 19 mm/hr (0-15) H 10/25/25 16:25 Sodium 133 mmol/L (136-145) L 10/25/25 16:25 Potassium 3.9 mmol/L (3.5-5.1) 10/25/25 16:25 Chloride 98 mmol/L (98-107) 10/25/25 16:25 Carbon Dioxide 24 mmol/L (22-29) 10/25/25 16:25 Anion Gap 14.9 (5-19) 10/25/25 16:25 BUN 21 mg/dL (6-20) H 10/25/25 16:25 Creatinine 1.0 mg/dL (0.5-0.9) H 10/25/25 16:25 GFR Calculation 57.6 mL/min (90-130) L 10/25/25 16:25 Glucose 121 mg/dL (65-115) H 10/25/25 16:25 Calculated Osmolality 280 mOsm/kg (285-295) L 10/25/25 16:25 Lactic Acid 2.2 mmol/L (0.5-2.2) 10/25/25 16:25 Lactic Acid (Sepsis) 1.8 mmol/L (0.5-2.2) 10/25/25 17:50 Calcium 8.2 mg/dL (8.5-10.5) L 10/25/25 16:25 Total Bilirubin 1.4 mg/dL (0.15-1.2) H 10/25/25 16:25 AST 11 U/L (0-32) 10/25/25 16:25 ALT 6 U/L (0-33) 10/25/25 16:25 Alkaline Phosphatase 113 U/L (35-105) H 10/25/25 16:25 C-Reactive Protein 240.0 mg/L (0.0-4.9) H 10/25/25 16:25 Total Protein 5.5 g/dL (6.6-8.7) L 10/25/25 16: Albumin 3.1 g/dL (3.5-5.2) L 10/25/25 16:25 Globulin 2.4 g/dL (1.3-4.6) 10/25/25 16: Lipase 12 U/L (13-60) L 10/25/25 16:25 Urine Color Dark yellow (Yellow) A 10/25/25 17:43 Urine Appearance Clear (CLEAR) 10/25/25 17:43 Urine pH 7.5 (5-7) 10/25/25 17:43 Ur Specific [place] 1.032 (1.005-1.030) H 10/25/25 17:43 Urine Protein Trace (Negative) A 10/25/25 17:43 Urine Glucose (UA) Negative (Normal) 10/25/25 17:43 Urine Ketones Negative (Negative) 10/25/25 17:43 Urine Blood Negative (Negative) 10/25/25 17:43 Urine Nitrate Negative (Negative) 10/25/25 17:43 Urine Bilirubin Negative (Negative) 10/25/25 17:43 Urine Urobilinogen >=8.0 mg/dL (Negative) H 10/25/25 17:43 Ur Leukocyte Esterase Negative (Negative) 10/25/25 17:43 Urine RBC 0-2 /hpf (0-2) 10/25/25 17:43 Urine WBC 0-5 /hpf (0-5) 10/25/25 17:43 Ur Squamous Epith Cells 0-5 /hpf (0-5) 10/25/25 17:43 Amorphous Sediment Not Reportable 10/25/25 17:43 Urine Bacteria None seen /hpf (NONE) 10/25/25 17:43 Hyaline Casts 0.40 /lpf 10/25/25 17:43 Urine Opiates Screen Positive ng/mL (Negative) H 10/25/25 17:43 Ur Barbiturates Screen Negative ng/mL (Negative) 10/25/25 17:43 Ur Phencyclidine Scrn Negative ng/mL (Negative) 10/25/25 17:43 Ur Amphetamines Screen Negative ng/mL (Negative) 10/25/25 17:43 U Benzodiazepines Scrn Positive ng/mL (Negative) H 10/25/25 17:43 Urine Cocaine Screen Negative ng/mL (Negative) 10/25/25 17:43 U Marijuana (THC) Screen Negative ng/mL (Negative) 10/25/25 17:43 All radiology interpretation(s) finalized by discharge Discharge Plan Discharge Patient Disposition: Home Clinical Impression: Cellulitis of knee, right Condition: Stable Prescriptions: New hydrocodone-acetaminophen 5-325 mg tablet 1 tab PO Q6H PRN (Reason: pain) Qty: 14 0RF doxycycline hyclate 100 mg capsule 100 mg PO BID 10 Days Qty: 20 0RF No Action famotidine 20 mg tablet 20 mg PO BID pantoprazole 40 mg tablet,delayed release (DR/EC) 40 mg PO DAILY cyanocobalamin (vitamin B-12) 1,000 mcg/mL solution 100 mcg IM .WEEK pregabalin 225 mg capsule 225 mg PO BID Ajovy Autoinjector 225 mg/1.5 mL auto-injector 225 mg SUBCUT Q30D Qty: 1.5 5RF tizanidine 4 mg capsule 4 mg PO BID PRN (Reason: Pain (Scale Score 7-10)) dicyclomine 20 mg tablet 20 mg PO BID diclofenac sodium 75 mg tablet,delayed release (DR/EC) 75 mg PO BID montelukast 10 mg tablet 10 mg PO DAILY azelastine 137 mcg (0.1 %) aerosol,spray 2 spray intranasal BID Rx Instructions: administer into each nostril albuterol sulfate 90 mcg/actuation HFA aerosol inhaler 2 puff inhalation Q6H PRN (Reason: Wheezing) fluticasone propionate [Allergy Relief (fluticasone)] 50 mcg/actuation spray,suspension 2 spray intranasal DAILY Rx Instructions: administer into each nostril cholecalciferol (vitamin D3) 1,250 mcg (50,000 unit) tablet 1,250 mcg PO .BID WEEKLY ergocalciferol (vitamin D2) [Vitamin D2] 1,250 mcg (50,000 unit) capsule 1,250 mcg PO .WEEK doxepin 50 mg capsule 50 mg PO DAILY Qty: 30 3RF Rx Instructions: Take one capsule daily at bedtime escitalopram oxalate 10 mg tablet 10 mg PO DAILY Qty: 30 3RF Rx Instructions: Take one tablet daily bupropion HCl 300 mg tablet extended release 24 hr 300 mg PO QAM Qty: 30 3RF Rx Instructions: Take one tablet by mouth every morning tramadol 50 mg tablet 50 mg PO Q6H PRN (Reason: pain) Qty: 30 0RF alprazolam 1 mg tablet 1 mg PO TID PRN (Reason: Anxiety) hydrocodone-acetaminophen 5-325 mg tablet 1 tab PO Q6H PRN (Reason: pain) Qty: 30 0RF Discharge Orders: Discharge ED (Routine); Ordered 10/25/25 Ordered By: Joana Franklin Discharge Diet: Usual diet Discharge Activity: Limit activity as instructed and Use walker/crutches as instructed Patient Instructions: Cellulitis (ED), Patient Portal & Sanam Instructions Activity Restrictions/Additional Instructions: WE DISCUSSED DR. SANTOS IS WILLING TO FOLLOW UP WITH YOU TOMORROW MORNING IN CLINIC FOR RE-EVALUATION. Thank you for choosing [facility] for your healthcare needs today. You have been screened and evaluated and felt safe for discharge. Health conditions do change or evolve sometimes and as such it is important that you follow up with your Primary Doctor to be re checked, 3-5 days is a general good time frame for follow up. You are always welcome to return to the ED for re assessment if your symptoms are worsening or you have new concerns Print Language: Maori Coding Level of Care Code ED Ton Container Filler for Senia Morales
--- OUTSIDE RECORDS SUMMARY | 2025-10-25 15:04 | XMS_ITS | Clinical Summary ---
Author Organization [facility] Address [address] Guerrero: Epic Prelude [place] [address] Care Team Providers Care Communications Instructor Name Role Phone Conversion, History Primary Care [...] 06/22/2022 Primary osteoarthritis of both knees 06/22/2022 Encounters Date Type Department Care Team Description 08/03/2025 [facility] Gen Spec Surg [address] [place] [phone] Andi Booteh FNP 07/28/2025 [facility]urg [address] [facility] [address] [place] [address] Andi Boothe FNP from Last 3 Months Social History Tobacco Use Types Packs/Day Years Used Date Smoking Tobacco: Never Smokeless Tobacco: Never Tobacco Cessation:Counseling Given: Not Answered Alcohol Use Standard Drinks/Week Comments Never 0 (1 standard drink = 0.6 oz pur e alcohol) Comments No Sex and Gender Information Value Date Recorded Sex Assigned at Not on file Legal Sex Female 8:50 AM ENGINEERING ASSISTANT Gender Identity Not on file Sexual Orientation Not on file Last Filed Vital Signs Vital Sign Reading Time Taken Comments Blood Pressure 144/79 11/17/2022 12:00 PM ENGINEERING ASSISTANT Pulse 64 11/17/2022 12:00 PM ENGINEERING ASSISTANT Temperature 36.7 C (98.1 F) 11/17/2022 11:30 AM ENGINEERING ASSISTANT Respiratory Rate 20 11/17/2022 12:0 0 PM ENGINEERING ASSISTANT Oxygen Saturation 96% 11/17/2022 12: 00 PM ENGINEERING ASSISTANT Inhaled Oxygen Concentration - - Weight 112.4 kg (247 lb 12.8 oz) 2022 11:30 AM ENGINEERING ASSISTANT Height 160 cm (5' 3 ) 11/17/2022 11:30 AM ENGINEERING ASSISTANT Body Mass Index 43.9 11/17/2022 11:30 AM ENGINEERING ASSISTANT Plan of Treatment Health Maintenance Due Date [...] AM CDT Abnormal weight gain Morbid obesity (CMS/[facility]) Obstructive sleep apnea (adult) (pediatric) Benign hypertension Primary osteoarthritis of both knees from Last 3 Months or Most Recently Relevant to Health Maintenance Results * (ABNORMAL) HEMOGLOBIN A1C (06/22/2022 10:10 AM CDT) HEMOGLOBIN A1C 5.8(H) <5.7 % of total Hgb [facility] Comment: For someone without known diabetes, [...] children. ESTIMATED AVERAGE GLUCOSE (MG/DL) 120 mg/dL [facility] ESTIMATED AVERAGE GLUCOSE (MMOL/L) 6.6 mmol/L [facility] Comment: FASTING:NO FASTING: NO Test Performed at: [facility] [id number] [place] [phone] Adrian Flores D.O., MPH Blood 06/22/2022 10:1 0 AM CDT 06/22/2022 10:10 AM CDT us Ladi Perea MD CHEMISTRY ORDERABLES Final Resul t [facility] [phone] [facility] [id number] [place] [phone] from Last 3 Months or Most Recently Relevant to Health Maintenance Insurance MEDICAID [place] MEDICARE PART A AND B Care Teams Communications Instructor Relationship Specialty Start Date End Date Conversion, History NO ADDRESS ON FILE PCP - General 05/22/07
--- OUTSIDE RECORDS SUMMARY | 2025-10-25 15:04 | XMS_ITS | Encounter Summary ---
Author Organization [facility] Address [address] [place] [address] Care Team Providers Care Raw Products Director Name Role Phone Conversion, History Primary Care Provider Paolo loza Encounter Details Date Type Department Care Team (Latest Contact Info) Description 03/11/2005 Outpatient Historical [facility] [place] [address] [place] [address] Shabbir Emanuel, DDS [address] [place] [phone] UNSPEC DENTAL CARIES (Primary Dx) Social History Tobacco Use Types Packs/Day Years Used Date Smoking Tobacco: Never Assessed Comments Unknown Sex and Gender Information Value Date Recorded Sex Assigned at Not on file Legal Sex Female 6:48 AM RESORT DESK CLERK Gender Identity Not on file Sexual Orientation Not on file documented as of this encounter Plan of Treatment Not on file documented as of this encounter Visit Diagnoses Diagnosis Unspecified dental caries- Primary documented in this encounter Care Teams Raw Products Director Relationship Specialty Start Date End Date Conversion, History NO ADDRESS ON FILE PCP - General 05/22/07 documented as of this encounter
--- OUTSIDE RECORDS SUMMARY | 2025-10-25 15:04 | XMS_ITS | Clinical Summary ---
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
--- OUTSIDE RECORDS SUMMARY | 2025-10-25 15:04 | XMS_ITS | Encounter Summary ---
Author Organization [facility] Address [address] [place] [address] Care Team Providers Care Rasper Machine Operator Name Role Phone Conversion, History Primary Care Provider Paolo loza Encounter Details Date Type Department Care Team (Late st Contact Info) Description 05/22/2007 Emergency [facility] Emergency Services [address] [place] [phone] Javier Marino, DO NO ADDRESS ON FILE Sj Ed, Physician NO ADDRESS ON FILE Other Closed Fractures of Distal End of Radius (Alone) (Primary Dx) Social History Tobacco Use Types Packs/Day Years Used Date Smoking Tobacco: Never Assessed Comments Unknown Sex and Gender Information Value Date Recorded Sex Assigned at Not on file Legal Sex Female 6:48 AM SEPTIC TANK CLEANER Gender Identity Not on file Sexual Orientation Not on file documented as of this encounter Plan of Treatment Not on file documented as of this encounter Visit Diagnoses Diagnosis Other closed fractures of distal end of radius (alone)- Primary documented in this encounter Care Teams Rasper Machine Operator Relationship Specialty Start Date End Date Conversion, History NO ADDRESS ON FILE PCP - General 05/22/07 documented as of this encounter
--- NOTE | 2025-10-25 15:07 | CTR_ITS ---
PROCEDURE INFORMATION: Exam: CTA Chest With Contrast Exam date and time: 10/25/2025 4:03 PM Age: 54 years old Clinical indication: Other: Hypoxia, recent knee surgery TECHNIQUE: Imaging protocol: Computed tomographic angiography of the chest with contrast. Exam focused on the arteries. 3D rendering (Not supervised by radiologist): MIP and/or 3D reconstructed images were created by the technologist. Radiation optimization: All CT scans at this facility use at least one of these dose optimization techniques: automated exposure control; mA and/or kV adjustment per patient size (includes targeted exams where dose is matched to clinical indication); or iterative reconstruction. Contrast material: [id number]; Contrast volume: 100 ml; Contrast route: INTRAVENOUS (IV); COMPARISON: CR XR chest 2V* [id number] 12/30/2022 11:24 AM RADIATION DOSE METRICS: Total DLP (mGy-cm): 430.87 FINDINGS: Pulmonary arteries: No pulmonary embolism. Aorta: Unremarkable. No aortic aneurysm. No aortic dissection. Trachea: Patent central airways. Lungs: Bibasilar atelectasis, [id number]. No focal airspace opacity. Pleural spaces: No pneumothorax or pleural effusion. Heart: The heart is mildly enlarged. No pericardial effusion. Lymph nodes: No supraclavicular, axillary, mediastinal, or hilar adenopathy. Gallbladder and biliary ducts: Cholecystectomy. Stomach: Postsurgical changes of the stomach. Bones/joints: Chronic right L1 transverse process fracture. No acute osseous abnormality. Soft tissues: Unremarkable. CT/CT angio chest PE protcl [id number] IMPRESSION: 1. No pulmonary embolism. 2. Bibasilar atelectasis.
[2025-10-25 15:38] VITALS: BP 181/100; PULSE 98; RESP 18; O2SAT 94
[2025-10-25 16:01] VITALS: BP 169/97; PULSE 96; RESP 19; O2SAT 94
[2025-10-25] MEDS: iohexol 350 mg/mL 500 mL Btl (per mL) IV (16:07)
[2025-10-25 16:42] LABS: Hematocrit 26.8 % (36-47); Hemoglobin 8.60 g/dL (11.27-16.99); Mean Corpuscular HGB Conc 32.1 g/dL (30-55); Mean Corpuscular Hemoglobin 29.0 pg (27-33); Mean Corpuscular Volume 90.2 fl (85-98); Nucleated Red Blood Cells % 0 %; Platelet Count 167 10^3/cmm (157-399); Red Blood Count 2.97 10^6/uL (3.85-5.65); White Blood Count 10.35 10^3/uL (3.29-11.43)
[2025-10-25 17:06] LABS: Alanine Aminotransferase 6 U/L (0-33); Albumin Level 3.1 g/dL (3.5-5.2); Alkaline Phosphatase 113 U/L (35-105); Anion Gap 14.9 (5-19); Aspartate Amino Transferase 11 U/L (0-32); Blood Urea Nitrogen 21 mg/dL (6-20); Calcium 8.2 mg/dL (8.5-10.5); Carbon Dioxide 24 mmol/L (22-29); Chloride 98 mmol/L (98-107); Creatinine Clr Calc Pharmacy 62.5007; Globulin 2.4 g/dL (1.3-4.6); Glucose 121 mg/dL (65-115); Osmolality Calculated 280 mOsm/kg (285-295); Potassium 3.9 mmol/L (3.5-5.1); Sodium 133 mmol/L (136-145); Total Protein 5.5 g/dL (6.6-8.7)
[2025-10-25 17:09] LABS: Lactic Sepsis W/Reflex 2.2 mmol/L (0.5-2.2)
[2025-10-25 17:55] LABS: Lipase 12 U/L (13-60)
[2025-10-25] MEDS: HYDROcodone-acetaminophen 5-325 mg Tablet 2 TAB PO (18:22)
[2025-10-25 18:23] LABS: Reflex Lactate Order REFLEX LACTIC ORDERD
[2025-10-25 18:25] VITALS: BP 98/58; PULSE 90; RESP 15; TEMP 37.6; O2SAT 91
[2025-10-25 18:46] LABS: Lactic Acid level (Lactate) 1.8 mmol/L (0.5-2.2)
[2025-10-25 18:50] LABS: Glucose Urine UA Negative (Normal); Nitrate Urine Negative (Negative)
[2025-10-25 18:52] LABS: Add Urine Microscopic? YES
[2025-10-25 18:57] LABS: PCP Screen Urine Negative (Negative)
[2025-10-25 19:00] LABS: Specific Gravity, Urine 1.032 (1.005-1.030)
== END 2025-10-25 18:45 | disposition home or self-care (01) ==
PROVIDERS: Emergency Provider Physician Assistant
DX: L03.115 Cellulitis of right lower limb (principal); Z96.651 Presence of right artificial knee joint; J44.9 Chronic obstructive pulmonary disease, unspecified
CPT/HCPCS: 36415; 71275; 73562; 80053; 80306; 81001; 83605; 83690; 85025; 85651; 86140; 87040; 87077; 87150; 87186; 87205; 93971; 99285; J7030; J9999

== ENCOUNTER → 2025-10-26 10:52 | Outpatient (BNVA) | payer MEDICARE, MEDICAID, SELFPAY | PROVIDERS: Visit Provider Orthopaedic Surgery | DX: Z51.89 Encounter for other specified aftercare (principal); Z96.651 Presence of right artificial knee joint | CPT/HCPCS: 99024 ==

== ENCOUNTER 2025-10-29 21:19 | Inpatient (IN) | payer MEDICARE, MEDICAID, SELFPAY ==
[2025-10-29 21:22] VITALS: BP 95/61; PULSE 87; RESP 16; TEMP 36.9; O2SAT 95; BMI 28.3
--- OUTSIDE RECORDS SUMMARY | 2025-10-29 21:29 | XMS_ITS | Clinical Summary ---
Author Organization [facility] Address [address] Guerrero: Epic Prelude [place]T [place] [address] Care Team Providers Care Resizer Operator Name Role Phone Conversion, History Primary [...] Date Type Department Care Team Description 08/03/2025 [facility] Gen Spec Surg [place] [address] [address] [facility] [place] [address] Andi Boothe FNP from Last 3 Months Social History Tobacco Use Types Packs/Day Years Used Date Smoking Tobacco: Never Smokeless Tobacco: Never Tobacco Cessation:Counseling Given: Not Answered Alcohol Use Standard Drinks/Week Comments Never 0 (1 standard drink = 0.6 oz pur e alcohol) Comments No Sex and Gender Information Value Date Recorded Sex Assigned at Not on file Legal Sex Female 8:50 AM APPEALS MANAGER Gender Identity Not on file Sexual Orientation Not on file Last Filed Vital Signs Vital Sign Reading Time Taken Comments Blood Pressure 144/79 11/17/2022 12:00 PM APPEALS MANAGER Pulse 64 11/17/2022 12:00 PM APPEALS MANAGER Temperature 36.7 C (98.1 F) 11/17/2022 11:30 AM APPEALS MANAGER Respiratory Rate 20 11/17/2022 12:0 0 PM APPEALS MANAGER Oxygen Saturation 96% 11/17/2022 12: 00 PM APPEALS MANAGER Inhaled Oxygen Concentration - - Weight 112.4 kg (247 lb 12.8 oz) 2022 11:30 AM APPEALS MANAGER Height 160 cm (5' 3 ) 11/17/2022 11:30 AM APPEALS MANAGER Body Mass Index 43.9 11/17/2022 11:30 AM APPEALS MANAGER Plan of Treatment Health Maintenance Due [...] AM CDT Abnormal weight gain Morbid obesity ([facility]) Obstructive sleep apnea (adult) (pediatric) Benign hypertension Primary osteoarthritis of both knees from Last 3 Months or Most Recently Relevant to Health Maintenance Results * (ABNORMAL) HEMOGLOBIN A1C (06/22/2022 10:10 AM CDT) HEMOGLOBIN A1C 5.8(H) <5.7 % of total Hgb [facility] Comment: For someone without known diabetes, [...] children. ESTIMATED AVERAGE GLUCOSE (MG/DL) 120 mg/dL [facility] ESTIMATED AVERAGE GLUCOSE (MMOL/L) 6.6 mmol/L [facility] Comment: FASTING:NO FASTING: NO Test Performed at: [facility] [id number] [phone] Adrian Flores D.O., MPH Blood 06/22/2022 10:1 0 AM CDT 06/22/2022 10:10 AM CDT us Ladi Perea MD CHEMISTRY ORDERABLES Final Resul t [facility] [phone] [facility] [id number] [phone] from Last 3 Months or Most Recently Relevant to Health Maintenance Insurance MEDICAID [place] MEDICARE PART A AND B Care Teams Resizer Operator Relationship Specialty Start Date End Date Conversion, History NO ADDRESS ON FILE PCP - General 05/22/07
--- OUTSIDE RECORDS SUMMARY | 2025-10-29 21:29 | XMS_ITS | Encounter Summary ---
Author Organization [facility] Address [address] [place] [address] Care Team Providers Care Teleprinter Installer Name Role Phone Conversion, History Primary Care Provider Paolo loza Encounter Details Date Type Department Care Team (Late st Contact Info) Description 05/22/2007 Emergency [facility] Emergency Services [address] [facility] [place] [phone] Javier Marino, DO NO ADDRESS ON FILE Sj Ed, Physician NO ADDRESS ON FILE Other Closed Fractures of Distal End of Radius (Alone) (Primary Dx) Social History Tobacco Use Types Packs/Day Years Used Date Smoking Tobacco: Never Assessed Comments Unknown Sex and Gender Information Value Date Recorded Sex Assigned at Not on file Legal Sex Female 6:48 AM ROLLER PICKER Gender Identity Not on file Sexual Orientation Not on file documented as of this encounter Plan of Treatment Not on file documented as of this encounter Visit Diagnoses Diagnosis Other closed fractures of distal end of radius (alone)- Primary documented in this encounter Care Teams Teleprinter Installer Relationship Specialty Start Date End Date Conversion, History NO ADDRESS ON FILE PCP - General 05/22/07 documented as of this encounter
--- OUTSIDE RECORDS SUMMARY | 2025-10-29 21:29 | XMS_ITS | Clinical Summary ---
Author Organization [facility] Address [address] [place] [address] Care Team Providers Care Railroad Dispatcher Name Role Phone Conversion, History Primary Care Provider Paolo loza Social History Tobacco Use Types Packs/Day Years Used Date Smoking Tobacco: Never Assessed Comments Unknown Sex and Gender Information Value Date Recorded Sex Assigned at Not on file Legal Sex Female 6:48 AM CARE CONSULTANT Gender Identity Not on file Sexual Orientation [...] 2019 INFLUENZA VACCINE (#1) 2025 Insurance MEDICAID [place] Care Teams Railroad Dispatcher Relationship Specialty Start Date End Date Conversion, History NO ADDRESS ON FILE PCP - General 05/22/07
--- OUTSIDE RECORDS SUMMARY | 2025-10-29 21:29 | XMS_ITS | Encounter Summary ---
Author Organization [facility] Address [address] [place] [address] Care Team Providers Care Portfolio Consultant Name Role Phone Conversion, History Primary Care Provider Paolo loza Encounter Details Date Type Department Care Team (Latest Contact Info) Description 03/11/2005 Outpatient Historical [facility] [place] [address] [facility] [address] [place] [address] Shabbir Emanuel, DDS [address] [place] [phone] UNSPEC DENTAL CARIES (Primary Dx) Social History Tobacco Use Types Packs/Day Years Used Date Smoking Tobacco: Never Assessed Comments Unknown Sex and Gender Information Value Date Recorded Sex Assigned at Not on file Legal Sex Female 6:48 AM NET REPAIRER Gender Identity Not on file Sexual Orientation Not on file documented as of this encounter Plan of Treatment Not on file documented as of this encounter Visit Diagnoses Diagnosis Unspecified dental caries- Primary documented in this encounter Care Teams Portfolio Consultant Relationship Specialty Start Date End Date Conversion, History NO ADDRESS ON FILE PCP - General 05/22/07 documented as of this encounter
--- NOTE | 2025-10-29 22:01 | XRR_ITS ---
PROCEDURE INFORMATION: Exam: XR Right Knee Exam date and time: 10/29/2025 10:16 PM Age: 55 years old Clinical indication: knee pain, 2 weeks postop TECHNIQUE: Imaging protocol: Radiologic exam of the right knee. Views: 3 views. COMPARISON: CR XR knee RT 3V* [id number] 10/25/2025 3:31 PM FINDINGS: Bones/joints: Right total knee arthroplasty. Hardware is in expected location and alignment. No periprosthetic lucency. No acute fracture. Soft tissues: Skin jordan overlying the knee. Scattered foci of soft tissue gas. XR/XR knee RT 3V* [id number] IMPRESSION: 1. Right total knee arthroplasty with intact hardware. 2. Scattered foci of soft tissue gas, favored to represent postsurgical changes given recent surgery. Recommend clinical correlation for signs of infection.
--- NOTE | 2025-10-29 22:34 | W.ED.EXTPRO ---
Documented by User: WES Adams 10/29/25 23:59 HPI - Extremity Problem General: Chief complaint: Extremity Injury, Lower Stated complaint: Post op bleeding, sent over from home nurse Time Seen by Provider: 10/29/25 21:51 Source: patient Mode of arrival: ambulatory Limitations: no limitations History of Present Illness: Patient is a 55-year-old female who presents emergency department for evaluation of her right knee, was sent by home nurse. This patient had total right knee replacement 2 weeks ago, subsequently was seen in the emergency department for concerns of persistent infection and was started on doxycycline and prescribed [place] for pain at that time. This visit was on 10/25. Patient states that she has continued to have yellow drainage, her right knee has remained swollen and red, and she feels like skin is ripping apart. States that she has been unable to see her orthopedist for this, however did follow-up with them after her prior ER visit. The patient did have a repeat injury after stumbling and flexing the knee rapidly for which she was evaluated in the office at that time, but there was no remarks of cellulitis. Patient states that she has had intermittent fevers and chills, has felt sick to her stomach and states that the pain medicine is no longer helping. States that she is still concerned of infection and she is having difficulty bearing weight secondary to the pain. Vitals are stable at this time, she is afebrile. MD Complaint: joint pain Onset (ago): week(s) (2) Pain Consistency: constant Location: right and knee Associated symptoms: Reports fever(s); Deny chest pain or rash Related Data Home Medications ?Medication ?Instructions ?Recorded ?Confirmed tizanidine 4 mg capsule 4 mg PO BID PRN Pain (Scale Score 12/30/22 10/26/25 7-10) albuterol sulfate 90 mcg/actuation 2 puff inhalation Q6H PRN Wheezing 02/09/23 10/26/25 aerosol inhaler azelastine 137 mcg (0.1 %) nasal 2 spray intranasal BID 02/09/23 10/26/25 spray diclofenac sodium 75 mg 75 mg PO BID 02/09/23 10/26/25 tablet,delayed release dicyclomine 20 mg tablet 20 mg PO BID 02/09/23 10/26/25 fluticasone propionate 50 2 spray intranasal DAILY 02/09/23 10/26/25 mcg/actuation nasal spray,suspension (Allergy Relief (fluticasone)) montelukast 10 mg tablet 10 mg PO DAILY 02/09/23 10/26/25 famotidine 20 mg tablet 20 mg PO BID 11/12/23 10/26/25 cholecalciferol (vitamin D3) 1,250 1,250 mcg PO .BID WEEKLY 12/17/23 10/26/25 mcg (50,000 unit) tablet pregabalin 225 mg capsule 225 mg PO BID 11/29/24 10/26/25 cyanocobalamin (vitamin B-12) 100 mcg IM .WEEK 12/26/24 10/26/25 1,000 mcg/mL injection solution pantoprazole 40 mg tablet,delayed 40 mg PO DAILY 12/26/24 10/26/25 release ergocalciferol (vitamin D2) 1,250 1,250 mcg PO .WEEK 05/31/25 10/26/25 mcg (50,000 unit) capsule (Vitamin D2) alprazolam 1 mg tablet 1 mg PO TID PRN Anxiety 07/03/25 10/26/25 Previous Rx's ?Medication ?Instructions ?Recorded tramadol 50 mg tablet 50 mg PO Q6H PRN pain #30 tabs 08/31/25 bupropion HCl 300 mg 24 hr tablet, 300 mg PO QAM #30 tabs 10/01/25 extended release doxepin 50 mg capsule 50 mg PO DAILY #30 caps 10/01/25 escitalopram oxalate 10 mg tablet 10 mg PO DAILY #30 tabs 10/01/25 fremanezumab-vfrm 225 mg/1.5 mL 225 mg (1.5 mL) SUBCUT Q30D #1.5 mL 10/16/25 subcutaneous auto-injector (Ajovy) hydrocodone 5 mg-acetaminophen 325 1 tab PO Q6H PRN pain #30 tabs 10/18/25 mg tablet doxycycline hyclate 100 mg capsule 100 mg PO BID 10 days #20 caps 10/25/25 hydrocodone 5 mg-acetaminophen 325 1 tab PO Q6H PRN pain #14 tabs 10/25/25 mg tablet Allergies Allergy/AdvReac Type Severity Reaction Status Date / Time clonazepam (From Klonopin) Allergy ADR-Dizzine Verified 10/29/25 21:31 ss morphine Allergy irritation Verified 10/29/25 21:31 duloxetine (From Cymbalta) AdvReac Severe ADR-Confusi Verified 10/29/25 21:31 on latex AdvReac Mild rash Verified 10/29/25 21:31 Review of Systems General: Reports: 10 or more systems reviewed and unremarkable except in HPI and below Const: Reports: fever(s) and chills Card: Denies: chest pain Resp: Denies: dyspnea or productive cough GI: Reports: nausea and vomiting; Denies: abdominal pain or diarrhea : Denies: flank pain Musc: Reports: joint pain, joint swelling, joint redness, joint warmth, limited range of motion and muscle weakness; Denies: neck pain, back pain, extremity pain or extremity swelling Skin/Breast: Denies: rash Neuro: Denies: headache(s), numbness in extremities or weakness in extremities PFSH ED PFSH: Medical History Post-traumatic stress disorder, chronic Major depressive disorder, recurrent, moderate Generalized anxiety disorder Psychiatric care Family History Other Cancer Diabetes Hypertension Denies family history of CAD (coronary artery disease) Anesthesia complication Bleeding disorder Social History Smoking and tobacco/nicotine status: never used tobacco/nicotine Alcohol intake: never Substance/Drug Use: never Household members: spouse Marital status: Current occupational status: disabled Current gender identity: Female Physical Exam Const: COMMON NORMALS: no acute distress, patient oriented x3, no limitations, healthy appearing, alert and well nourished OTHER: nontoxic HENMT: COMMON NORMALS: normocephalic and atraumatic HEAD & SCALP: normocephalic and atraumatic Neck/C-Spine: COMMON NORMALS: full ROM, supple and no meningeal signs Resp: COMMON NORMALS: normal respiratory effort, No use of accessory muscles and clear to auscultation bilaterally AUSCULTATION: clear to auscultation bilaterally Cardio: COMMON NORMALS: regular rate and regular rhythm RATE: regular rate RHYTHM: regular rhythm Extremity: NARRATIVE EXTREMITY EXAM: Postoperative incision overlying right anterior knee, with surrounding erythema that is warm to the touch compared to the left knee. To the bottom of the postoperative incision there is evidence of active yellow drainage. Diffusely tender to palpation, her distal neurovascular exam is normal. Neuro: COMMON NORMALS: patient oriented x3, moves all extremities, no focal motor deficits and no sensory deficits noted SENSORIUM/ORIENTATION: Yes alert MENINGEAL SIGNS: Yes no meningeal signs Course Vital Signs: Vital signs: Vital Signs Temperature 98.5 F 10/29/25 21:22 Pulse Rate 66 10/29/25 23:04 Respiratory Rate 17 10/29/25 23:42 Blood Pressure 98/46 10/29/25 23:04 Pulse Oximetry 93 10/29/25 23:42 Oxygen Delivery Me thod Room Air 10/29/25 23:04 MDM - Extremity (Nontraumatic) Medical Decision Making Patient presented for evaluation of worsening redness swelling and pain to her right knee, it had been sent by her home physical therapist due to the appearance of active purulent drainage as well. Patient tells me this has been going on and worsening since her prior ED visit, on the 18th of this month, where she was started on doxycycline. On exam there is redness, warmth, edema, and previously noted drainage of which a wound culture obtained. She also is reporting subjective fevers and chills systemically and states that she has become increasingly unable to bear weight on the right leg due to the symptoms. With her lab work, her CRP is elevated from prior to 313, ESR 27, but there is no leukocytosis and her lactic acid is normal. However on the x-ray there is scattered soft tissue gas, I query infectious etiology at this point and due to the overlying erythema and signs of infection. I spoke to Dr. Sorto, orthopedics, agreed to consult in the hospital as she will be placed on IV antibiotics following blood cultures being obtained. Dr. Leblanc is excepting hospitalist, and Dr. Garcia is informed of this patient's case and current findings and will place admit orders. Lab Data 10/29/25 22:30 10/29/25 22:30 Radiology Impressions Knee X-Ray 10/29/25 22:01 IMPRESSION: 1. Right total knee arthroplasty with intact hardware. 2. Scattered foci of soft tissue gas, favored to represent postsurgical changes given recent surgery. Recommend clinical correlation for signs of infection. Laboratory Results WBC 11.34 10^3/uL (3.29-11.43) 10/29/25: RBC 3.14 10^6/uL (3.85-5.65) L 10/29/25: Hgb 9.00 g/dL (11.27-16.99) L 10/29/25: Hct 27.8 % (36-47) L 10/29/25: MCV 88.5 fl (85-98) 10/29/25: MCH 28.7 pg (27-33) 10/29/25: MCHC 32.4 g/dL (30-55) 10/29/25: RDW 13.7 % (12.1-15.1) 10/29/25 Plt Count 285 10^3/cmm (157-399) 10/29/25 MPV 10.7 fL (7.4-10.4) H 10/29/25: Neut % (Auto) 80.3 % 10/29/25: Lymph % (Auto) 9.5 % 10/29/25: [place] % (Auto) 7.1 % 10/29/25: Eos % (Auto) 0.9 % 10/29/25: Baso % (Auto) 0.4 % 10/29/25: Neut # (Auto) 9.12 10^3/uL (1.8-7.7) H 10/29/25: Lymph # (Auto) 1.1 10^3/uL (0.8-4.8) 10/29/25: [place] # (Auto) 0.8 10^3/uL (0.2-0.9) 10/29/25: Eos # (Auto) 0.1 10^3/uL (0.0-0.8) 10/29/25 Baso # (Auto) 0.0 10^3/uL (0.0-0.1) 10/29/25: Nucleated RBC % (auto) 0 % 10/29/25 Nucleated RBCs # 0.0 /100WBC 10/29/25 ESR 27 mm/hr (0-15) H 10/29/25 22:30 Sodium 136 mmol/L (136-145) 10/29/25 22: Potassium 3.7 mmol/L (3.5-5.1) 10/29/25: Chloride 98 mmol/L (98-107) 10/29/25: Carbon Dioxide 27 mmol/L (22-29) 10/29/25: Anion Gap 14.7 (5-19) 10/29/25: BUN 24 mg/dL (6-20) H 10/29/25: Creatinine 1.1 mg/dL (0.5-0.9) H 10/29/25: GFR Calculation 51.4 mL/min (90-130) L 10/29/25: Glucose 109 mg/dL (65-115) 10/29/25: Calculated Osmolality 287 mOsm/kg (285-295) 10/29/25: Lactic Acid 1.0 mmol/L (0.5-2.2) 10/29/25: Calcium 9.3 mg/dL (8.5-10.5) 10/29/25: Total Bilirubin 0.6 mg/dL (0.15-1.2) 10/29/25: AST 19 U/L (0-32) 10/29/25: ALT 11 U/L (0-33) 10/29/25: Alkaline Phosphatase 140 U/L (35-105) H 10/29/25: C-Reactive Protein 313.1 mg/L (0.0-4.9) H 10/29/25: Total Protein 6.5 g/dL (6.6-8.7) L 10/29/25: Albumin 3.2 g/dL (3.5-5.2) L 10/29/25: Globulin 3.3 g/dL (1.3-4.6) 10/29/25 22:30 All radiology interpretation(s) finalized by discharge Discharge Plan Discharge Patient Disposition: Admitted As Inpatient Clinical Impression: Cellulitis of knee, right Condition: Stable Coding Level of Care Code ED Svp Chief Marketing Officer for [employer] Documented by User: Tarun Jordan Jose, DO 10/30/25 00:22 HPI - Extremity Problem General: Chief complaint: Extremity Injury, Lower Stated complaint: Post op bleeding, sent over from home nurse Time Seen by Provider: 10/29/25 21:51 Related Data Home Medications ?Medication ?Instructions ?Recorded ?Confirmed tizanidine 4 mg capsule 4 mg PO BID PRN Pain (Scale Score 12/30/22 10/26/25 7-10) albuterol sulfate 90 mcg/actuation 2 puff inhalation Q6H PRN Wheezing 02/09/23 10/26/25 aerosol inhaler azelastine 137 mcg (0.1 %) nasal 2 spray intranasal BID 02/09/23 10/26/25 spray diclofenac sodium 75 mg 75 mg PO BID 02/09/23 10/26/25 tablet,delayed release dicyclomine 20 mg tablet 20 mg PO BID 02/09/23 10/26/25 fluticasone propionate 50 2 spray intranasal DAILY 02/09/23 10/26/25 mcg/actuation nasal spray,suspension (Allergy Relief (fluticasone)) montelukast 10 mg tablet 10 mg PO DAILY 02/09/23 10/26/25 famotidine 20 mg tablet 20 mg PO BID 11/12/23 10/26/25 cholecalciferol (vitamin D3) 1,250 1,250 mcg PO .BID WEEKLY 12/17/23 10/26/25 mcg (50,000 unit) tablet pregabalin 225 mg capsule 225 mg PO BID 11/29/24 10/26/25 cyanocobalamin (vitamin B-12) 100 mcg IM .WEEK 12/26/24 10/26/25 1,000 mcg/mL injection solution pantoprazole 40 mg tablet,delayed 40 mg PO DAILY 12/26/24 10/26/25 release ergocalciferol (vitamin D2) 1,250 1,250 mcg PO .WEEK 05/31/25 10/26/25 mcg (50,000 unit) capsule (Vitamin D2) alprazolam 1 mg tablet 1 mg PO TID PRN Anxiety 07/03/25 10/26/25 Previous Rx's ?Medication ?Instructions ?Recorded tramadol 50 mg tablet 50 mg PO Q6H PRN pain #30 tabs 08/31/25 bupropion HCl 300 mg 24 hr tablet, 300 mg PO QAM #30 tabs 10/01/25 extended release doxepin 50 mg capsule 50 mg PO DAILY #30 caps 10/01/25 escitalopram oxalate 10 mg tablet 10 mg PO DAILY #30 tabs 10/01/25 fremanezumab-vfrm 225 mg/1.5 mL 225 mg (1.5 mL) SUBCUT Q30D #1.5 mL 10/16/25 subcutaneous auto-injector (Ajovy) hydrocodone 5 mg-acetaminophen 325 1 tab PO Q6H PRN pain #30 tabs 10/18/25 mg tablet doxycycline hyclate 100 mg capsule 100 mg PO BID 10 days #20 caps 10/25/25 hydrocodone 5 mg-acetaminophen 325 1 tab PO Q6H PRN pain #14 tabs 10/25/25 mg tablet Allergies Allergy/AdvReac Type Severity Reaction Status Date / Time clonazepam (From Klonopin) Allergy ADR-Dizzine Verified 10/29/25 21:31 ss morphine Allergy irritation Verified 10/29/25 21:31 duloxetine (From Cymbalta) AdvReac Severe ADR-Confusi Verified 10/29/25 21:31 on latex AdvReac Mild rash Verified 10/29/25 21:31 PFSH ED PFSH: Medical History Post-traumatic stress disorder, chronic Major depressive disorder, recurrent, moderate Generalized anxiety disorder Psychiatric care Family History Other Cancer Diabetes Hypertension Denies family history of CAD (coronary artery disease) Anesthesia complication Bleeding disorder Social History Smoking and tobacco/nicotine status: never used tobacco/nicotine Alcohol intake: never Substance/Drug Use: never Household members: spouse Marital status: Current occupational status: disabled Current gender identity: Female Course Vital Signs: Vital signs: Vital Signs Temperature 98.5 F 10/29/25 21:22 Pulse Rate 66 10/29/25 23:04 Respiratory Rate 17 10/29/25 23:42 Blood Pressure 98/46 10/29/25 23:04 Pulse Oximetry 93 10/29/25 23:42 Oxygen Delivery Me thod Room Air 10/29/25 23:04 MDM - Extremity (Nontraumatic) Medical Decision Making Patient presented for evaluation of worsening redness swelling and pain to her right knee, it had been sent by her home physical therapist due to the appearance of active purulent drainage as well. Patient tells me this has been going on and worsening since her prior ED visit, on the 18th of this month, where she was started on doxycycline. On exam there is redness, warmth, edema, and previously noted drainage of which a wound culture obtained. She also is reporting subjective fevers and chills systemically and states that she has become increasingly unable to bear weight on the right leg due to the symptoms. With her lab work, her CRP is elevated from prior to 313, ESR 27, but there is no leukocytosis and her lactic acid is normal. However on the x-ray there is scattered soft tissue gas, I query infectious etiology at this point and due to the overlying erythema and signs of infection. I spoke to Dr. Sorto, orthopedics, agreed to consult in the hospital as she will be placed on IV antibiotics following blood cultures being obtained. Dr. Leblanc is excepting hospitalist, and Dr. Garcia is informed of this patient's case and current findings and will place admit orders. This patient was originally seen by Mr. Yoshi PA-C. I agree with his history, evaluation, and management. Admission orders have been written Lab Data 10/29/25 22:30 10/29/25 22:30 Radiology Impressions Knee X-Ray 10/29/25 22:01 IMPRESSION: 1. Right total knee arthroplasty with intact hardware. 2. Scattered foci of soft tissue gas, favored to represent postsurgical changes given recent surgery. Recommend clinical correlation for signs of infection. Laboratory Results WBC 11.34 10^3/uL (3.29-11.43) 10/29/25 22:30 RBC 3.14 10^6/uL (3.85-5.65) L 10/29/25 22: Hgb 9.00 g/dL (11.27-16.99) L 10/29/25: Hct 27.8 % (36-47) L 10/29/25: MCV 88.5 fl (85-98) 10/29/25: MCH 28.7 pg (27-33) 10/29/25 MCHC 32.4 g/dL (30-55) 10/29/25: RDW 13.7 % (12.1-15.1) 10/29/25 Plt Count 285 10^3/cmm (157-399) 10/29/25 MPV 10.7 fL (7.4-10.4) H 10/29/25: Neut % (Auto) 80.3 % 10/29/25: Lymph % (Auto) 9.5 % 10/29/25 [place] % (Auto) 7.1 % 10/29/25: Eos % (Auto) 0.9 % 10/29/25: Baso % (Auto) 0.4 % 10/29/25: Neut # (Auto) 9.12 10^3/uL (1.8-7.7) H 10/29/25: Lymph # (Auto) 1.1 10^3/uL (0.8-4.8) 10/29/25: [place] # (Auto) 0.8 10^3/uL (0.2-0.9) 10/29/25: Eos # (Auto) 0.1 10^3/uL (0.0-0.8) 10/29/25 Baso # (Auto) 0.0 10^3/uL (0.0-0.1) 10/29/25: Nucleated RBC % (auto) 0 % 10/29/25 Nucleated RBCs # 0.0 /100WBC 10/29/25 ESR 27 mm/hr (0-15) H 10/29/25: Sodium 136 mmol/L (136-145) 10/29/25: Potassium 3.7 mmol/L (3.5-5.1) 10/29/25: Chloride 98 mmol/L (98-107) 10/29/25: Carbon Dioxide 27 mmol/L (22-29) 10/29/25 22: Anion Gap 14.7 (5-19) 10/29/25: BUN 24 mg/dL (6-20) H 10/29/25:30 Creatinine 1.1 mg/dL (0.5-0.9) H 10/29/25 22: GFR Calculation 51.4 mL/min (90-130) L 10/29/25: Glucose 109 mg/dL (65-115) 10/29/25 22: Calculated Osmolality 287 mOsm/kg (285-295) 10/29/25: Lactic Acid 1.0 mmol/L (0.5-2.2) 10/29/25: Calcium 9.3 mg/dL (8.5-10.5) 10/29/25: Total Bilirubin 0.6 mg/dL (0.15-1.2) 10/29/25: AST 19 U/L (0-32) 10/29/25: ALT 11 U/L (0-33) 10/29/25: Alkaline Phosphatase 140 U/L (35-105) H 10/29/25: C-Reactive Protein 313.1 mg/L (0.0-4.9) H 10/29/25: Total Protein 6.5 g/dL (6.6-8.7) L 10/29/25: Albumin 3.2 g/dL (3.5-5.2) L 10/29/25: Globulin 3.3 g/dL (1.3-4.6) 10/29/25 22:30 Discharge Plan Discharge Patient Disposition: Admitted As Inpatient Clinical Impression: Cellulitis of knee, right Condition: Stable Coding Level of Care Code ED Svp Chief Marketing Officer for Senia Morales
[2025-10-29 22:37] LABS: Hematocrit 27.8 % (36-47); Hemoglobin 9.00 g/dL (11.27-16.99); Mean Corpuscular HGB Conc 32.4 g/dL (30-55); Mean Corpuscular Hemoglobin 28.7 pg (27-33); Mean Corpuscular Volume 88.5 fl (85-98); Nucleated Red Blood Cells % 0 %; Platelet Count 285 10^3/cmm (157-399); Red Blood Count 3.14 10^6/uL (3.85-5.65); White Blood Count 11.34 10^3/uL (3.29-11.43)
[2025-10-29 22:40] VITALS: RESP 17; O2SAT 94
[2025-10-29] MEDS: fentaNYL 50 mcg/mL INJ 2mL IVP ×2 (22:40→23:42)
[2025-10-29 23:04] VITALS: BP 98/46; PULSE 66; O2SAT 95
[2025-10-29 23:04] LABS: Lactic Sepsis W/Reflex 1.0 mmol/L (0.5-2.2)
[2025-10-29 23:17] LABS: Alanine Aminotransferase 11 U/L (0-33); Albumin Level 3.2 g/dL (3.5-5.2); Alkaline Phosphatase 140 U/L (35-105); Blood Urea Nitrogen 24 mg/dL (6-20); Calcium 9.3 mg/dL (8.5-10.5); Carbon Dioxide 27 mmol/L (22-29); Chloride 98 mmol/L (98-107); Creatinine Clr Calc Pharmacy 54.5146; Globulin 3.3 g/dL (1.3-4.6); Glucose 109 mg/dL (65-115); Osmolality Calculated 287 mOsm/kg (285-295); Sodium 136 mmol/L (136-145); Total Protein 6.5 g/dL (6.6-8.7)
[2025-10-29 23:21] LABS: Anion Gap 14.7 (5-19); Aspartate Amino Transferase 19 U/L (0-32); Potassium 3.7 mmol/L (3.5-5.1)
[2025-10-29 23:42] VITALS: RESP 17; O2SAT 93
[2025-10-30] VITALS (29 sets, daily range): BP systolic 101–176; BP diastolic 54–105; PULSE 57–85; RESP 15–20; TEMP 36.2–38.8; O2SAT 92–100
[2025-10-30] MEDS: piperacillin-tazobactam 3.375 GM in sodium chloride 0.9% (plus) 50 ML IV ×3 (00:12→18:15)
--- NOTE | 2025-10-30 00:26 | PM.HP ---
Providers/Chief Complaint Primary Care Provider: Don Jeffery MD Chief Complaint: Post op bleeding, sent over from home nurse History of Present Illness Greta Cash is a 55 year old female with a history significant for fibromyalgia and recent right TKA on 10/17 who presents with complaints of right knee pain. She confirms her recent surgery on 10/17 and since surgery, she has had poorly controlled pain with which her recent Rx for Tramadol and [place] have not been effective. She mentions associated redness, swelling, malodorous yellow discharge and recently subjective fevers, chills, and sweats. Her pain and drainage is made worse with standing on the affected leg. Because of her ongoing pain complaints, she was seen in the ED for further evaluation. Hospitalist was asked to admit the patient with concern for cellulitis. Medications/Allergies Home Medications ?Medication ?Instructions ?Recorded ?Confirmed ?Last Taken ?Type tizanidine 4 mg capsule 4 mg PO BID PRN Pain (Scale Score 12/30/22 10/26/25 10/16/25 History 7-10) albuterol sulfate 90 mcg/actuation 2 puff inhalation Q6H PRN Wheezing 02/09/23 10/26/25 07/02/25 History aerosol inhaler azelastine 137 mcg (0.1 %) nasal 2 spray intranasal BID 02/09/23 10/26/25 10/16/25 History spray diclofenac sodium 75 mg 75 mg PO BID 02/09/23 10/26/25 10/16/25 History tablet,delayed release dicyclomine 20 mg tablet 20 mg PO BID 02/09/23 10/26/25 10/15/25 History fluticasone propionate 50 2 spray intranasal DAILY 02/09/23 10/26/25 10/16/25 History mcg/actuation nasal spray,suspension (Allergy Relief (fluticasone)) montelukast 10 mg tablet 10 mg PO DAILY 02/09/23 10/26/25 10/16/25 History famotidine 20 mg tablet 20 mg PO BID 11/12/23 10/26/25 10/16/25 History cholecalciferol (vitamin D3) 1,250 1,250 mcg PO .BID WEEKLY 12/17/23 10/26/25 10/15/25 History mcg (50,000 unit) tablet pregabalin 225 mg capsule 225 mg PO BID 11/29/24 10/26/25 10/16/25 History cyanocobalamin (vitamin B-12) 100 mcg IM .WEEK 12/26/24 10/26/25 10/15/25 History 1,000 mcg/mL injection solution pantoprazole 40 mg tablet,delayed 40 mg PO DAILY 12/26/24 10/26/25 10/17/25 04:00 History release ergocalciferol (vitamin D2) 1,250 1,250 mcg PO .WEEK 05/31/25 10/26/25 10/15/25 History mcg (50,000 unit) capsule (Vitamin D2) alprazolam 1 mg tablet 1 mg PO TID PRN Anxiety 07/03/25 10/26/25 10/17/25 04:00 History tramadol 50 mg tablet 50 mg PO Q6H PRN pain #30 tabs 08/31/25 10/26/25 Unknown Rx bupropion HCl 300 mg 24 hr tablet, 300 mg PO QAM #30 tabs 10/01/25 10/26/25 10/16/25 Rx extended release doxepin 50 mg capsule 50 mg PO DAILY #30 caps 10/01/25 10/26/25 10/15/25 Rx escitalopram oxalate 10 mg tablet 10 mg PO DAILY #30 tabs 10/01/25 10/26/25 10/16/25 Rx fremanezumab-vfrm 225 mg/1.5 mL 225 mg (1.5 mL) SUBCUT Q30D #1.5 mL 10/16/25 10/26/25 10/09/25 Rx subcutaneous auto-injector (Ajovy) hydrocodone 5 mg-acetaminophen 325 1 tab PO Q6H PRN pain #30 tabs 10/18/25 10/26/25 Unknown Rx mg tablet doxycycline hyclate 100 mg capsule 100 mg PO BID 10 days #20 caps 10/25/25 10/26/25 Unknown Rx hydrocodone 5 mg-acetaminophen 325 1 tab PO Q6H PRN pain #14 tabs 10/25/25 10/26/25 Unknown Rx mg tablet Allergies Allergy/AdvReac Type Severity Reaction Status Date / Time clonazepam (From Klonopin) Allergy ADR-Dizzine Verified 10/29/25 21:31 ss morphine Allergy irritation Verified 10/29/25 21:31 duloxetine (From Cymbalta) AdvReac Severe ADR-Confusi Verified 10/29/25 21:31 on latex AdvReac Mild rash Verified 10/29/25 21:31 PFSH Acute PFSH: Medical History (Updated 10/30/25 @ 01:01 by Matthias Leblanc MD) Post-traumatic stress disorder, chronic Major depressive disorder, recurrent, moderate Generalized anxiety disorder Psychiatric care Family History Other Cancer Diabetes Hypertension Denies family history of CAD (coronary artery disease) Anesthesia complication Bleeding disorder Social History Smoking and tobacco/nicotine status: never used tobacco/nicotine Alcohol intake: never Substance/Drug Use: never Household members: spouse Marital status: Current occupational status: disabled Current gender identity: Female Vitals/I&O/Wt Last Vital Signs Temp 98.5 F 10/29/25 21:22 Pulse 66 10/29/25 23:04 Resp 17 10/29/25 23:42 BP 98/46 10/29/25 23:04 Pulse Ox 93 10/29/25 23:42 O2 Del Method Room Air 10/29/25 23:04 Weight last 48 hrs Weight 72.575 kg Physical Exam Const: COMMON NORMALS: no acute distress and patient oriented x3 Resp: COMMON NORMALS: normal respiratory effort and clear to auscultation bilaterally Cardio: COMMON NORMALS: regular rate, regular rhythm, S1 normal heart sound present, S2 normal heart sound present, No clicks present (Cardio) and No murmurs present (Cardio) GI: OTHER: Non-distended Extremity: RIGHT LOWER EXTREMITY: Yes knee joint (Redness noted adjacent to surgical incision site.) OTHER: There is yellow drainage noted from the inferior edge of the incision site. Knee joint is swollen Neuro: COMMON NORMALS: patient oriented x3 and CN's II-XII intact bilaterally Data 10/29/25 22:30 10/29/25 22:30 Micro: Microbiology 10/29/25 23:32 Blood Culture - Preliminary Blood SPECIMEN COLLECTED 10/29/25 22:30 Blood Culture - Preliminary Blood SPECIMEN COLLECTED A&P Assessment and plan 1. Cellulitis of knee, right: - Also with concern for perioprosthetic joint infection - Consult placed for orthopedic surgery in the AM - Blood culture collected in the ED - Continue antibiotics with Vanc and Zosyn - Pain control with dilaudid - Make NPO should orthopedic surgery opt for surgical intervention aside from joint aspiration 2. FREDDY (acute kidney injury): - Baseline creatinine about 0.7 - Start NS @ 75cc/hr - Recheck BMP at 0500 PDMP PDMP Reviewed: Not Reviewed Attestations Medical Necessity Statement*: Patient will likely require greater than two midnights inpatient to manage her cellulitis and possible PJI Coding Level of Care Code Acute Code for [facility] Diagnoses Cellulitis of knee, right L03.115 FREDDY (acute kidney injury) N17.9
[2025-10-30] MEDS: HYDROmorphone 0.5 MG/0.5 ML INJ IVP ×3 (02:36→08:28)
[2025-10-30 06:30] LABS: Anion Gap 13.4 (5-19); Blood Urea Nitrogen 21 mg/dL (6-20); Calcium 8.9 mg/dL (8.5-10.5); Carbon Dioxide 27 mmol/L (22-29); Chloride 101 mmol/L (98-107); Glucose 118 mg/dL (65-115); Osmolality Calculated 290 mOsm/kg (285-295); Potassium 3.4 mmol/L (3.5-5.1); Sodium 138 mmol/L (136-145)
--- NOTE | 2025-10-30 07:46 | PHA.VACGOAL ---
Vancomycin Goal - Goal Vancomycin Goal:: 10-15 mg/L Vancomycin Indication:: SSTI - Therapy Current therapy:: Other Antibiotic Day of therpy:: Day []of [] . Actual body weight (kg): 172 lb - Data Labs: WBC 11.34 10^3/uL (3.29-11.43) 10/29/25 22:30 RBC 3.14 10^6/uL (3.85-5.65) L 10/29/25 22:30 Hgb 9.00 g/dL (11.27-16.99) L 10/29/25 22:30 Hct 27.8 % (36-47) L 10/29/25 22:30 MCV 88.5 fl (85-98) 10/29/25 22: MCH 28.7 pg (27-33) 10/29/25 22:30 MCHC 32.4 g/dL (30-55) 10/29/25 22:30 RDW 13.7 % (12.1-15.1) 10/29/25 22:30 Sodium 138 mmol/L (136-145) 10/30/25 05:31 Potassium 3.4 mmol/L (3.5-5.1) L 10/30/25 05:31 Chloride 101 mmol/L (98-107) 10/30/25 05:31 Carbon Dioxide 27 mmol/L (22-29) 10/30/25 05:31 Anion Gap 13.4 (5-19) 10/30/25 05:31 BUN 21 mg/dL (6-20) H 10/30/25 05:31 Creatinine 0.9 mg/dL (0.5-0.9) 10/30/25 05:31 GFR Calculation 64.8 mL/min (90-130) L 10/30/25 05:31 Last dialysis session:: N/A Treatment plan:: new consult Regimen:: LOADING DOSE OF 1000 MG X 1 MAINTENANCE DOSE OF 750 MG Q12H PER DOSING PROTOCOL Follow up:: WILL CONTINUE TO MONITOR AND FOLLOW UP DAILY
--- NOTE | 2025-10-30 07:53 | P.MISC_ITS ---
Miscellaneous Note Note: Non-billable note: Patient reevaluated this AM. She states her pain is still poorly controlled. The hydromorphone will las for about 1 hour then pain will return. She feels like her entire right side is having associated spasms On exam: little change from admission. No mian drainage to the right knee but redness appears less defined. RLE remains swollen A/P Right knee cellulitis vs PJI - Pain not well controlled. Change dilau did to q2 hours PRN. Add q4 hour [place] 5/325 PRN and 400mg ibuprofen q4 hours PRN - Add Baclofen PRN - May have diet. Discussed with orthoped ic surgery. No plans for operative intervention today. Will await their evaluation FREDDY - Improved - DC IVF
--- NOTE | 2025-10-30 09:47 | PM.CONSULT ---
Providers/Reason For Consult Consulting Physician/Specialty*: Hospitalist Reason for Consult*: Right total knee infection Attending Physician: Matthias Leblanc MD Primary Care Provider: Don Jeffery MD History of Present Illness History of Present Illness Greta Cash is a 55 year old female had a total knee done 13 days ago. Has significant redness and drainage coming from the right knee. I was consulted for irrigation and debridement Review of Systems General: Reports: 10 or more systems reviewed and unremarkable except in HPI and below Const: Reports: fever(s) and chills Card: Denies: chest pain Resp: Denies: dyspnea or productive cough GI: Reports: nausea and vomiting; Denies: abdominal pain or diarrhea : Denies: flank pain Musc: Reports: joint pain, joint swelling, joint redness, joint warmth, limited range of motion and muscle weakness; Denies: neck pain, back pain, extremity pain or extremity swelling Skin/Breast: Denies: rash Neuro: Denies: headache(s), numbness in extremities or weakness in extremities Medications/Allergies Home Medications ?Medication ?Instructions ?Recorded ?Confirmed ?Last Taken ?Type tizanidine 4 mg capsule 4 mg PO BID PRN Pain (Scale Score 12/30/22 10/30/25 10/16/25 History 7-10) albuterol sulfate 90 mcg/actuation 2 puff inhalation Q6H PRN Wheezing 02/09/23 10/30/25 07/02/25 History aerosol inhaler azelastine 137 mcg (0.1 %) nasal 2 spray intranasal BID 02/09/23 10/30/25 10/29/25 History spray diclofenac sodium 75 mg 75 mg PO BID 02/09/23 10/30/25 10/29/25 History tablet,delayed release dicyclomine 20 mg tablet 20 mg PO BID 02/09/23 10/30/25 10/29/25 History fluticasone propionate 50 2 spray intranasal DAILY 02/09/23 10/30/25 10/29/25 History mcg/actuation nasal spray,suspension (Allergy Relief (fluticasone)) montelukast 10 mg tablet 10 mg PO DAILY 02/09/23 10/30/25 10/29/25 History famotidine 20 mg tablet 20 mg PO BID 11/12/23 10/30/25 10/29/25 History pregabalin 225 mg capsule 225 mg PO BID 11/29/24 10/30/25 10/29/25 History cyanocobalamin (vitamin B-12) 100 mcg IM .WEEK 12/26/24 10/30/25 10/26/25 History 1,000 mcg/mL injection solution pantoprazole 40 mg tablet,delayed 40 mg PO DAILY 12/26/24 10/30/25 10/29/25 History release ergocalciferol (vitamin D2) 1,250 1,250 mcg PO .Q30D 05/31/25 10/30/25 10/15/25 History mcg (50,000 unit) capsule (Vitamin D2) alprazolam 1 mg tablet 1 mg PO TID PRN Anxiety 07/03/25 10/30/25 10/17/25 04:00 History tramadol 50 mg tablet 50 mg PO Q6H PRN pain #30 tabs 08/31/25 10/30/25 Unknown Rx bupropion HCl 300 mg 24 hr tablet, 300 mg PO QAM #30 tabs 10/01/25 10/30/25 10/29/25 Rx extended release doxepin 50 mg capsule 50 mg PO DAILY #30 caps 10/01/25 10/30/25 10/29/25 Rx escitalopram oxalate 10 mg tablet 10 mg PO DAILY #30 tabs 10/01/25 10/30/25 10/29/25 Rx fremanezumab-vfrm 225 mg/1.5 mL 225 mg (1.5 mL) SUBCUT Q30D #1.5 mL 10/16/25 10/30/25 10/19/25 Rx subcutaneous auto-injector (Ajovy) hydrocodone 5 mg-acetaminophen 325 1 tab PO Q6H PRN pain #30 tabs 10/18/25 10/30/25 Unknown Rx mg tablet doxycycline hyclate 100 mg capsule 100 mg PO BID 10 days #20 caps 10/25/25 10/30/25 10/29/25 Rx cetirizine 10 mg tablet 10 mg PO DAILY 10/30/25 10/30/25 10/29/25 History fluticasone fur. 200 mcg-umeclid 1 inh inhalation DAILY 10/30/25 10/30/25 10/29/25 History 62.5 mcg-vilant 25 mcg inhalat.powder (Trelegy Ellipta) furosemide 40 mg tablet 40 mg PO DAILY 10/30/25 10/30/25 10/29/25 History hydroxyzine HCl 50 mg tablet 50 mg PO DAILY 10/30/25 10/30/25 10/29/25 History potassium chloride 10 mEq 10 meq PO DAILY 10/30/25 10/30/25 10/29/25 History tablet,extended release Allergies Allergy/AdvReac Type Severity Reaction Status Date / Time clonazepam (From Klonopin) Allergy ADR-Dizzine Verified 10/29/25 21:31 ss morphine Allergy irritation Verified 10/29/25 21:31 duloxetine (From Cymbalta) AdvReac Severe ADR-Confusi Verified 10/29/25 21:31 on latex AdvReac Mild rash Verified 10/29/25 21:31 Current Medications Generic Name Dose Route Start Last Admin Trade Name Freq PRN Reason Stop Dose Admin Bupropion HCl 300 mg 10/30/25 05:00 10/30/25 04:16 Bupropion Xl (24 Hr) 300 Mg Tablet PO 300 mg QAM ROSENDO Administration Dicyclomine HCl 20 mg 10/30/25 05:00 10/30/25 04:17 Dicyclomine 20 Mg Tablet PO 20 mg BID ROSENDO Administration Doxepin HCl 50 mg 10/30/25 05:00 10/30/25 05:28 Doxepin 50 Mg Capsule PO Not Given DAILY ROSENDO Escitalopram Oxalate 10 mg 10/30/25 05:00 10/30/25 04:16 Escitalopram 10 Mg Tablet PO 10 mg DAILY ROSENDO Administration Famotidine 20 mg 10/30/25 05:00 10/30/25 04:17 Famotidine 20 Mg Tablet PO 20 mg BID ROSENDO Administration Hydromorphone HCl 0.5 mg 10/30/25 07:51 10/30/25 08:28 Hydromorphone 0.5 Mg/0.5 Ml Inj IVP 0.5 mg Q2H PRN Administration PAIN Piperacillin Sod/Tazobactam 50 mls @ 12.5 mls/hr 10/30/25 08:00 10/30/25 08:27 Sod 3.375 gm/ Sodium Chloride IV 12.5 mls/hr Q8H ROSENDO Administration Montelukast Sodium 10 mg 10/30/25 05:00 10/30/25 04:17 Montelukast Sodium 10 Mg Tablet PO 10 mg DAILY ROSENDO Administration Pantoprazole Sodium 40 mg 10/30/25 05:00 10/30/25 04:[address] 40 Mg Tablet PO 40 mg DAILY ROSENDO Administration Pregabalin 225 mg 10/30/25 05:00 10/30/25 04:16 Pregabalin 75 Mg Capsule PO 225 mg BID ROSENDO Administration PFSH Acute PFSH: Medical History (Updated 10/30/25 @ 01:01 by Matthias Leblanc MD) Post-traumatic stress disorder, chronic Major depressive disorder, recurrent, moderate Generalized anxiety disorder Psychiatric care Family History Other Cancer Diabetes Hypertension Denies family history of CAD (coronary artery disease) Anesthesia complication Bleeding disorder Social History Smoking and tobacco/nicotine status: never used tobacco/nicotine Alcohol intake: never Substance/Drug Use: never Household members: spouse Marital status: Current occupational status: disabled Current gender identity: Female Vitals/I&O/Wt Last Vital Signs Temp 98.3 F 10/30/25 07:58 Pulse 85 10/30/25 07:58 Resp 17 10/30/25 07:58 BP 137/65 10/30/25 07:58 Pulse Ox 92 10/30/25 07:58 O2 Del Method Room Air 10/30/25 07:58 10/29/25 10/30/25 10/30/25 22:59 06:59 14:59 Intake Total 300 / 300 502.5 / 502.5 Balance 300 / 300 502.5 / 502.5 Weight last 48 hrs Weight 172 lb Weight 160 lb Physical Exam Narrative: Alert and oriented x 3 Head is normocephalic atraumatic Respirations are intact Right knee incision has redness and some drainage coming from the distal end of it. Patient stated is progressively getting worse Data 10/29/25 22:30 10/30/25 05:31 Micro: Microbiology 10/29/25 23:32 Blood Culture - Preliminary Blood SPECIMEN COLLECTED 10/29/25 22:30 Blood Culture - Preliminary Blood SPECIMEN COLLECTED A&P Assessment and plan 1. Status post total right knee replacement: Plan to do irrigation and debridement of right knee today at 6 PM. Keep n.p.o. PDMP PDMP Reviewed: Not Reviewed Coding Level of Care Code Acute Code for Chg Fwd Diagnoses Status post total right knee replacement Z96.651 Laterality: right
[2025-10-30] MEDS: HYDROcodone-acetaminophen 5-325 mg Tablet 1 TAB PO ×2 (11:38→23:30)
--- NOTE | 2025-10-30 12:31 | ANES.PREANE2 ---
Pre-Anesthetic Assessment Height/Weight: Height 5 ft 3 in Weight 172 lb Temp Pulse Resp BP Pulse Ox O2 Del Method 101.9 F H 81 18 101/66 92 Room Air 10/30/25 11:06 10/30/25 11:06 10/30/25 11:06 10/30/25 11:06 10/30/25 11:06 10/30/25 11:06 Preop Diagnosis: Infected joint Operation Date: 10/30/25 18:10 Proposed Procedures p Incision and Drainage Knee I&D Knee(Right) - Lucho Sorto, DO Was Beta Alla taken within 24 hours: N/A Was Clonidine taken within 24 hours: N/A Social No alcohol and No tobacco Exam alert, oriented x 3, clear to auscultation bilaterally and regular rate & rhythm Airway Submandibular: within normal limits Cervical ROM: within normal limits Mallampati: Class III Comments: Comments: No upper teeth, bottom partial Anesthetic Plan ASA status: 3 Anesthesia: General Other: Patient states that she wakes up very aggressive from anesthesia, patient did well last time NPO since yesterday evening Patient recently admitted on 10/29/2025 with concerns of postop infection History of GERD, controlled with Pepcid and Protonix AMBER, CPAP nightly 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 stable since 2019 Patient is on Aimovig for chronic migraines Labs reviewed from yesterday and acceptable for procedure Plan for general anesthesia Medications/Allergies Home Medications ?Medication ?Instructions ?Recorded ?Confirmed ?Last Taken ?Type tizanidine 4 mg capsule 4 mg PO BID PRN Pain (Scale Score 12/30/22 10/30/25 10/16/25 History 7-10) albuterol sulfate 90 mcg/actuation 2 puff inhalation Q6H PRN Wheezing 02/09/23 10/30/25 07/02/25 History aerosol inhaler azelastine 137 mcg (0.1 %) nasal 2 spray intranasal BID 02/09/23 10/30/25 10/29/25 History spray diclofenac sodium 75 mg 75 mg PO BID 02/09/23 10/30/25 10/29/25 History tablet,delayed release dicyclomine 20 mg tablet 20 mg PO BID 02/09/23 10/30/25 10/29/25 History fluticasone propionate 50 2 spray intranasal DAILY 02/09/23 10/30/25 10/29/25 History mcg/actuation nasal spray,suspension (Allergy Relief (fluticasone)) montelukast 10 mg tablet 10 mg PO DAILY 02/09/23 10/30/25 10/29/25 History famotidine 20 mg tablet 20 mg PO BID 11/12/23 10/30/25 10/29/25 History pregabalin 225 mg capsule 225 mg PO BID 11/29/24 10/30/25 10/29/25 History cyanocobalamin (vitamin B-12) 100 mcg IM .WEEK 12/26/24 10/30/25 10/26/25 History 1,000 mcg/mL injection solution pantoprazole 40 mg tablet,delayed 40 mg PO DAILY 12/26/24 10/30/25 10/29/25 History release ergocalciferol (vitamin D2) 1,250 1,250 mcg PO .Q30D 05/31/25 10/30/25 10/15/25 History mcg (50,000 unit) capsule (Vitamin D2) alprazolam 1 mg tablet 1 mg PO TID PRN Anxiety 07/03/25 10/30/25 10/17/25 04:00 History tramadol 50 mg tablet 50 mg PO Q6H PRN pain #30 tabs 08/31/25 10/30/25 Unknown Rx bupropion HCl 300 mg 24 hr tablet, 300 mg PO QAM #30 tabs 10/01/25 10/30/25 10/29/25 Rx extended release doxepin 50 mg capsule 50 mg PO DAILY #30 caps 10/01/25 10/30/25 10/29/25 Rx escitalopram oxalate 10 mg tablet 10 mg PO DAILY #30 tabs 10/01/25 10/30/25 10/29/25 Rx fremanezumab-vfrm 225 mg/1.5 mL 225 mg (1.5 mL) SUBCUT Q30D #1.5 mL 10/16/25 10/30/25 10/19/25 Rx subcutaneous auto-injector (Ajovy) hydrocodone 5 mg-acetaminophen 325 1 tab PO Q6H PRN pain #30 tabs 10/18/25 10/30/25 Unknown Rx mg tablet doxycycline hyclate 100 mg capsule 100 mg PO BID 10 days #20 caps 10/25/25 10/30/25 10/29/25 Rx cetirizine 10 mg tablet 10 mg PO DAILY 10/30/25 10/30/25 10/29/25 History fluticasone fur. 200 mcg-umeclid 1 inh inhalation DAILY 10/30/25 10/30/25 10/29/25 History 62.5 mcg-vilant 25 mcg inhalat.powder (Trelegy Ellipta) furosemide 40 mg tablet 40 mg PO DAILY 10/30/25 10/30/25 10/29/25 History hydroxyzine HCl 50 mg tablet 50 mg PO DAILY 10/30/25 10/30/25 10/29/25 History potassium chloride 10 mEq 10 meq PO DAILY 10/30/25 10/30/25 10/29/25 History tablet,extended release Allergies Allergy/AdvReac Type Severity Reaction Status Date / Time clonazepam (From Klonopin) Allergy ADR-Dizzine Verified 10/29/25 21:31 ss morphine Allergy irritation Verified 10/29/25 21:31 duloxetine (From Cymbalta) AdvReac Severe ADR-Confusi Verified 10/29/25 21:31 on latex AdvReac Mild rash Verified 10/29/25 21:31 Current Medications Generic Name Dose Route Start Last Admin Trade Name Freq PRN Reason Stop Dose Admin Hydrocodone Bitart/Acetaminophen 1 tab 10/30/25 07:51 10/30/25 11:38 Hydrocodone-Acetaminophen 5-325 Mg Tablet PO 1 tab Q4H PRN Administration MODERATE PAIN Baclofen 10 mg 10/30/25 07:50 10/30/25 11:38 Baclofen 10 Mg Tablet PO 10 mg QID PRN Administration MUSCLE SPASMS Bupropion HCl 300 mg 10/30/25 05:00 10/30/25 04:16 Bupropion Xl (24 Hr) 300 Mg Tablet PO 300 mg QAM ROSENDO Administration Dicyclomine HCl 20 mg 10/30/25 05:00 10/30/25 04:17 Dicyclomine 20 Mg Tablet PO 20 mg BID ROSENDO Administration Doxepin HCl 50 mg 10/30/25 05:00 10/30/25 05:28 Doxepin 50 Mg Capsule PO Not Given DAILY ROSENDO Enoxaparin Sodium 40 mg 10/30/25 10:00 10/30/25 11:34 Enoxaparin 40 Mg/0.4 Ml Syringe SUBCUT 40 mg Q24H ROSENDO Administration Escitalopram Oxalate 10 mg 10/30/25 05:00 10/30/25 04:16 Escitalopram 10 Mg Tablet PO 10 mg DAILY ROSENDO Administration Famotidine 20 mg 10/30/25 05:00 10/30/25 04:17 Famotidine 20 Mg Tablet PO 20 mg BID ROSENDO Administration Hydromorphone HCl 0.5 mg 10/30/25 07:51 10/30/25 08:28 Hydromorphone 0.5 Mg/0.5 Ml Inj IVP 0.5 mg Q2H PRN Administration PAIN Piperacillin Sod/Tazobactam 50 mls @ 12.5 mls/hr 10/30/25 08:00 10/30/25 08:27 Sod 3.375 gm/ Sodium Chloride IV 12.5 mls/hr Q8H ROSENDO Administration Montelukast Sodium 10 mg 10/30/25 05:00 10/30/25 04:17 Montelukast Sodium 10 Mg Tablet PO 10 mg DAILY ROSENDO Administration Pantoprazole Sodium 40 mg 10/30/25 05:00 10/30/25 04:[address] 40 Mg Tablet PO 40 mg DAILY ROSENDO Administration Pregabalin 225 mg 10/30/25 05:00 10/30/25 04:16 Pregabalin 75 Mg Capsule PO 225 mg BID ROSENDO Administration PFSH Anesthesia Medical History (Updated 10/30/25 @ 01:01 by Matthias Leblanc MD) Post-traumatic stress disorder, chronic Major depressive disorder, recurrent, moderate Generalized anxiety disorder Psychiatric care Family History Other Cancer Diabetes Hypertension Denies family history of CAD (coronary artery disease) Anesthesia complication Bleeding disorder Social History Smoking and tobacco/nicotine status: never used tobacco/nicotine Alcohol intake: never Substance/Drug Use: never Household members: spouse Marital status: Current occupational status: disabled Current gender identity: Female Data Anesthesia 10/29/25 22:30 10/30/25 05:31 Short CBC 10/29/25 Range/Units 22:30 WBC 11.34 (3.29-11.43) 10^3/uL Hgb 9.00 L (11.27-16.99) g/dL Hct 27.8 L (36-47) % MCV 88.5 (85-98) fl Plt Count 285 (157-399) 10^3/cmm Neut % (Auto) 80.3 % Neut # (Auto) 9.12 H (1.8-7.7) 10^3/uL BMP 10/29/25 10/30/25 22:30 05:31 Sodium 136 138 Potassium 3.7 3.4 L Chloride 98 101 Carbon Dioxide 27 27 BUN 24 H 21 H Creatinine 1.1 H 0.9 Glucose 109 118 H Calcium 9.3 8.9 Liver Function 10/29/25 Range/Units 22:30 Total Bilirubin 0.6 (0.15-1.2) mg/dL AST 19 (0-32) U/L ALT 11 (0-33) U/L Alkaline Phosphatase 140 H (35-105) U/L Albumin 3.2 L (3.5-5.2) g/dL Coags 10/29/25 22:30 ESR 27 H C-Reactive Protein 313.1 H Microbiology 10/29/25 23:32 Blood Culture - Preliminary Blood SPECIMEN COLLECTED 10/29/25 22:30 Blood Culture - Preliminary Blood SPECIMEN COLLECTED
--- NOTE | 2025-10-30 17:32 | PC.NURSE ---
pt to the or at approx 1700
[2025-10-30] MEDS: fentaNYL 50 mcg/mL INJ 2mL IVP ×2 (19:12→19:21)
--- NOTE | 2025-10-30 19:12 | PM.OP ---
Operative Report Date of procedure: October 30, 2025 Pre-op diagnosis: Right infected total knee arthroplasty Post-op diagnosis: same Procedure done: Right irrigation debridement of right total knee Surgeon: Lucho Sorto DO Estimated blood loss (mL): 50 Procedure: Right irrigation debridement of right total knee Patient was taken to the operative suite after undergoing anesthesia was placed in the supine position. All areas of impingement were well-padded. Skin incision was made using the previous skin incision. Jordan were removed the Vicryl was cut out and removed with hemostats in this layer there was significant purulence this was taken for cultures. Both aerobic and anaerobic. The once this was washed out then pus was coming from the medial deep compartment. The sutures were taken out medially and the patella was open. There was mian pus deep as well. Mostly superiorly. This was irrigated out cultures were taken prior to this. Wound was then irrigated with Irrisept and saline approximately 3 L. At this point the wound with good is good bleeding tissue. L a infected looking tissue was present was removed there is minimal since this had only been 13 days prior since the joint was done. The poly and implants all look clean. At this point deep drain was placed and vancomycin powder was placed in the wound was closed in a layered fashion with PDS using 0 PDS 2-0 PDS and jordan. Sterile dressings were applied patient was transferred to the PACU in stable conditions.
[2025-10-30] MEDS: HYDROmorphone 1 mg/mL INJ 1ml ×2 (19:33→19:45)
[2025-10-31] VITALS (10 sets, daily range): BP systolic 86–149; BP diastolic 51–84; PULSE 56–77; RESP 15–18; TEMP 36.4–37.1; O2SAT 91–96
[2025-10-31] MEDS: piperacillin-tazobactam 3.375 GM in sodium chloride 0.9% (plus) 50 ML IV (01:58)
--- NOTE | 2025-10-31 08:35 | P.PN_ITS ---
Subjective 2 Subjective: 55-year-old female, history of obesity, osteoarthritis of the knee from playing volleyball, was recently hospitalized for right knee arthroplasty/joint replacement. Fortunately complicated by prosthetic joint infection, is postop day 1 from irrigation debridement which is reported to have had large amounts of pus drainage, Gram stain/cultures pending. Patient had positive blood cultures for MSSA most recently on 10/25/2025. I discussed the plan with infectious disease, consulted, see below. Patient has no complaints, the right knee is diffusely red, tender. Vitals/I&O/Wt Last Vital Signs Temp 98.5 F 11/02/25 07:41 Pulse 66 11/02/25 07:41 Resp 15 11/02/25 07:41 BP 103/71 11/02/25 07:41 Pulse Ox 92 11/02/25 07:41 O2 Del Method Room Air 11/02/25 07:41 O2 Flow Rate 2 10/31/25 04:00 11/01/25 11/02/25 11/02/25 22:59 06:59 14:59 Intake Total 360 / 700 360 / 1060 Output Total 150 / 150 200 / 350 Balance 210 / 550 160 / 710 Weight last 48 hrs Weight 86.636 kg Weight 86.818 kg Physical Exam 2 Const: COMMON NORMALS: no acute distress and patient oriented x3 Resp: COMMON NORMALS: normal respiratory effort and clear to auscultation bilaterally AUSCULTATION: clear to auscultation bilaterally Cardio: COMMON NORMALS: regular rate, regular rhythm, S1 normal heart sound present, S2 normal heart sound present, No clicks present (Cardio) and No murmurs present (Cardio) RATE: regular rate RHYTHM: regular rhythm H EART SOUNDS: S1 normal heart sound present and S2 normal heart sound present GI: OTHER: Non-distended Extremity: RIGHT LOWER EXTREMITY: Yes knee joint (Redness noted adjacent to surgical incision site.) OTHER: There is yellow drainage noted from the inferior edge of the incision site. Knee joint is swollen Neuro: COMMON NORMALS: patient oriented x3 and CN's II-XII intact bilaterally Data 11/02/25 05:26 11/02/25 05:26 Micro: Microbiology 11/01/25 05:08 Blood Culture - Preliminary Blood NEGATIVE TO DATE 11/01/25 05:05 Blood Culture - Preliminary Blood NEGATIVE TO DATE 10/30/25 18:14 Gram Stain - Final Knee - #1 Anaerobic Culture - Preliminary Wound Culture - Preliminary Coag positive Staphylococcus 10/30/25 18:14 Gram Stain - Final Knee - #2 Anaerobic Culture - Preliminary Wound Culture - Final Staphylococcus aureus 10/29/25 22:42 Wound Culture - Final Knee - Right Staphylococcus aureus A&P Assessment and plan 1. Cellulitis of knee, right: 55-year-old female, history of obesity, anxiety, chronic leg swelling, generalized anxiety disorder, right knee osteoarthritis. Presented to ED with severe cellulitis, prosthetic joint infection, extending from upper thigh to the mid calf, Presented with sepsis. Status post I&D postop day 1, blood cultures positive for Staph aureus. Discussed with ID. - Pain control with dilaudid Start IV cefazolin 2 g IV every 8 hours Add rifampin over the next 24 to 48 hours for attempting joint salvage. LFTs normal ? Will insert PICC line until the blood cultures from 10/29 negative for 72 hours. ? Appreciate ID recommendations, will follow-up on echocardiogram., DVT prophylaxis with Lovenox 40 mg subcu 24 hours Continue home anxiolytics Pain control continue hydromorphone 2. FREDDY (acute kidney injury): PDMP PDMP Reviewed: Not Reviewed Attestations 2 Medical Necessity Statement*: Patient will likely require greater than two midnights inpatient to manage her cellulitis and possible PJI will require at least 72-hour stay for transition to permanent PICC. Start rifampin as tolerates Diagnoses Cellulitis of knee, right L03.115 FREDDY (acute kidney injury) N17.9
--- NOTE | 2025-10-31 09:01 | P.PN_ITS ---
Subjective 2 Subjective: Patient resting comfortably difficult to wake up. Was not complaining of any pain. Vitals/I&O/Wt Last Vital Signs Temp 97.6 F 10/31/25 08:08 Pulse 56 L 10/31/25 08:08 Resp 16 10/31/25 08:08 BP 101/66 10/31/25 08:08 Pulse Ox 92 10/31/25 08:08 O2 Del Method Room Air 10/31/25 08:08 O2 Flow Rate 2 10/31/25 04:00 10/30/25 10/31/25 10/31/25 22:59 06:59 14:59 Intake Total 400 / 952.5 780 / 1732.5 Output Total 100 / 100 275 / 375 Balance 300 / 852.5 505 / 1357.5 Weight last 48 hrs Weight 172 lb Weight 172 lb Weight 160 lb Physical Exam 2 Narrative: Hemovac drain with minimal output. Dressing clean dry and intact Data 10/29/25 22:30 10/30/25 05:31 Micro: Microbiology 10/29/25 23:32 Blood Culture - Preliminary Blood NEGATIVE TO DATE 10/29/25 22:30 Blood Culture - Preliminary Blood NEGATIVE TO DATE A&P Assessment and plan 1. Status post total right knee replacement: Postop day 1 irrigation debridement of right total knee arthroplasty. Up with therapy DC Hemovac drain PDMP PDMP Reviewed: Not Reviewed Attestations 2 Medical Necessity Statement*: Per primary service Coding Level of Care Code Acute Code for Chg Fwd Diagnoses Status post total right knee replacement Z96.651 Laterality: right
--- NOTE | 2025-10-31 09:57 | PC.CHAP ---
Pastoral Care Encounter/Spiritual Assessment Type of Contact [] Declined circular knitter visit [] Patient/Family/Request visit [] Outpatient visit [] Follow-up visit [] Physician referral [] Code/Alert [] Routine visit [] Staff referral [] Actively dying [x] Patient sleeping [] Family support [] [] Out of room [] Palliative care [] [] Receiving care in room [] Pre-surgical visit [] Trauma [] Long length of stay [] ICU visit [] Other: Relational/Emotional Strength [] Patient feels connected with others/family/visitors/staff [] Distress [] Loneliness/isolation [] Abandonment Spirituality of Patient [] Person of Gina [] Attends Anabaptism of their Gina [] Believes in Prayer [] Reads Bible or Gnosticism materials [] There are Spiritual issues to be addressed Urogynaecologist Interventions [] Prayer [] Active listening [] Non-anxious presence [] Spiritual/emotional support [] Crisis/trauma care [] Spiritual counseling [] Bereavement support [] Provided bereavement packet [] Provided Bible/devotional materials [] Provided toy/stuffed animal, coloring book to patient or family member [] Provided Communion [] Anointing/[place] [] Salvation [] Completed spiritual assessment [] Other: Impact on Illness or Injury [] Angry [] Fearful [] Anxious [] Often cries [] Exhaustion [] Unable to work [] Unable to attend anabaptist [] Unable to walk/stand [] Unable to read [] Unable to drive [] Unable to eat/drink [] Unable to sleep [] Unable to be with family [] Patient intubated [] Other: Summary Time spent with patient
--- NOTE | 2025-10-31 17:54 | P.CONIM_ITS ---
Providers/Reason For Consult 2 Consulting Physician/Specialty*: Stephie Hawley MD/ Infectious Disease Reason for Consult*: PJI Requesting Physician: Markus Dias MD Attending Physician: Markus Dias MD Primary Care Provider: Don Jeffery MD History of Present Illness History of Present Illness Greta Cash is a 55 year old female with PMH migraine on Aimovig, H/o asthma vs restrictive airway disease recently underwent elective right total knee replacement on 10/17/[address] Cain and was discharged in stable state. Presented to the ER on 10/25 due to increasing pain over the knee after having fallen at home 2 days prior. Reported subjective fever and chills at home. She was discharged home with po doxycycline. Blood cx from 10/25 returned positive for MSSA. She was seen as outpatient by orthopedics on 10/26 and thought to have a post op hematoma without overt signs of infection. Then came in to the ER on 10/29 due to persistence of constituional symptoms including fever, chills, lack of appetie and nausea. Reported drainage and increased pain at the knee. Initially diagnosed with cellulitis and started on iv vancomycin which is currently continued. She is now s/p Right irrigation debridement of right total knee on 10/30. Intraop findings include pus drainage upon opening the previous incision site and deep pus upon upon opening the patella. The poly and implants appeared to be clean grossly. Tmax during admission 101.9F. Review of Systems 2 General: Reports: 10 or more systems reviewed and unremarkable except in HPI and below Const: Reports: fever(s), chills and body aches Eyes: Denies: change in vision, blurry vision or photophobia ENMT: Reports: hoarseness; Denies: throat pain, enlarged tonsils, odynophagia or nasal congestion Card: Denies: chest pain, palpitations, irregular heart rhythm, edema, swelling of feet/ankles, lightheadedness, pre-syncope, dyspnea on exertion or orthopnea Resp: Reports: dyspnea; Denies: productive cough, non-productive cough, wheezing, stridor, pain on inspiration, change in phlegm color, hemoptysis or chest congestion GI: Denies: abdominal pain, nausea, vomiting, hematemesis, coffee ground emesis, dysphagia, heartburn, diarrhea, constipation, GI cramping, change in stool character, hematochezia or melena : Denies: flank pain, difficulty voiding, dysuria, urinary frequency, urinary urgency, urinary hesitancy or hematuria Musc: Denies: neck pain, back pain, extremity pain, joint swelling, joint warmth or deformity Neuro: Denies: headache(s), numbness in extremities, weakness in extremities, sensory changes, difficulty walking, frequent falls, dizziness, vertigo, behavioral changes, Slurred speech present or seizure-like activity Psych: Denies: anxiety, depression, suicidal ideation or homicidal ideation Endo: Denies: polyuria, polydipsia, tired all the time, cold intolerance or hot flashes Shimon/Lymph: Denies: easy bruising or easy bleeding Medications/Allergies Home Medications ?Medication ?Instructions ?Recorded ?Confirmed ?Last Taken ?Type tizanidine 4 mg capsule 4 mg PO BID PRN Pain (Scale Score 12/30/22 10/30/25 10/16/25 History 7-10) albuterol sulfate 90 mcg/actuation 2 puff inhalation Q 6H PRN Wheezing 02/09/23 10/30/25 07/02/25 History aerosol inhaler azelastine 137 mcg (0.1 %) nasal 2 spray intranasal BI D 02/09/23 10/30/25 10/29/25 History spray diclofenac sodium 75 mg 75 mg PO BID 02/09/2310/29/25 History tablet,delayed release dicyclomine 20 mg tablet 20 mg PO BID 02/09/2310/29/25 History fluticasone propionate 50 2 spray intranasal DAILY 02/2810/30/25 10/29/25 History mcg/actuation nasal spray,suspension (Allergy Relief (fluticasone)) montelukast 10 mg tablet 10 mg PO DAILY 02/09/2310/0910/29/25 History famotidine 20 mg tablet 20 mg PO BID 11/12/2310/29/25 History pregabalin 225 mg capsule 225 mg PO BID 11/29/2410/3010/29/25 History cyanocobalamin (vitamin B-12) 100 mcg IM .WEEK 5 10/30/25 10/26/25 History 1,000 mcg/mL injection solution pantoprazole 40 mg tablet,delayed 40 mg PO DAILY 12/2610/30/25 10/29/25 History release ergocalciferol (vitamin D2) 1,250 1,250 mcg PO .Q30D 0 05/31/25 10/30/25 10/15/25 History mcg (50,000 unit) capsule (Vitamin D2) alprazolam 1 mg tablet 1 mg PO TID PRN Anxiety 06/0910/30/25 10/17/25 04:00 History tramadol 50 mg tablet 50 mg PO Q6H PRN pain #30 ta bs 08/31/25 10/30/25 Unknown Rx bupropion HCl 300 mg 24 hr tablet, 300 mg PO QAM #30 t abs 10/01/25 10/30/25 10/29/25 Rx extended release doxepin 50 mg capsule 50 mg PO DAILY #30 caps 09/0910/30/25 10/29/25 Rx escitalopram oxalate 10 mg tablet 10 mg PO DAILY #30 t abs 10/01/25 10/30/25 10/29/25 Rx fremanezumab-vfrm 225 mg/1.5 mL 225 mg (1.5 mL) SUBCUT Q30D #1.5 mL 10/16/25 10/30/25 10/19/25 Rx subcutaneous auto-injector (Ajovy) hydrocodone 5 mg-acetaminophen 325 1 tab PO Q6H PRN pa in #30 tabs 10/18/25 10/30/25 Unknown Rx mg tablet doxycycline hyclate 100 mg capsule 100 mg PO BID 10 da ys #20 caps 10/25/25 10/30/25 10/29/25 Rx cetirizine 10 mg tablet 10 mg PO DAILY 10/30/2510/0910/29/25 History fluticasone fur. 200 mcg-umeclid 1 inh inhalation INGRIS Y 10/30/25 10/30/25 10/29/25 History 62.5 mcg-vilant 25 mcg inhalat.powder (Trelegy Ellipta) furosemide 40 mg tablet 40 mg PO DAILY 10/30/2510/0910/29/25 History hydroxyzine HCl 50 mg tablet 50 mg PO DAILY 10/30/25 1 12/31/24 10/29/25 History potassium chloride 10 mEq 10 meq PO DAILY 10/30/2510/29/25 History tablet,extended release Allergies Allergy/AdvReac Type Severity Reaction Status Date / Time clonazepam (From Klonopin) Allergy ADR-Dizzine Verified 10/29/25 21:31 ss morphine Allergy irritation Verified 10/29/25 21:31 duloxetine (From Cymbalta) AdvReac Severe ADR-Confusi Verified 10/29/25 21:31 on latex AdvReac Mild rash Verified 10/29/25 21:31 Current Medications Generic Name Dose Route Start Last Admin Trade Name Freq PRN Reason Stop Dose Admin Hydrocodone Bitart/Acetaminophen 1 tab 10/30/25 07:51 10/30/25 23:30 Hydrocodone-Acetaminophen 5-325 Mg Tablet PO 1 tab Q4H PRN Administration MODERATE PAIN Baclofen 10 mg 10/30/25 07:50 10/30/25 23:30 Baclofen 10 Mg Tablet PO 10 mg QID PRN Administration MUSCLE SPASMS Bupropion HCl 300 mg 10/30/25 05:00 10/31/25 05:13 Bupropion Xl (24 Hr) 300 Mg Tablet PO 300 mg QAM ROSENDO Administration Dicyclomine HCl 20 mg 10/30/25 05:00 10/31/25 16:44 Dicyclomine 20 Mg Tablet PO 20 mg BID ROSENDO Administration Doxepin HCl 50 mg 10/30/25 05:00 10/31/25 05:13 Doxepin 50 Mg Capsule PO 50 mg DAILY ROSENDO Administration Enoxaparin Sodium 40 mg 10/30/25 10:00 10/31/25 09:57 Enoxaparin 40 Mg/0.4 Ml Syringe SUBCUT 40 mg Q24H ROSENDO Administration Escitalopram Oxalate 10 mg 10/30/25 05:00 10/31/25 05:13 Escitalopram 10 Mg Tablet PO 10 mg DAILY ROSENDO Administration Famotidine 20 mg 10/30/25 05:00 10/31/25 16:44 Famotidine 20 Mg Tablet PO 20 mg BID ROSENDO Administration Hydromorphone HCl 0.5 mg 10/30/25 07:51 10/30/25 08:28 Hydromorphone 0.5 Mg/0.5 Ml Inj IVP 0.5 mg Q2H PRN Administration PAIN Vancomycin HCl 1,000 mg/ 250 mls @ 250 mls/hr 10/31/25 13:00 10/31/25 14:45 Sodium Chloride IV Infused Q12H ROSENDO Infusion Montelukast Sodium 10 mg 10/30/25 05:00 10/31/25 05:13 Montelukast Sodium 10 Mg Tablet PO 10 mg DAILY ROSENDO Administration Pantoprazole Sodium 40 mg 10/30/25 05:00 10/31/25 05:[address] 40 Mg Tablet PO 40 mg DAILY ROSENDO Administration Pregabalin 225 mg 10/30/25 05:00 10/31/25 16:44 Pregabalin 75 Mg Capsule PO 225 mg BID ROSENDO Administration PFSH Acute 2 PFSH: Medical History Post-traumatic stress disorder, chronic Major depressive disorder, recurrent, moderate Generalized anxiety disorder Psychiatric care Family History Other Cancer Diabetes Hypertension Denies family history of CAD (coronary artery disease) Anesthesia complication Bleeding disorder Social History Smoking and tobacco/nicotine status: never used tobacco/nicotine Alcohol intake: never Substance/Drug Use: never Household members: spouse Marital status: Current occupational status: disabled Current gender identity: Female Vitals/I&O/Wt Last Vital Signs Temp 98.4 F 10/31/25 15:49 Pulse 65 10/31/25 15:49 Resp 18 10/31/25 15:49 BP 106/63 10/31/25 15:49 Pulse Ox 91 10/31/25 15:49 O2 Del Method Room Air 10/31/25 15:49 O2 Flow Rate 2 10/31/25 04:00 10/31/25 10/31/25 10/31/25 06:59 14:59 22:59 Intake Total 780 / 1732.5 610 / 610 Output Total 275 / 375 240 / 240 Balance 505 / 1357.5 370 / 370 Weight last 48 hrs Weight 78.018 kg Weight 78.018 kg Weight 72.575 kg Physical Exam 2 Narrative: Assessed via telehealth General: Awake alert x 3, no acute distress Pulmonary: No respiratory distress noted, normal resp respiratory effort, no accessory muscle use Neuro: No focal deficit grossly, Extremities: Surgical dressing over the right knee. Data 11/01/25 05:05 11/01/25 05:05 Micro: Microbiology 10/30/25 18:14 Gram Stain - Final Knee - #2 Wound Culture - Preliminary Coag positive Staphylococcus 10/30/25 18:14 Gram Stain - Final Knee - #1 Wound Culture - Preliminary 10/29/25 22:42 Wound Culture - Preliminary Knee - Right Coag positive Staphylococcus 10/29/25 23:32 Blood Culture - Preliminary Blood NEGATIVE TO DATE 10/29/25 22:30 Blood Culture - Preliminary Blood NEGATIVE TO DATE [facility] [address] [place] [id number] LIANE VIZCAINO, HOSPITAL CLEANING SPECIALIST NAME: Greta Cash LOC: ER U #: [id number] AGE/SX: 54/F ROOM: R E10/25/[address]: Genevieve Ballard : 1970 BED: D IS: FAX #: STATUS: DEP ER TLOC: Spec #: [id number] Génesis: 10/25/25 Status: COMP Req #: [id number] Recd: 10/25/25-[address]: Genevieve Ballard Src: Blood SpDesc: Ordered: Bcult Procedure Result Verified Site Blood Culture Final 10/29/25-1442 2 OF 4 BOTTLES POSITIVE DIRECT GRAM STAIN: GRAM POSITIVE COCCI IN CLUSTERS IDENTIFICATION BY DIRECT PCR Organism 1 Staphylococcus aureus Growth 2 BOTTLES Gram Stain Charge Charge for Gram Stain CRITICAL RESULT YES/NO: YES CRITICAL CALLED BY: PAU TO AND READ BACK BY: RACHAEL DATE: 10/26/25 TIME: 1411 S aureus M.I.C. RX --------- ------ * Ciprofloxacin <=1 S * Clindamycin <=0.5 R * Erythromycin >4 R * Levofloxacin <=1 S * Linezolid 4 S * Moxifloxacin <=0.5 S * Oxacillin <=0.25 S * Penicillin >8 R * Rifampin <=1 S * Tetracycline <=4 S * Trimethoprim/Sulfamethoxazole <=0.5/9.5 S Vancomycin 1 S Daptomycin <=0.5 S Blood Culture Preliminary (changed) 10/28/25-1748 2 OF 4 BOTTLES POSITIVE DIRECT GRAM STAIN: GRAM POSITIVE COCCI IN CLUSTERS IDENTIFICATION BY DIRECT PCR Organism 1 Staphylococcus aureus Growth 2 BOTTLES Gram Stain Charge Charge for Gram Stain CRITICAL RESULT YES/NO: YES CRITICAL CALLED BY: PAU TO AND READ BACK BY: RACHAEL DATE: 10/26/25 TIME: 1412 S aureus M.I.C. RX --------- ------ * Ciprofloxacin <=1 S * Clindamycin <=0.5 R * Erythromycin >4 R * Levofloxacin <=1 S * Linezolid 4 S * Moxifloxacin <=0.5 S * Oxacillin <=0.25 S * Penicillin >8 R * Rifampin <=1 S * Tetracycline <=4 S * Trimethoprim/Sulfamethoxazole <=0.5/9.5 S Vancomycin 1 S Daptomycin <=0.5 S Blood Culture Preliminary (changed) 10/26/25-1411 1 OF 4 BOTTLES POSITIVE DIRECT GRAM STAIN: GRAM POSITIVE COCCI IN CLUSTERS IDENTIFICATION BY DIRECT PCR RESULTS TO FOLLOW Organism 1 Staphylococcus aureus Growth 1 BOTTLE Gram Stain Charge Charge for Gram Stain CRITICAL RESULT YES/NO: YES CRITICAL CALLED BY: PAU TO AND READ BACK BY: RACHAEL DATE: 10/26/25 TIME: 1412 Blood Culture Preliminary (changed) 10/25/25 SPECIMEN COLLECTED [facility] [address] [place] [address] DR. LIANE VIZCANIO, HOSPITAL CLEANING SPECIALIST NAME: Greta Cash LOC: ER U #: [id number] AGE/SX: 54/F ROOM: R E10/25/[address]: Genevieve Ballard : 1970 BED: D IS: FAX #: STATUS: DEP ER TLOC: Spec #: [id number] Génesis: 10/25/25 Status: RES Req #: [id number] Recd: 10/25/[address]: Genevieve Ballard Src: Blood SpDesc: Ordered: Bcult Procedure Result Verified Site Blood Culture Preliminary 10/28/25 2 OF 4 BOTTLES POSITIVE DIRECT GRAM STAIN: GRAM POSITIVE COCCI IN CLUSTERS SENSITIVITIES REPORTED ON [id number] Organism 1 Staphylococcus aureus Growth 2 BOTTLES Gram Stain Charge Charge for Gram Stain Blood Culture Preliminary (changed) 10/26/25 NEGATIVE TO DATE Blood Culture Preliminary (changed) 10/25/25 SPECIMEN COLLECTED [facility] [address] [place], [place] [address] DR. LIANE VIZCAINO, HOSPITAL CLEANING SPECIALIST NAME: Greta Cash LOC: [facility] U #: [id number] AGE/SX: 55/F ROOM: 271 R E10/30/[address]: Markus Dias MD : 1970 BED: 1 D IS: FAX #: STATUS: ADM IN TLOC: Spec #: [id number] Génesis: 10/29/25 Status: RES Req #: [id number] Recd: 10/29/[address]: Jamarcus Belle Src: Blood SpDesc: Ordered: Bcult Procedure Result Verified Site Blood Culture Preliminary 10/30/25 NEGATIVE TO DATE Blood Culture Preliminary (changed) 10/29/25 SPECIMEN COLLECTED Other data: Patient: Greta Cash Unit #: [id number] : 1970 Ordering Provider/Ordering MD: Genevieve Ballard Date of Service: 10/25/25 Procedure(s): CT angio chest PE [facility] [address] Accession Number(s): [id number] Report Number: [id number] PROCEDURE INFORMATION: Exam: CTA Chest With Contrast Exam date and time: 10/25/2025 4:03 PM Age: 54 years old Clinical indication: Other: Hypoxia, recent knee surgery TECHNIQUE: Imaging protocol: Computed tomographic angiography of the chest with contrast. Exam focused on the arteries. 3D rendering (Not supervised by radiologist): MIP and/or 3D reconstructed images were created by the technologist. Radiation optimization: All CT scans at this facility use at least one of these dose optimization techniques: automated exposure control; mA and/or kV adjustment per patient size (includes targeted exams where dose is matched to clinical indication); or iterative reconstruction. Contrast material: [id number]; Contrast volume: 100 ml; Contrast route: INTRAVENOUS (IV); COMPARISON: CR XR chest 2V* [id number] 12/30/2022 11:24 AM RADIATION DOSE METRICS: Total DLP (mGy-cm): 430.87 FINDINGS: Pulmonary arteries: No pulmonary embolism. Aorta: Unremarkable. No aortic aneurysm. No aortic dissection. Trachea: Patent central airways. Lungs: Bibasilar atelectasis, [id number]-[id number]-left. No focal airspace opacity. Pleural spaces: No pneumothorax or pleural effusion. Heart: The heart is mildly enlarged. No pericardial effusion. Lymph nodes: No supraclavicular, axillary, mediastinal, or hilar adenopathy. Gallbladder and biliary ducts: Cholecystectomy. Stomach: Postsurgical changes of the stomach. Bones/joints: Chronic right L1 transverse process fracture. No acute osseous abnormality. Soft tissues: Unremarkable. CT/CT angio chest PE protcl [id number] IMPRESSION: 1. No pulmonary embolism. 2. Bibasilar atelectasis. Radiology Impressions Knee X-Ray 10/29/25 22:01 IMPRESSION: 1. Right total knee arthroplasty with intact hardware. 2. Scattered foci of soft tissue gas, favored to represent postsurgical changes given recent surgery. Recommend clinical correlation for signs of infection. Laboratory Results WBC 11.34 10^3/uL (3.29-11.43) 10/29/25 22: RBC 3.14 10^6/uL (3.85-5.65) L 10/29/25 22:30 Hgb 9.00 g/dL (11.27-16.99) L 10/29/25: Hct 27.8 % (36-47) L 10/29/25 22: MCV 88.5 fl (85-98) 10/29/25 22: MCH 28.7 pg (27-33) 10/29/25: MCHC 32.4 g/dL (30-55) 10/29/25: RDW 13.7 % (12.1-15.1) 10/29/25 22: Plt Count 285 10^3/cmm (157-399) 10/29/25 22: MPV 10.7 fL (7.4-10.4) H 12/22/25 22:30 Neut % (Auto) 80.3 % 10/29/25 22:30 Lymph % (Auto) 9.5 % 10/29/25 22:30 Stanislaus % (Auto) 7.1 % 10/29/25 22:30 Eos % (Auto) 0.9 % 10/29/25 22:30 Baso % (Auto) 0.4 % 10/29/25 22:30 Neut # (Auto) 9.12 10^3/uL (1.8-7.7) H 10/29/25 22:30 Lymph # (Auto) 1.1 10^3/uL (0.8-4.8) 10/29/25 22:30 Stanislaus # (Auto) 0.8 10^3/uL (0.2-0.9) 10/29/25 22:30 Eos # (Auto) 0.1 10^3/uL (0.0-0.8) 10/29/25 22:30 Baso # (Auto) 0.0 10^3/uL (0.0-0.1) 10/29/25 22:30 Nucleated RBC % (auto) 0 % 10/29/25 22: Nucleated RBCs # 0.0 /100WBC 10/29/25 22:30 ESR 27 mm/hr (0-15) H 10/29/25 22:30 Sodium 138 mmol/L (136-145) 10/30/25 05:31 Potassium 3.4 mmol/L (3.5-5.1) L 10/30/25 05:31 Chloride 101 mmol/L (98-107) 10/30/25 05:31 Carbon Dioxide 27 mmol/L (22-29) 10/30/25 05:31 Anion Gap 13.4 (5-19) 10/30/25 05:31 BUN 21 mg/dL (6-20) H 10/30/25 05:31 Creatinine 0.9 mg/dL (0.5-0.9) 10/30/25 05:31 GFR Calculation 64.8 mL/min (90-130) L 10/30/25 05:31 Glucose 118 mg/dL (65-115) H 10/30/25 05:31 Calculated Osmolality 290 mOsm/kg (285-295) 10/30/25 05:31 Lactic Acid 1.0 mmol/L (0.5-2.2) 10/29/25 22:30 Calcium 8.9 mg/dL (8.5-10.5) 10/30/25 05:31 Total Bilirubin 0.6 mg/dL (0.15-1.2) 10/29/25 22:30 AST 19 U/L (0-32) 10/29/25 22:30 ALT 11 U/L (0-33) 10/29/25 22:30 Alkaline Phosphatase 140 U/L (35-105) H 10/29/25 22:30 C-Reactive Protein 313.1 mg/L (0.0-4.9) H 10/29/25 22:30 Total Protein 6.5 g/dL (6.6-8.7) L 10/29/25:30 Albumin 3.2 g/dL (3.5-5.2) L 10/29/25 22:30 Globulin 3.3 g/dL (1.3-4.6) 10/29/25 22: Vancomycin Trough 16.6 ug/mL (10-15) H 10/31/25 12:12 A&P Assessment and plan 1. Prosthetic joint infection: 2. MSSA bacteremia: 3. Cellulitis of knee, right: Plan: 55 year old lady recently underwent right TKR on 10/18/25 Thereafter appears to have had a twisting injury to this knee after discharge Returned to ER 10/25 with knee pain fever and chills, started oral doxycycline, right knee continued to have worsening swelling and discharge along with fever > 101 prompting return to ER on 10/29 Blood cx positive for MSSA from 10/25 Now s/p I&D of the right knee. Intra op notes reviewed, deep pus encountered, thoigh implants grossly clean,cannot exclude early PJI based on severity of illness and would treat as such wound cx from 10/30 with coag + staph, likely staph aureus, pending final identification and susceptibility Blood cx from 10/29 without growth (last updated 10/30) D/c iv vancomycin Start organism directed therapy with cefazolin 2 g iv every 8 hrs Aim to add rifampin over the next 24-48 hrs as attempting joint salvage ; LFTs reviewed normal Please hold off on placing PICC line until blood cx from 10/29 is negative for at least 72 hrs Echocardiogram ordered to evaluate for endocarditis will follow PDMP PDMP Reviewed: Not Reviewed Consult Attestations 2 Medical Necessity Statement: As per primary team Diagnoses Prosthetic joint infection T84.50XA MSSA bacteremia R78.81; B95.61 Cellulitis of knee, right L03.115
[2025-10-31] MEDS: ceFAZolin 2,000 mg SDV 2000 MG IVP (22:51)
--- NOTE | 2025-10-31 22:55 | USCV_ITS ---
Cash Gerta Age: 55 Gender: F : 1970 Exam Date: 10/31/2025 23:24 Ordering Phys: Stephie Hawley MD Technologist: MAYI Exam Location: [facility] [place] Indication: staph aureus bacteremia 2 wks s/p RIGHT total knee. assess for endocarditis BP: 106 / 67 HR: 82 Rhythm: Sinus Technical Quality: Adequate MEASUREMENTS (Male / Female) Normal Values 2D ECHO LV Diastolic Diameter PLAX 4.9 cm 4.2 - 5.9 / 3.9 - 5.3 cm IVS Diastolic Thickness 1.1 cm 0.6 - 1.0 / 0.6 - 0.9 cm IVS Systolic Thickness 1.7 cm LVPW Diastolic Thickness 1.2 cm 0.6 - 1.0 / 0.6 - 0.9 cm LVPW Systolic Thickness 1.6 cm LVOT Diameter 1.8 cm LV Ejection Fraction 2D Teich 74.1 % LV Ejection Fraction MOD 4C 61.8 % LV Ejection Fraction MOD 2C 78.0 % LV Ejection Fraction 2C AL 80.3 % LA Diameter 3.3 cm Aorta at Sinotubular Diameter 2.9 cm IVC Diameter 1.3 cm M-MODE LA Ao Ratio MM 1.2 AV Cusp Separation MM 1.9 cm DOPPLER AV Peak Velocity 168.0 cm/s LVOT Peak Velocity 114.0 cm/s AV Area Cont Eq vti 2.1 cm squared AV Area Cont Eq pk 1.8 cm squared MV Peak Velocity 153.0 cm/s MV Area PHT 3.4 cm squared Mitral E to A Ratio 1.9 TV Peak Velocity 275.5 cm/s TR Peak Velocity 277.0 cm/s TR Peak Gradient 30.7 mmHg TV Peak E Velocity 65.0 cm/s PV Peak Velocity 123.0 cm/s FINDINGS Left Ventricle Normal left ventricular size and systolic function, EF of 55- 60%. No regional wall motion abnormalities. Right Ventricle Normal in size and function Right Atrium Normal in size Left Atrium Normal in size IA Septum Grossly normal Mitral Valve Structurally normal valve. Mild mitral regurgitation Aortic Valve Structurally normal aortic valve. No significant stenosis. Tricuspid Valve Grossly normal. Mild tricuspid regurgitation. Pulmonary artery systolic pressure is normal Pulmonic Valve Not well visualized Pericardium Normal Aorta Normal in size IVC Appears to be normal CONCLUSIONS LV systolic function is normal with EF of 55-60% Mild mitral regurgitation Mild tricuspid regurgitation. No vegetation seen Bud Tate MD (Electronically Signed) Final Date: 01 November 2025 13:40 S
[2025-11-01] VITALS (8 sets, daily range): BP systolic 110–138; BP diastolic 61–73; PULSE 67–77; RESP 15–18; TEMP 36.6–37.2; O2SAT 90–95
[2025-11-01] MEDS: HYDROcodone-acetaminophen 5-325 mg Tablet 1 TAB PO ×3 (00:01→17:58)
[2025-11-01] MEDS: HYDROmorphone 0.5 MG/0.5 ML INJ IVP ×2 (02:50→19:24)
[2025-11-01 05:30] LABS: Hematocrit 25.0 % (36-47); Hemoglobin 7.90 g/dL (11.27-16.99); Mean Corpuscular HGB Conc 31.6 g/dL (30-55); Mean Corpuscular Hemoglobin 28.7 pg (27-33); Mean Corpuscular Volume 90.9 fl (85-98); Nucleated Red Blood Cells % 0 %; Platelet Count 330 10^3/cmm (157-399); Red Blood Count 2.75 10^6/uL (3.85-5.65); White Blood Count 8.52 10^3/uL (3.29-11.43)
[2025-11-01] MEDS: ceFAZolin 2,000 mg SDV 2000 MG IVP ×3 (05:42→22:33)
[2025-11-01 05:56] LABS: Alanine Aminotransferase 15 U/L (0-33); Albumin Level 2.9 g/dL (3.5-5.2); Alkaline Phosphatase 122 U/L (35-105); Anion Gap 12.7 (5-19); Aspartate Amino Transferase 25 U/L (0-32); Blood Urea Nitrogen 20 mg/dL (6-20); Calcium 8.4 mg/dL (8.5-10.5); Carbon Dioxide 30 mmol/L (22-29); Chloride 107 mmol/L (98-107); Globulin 2.4 g/dL (1.3-4.6); Glucose 107 mg/dL (65-115); Osmolality Calculated 305 mOsm/kg (285-295); Potassium 3.7 mmol/L (3.5-5.1); Sodium 146 mmol/L (136-145); Total Protein 5.3 g/dL (6.6-8.7)
[2025-11-01 07:33] LABS: Estmated Average Glucose 108; Hemoglobin A1C 5.4 % (4.0-6.0)
--- NOTE | 2025-11-01 21:09 | P.PN_ITS ---
Subjective 2 Subjective: Infectious disease progress note. OR cultures reflecting MSSA from 10/29. Blood culture from 10/29 so far remain negative. Tmax of 99 Fahrenheit in afternoon today. Vitals/I&O/Wt Last Vital Signs Temp 98.6 F 11/01/25 20:00 Pulse 77 11/01/25 20:00 Resp 15 11/01/25 20:00 BP 138/73 11/01/25 20:00 Pulse Ox 95 11/01/25 20:00 O2 Del Method Room Air 11/01/25 15:28 O2 Flow Rate 2 10/31/25 04:00 11/01/25 11/01/25 11/01/25 06:59 14:59 22:59 Intake Total 340 / 340 240 / 580 Output Total 150 / 150 Balance 340 / 340 90 / 430 Weight last 48 hrs Weight 86.818 kg Weight 78.018 kg Physical Exam 2 Narrative: Assessed via telehealth General: Awake alert x 3, no acute distress Pulmonary: No respiratory distress noted, normal resp respiratory effort, no accessory muscle use Neuro: No focal deficit grossly, Extremities: Surgical dressing over the right knee. Data 11/01/25 05:05 11/01/25 05:05 Micro: Microbiology 10/30/25 18:14 Gram Stain - Final Knee - #1 Anaerobic Culture - Preliminary Wound Culture - Preliminary Coag positive Staphylococcus 10/30/25 18:14 Gram Stain - Final Knee - #2 Anaerobic Culture - Preliminary Wound Culture - Final Staphylococcus aureus 10/29/25 22:42 Wound Culture - Final Knee - Right Staphylococcus aureus 11/01/25 05:08 Blood Culture - Preliminary Blood SPECIMEN COLLECTED 11/01/25 05:05 Blood Culture - Preliminary Blood SPECIMEN COLLECTED A&P Assessment and plan 1. Prosthetic joint infection: 2. MSSA bacteremia: 3. Cellulitis of knee, right: Plan: 55 year old lady recently underwent right TKR on 10/18/25 Thereafter appears to have had a twisting injury to this knee after discharge Returned to ER 10/25 with knee pain fever and chills, started oral doxycycline, right knee continued to have worsening swelling and discharge along with fever > 101 prompting return to ER on 10/29 Blood cx positive for MSSA from 10/25 Now s/p I&D of the right knee. Intra op notes reviewed, deep pus encountered, thigh implants grossly clean,cannot exclude early PJI based on severity of illness and would treat as such wound cx from 10/30 with coag + staph, likely staph aureus, pending final identification and susceptibility Blood cx from 10/29 without growth (last updated 10/30) D/c iv vancomycin Start organism directed therapy with cefazolin 2 g iv every 8 hrs Aim to add rifampin over the next 24-48 hrs as attempting joint salvage ; LFTs reviewed normal Please hold off on placing PICC line until blood cx from 10/29 is negative for at least 72 hrs Echocardiogram ordered to evaluate for endocarditis will follow Infectious disease plan: 11/01: OR cultures reflecting MSSA from 10/29. Blood cultures from 10/29 so far negative. Platelets culture taken on 11/01. Will continue to follow. Continue cefazolin 2 g every 8 hours IV. Add rifampin starting 11/02. PDMP PDMP Reviewed: Not Reviewed Attestations 2 Medical Necessity Statement*: As per primary team. Diagnoses Prosthetic joint infection T84.50XA MSSA bacteremia R78.81; B95.61 Cellulitis of knee, right L03.115
[2025-11-02] VITALS (7 sets, daily range): BP systolic 101–137; BP diastolic 54–92; PULSE 66–92; RESP 15–18; TEMP 36.6–36.9; O2SAT 92–98
[2025-11-02] MEDS: HYDROcodone-acetaminophen 5-325 mg Tablet 1 TAB PO ×3 (01:51→17:19)
[2025-11-02] MEDS: ceFAZolin 2,000 mg SDV 2000 MG IVP ×3 (06:03→21:48)
[2025-11-02 06:46] LABS: Alanine Aminotransferase 9 U/L (0-33); Albumin Level 2.8 g/dL (3.5-5.2); Alkaline Phosphatase 126 U/L (35-105); Anion Gap 16.7 (5-19); Aspartate Amino Transferase 16 U/L (0-32); Blood Urea Nitrogen 20 mg/dL (6-20); Calcium 8.8 mg/dL (8.5-10.5); Carbon Dioxide 26 mmol/L (22-29); Chloride 101 mmol/L (98-107); Globulin 3.5 g/dL (1.3-4.6); Glucose 102 mg/dL (65-115); Osmolality Calculated 293 mOsm/kg (285-295); Potassium 3.7 mmol/L (3.5-5.1); Sodium 140 mmol/L (136-145); Total Protein 6.3 g/dL (6.6-8.7)
[2025-11-02 07:06] LABS: Nucleated Red Blood Cells % 0.5 %
[2025-11-02 07:09] LABS: Hematocrit 26.2 % (36-47); Hemoglobin 8.30 g/dL (11.27-16.99); Mean Corpuscular HGB Conc 31.7 g/dL (30-55); Mean Corpuscular Hemoglobin 29.0 pg (27-33); Mean Corpuscular Volume 91.6 fl (85-98); Platelet Count 392 10^3/cmm (157-399); Red Blood Count 2.86 10^6/uL (3.85-5.65); White Blood Count 9.84 10^3/uL (3.29-11.43)
--- NOTE | 2025-11-02 08:33 | PM.PN ---
Subjective Subjective: 55-year-old female, history of obesity, osteoarthritis of the knee from playing volleyball, was recently hospitalized for right knee arthroplasty/joint replacement. Fortunately complicated by prosthetic joint infection, is postop day 1 from irrigation debridement which is reported to have had large amounts of pus drainage, Gram stain/cultures pending. Patient had positive blood cultures for MSSA most recently on 10/25/2025. I discussed the plan with infectious disease, consulted, see below. Patient has no complaints, the right knee is diffusely red, tender. Vitals/I&O/Wt Last Vital Signs Temp 98.5 F 11/02/25 07:41 Pulse 66 11/02/25 07:41 Resp 15 11/02/25 07:41 BP 103/71 11/02/25 07:41 Pulse Ox 92 11/02/25 07:41 O2 Del Method Room Air 11/02/25 07:41 O2 Flow Rate 2 10/31/25 04:00 11/01/25 11/02/25 11/02/25 22:59 06:59 14:59 Intake Total 360 / 700 360 / 1060 Output Total 150 / 150 200 / 350 Balance 210 / 550 160 / 710 Weight last 48 hrs Weight 86.636 kg Weight 86.818 kg Physical Exam Const: COMMON NORMALS: no acute distress and patient oriented x3 Resp: COMMON NORMALS: normal respiratory effort and clear to auscultation bilaterally AUSCULTATION: clear to auscultation bilaterally Cardio: COMMON NORMALS: regular rate, regular rhythm, S1 normal heart sound present, S2 normal heart sound present, No clicks present (Cardio) and No murmurs present (Cardio) RATE: regular rate RHYTHM: regular rhythm HEART SOUNDS: S1 normal heart sound present and S2 normal heart sound present GI: OTHER: Non-distended Extremity: RIGHT LOWER EXTREMITY: Yes knee joint (Redness noted adjacent to surgical incision site.) OTHER: There is yellow drainage noted from the inferior edge of the incision site. Knee joint is swollen Neuro: COMMON NORMALS: patient oriented x3 and CN's II-XII intact bilaterally Data 11/02/25 05:26 11/02/25 05:26 Micro: Microbiology 11/01/25 05:08 Blood Culture - Preliminary Blood NEGATIVE TO DATE 11/01/25 05:05 Blood Culture - Preliminary Blood NEGATIVE TO DATE 10/30/25 18:14 Gram Stain - Final Knee - #1 Anaerobic Culture - Preliminary Wound Culture - Preliminary Coag positive Staphylococcus 10/30/25 18:14 Gram Stain - Final Knee - #2 Anaerobic Culture - Preliminary Wound Culture - Final Staphylococcus aureus 10/29/25 22:42 Wound Culture - Final Knee - Right Staphylococcus aureus A&P Assessment and plan 1. Cellulitis of knee, right: 55-year-old female, history of obesity, anxiety, chronic leg swelling, generalized anxiety disorder, right knee osteoarthritis. Presented to ED with severe cellulitis, prosthetic joint infection, extending from upper thigh to the mid calf, Presented with sepsis. Status post I&D postop day 1, blood cultures positive for Staph aureus. Discussed with ID. - Pain control with dilaudid Start IV cefazolin 2 g IV every 8 hours Add rifampin over the next 24 to 48 hours for attempting joint salvage. LFTs normal ? Will insert PICC line until the blood cultures from 10/29 negative for 72 hours. ? Appreciate ID recommendations, will follow-up on echocardiogram., DVT prophylaxis with Lovenox 40 mg subcu 24 hours Continue home anxiolytics Pain control continue hydromorphone 2. FREDDY (acute kidney injury): PDMP PDMP Reviewed: Not Reviewed Attestations Medical Necessity Statement*: Patient will likely require greater than two midnights inpatient to manage her cellulitis and possible PJI will require at least 72-hour stay for transition to permanent PICC. Start rifampin as tolerates Diagnoses Cellulitis of knee, right L03.115 FREDDY (acute kidney injury) N17.9
--- NOTE | 2025-11-02 14:43 | PC.SOCIAL ---
*IMM* Patient received a copy of the important message from Medicare. Copy initialled and dated in chart.
--- NOTE | 2025-11-02 15:09 | P.PN_ITS ---
Subjective 2 Subjective: Patient resting comfortably Vitals/I&O/Wt Last Vital Signs Temp 98.0 F 11/02/25 11:02 Pulse 70 11/02/25 11:02 Resp 16 11/02/25 11:02 BP 108/54 11/02/25 11:02 Pulse Ox 94 11/02/25 11:02 O2 Del Method Room Air 11/02/25 11:02 O2 Flow Rate 2 10/31/25 04:00 11/02/25 11/02/25 11/02/25 06:59 14:59 22:59 Intake Total 360 / 1060 360 / 360 Output Total 200 / 350 Balance 160 / 710 360 / 360 Weight last 48 hrs Weight 191 lb Weight 191 lb 6.4 oz Physical Exam 2 Narrative: Patient resting comfortably in bed wound dressing clean dry and intact Data 11/02/25 05:26 11/02/25 05:26 Micro: Microbiology 10/30/25 18:14 Gram Stain - Final Knee - #1 Anaerobic Culture - Preliminary Wound Culture - Final Staphylococcus aureus 11/01/25 05:08 Blood Culture - Preliminary Blood NEGATIVE TO DATE 11/01/25 05:05 Blood Culture - Preliminary Blood NEGATIVE TO DATE A&P Assessment and plan 1. Status post total right knee replacement: Postop day #3 irrigation debridement of right knee Follow Dr. Hawley's device for IV antibiotics versus oral antibiotics after discharge. Follow-up with Dr. Cain PDMP PDMP Reviewed: Not Reviewed Attestations 2 Medical Necessity Statement*: Per primary service Coding Level of Care Code Acute Code for Chg Fwd Diagnoses Status post total right knee replacement Z96.651 Laterality: right
--- NOTE | 2025-11-02 20:56 | PM.PN ---
Subjective Subjective: ID progress note no new complaints unable to get a PICC line due to the holidays Knee dressing have been clean and dry per report Medications: Reviewed: Yes Vitals/I&O/Wt Last Vital Signs Temp 98.2 F 11/02/25 20:00 Pulse 79 11/02/25 20:00 Resp 18 11/02/25 20:00 BP 137/92 11/02/25 20:00 Pulse Ox 94 11/02/25 20:00 O2 Del Method Room Air 11/02/25 20:00 O2 Flow Rate 2 10/31/25 04:00 11/02/25 11/02/25 11/02/25 06:59 14:59 22:59 Intake Total 360 / 1060 360 / 360 240 / 600 Output Total 200 / 350 Balance 160 / 710 360 / 360 240 / 600 Weight last 48 hrs Weight 86.636 kg Weight 86.818 kg Physical Exam Narrative: Assessed via telehealth General: Awake alert x 3, no acute distress Pulmonary: No respiratory distress noted, normal resp respiratory effort, no accessory muscle use Neuro: No focal deficit grossly, Extremities: Surgical dressing over the right knee. Data 11/03/25 03:09 11/03/25 03:09 Micro: Microbiology 10/30/25 18:14 Gram Stain - Final Knee - #1 Anaerobic Culture - Preliminary Wound Culture - Final Staphylococcus aureus 10/30/25 18:14 Gram Stain - Final Knee - #2 Anaerobic Culture - Preliminary Wound Culture - Final Staphylococcus aureus 11/01/25 05:08 Blood Culture - Preliminary Blood NEGATIVE TO DATE 11/01/25 05:05 Blood Culture - Preliminary Blood NEGATIVE TO DATE A&P Assessment and plan 1. Prosthetic joint infection: 2. MSSA bacteremia: 3. Cellulitis of knee, right: Plan: 55 year old lady recently underwent right TKR on 10/18/25 Thereafter appears to have had a twisting injury to this knee after discharge Returned to ER 10/25 with knee pain fever and chills, started oral doxycycline, right knee continued to have worsening swelling and discharge along with fever > 101 prompting return to ER on 10/29 Blood cx positive for MSSA from 10/25 Now s/p I&D of the right knee. Intra op notes reviewed, deep pus encountered, thigh implants grossly clean,cannot exclude early PJI based on severity of illness and would treat as such wound cx from 10/30 with coag + staph, likely staph aureus, pending final identification and susceptibility Blood cx from 10/29 without growth (last updated 10/30) D/c iv vancomycin Start organism directed therapy with cefazolin 2 g iv every 8 hrs Aim to add rifampin over the next 24-48 hrs as attempting joint salvage ; LFTs reviewed normal Please hold off on placing PICC line until blood cx from 10/29 is negative for at least 72 hrs Echocardiogram ordered to evaluate for endocarditis will follow Infectious disease plan: 11/01: OR cultures reflecting MSSA from 10/29. Blood cultures from 10/29 so far negative. Platelets culture taken on 11/01. Will continue to follow. Continue cefazolin 2 g every 8 hours IV. Add rifampin starting 11/02. 11/02/25: afberile and hemodynamically stable. Tolerated addition of Rifampin. Continue cefazolin 2 g iv every 8 hrs. Blood cx 10/29 and 11/01 negative to date. TTE negative for vegetations, AB deferred as will not change planned duration of treament. Continue Cefazolin 2 g iv every 8 hrs via home infusions at discharge + Rifampin 300mg BID for 6 weeks (10/30-12/10). will transition to oral abx after this point. Discussed with patient , agreeable with plan. Unable to get PICC line due to the holidays, patient stable for discharge from ID standpoint once iv access is established for home. PDMP PDMP Reviewed: Not Reviewed Attestations Medical Necessity Statement*: per attending note Coding Level of Care Code Acute Code for [employer] Diagnoses Prosthetic joint infection T84.50XA MSSA bacteremia R78.81; B95.61 Cellulitis of knee, right L03.115
--- NOTE | 2025-11-02 22:30 | P.PN_ITS ---
Subjective 2 Subjective: No events overnight. Patient more lethargic, less talkative today. Rifampin started today by ID. Patient tolerated well. Continue cefazolin. Complaining of some constipation, started bowel regimen. Vitals/I&O/Wt Last Vital Signs Temp 97.8 F 11/03/25 20:00 Pulse 96 11/03/25 20:00 Resp 18 11/03/25 20:00 BP 121/70 11/03/25 20:00 Pulse Ox 93 11/03/25 20:00 O2 Del Method Room Air 11/03/25 20:00 O2 Flow Rate 2 10/31/25 04:00 11/03/25 11/03/25 11/03/25 06:59 14:59 22:59 Intake Total 240 / 240 1240 / 1480 Output Total 200 / 200 Balance -200 / 760 240 / 240 1240 / 1480 Weight last 48 hrs Weight 86.806 kg Weight 86.636 kg Physical Exam 2 Const: COMMON NORMALS: no acute distress and patient oriented x3 Resp: COMMON NORMALS: normal respiratory effort and clear to auscultation bilaterally AUSCULTATION: clear to auscultation bilaterally Cardio: COMMON NORMALS: regular rate, regular rhythm, S1 normal heart sound present, S2 normal heart sound present, No clicks present (Cardio) and No murmurs present (Cardio) RATE: regular rate RHYTHM: regular rhythm H EART SOUNDS: S1 normal heart sound present and S2 normal heart sound present GI: OTHER: Non-distended Extremity: RIGHT LOWER EXTREMITY: Yes knee joint (Redness noted adjacent to surgical incision site.) OTHER: There is yellow drainage noted from the inferior edge of the incision site. Knee joint is swollen Neuro: COMMON NORMALS: patient oriented x3 and CN's II-XII intact bilaterally Data 11/03/25 03:09 11/03/25 03:09 Micro: Microbiology 10/30/25 18:14 Gram Stain - Final Knee - #1 Anaerobic Culture - Preliminary Wound Culture - Final Staphylococcus aureus 10/30/25 18:14 Gram Stain - Final Knee - #2 Anaerobic Culture - Preliminary Wound Culture - Final Staphylococcus aureus A&P Assessment and plan 1. Cellulitis of knee, right: 55-year-old female, history of obesity, anxiety, chronic leg swelling, generalized anxiety disorder, right knee osteoarthritis. Presented to ED with severe cellulitis, prosthetic joint infection, extending from upper thigh to the mid calf, Presented with sepsis. Status post I&D postop day 1, blood cultures positive for Staph aureus. Discussed with ID. - Pain control with dilaudid Continue IV cefazolin 2 g IV every 8 hours Continue rifampin for attempting joint salvage. LFTs normal ? Will insert PICC line until the blood cultures from 10/29 negative for 72 hours. ? Appreciate ID recommendations, will follow-up on echocardiogram., DVT prophylaxis with Lovenox 40 mg subcu 24 hours Continue home anxiolytics Pain control continue hydromorphone plan for discharge on 11/05/2025 with PICC DVT T prophylaxis enoxaparin SQ GI prophylaxis?Protonix 2. FREDDY (acute kidney injury): PDMP PDMP Reviewed: Not Reviewed Attestations 2 Medical Necessity Statement*: Patient will likely require greater than two midnights inpatient to manage her cellulitis and possible PJI will require at least 72-hour stay for transition to permanent PICC. Start rifampin as tolerates Diagnoses Cellulitis of knee, right L03.115 FREDDY (acute kidney injury) N17.9
[2025-11-03] VITALS: BP 119/80; PULSE 77; RESP 18; TEMP 36.5; O2SAT 92
[2025-11-03] MEDS: HYDROcodone-acetaminophen 5-325 mg Tablet 1 TAB PO ×4 (00:43→21:12)
[2025-11-03 03:50] LABS: Alanine Aminotransferase < 5 U/L (0-33); Albumin Level 2.9 g/dL (3.5-5.2); Alkaline Phosphatase 132 U/L (35-105); Aspartate Amino Transferase 15 U/L (0-32); Blood Urea Nitrogen 15 mg/dL (6-20); Calcium 8.7 mg/dL (8.5-10.5); Carbon Dioxide 25 mmol/L (22-29); Chloride 99 mmol/L (98-107); Globulin 4.1 g/dL (1.3-4.6); Glucose 121 mg/dL (65-115); Magnesium 2.3 mg/dL (1.7-2.3); Osmolality Calculated 282 mOsm/kg (285-295); Sodium 135 mmol/L (136-145); Total Protein 7.0 g/dL (6.6-8.7)
[2025-11-03 03:56] LABS: Anion Gap 15.2 (5-19); Potassium 4.2 mmol/L (3.5-5.1)
[2025-11-03 04:00] VITALS: BP 123/71; PULSE 67; RESP 16; TEMP 36.9; O2SAT 94
[2025-11-03 04:15] LABS: Hematocrit 29.0 % (36-47); Hemoglobin 9.20 g/dL (11.27-16.99); Mean Corpuscular HGB Conc 31.7 g/dL (30-55); Mean Corpuscular Hemoglobin 28.1 pg (27-33); Mean Corpuscular Volume 88.7 fl (85-98); Nucleated Red Blood Cells % 0.2 %; Platelet Count 242 10^3/cmm (157-399); Red Blood Count 3.27 10^6/uL (3.85-5.65); White Blood Count 12.32 10^3/uL (3.29-11.43)
--- NOTE | 2025-11-03 04:36 | PC.NURSE ---
0400. Nurse replaced dressing on right knee. Knee still red in color and feeling warm to the touch.
[2025-11-03] MEDS: ceFAZolin 2,000 mg SDV 2000 MG IVP ×3 (05:33→22:32)
[2025-11-03 07:27] VITALS: BP 119/78; PULSE 67; RESP 14; TEMP 36.6; O2SAT 92
--- NOTE | 2025-11-03 09:51 | P.PN_ITS ---
Subjective 2 Subjective: Patient is alert today she is currently working physical therapy. Vitals/I&O/Wt Last Vital Signs Temp 97.9 F 11/03/25 07:27 Pulse 67 11/03/25 07:27 Resp 14 11/03/25 07:27 BP 119/78 11/03/25 07:27 Pulse Ox 92 11/03/25 07:27 O2 Del Method Room Air 11/03/25 08:37 O2 Flow Rate 2 10/31/25 04:00 11/02/25 11/03/25 11/03/25 22:59 06:59 14:59 Intake Total 600 / 960 Output Total 200 / 200 Balance 600 / 960 -200 / 760 Weight last 48 hrs Weight 191 lb 6 oz Weight 191 lb Physical Exam 2 Narrative: Wound clean dry and intact Data 11/03/25 03:09 11/03/25 03:09 Micro: Microbiology 10/30/25 18:14 Gram Stain - Final Knee - #1 Anaerobic Culture - Preliminary Wound Culture - Final Staphylococcus aureus 10/30/25 18:14 Gram Stain - Final Knee - #2 Anaerobic Culture - Preliminary Wound Culture - Final Staphylococcus aureus 11/01/25 05:08 Blood Culture - Preliminary Blood NEGATIVE TO DATE 11/01/25 05:05 Blood Culture - Preliminary Blood NEGATIVE TO DATE A&P Assessment and plan 1. Status post total right knee replacement: Status post I&D of the knee. Awaiting PICC placement. Unable to get due to the holiday. PDMP PDMP Reviewed: Not Reviewed Attestations 2 Medical Necessity Statement*: Per primary service Coding Level of Care Code Acute Code for Chg Fwd Diagnoses Status post total right knee replacement Z96.651 Laterality: right
[2025-11-03 12:00] VITALS: BP 128/79; PULSE 72; RESP 14; TEMP 36.4; O2SAT 94
--- NOTE | 2025-11-03 12:26 | XRR_ITS ---
PROCEDURE INFORMATION: Exam: XR Chest Exam date and time: 11/03/2025 1:25 PM Age: 55 years old Clinical indication: Device Placement; PICC; Additional Info: FOR PICC LINE INSERTION, I will call when ready. thx. TECHNIQUE: Imaging protocol: Radiologic exam of the chest. Views: 1 view. COMPARISON: 1. CT angio chest PE protcl [id number] 10/25/2025 4:03 PM 2. CR XR chest 2V* [id number] 12/30/2022 11:24 AM FINDINGS: Limitations: Patient is rotated to the right. Tubes, catheters and devices: Right PICC is present with the catheter tip in the superior cavoatrial junction. Lungs: Lungs are well aerated. Pulmonary vascularity is normal. No suspicious pulmonary nodule/s. No focal consolidation is appreciated. Pleural spaces: No pleural effusion. No pneumothorax. Heart/Mediastinum: Unremarkable. No cardiomegaly. Bones/joints: Minimal thoracic degenerative changes. No acute fractures noted. XR/XR chest 1V portable [id number] IMPRESSION: Right PICC in satisfactory position.
[2025-11-03] MEDS: polyethylene glycol 3350 Pkt 17 gm PO (14:24)
[2025-11-03 16:00] VITALS: BP 145/70; PULSE 87; RESP 15; TEMP 37; O2SAT 92
[2025-11-03 20:00] VITALS: BP 121/70; PULSE 96; RESP 18; TEMP 36.6; O2SAT 93
--- NOTE | 2025-11-03 22:30 | P.PN_ITS ---
Subjective 2 Subjective: Saw patient at bedside today. Complains of constipation, That her right leg had been bothering her from PT today. She is resting the knee on the pillow at bed, address pain medications, agreed to start hydrocodone with hydromorphone for breakthrough. No other events, awaiting PICC line placement. Reports no GI upset/irritation from starting the rifampin. Cefazolin day 3. Vitals/I&O/Wt Last Vital Signs Temp 97.8 F 11/03/25 20:00 Pulse 96 11/03/25 20:00 Resp 18 11/03/25 20:00 BP 121/70 11/03/25 20:00 Pulse Ox 93 11/03/25 20:00 O2 Del Method Room Air 11/03/25 20:00 O2 Flow Rate 2 10/31/25 04:00 11/03/25 11/03/25 11/03/25 06:59 14:59 22:59 Intake Total 240 / 240 1240 / 1480 Output Total 200 / 200 Balance -200 / 760 240 / 240 1240 / 1480 Weight last 48 hrs Weight 86.806 kg Weight 86.636 kg Physical Exam 2 Const: COMMON NORMALS: no acute distress and patient oriented x3 Resp: COMMON NORMALS: normal respiratory effort and clear to auscultation bilaterally AUSCULTATION: clear to auscultation bilaterally Cardio: COMMON NORMALS: regular rate, regular rhythm, S1 normal heart sound present, S2 normal heart sound present, No clicks present (Cardio) and No murmurs present (Cardio) RATE: regular rate RHYTHM: regular rhythm H EART SOUNDS: S1 normal heart sound present and S2 normal heart sound present GI: OTHER: Non-distended Extremity: RIGHT LOWER EXTREMITY: Yes knee joint (Redness noted adjacent to surgical incision site.) OTHER: There is yellow drainage noted from the inferior edge of the incision site. Knee joint is swollen Neuro: COMMON NORMALS: patient oriented x3 and CN's II-XII intact bilaterally Data 11/04/25 04:11 11/04/25 04:11 Micro: Microbiology 10/30/25 18:14 Gram Stain - Final Knee - #1 Anaerobic Culture - Preliminary Wound Culture - Final Staphylococcus aureus 10/30/25 18:14 Gram Stain - Final Knee - #2 Anaerobic Culture - Preliminary Wound Culture - Final Staphylococcus aureus A&P Assessment and plan 1. Cellulitis of knee, right: 55-year-old female, history of obesity, anxiety, chronic leg swelling, generalized anxiety disorder, right knee osteoarthritis. Presented to ED with severe cellulitis, prosthetic joint infection, extending from upper thigh to the mid calf, Presented with sepsis. Status post I&D postop day 4, blood cultures positive for MSSA - Pain control with dilaudid Continue IV cefazolin 2 g IV every 8 hours Continue rifampin for attempting joint salvage. LFTs normal ? Will insert PICC line until the blood cultures from 10/29 negative for 72 hours. ? Appreciate ID recommendations, no endocarditis seen on echocardiogram screening, no other abnormalities DVT prophylaxis with Lovenox 40 mg subcu 24 hours Continue home anxiolytics Pain control continue hydromorphone plan for discharge on 11/05/2025 with PICC DVT prophylaxis enoxaparin SQ GI prophylaxis?Protonix 2. FREDDY (acute kidney injury): PDMP PDMP Reviewed: Not Reviewed Attestations 2 Medical Necessity Statement*: Patient will likely require greater than two midnights inpatient to manage her cellulitis and possible PJI will require at least 72-hour stay for transition to permanent PICC. Addressing IV/p.o. antibiotic tolerance Diagnoses Cellulitis of knee, right L03.115 FREDDY (acute kidney injury) N17.9
[2025-11-04] VITALS (8 sets, daily range): BP systolic 98–124; BP diastolic 62–76; PULSE 78–128; RESP 15–20; TEMP 36.3–36.8; O2SAT 91–94; BMI 34.4
[2025-11-04 04:52] LABS: Hematocrit 27.4 % (36-47); Hemoglobin 8.50 g/dL (11.27-16.99); Mean Corpuscular HGB Conc 31.0 g/dL (30-55); Mean Corpuscular Hemoglobin 28.4 pg (27-33); Mean Corpuscular Volume 91.6 fl (85-98); Nucleated Red Blood Cells % 0 %; Platelet Count 315 10^3/cmm (157-399); Red Blood Count 2.99 10^6/uL (3.85-5.65); White Blood Count 12.39 10^3/uL (3.29-11.43)
[2025-11-04 05:16] LABS: Alanine Aminotransferase < 5 U/L (0-33); Albumin Level 3.0 g/dL (3.5-5.2); Alkaline Phosphatase 128 U/L (35-105); Aspartate Amino Transferase 31 U/L (0-32); Carbon Dioxide 26 mmol/L (22-29); Chloride 102 mmol/L (98-107); Globulin 3.9 g/dL (1.3-4.6); Glucose 143 mg/dL (65-115); Total Protein 6.9 g/dL (6.6-8.7)
[2025-11-04 05:28] LABS: Potassium 4.0 mmol/L (3.5-5.1)
[2025-11-04] MEDS: ceFAZolin 2,000 mg SDV 2000 MG IVP ×3 (05:33→22:34)
[2025-11-04 05:45] LABS: Blood Urea Nitrogen 20 mg/dL (6-20); Calcium 8.9 mg/dL (8.5-10.5); Osmolality Calculated 295 mOsm/kg (285-295)
[2025-11-04] MEDS: HYDROcodone-acetaminophen 5-325 mg Tablet 1 TAB PO ×2 (05:45→13:00)
[2025-11-04 05:46] LABS: Anion Gap 16.0 (5-19); Sodium 140 mmol/L (136-145)
--- NOTE | 2025-11-04 16:53 | PM.PN ---
Subjective Subjective: Patient still complains of consistent constipation, right knee pain. Declined KUB yesterday.. Chest x-ray from yesterday, patient had successful PICC line placed to the right with catheter tip in the superior cavoatrial junction. Patient tolerated well. Vitals/I&O/Wt Last Vital Signs Temp 98.3 F 11/04/25 17:06 Pulse 86 11/04/25 17:06 Resp 17 11/04/25 17:06 BP 124/71 11/04/25 17:06 Pulse Ox 93 11/04/25 17:06 O2 Del Method Room Air 11/03/25 20:00 O2 Flow Rate 2 10/31/25 04:00 11/04/25 11/04/25 14:59 18:19 Intake Total 120 / 120 240 / 360 Output Total 500 / 500 Balance 120 / 120 -260 / -140 Weight last 48 hrs Weight 88.224 kg Weight 86.806 kg Physical Exam Const: COMMON NORMALS: no acute distress and patient oriented x3 Resp: COMMON NORMALS: normal respiratory effort and clear to auscultation bilaterally AUSCULTATION: clear to auscultation bilaterally Cardio: COMMON NORMALS: regular rate, regular rhythm, S1 normal heart sound present, S2 normal heart sound present, No clicks present (Cardio) and No murmurs present (Cardio) RATE: regular rate RHYTHM: regular rhythm HEART SOUNDS: S1 normal heart sound present and S2 normal heart sound present GI: OTHER: Non-distended Extremity: RIGHT LOWER EXTREMITY: Yes knee joint (Redness noted adjacent to surgical incision site.) OTHER: There is yellow drainage noted from the inferior edge of the incision site. Knee joint is reduced on pillow Neuro: COMMON NORMALS: patient oriented x3 and CN's II-XII intact bilaterally Data 11/04/25 04:11 11/04/25 04:11 Micro: Microbiology 10/30/25 18:14 Gram Stain - Final Knee - #2 Anaerobic Culture - Preliminary Wound Culture - Final Staphylococcus aureus 10/30/25 18:14 Gram Stain - Final Knee - #1 Anaerobic Culture - Preliminary Wound Culture - Final Staphylococcus aureus 10/29/25 23:32 Blood Culture - Final Blood NO GROWTH AFTER 5 DAYS 10/29/25 22:30 Blood Culture - Final Blood NO GROWTH AFTER 5 DAYS A&P Assessment and plan 1. Cellulitis of knee, right: 55-year-old female, history of obesity, anxiety, chronic leg swelling, generalized anxiety disorder, right knee osteoarthritis. Presented to ED with severe cellulitis, prosthetic joint infection, extending from upper thigh to the mid calf, Presented with sepsis. Status post I&D postop day 5, blood cultures positive for MSSA, - Pain control with dilaudid Continue IV cefazolin 2 g IV every 8 hours Continue rifampin for attempting joint salvage. LFTs normal ?PICC line placed successfully, confirmed by x-ray, follow-up with ID blood cultures from 10/29 negative for 72 hours. ? Appreciate ID recommendations, no endocarditis seen on echocardiogram screening, no other abnormalities DVT prophylaxis with Lovenox 40 mg subcu 24 hours Continue home anxiolytics Pain control continue hydromorphone plan for discharge on 11/05/2025 with PICC ([facility] services unavailable today, plan for discharge in AM.) DVT prophylaxis enoxaparin SQ GI prophylaxis? Pepcid 2. FREDDY (acute kidney injury): PDMP PDMP Reviewed: Not Reviewed Attestations Medical Necessity Statement*: Patient will likely require greater than two midnights inpatient to manage her cellulitis and possible PJI will require at least 72-hour stay for transition to permanent PICC, successfully placed 11/03/2025. Addressing IV/p.o. antibiotic tolerance. Rifampin day 3. Discussed with case management, plan for DC tomorrow for home health care discharge planning. Diagnoses Cellulitis of knee, right L03.115 FREDDY (acute kidney injury) N17.9
--- NOTE | 2025-11-04 20:15 | ECG_ITS ---
[facility] Date: 2025-11-04 Pat Name: Greta Cash Department: Room: 271 Gender: Female Labels Molder: : 1970 Requested By: Matthias Barahona Order Number: [id number] Reading MD: IRINA SOUZA Measurements Intervals [place] Rate: 118 P: 59 SC: 129 QRS: -36 QRSD: 92 T: 3 QT: 316 QTc: 444 Interpretive Statements SINUS TACHYCARDIA LEFT AXIS DEVIATION [QRS AXIS < -30] PATTERN CONSISTENT WITH PULMONARY DISEASE INCOMPLETE RIGHT BUNDLE BRANCH BLOCK [90+ ms QRS DURATION, TERMINAL R IN V1/V2, 40+ ms S IN I/aVL/V4/V5/V6] MODERATE ST DEPRESSION [0.05+ mV ST DEPRESSION] Compared to ECG 01/27/2018 10:43:21 Left-axis deviation now present Incomplete right bundle-branch block now present Electronically Signed On 11-04-2025 22:48:55 [employer] by IRINA SOUZA [email or web address]
--- NOTE | 2025-11-04 21:08 | XRR_ITS ---
PROCEDURE INFORMATION: Exam: XR Chest Exam date and time: 11/04/2025 9:20 PM Age: 55 years old Clinical indication: Dyspnea; C/O dypsnea. RT side picc in place. TECHNIQUE: Imaging protocol: Radiologic exam of the chest. Views: 1 view. COMPARISON: CR (CHEST, ) 11/03/2025 1:25 PM FINDINGS: Tubes, catheters and devices: Right PICC line with tip in the distal SVC. Lungs: Mild atelectasis or scar in the right lung base. The left lung is clear. No consolidation. Pleural spaces: Unremarkable. No pleural effusion. No pneumothorax. Heart/Mediastinum: Unremarkable. No cardiomegaly. Bones/joints: C-spine fusion hardware. XR/XR chest 1V portable [id number] IMPRESSION: No acute findings.
--- NOTE | 2025-11-04 21:13 | P.PN_ITS ---
Subjective 2 Subjective: Infectious disease progress note Patient reports that this afternoon she had an episode of syncope wherein she fell in the bathroom and hit her head on the toilet. Ct head pending. Since then reports that she has been feeling as if it is hard to catch her breath and feels winded with mild chest tightness Saturating 93% on RA. feels nausesous but no vomiting. No diarrhea. has been constipated remains afebrile Wbc trended up at 12K today reports that knee pain has been improving. Mild erythema over lateral aspect of knee but improved compared to AERONAUTICAL ENGINEERING TECHNOLOGIST. No abnormal discharged noted at dressing change. PICC line placed 11/03, tip reported in the cavoatrial junction Medications: Reviewed: Yes Vitals/I&O/Wt Last Vital Signs Temp 97.8 F 11/04/25 20:00 Pulse 126 H 11/04/25 20:00 Resp 20 H 11/04/25 20:00 BP 98/62 11/04/25 20:00 Pulse Ox 94 11/04/25 20:00 O2 Del Method Room Air 11/04/25 20:00 O2 Flow Rate 0 11/04/25 20:00 11/04/25 11/04/25 11/04/25 06:59 14:59 22:59 Intake Total 120 / 120 240 / 360 Output Total 550 / 850 500 / 500 Balance -550 / 630 120 / 120 -260 / -140 Weight last 48 hrs Weight 88.224 kg Weight 86.806 kg Physical Exam 2 Narrative: Assessed via telehealth GEN: awake, alert and oriented x 3 Neuro: no focal deficits grossly Ext: Mild erythema over lateral aspect of right knee. improved compared to previous Data 11/04/25 04:11 11/04/25 04:11 Micro: Microbiology 10/30/25 18:14 Gram Stain - Final Knee - #2 Anaerobic Culture - Preliminary Wound Culture - Final Staphylococcus aureus 10/30/25 18:14 Gram Stain - Final Knee - #1 Anaerobic Culture - Preliminary Wound Culture - Final Staphylococcus aureus 10/29/25 23:32 Blood Culture - Final Blood NO GROWTH AFTER 5 DAYS 10/29/25 22:30 Blood Culture - Final Blood NO GROWTH AFTER 5 DAYS A&P Assessment and plan 1. Prosthetic joint infection: 2. MSSA bacteremia: 3. Cellulitis of knee, right: Plan: 55 year old lady recently underwent right TKR on 10/18/25 Thereafter appears to have had a twisting injury to this knee after discharge Returned to ER 10/25 with knee pain fever and chills, started oral doxycycline, right knee continued to have worsening swelling and discharge along with fever > 101 prompting return to ER on 10/29 Blood cx positive for MSSA from 10/25 Now s/p I&D of the right knee. Intra op notes reviewed, deep pus encountered, thigh implants grossly clean,cannot exclude early PJI based on severity of illness and would treat as such wound cx from 10/30 with coag + staph, likely staph aureus, pending final identification and susceptibility Blood cx from 10/29 without growth (last updated 10/30) D/c iv vancomycin Start organism directed therapy with cefazolin 2 g iv every 8 hrs Aim to add rifampin over the next 24-48 hrs as attempting joint salvage ; LFTs reviewed normal Please hold off on placing PICC line until blood cx from 10/29 is negative for at least 72 hrs Echocardiogram ordered to evaluate for endocarditis will follow Infectious disease plan: 11/01: OR cultures reflecting MSSA from 10/29. Blood cultures from 10/29 so far negative. Platelets culture taken on 11/01. Will continue to follow. Continue cefazolin 2 g every 8 hours IV. Add rifampin starting 11/02. 11/02/25: afberile and hemodynamically stable. Tolerated addition of Rifampin. Continue cefazolin 2 g iv every 8 hrs. Blood cx 10/29 and 11/01 negative to date. TTE negative for vegetations, AB deferred as will not change planned duration of treament. Continue Cefazolin 2 g iv every 8 hrs via home infusions at discharge + Rifampin 300mg BID for 6 weeks (10/30-12/10). will transition to oral abx after this point. Discussed with patient , agreeable with plan. Unable to get PICC line due to the holidays, patient stable for discharge from ID standpoint once iv access is established for home. 11/04/25: Afberile. WBC trending up at 12K, however knee exam is improving, no discharge at dressing change. Check CXR to assess for atelactasis vs pneumonia. Denies any dysuria. NO diarrhea. Montior for now. COntinue cefazolin 2 g iv every 8 hrs. PIcc placed 11/03. Hold Rifampin today in case contributing to nausea and evaluate for improvement. Updated Truck Driving about patient's complaints of chest tightness - evaluation and management of the same per hospitalist. will follow PDMP PDMP Reviewed: Not Reviewed Attestations 2 Medical Necessity Statement*: per admitting note Coding Level of Care Code Acute Code for Chg Fwd High MDM includes number and complexity of problems actively addressed during encounter, amount and/or complexity of data reviewed/ordered and described risk of complication, morbidity or mortality of management as documented Diagnoses Prosthetic joint infection T84.50XA MSSA bacteremia R78.81; B95.61 Cellulitis of knee, right L03.115
[2025-11-04 22:15] LABS: Troponin T (5th) Once 385 ng/L (0-10)
[2025-11-04 23:07] LABS: NT Pro B Type Natriuretic Pept 1564 pg/mL (0-125)
--- NOTE | 2025-11-04 23:11 | ECG_ITS ---
YesWeAd Test Date: 2025-11-04 Pat Name: Greta Cash Department: Room: 271 Gender: Female Sheltered Workshop Worker: : 1970 Requested By: Matthias Barahona Order Number: [id number] Missy MD: Quang Clay M.D. Measurements Intervals Griffin Rate: 67 P: 30 VT: 173 QRS: -33 QRSD: 128 T: -19 QT: 377 QTc: 398 Interpretive Statements SINUS RHYTHM INDETERMINATE AXIS RIGHT BUNDLE BRANCH BLOCK POSSIBLE ANTERIOR MYOCARDIAL INFARCTION , OF INDETERMINATE AGE [30 ms Q WAVE IN V3/V4, OR R < 0.2 mV IN V4] INFERIOR MYOCARDIAL INFARCTION ,POSSIBLY ACUTE [40+ ms Q WAVE AND/OR ST/T ABNORMALITY IN II/aVF] Electronically Signed On 11-04-2025 23:16:14 STATOR CONNECTOR by IRINA SOUZA Compared to ECG 11/04/2025 20:22:12 Right bundle-branch block now present Myocardial infarction findings are new Sinus tachycardia no longer present Electronically Signed On 11-08-2025 16:42:19 STATOR CONNECTOR by Quang Clay M.D. [email or web address]
--- NOTE | 2025-11-04 23:54 | PC.NURSE ---
contacted [facility] who has released the body at this time.
--- NOTE | 2025-11-05 00:09 | PC.NURSE ---
pending MTS review at this time. Spoke to Murray. Case # is [id number]. informed Murray to not contact family at this time until HS calls as family is still arriving and is not aware of pt . Murray verbalized understanding and will await HS phone call prior to contacting.
--- NOTE | 2025-11-05 00:13 | PC.RESP ---
RT responded to a rapid response called @ 2305 on 11/04/2025. Aanbel the other RT was already in the room and the patient was awake. Pt had on a NRB @ 15lpm and was on the monitor. Pt went unresponsive and apneic. Anabel and I starting bagging the patient but she still had a pulse. Pt was going more guzman until we had to start CPR and call a code @ 2318. Compressions and Ventilations were done at a 30-2 ratio in accordance with ACLS guidelines. The ER doctor arrived and intubated with a 7.5 oett which was secured 20 cm at the gums. CPR was continued until the code called.
--- NOTE | 2025-11-05 00:24 | PM.DDS ---
Discharge Providers DDS Date of Admission: 10/30/25 00:21 Date Summary Completed: 11/05/25 Attending Provider at Admission: Matthias Leblanc MD Time of : 23:43 Attending Provider at Discharge: Markus Dias MD Pronouncing Clinician: Matthias Leblanc Primary Care Provider: Don Jeffery MD DS Diagnoses Probable Cause of Pulmonary embolism Hospital Diagnoses 1. Prosthetic joint infection: 2. MSSA bacteremia: 3. Cellulitis of knee, right: Reason for Visit Reason for Visit Post op bleeding, sent over from home nurse Brief History: Per H&P on 10/30/25: Greta Cash is a 55 year old female with a history significant for fibromyalgia and recent right TKA on 10/17 who presents with complaints of right knee pain. She confirms her recent surgery on 10/17 and since surgery, she has had poorly controlled pain with which her recent Rx for Tramadol and Kinsman have not been effective. She mentions associated redness, swelling, malodorous yellow discharge and recently subjective fevers, chills, and sweats. Her pain and drainage is made worse with standing on the affected leg. Because of her ongoing pain complaints, she was seen in the ED for further evaluation. Hospitalist was asked to admit the patient with concern for cellulitis. Summary Date and Time of Date of : 11/04/25 Time of : 23:43 Summary Summary: I was informed earlier this evening(after 1900) that the patient had dizziness while using the bedside commode and struck her head against the wall. I ordered a CT head but due to evolving circumstances, this was not completed. I was also informed that her manual blood pressure was 90 systolic and so 1L fluid bolus was ordered and administered. I was later informed by my infectious disease colleague after a virtual visit that the patient had chest pain and shortness of breath. I visited the patient to discuss her concerns. She confirmed these complaints to me. Evaluation took place with d-dimer, EKG, and troponin testing. Troponin level was over 300 and d-dimer over 20. Stat CT pulmonary angiography was ordered and heparin infusion ordered as I was strongly suspicious of pulmonary emoblism. At 2305, a rapid response was called. She decompensated with bradycardia and apena. Esperanza olson was called with PEA arrest. 30 minutes of resusitative efforts made without return of ROSC. TOD 2343. Family infomed of events in person by this process description writer. Additional Data Advance directives?: No Discharge Plan Discharge Patient Disposition: Home Health Service Condition: Stable Prescriptions: No Action famotidine 20 mg tablet 20 mg PO BID pantoprazole 40 mg tablet,delayed release (DR/EC) 40 mg PO DAILY cyanocobalamin (vitamin B-12) 1,000 mcg/mL solution 100 mcg IM .WEEK pregabalin 225 mg capsule 225 mg PO BID Ajovy Autoinjector 225 mg/1.5 mL auto-injector 225 mg SUBCUT Q30D Qty: 1.5 5RF tizanidine 4 mg capsule 4 mg PO BID PRN (Reason: Pain (Scale Score 7-10)) dicyclomine 20 mg tablet 20 mg PO BID diclofenac sodium 75 mg tablet,delayed release (DR/EC) 75 mg PO BID montelukast 10 mg tablet 10 mg PO DAILY azelastine 137 mcg (0.1 %) aerosol,spray 2 spray intranasal BID Rx Instructions: administer into each nostril albuterol sulfate 90 mcg/actuation HFA aerosol inhaler 2 puff inhalation Q6H PRN (Reason: Wheezing) fluticasone propionate [Allergy Relief (fluticasone)] 50 mcg/actuation spray,suspension 2 spray intranasal DAILY Rx Instructions: administer into each nostril ergocalciferol (vitamin D2) [Vitamin D2] 1,250 mcg (50,000 unit) capsule 1,250 mcg PO .Q30D Rx Instructions: on Wednesday doxepin 50 mg capsule 50 mg PO DAILY Qty: 30 3RF Rx Instructions: Take one capsule daily at bedtime escitalopram oxalate 10 mg tablet 10 mg PO DAILY Qty: 30 3RF bupropion HCl 300 mg tablet extended release 24 hr 300 mg PO QAM Qty: 30 3RF tramadol 50 mg tablet 50 mg PO Q6H PRN (Reason: pain) Qty: 30 0RF alprazolam 1 mg tablet 1 mg PO TID PRN (Reason: Anxiety) hydrocodone-acetaminophen 5-325 mg tablet 1 tab PO Q6H PRN (Reason: pain) Qty: 30 0RF doxycycline hyclate 100 mg capsule 100 mg PO BID 10 Days Qty: 20 0RF furosemide 40 mg tablet 40 mg PO DAILY cetirizine 10 mg tablet 10 mg PO DAILY potassium chloride 10 mEq tablet extended release 10 meq PO DAILY hydroxyzine HCl 50 mg tablet 50 mg PO DAILY Trelegy Ellipta 200-62.5-25 mcg blister with device 1 inh INHALATION DAILY Referrals: Infectious Disease Group [facility] [Provider Group, Infectious Disease] - 12/06/25 10:30 am Don Jeffery MD [Primary Care Provider, [facility]] Patient Instructions: Opioid Safety, Patient Portal & Sanam Instructions DS Attestations Time Spent in /Discharge Care*: greater than 30 min Quality - AMI: AMI present?: No Quality - Stroke: CVA present?: No Quality - VTE: VTE present?: Yes Coding Level of Care Code Acute Code for [facility] Fwd Diagnoses Prosthetic joint infection T84.50XA MSSA bacteremia R78.81; B95.61 Cellulitis of knee, right L03.115
[2025-11-05 01:11] VITALS: BP 0/0; PULSE 0; RESP 0; TEMP -17.7; TEMP 0; O2SAT 0
--- NOTE | 2025-11-05 03:11 | PC.NURSE ---
Event Note At approximately 2004, GERALDINE Webster reported to this nurse and MICHAEL Gordon that patient BP was soft and heart rate elevated. Pt. 2000 vital signs as follows Temp 97.8, HR 126, R20, BP 98/62 manually, oxygen 94% on room air. GERALDINE Webster also stated that patient had reported an event that happened prior in the day. Patient reported to Eleanor that around 1600 patient had gotten up to bedside commode with assistance and experienced dizziness with blackening vision. Pt. reported that she sat down quickly on the bedside commode and hit her head on the wall. This nurse and MICHAEL Gordon went to assess patient. Patient in no apparent distress but does report some anxiety and not feeling well. Telemetry applied at 2007, showing ST 120s on the monitor. This nurse asked patient about reported event of dizziness and hitting her head, patient confirms event and states that this event happened prior in the day at approximately 1600. This nurse palpated the back of patient's head, where patient reported hitting it on the wall, no areas of visible or palpatable edema, bleeding, or injury noted. EKG ordered under protocol for elevated HR and completed by this nurse at 2014. Shift assessment completed by MICHAEL Gordon. Dr. Leblanc notified at 2029 by MICHAEL Gordon of patient vitals, EKG completion, patient report of dizziness, hitting head prior in day, patient anxiety, and request for ordered Xanax. Nursing had not administered Xanax as patient BP was soft. Physician gave order to administer patient Xanax as ordered, and placed orders for patient to receive NS bolus along with a head CT. Patient seen by Dr. Hawley at approximately 2100 for ID progress note via telehealth. Patient reported mild chest tightness and difficulty catching her breath to Dr. Hawley. Dr. Hawley ordered chest x-ray and updated Dr. Leblanc, and Dr. Leblanc came to floor to assess patient. CXR completed at [address] Leblanc at bedside. Patient troponin reported critical to Tracy Patiño LPN at 2216, who reported critical troponin level of [address] Leblanc at that time. Physician states orders to be placed. Patient D-Dimer resulted >20 and physician notified by Tracy Patiño LPN at 2230 with this result. Patient vital signs taken again at 2230 - Temp 98.0, HR 128, R19, BP 98/62 manually, oxygen 91% on room air. Patient given ordered Aspirin 325mg PO at 2246. Heparin drip ordered at 2223, updated and verified by pharmacy at 2244. This nurse and MICHAEL Gordon went to patient room at 225 to hang heparin drip. Patient found to be up out of bed and sitting on bedside commode without assistance or using call light. Patient stated I've got to poop, I need a minute. Patient bed soiled and patient appeared anxious with gown coming off. This nurse and MICHAEL Gordon remained at bedside due to patient anxiety, risk for falls, and need for linen change. MICHAEL Gordon scanned heparin bag and was preparing IV pump while this nurse changed patient linens. Patient voiced it's right here, I gotta go poop. This nurse reassured patient to use bedside commode and that staff would assist patient back to bed. At 2304 patient suddenly defecated large amount of stool and slumped over on commode. This nurse caught patient and performed sternal rub while loudly saying patient name, patient unresponsive. Rapid response called with crash cart and multiple staff members to patient room. Patient regained consciousness within 30 seconds while staff members arrived at bedside. Patient assisted x2 back into bed and zoll monitor attached showing HR 120-130. Patient agitated, confused, unable to lie still. Unable to obtain accurate blood pressure as patient thrashing in bed. Patient O2 sat 90%, patient complaining of shortness of breath. Patient placed on non-rebreather at 15L. EKG completed at 2313 and printed for physician. Patient became bradycardic in the 30s-40s at 231, Atropine 1mg given by MONICA Garves HS per ACLS protocol and Dr. Leblanc's verbal order. Patient became unresponsive without breathing or palpatable pulse at 2319. CPR initiated at 2319. See Cardiopulmonary Arrest Flow Sheet for further details. Attempts to notify multiple family members by Tracy Patiño LPN and IMCHAEL Gordon during code were made. Family friend on chart, Alex, notified after multiple calls during code and Alex reported notifying patient's , Ori, and that family were on their way to the hospital. End of code called at [address] Leblanc and ER physician Dr. Corral. Research Chemical Engineer, Coach Builder, and MTS called by Numerical Control Machine Tool Operator. [employer], mercerizing range controller, released patient body at 2354 11/04/25. All lines and tubes removed from patient and post mortem care provided by Tracy Patiño LPN, MICHAEL Gordon, and GERALDINE Webster at 0000. Family arrived at approximately 0000 post code and were informed of patient by Dr. Leblanc in person. Family to room to see patient. Coach Builder to floor and spoke with family. Family home of choice is [facility] in [place]. Body release form signed by patient at 0111. Family left floor with patient's purse, jewelry, cell phone, and clothing at 0120. MTS called back by this nurse at 0200 to inform MTS that patient's family is aware of patient and have left the facility. MTS to call back when patient is released. [facility] to [facility] at 0240.
--- NOTE | 2025-11-05 05:47 | ED_ITS ---
HPI - Extremity Problem 2 General: Chief complaint: Extremity Injury, Lower Stated complaint: Post op bleeding, sent over from home nurse Time Seen by Provider: 10/29/25 21:51 Source: patient Mode of arrival: ambulatory Limitations: no limitations History of Present Illness: I was called to help intubate this patient during cardiac arrest. Pain Consistency: constant Location: right and knee Related Data Home Medications ?Medication ?Instructions ?Recorded ?Confirmed tizanidine 4 mg capsule 4 mg PO BID PRN Pain (Scale Score 12/30/22 10/30/25 7-10) albuterol sulfate 90 mcg/actuation 2 puff inhalation Q 6H PRN Wheezing 02/09/23 10/30/25 aerosol inhaler azelastine 137 mcg (0.1 %) nasal 2 spray intranasal BI D 02/09/23 10/30/25 spray diclofenac sodium 75 mg 75 mg PO BID 02/09/23 tablet,delayed release dicyclomine 20 mg tablet 20 mg PO BID 02/09/23 fluticasone propionate 50 2 spray intranasal DAILY 02/2810/30/25 mcg/actuation nasal spray,suspension (Allergy Relief (fluticasone)) montelukast 10 mg tablet 10 mg PO DAILY 02/09/2310/09 famotidine 20 mg tablet 20 mg PO BID 11/12/23 pregabalin 225 mg capsule 225 mg PO BID 11/29/2410/30 cyanocobalamin (vitamin B-12) 100 mcg IM .WEEK 5 10/30/25 1,000 mcg/mL injection solution pantoprazole 40 mg tablet,delayed 40 mg PO DAILY 12/2610/30/25 release ergocalciferol (vitamin D2) 1,250 1,250 mcg PO .Q30D 0 05/31/25 10/30/25 mcg (50,000 unit) capsule (Vitamin D2) alprazolam 1 mg tablet 1 mg PO TID PRN Anxiety 06/0910/30/25 cetirizine 10 mg tablet 10 mg PO DAILY 10/30/2510/09 fluticasone fur. 200 mcg-umeclid 1 inh inhalation INGRIS Y 10/30/25 10/30/25 62.5 mcg-vilant 25 mcg inhalat.powder (Trelegy Ellipta) furosemide 40 mg tablet 40 mg PO DAILY 10/30/2510/09 hydroxyzine HCl 50 mg tablet 50 mg PO DAILY 10/30/25 1 12/31/24 potassium chloride 10 mEq 10 meq PO DAILY 10/30/25 tablet,extended release Previous Rx's ?Medication ?Instructions ?Recorded tramadol 50 mg tablet 50 mg PO Q6H PRN pain #30 ta bs 08/31/25 bupropion HCl 300 mg 24 hr tablet, 300 mg PO QAM #30 t abs 10/01/25 extended release doxepin 50 mg capsule 50 mg PO DAILY #30 caps 09/09 03/02 escitalopram oxalate 10 mg tablet 10 mg PO DAILY #30 t abs 10/01/25 fremanezumab-vfrm 225 mg/1.5 mL 225 mg (1.5 mL) SUBCUT Q30D #1.5 mL 10/16/25 subcutaneous auto-injector (Ajovy) hydrocodone 5 mg-acetaminophen 325 1 tab PO Q6H PRN pa in #30 tabs 10/18/25 mg tablet doxycycline hyclate 100 mg capsule 100 mg PO BID 10 da ys #20 caps 10/25/25 Allergies Allergy/AdvReac Type Severity Reaction Status Date / Time clonazepam (From Klonopin) Allergy ADR-Dizzine Verified 10/29/25 21:31 ss morphine Allergy irritation Verified 10/29/25 21:31 duloxetine (From Cymbalta) AdvReac Severe ADR-Confusi Verified 10/29/25 21:31 on latex AdvReac Mild rash Verified 10/29/25 21:31 PFSH ED 2 PFSH: Medical History (Updated 11/02/25 @ 00:00 by BOB Walden) Post-traumatic stress disorder, chronic Major depressive disorder, recurrent, moderate Generalized anxiety disorder Psychiatric care Family History Other Cancer Diabetes Hypertension Denies family history of CAD (coronary artery disease) Anesthesia complication Bleeding disorder Social History Smoking and tobacco/nicotine status: never used tobacco/nicotine Alcohol intake: never Substance/Drug Use: never Household members: spouse Marital status: Current occupational status: disabled Current gender identity: Female Procedures Intubation Time out performed: No sedative: none Laryngoscope: Miriam ET Tube Uncuffed: Yes Tube Secured Depth (cm): 21 Tube Secured Location: lips Tube Placement Confirmation: visualized tube passing through cords, equal breath sounds bilaterally and confirmation by capnometry Patient Tolerated Procedure: no complications Intubation Complications: none Additional Comments: Intubation done during code blue/CPR emergenly to secure airway Course 2 Vital Signs: Vital signs: Vital Signs Temperature 98.0 F 11/04/25 22:31 Pulse Rate 128 H 11/04/25 22:31 Respiratory Rate 19 H 11/04/25 22:31 Blood Pressure 98/62 11/04/25 22:31 Pulse Oximetry 91 11/04/25 22:31 Oxygen Delivery Me thod Room Air 11/04/25 22:31 Oxygen Flow Rate 0 11/04/25 20:00 MDM - Extremity (Nontraumatic) Medical Decision Making See procedure note Lab Data 11/04/25 04:11 11/04/25 04:11 Radiology Impressions Knee X-Ray 10/29/25 22:01 IMPRESSION: 1. Right total knee arthroplasty with intact hardware. 2. Scattered foci of soft tissue gas, favored to represent postsurgical changes given recent surgery. Recommend clinical correlation for signs of infection. Chest X-Ray 11/04/25 21:08 IMPRESSION: No acute findings. Laboratory Results WBC 11.34 10^3/uL (3.29-11.43) 10/29/25 22:30 RBC 3.14 10^6/uL (3.85-5.65) L 10/29/25 22:30 Hgb 9.00 g/dL (11.27-16.99) L 10/29/25 22:30 Hct 27.8 % (36-47) L 10/29/25 22:30 MCV 88.5 fl (85-98) 10/29/25 22:30 MCH 28.7 pg (27-33) 10/29/25 22:30 MCHC 32.4 g/dL (30-55) 10/29/25 22:30 RDW 13.7 % (12.1-15.1) 10/29/25 22:30 Plt Count 285 10^3/cmm (157-399) 10/29/25 22:30 MPV 10.7 fL (7.4-10.4) H 10/29/25 22: Neut % (Auto) 80.3 % 10/29/25: Lymph % (Auto) 9.5 % 10/29/25: [place] % (Auto) 7.1 % 10/29/25: Eos % (Auto) 0.9 % 10/29/25: Baso % (Auto) 0.4 % 10/29/25: Neut # (Auto) 9.12 10^3/uL (1.8-7.7) H 10/29/25: Lymph # (Auto) 1.1 10^3/uL (0.8-4.8) 10/29/25: [place] # (Auto) 0.8 10^3/uL (0.2-0.9) 10/29/25: Eos # (Auto) 0.1 10^3/uL (0.0-0.8) 10/29/25: Baso # (Auto) 0.0 10^3/uL (0.0-0.1) 10/29/25: Nucleated RBC % (auto) 0 % 10/29/25: Nucleated RBCs # 0.0 /100WBC 10/29/25: ESR 27 mm/hr (0-15) H 10/29/25 22:30 Sodium 136 mmol/L (136-145) 10/29/25: Potassium 3.7 mmol/L (3.5-5.1) 10/29/25: Chloride 98 mmol/L (98-107) 10/29/25: Carbon Dioxide 27 mmol/L (22-29) 10/29/25: Anion Gap 14.7 (5-19) 10/29/25: BUN 24 mg/dL (6-20) H 10/29/25: Creatinine 1.1 mg/dL (0.5-0.9) H 10/29/25 22:30 GFR Calculation 51.4 mL/min (90-130) L 10/29/25: Glucose 109 mg/dL (65-115) 12/22/25 22:30 Calculated Osmolality 287 mOsm/kg (285-295) 10/29/25 22:30 Lactic Acid 1.0 mmol/L (0.5-2.2) 10/29/25: Calcium 9.3 mg/dL (8.5-10.5) 10/29/25: Total Bilirubin 0.6 mg/dL (0.15-1.2) 10/29/25: AST 19 U/L (0-32) 10/29/25: ALT 11 U/L (0-33) 10/29/25: Alkaline Phosphatase 140 U/L (35-105) H 10/29/25: C-Reactive Protein 313.1 mg/L (0.0-4.9) H 10/29/25: Total Protein 6.5 g/dL (6.6-8.7) L 10/29/25: Albumin 3.2 g/dL (3.5-5.2) L 10/29/25: Globulin 3.3 g/dL (1.3-4.6) 10/29/25: No radiology studies performed this visit Discharge Plan Discharge Patient Disposition: Admitted As Inpatient Admit Provider: Matthias Leblanc Clinical Impression: Cellulitis of knee, right Condition: Stable Coding Level of Care Code ED Set Key Driver for Senia Morales
--- NOTE | 2025-11-05 05:47 | W.ED.EXTPRO ---
HPI - Extremity Problem General: Chief complaint: Extremity Injury, Lower Stated complaint: Post op bleeding, sent over from home nurse Time Seen by Provider: 10/29/25 21:51 Source: patient Mode of arrival: ambulatory Limitations: no limitations History of Present Illness: I was called to help intubate this patient during cardiac arrest. Pain Consistency: constant Location: right and knee Related Data Home Medications ?Medication ?Instructions ?Recorded ?Confirmed tizanidine 4 mg capsule 4 mg PO BID PRN Pain (Scale Score 12/30/22 10/30/25 7-10) albuterol sulfate 90 mcg/actuation 2 puff inhalation Q6H PRN Wheezing 02/09/23 10/30/25 aerosol inhaler azelastine 137 mcg (0.1 %) nasal 2 spray intranasal BID 02/09/23 10/30/25 spray diclofenac sodium 75 mg 75 mg PO BID 02/09/23 10/30/25 tablet,delayed release dicyclomine 20 mg tablet 20 mg PO BID 02/09/23 10/30/25 fluticasone propionate 50 2 spray intranasal DAILY 02/09/23 10/30/25 mcg/actuation nasal spray,suspension (Allergy Relief (fluticasone)) montelukast 10 mg tablet 10 mg PO DAILY 02/09/23 10/30/25 famotidine 20 mg tablet 20 mg PO BID 11/12/23 10/30/25 pregabalin 225 mg capsule 225 mg PO BID 11/29/24 10/30/25 cyanocobalamin (vitamin B-12) 100 mcg IM .WEEK 12/26/24 10/30/25 1,000 mcg/mL injection solution pantoprazole 40 mg tablet,delayed 40 mg PO DAILY 12/26/24 10/30/25 release ergocalciferol (vitamin D2) 1,250 1,250 mcg PO .Q30D 05/31/25 10/30/25 mcg (50,000 unit) capsule (Vitamin D2) alprazolam 1 mg tablet 1 mg PO TID PRN Anxiety 07/03/25 10/30/25 cetirizine 10 mg tablet 10 mg PO DAILY 10/30/25 10/30/25 fluticasone fur. 200 mcg-umeclid 1 inh inhalation DAILY 10/30/25 10/30/25 62.5 mcg-vilant 25 mcg inhalat.powder (Trelegy Ellipta) furosemide 40 mg tablet 40 mg PO DAILY 10/30/25 10/30/25 hydroxyzine HCl 50 mg tablet 50 mg PO DAILY 10/30/25 10/30/25 potassium chloride 10 mEq 10 meq PO DAILY 10/30/25 10/30/25 tablet,extended release Previous Rx's ?Medication ?Instructions ?Recorded tramadol 50 mg tablet 50 mg PO Q6H PRN pain #30 tabs 08/31/25 bupropion HCl 300 mg 24 hr tablet, 300 mg PO QAM #30 tabs 10/01/25 extended release doxepin 50 mg capsule 50 mg PO DAILY #30 caps 10/01/25 escitalopram oxalate 10 mg tablet 10 mg PO DAILY #30 tabs 10/01/25 fremanezumab-vfrm 225 mg/1.5 mL 225 mg (1.5 mL) SUBCUT Q30D #1.5 mL 10/16/25 subcutaneous auto-injector (Ajovy) hydrocodone 5 mg-acetaminophen 325 1 tab PO Q6H PRN pain #30 tabs 10/18/25 mg tablet doxycycline hyclate 100 mg capsule 100 mg PO BID 10 days #20 caps 10/25/25 Allergies Allergy/AdvReac Type Severity Reaction Status Date / Time clonazepam (From Klonopin) Allergy ADR-Dizzine Verified 10/29/25 21:31 ss morphine Allergy irritation Verified 10/29/25 21:31 duloxetine (From Cymbalta) AdvReac Severe ADR-Confusi Verified 10/29/25 21:31 on latex AdvReac Mild rash Verified 10/29/25 21:31 PFS ED PFSH: Medical History (Updated 11/02/25 @ 00:00 by BOB Walden) Post-traumatic stress disorder, chronic Major depressive disorder, recurrent, moderate Generalized anxiety disorder Psychiatric care Family History Other Cancer Diabetes Hypertension Denies family history of CAD (coronary artery disease) Anesthesia complication Bleeding disorder Social History Smoking and tobacco/nicotine status: never used tobacco/nicotine Alcohol intake: never Substance/Drug Use: never Household members: spouse Marital status: Current occupational status: disabled Current gender identity: Female Procedures Intubation Time out performed: No sedative: none Laryngoscope: Miriam ET Tube Uncuffed: Yes Tube Secured Depth (cm): 21 Tube Secured Location: lips Tube Placement Confirmation: visualized tube passing through cords, equal breath sounds bilaterally and confirmation by capnometry Patient Tolerated Procedure: no complications Intubation Complications: none Additional Comments: Intubation done during code blue/CPR emergenly to secure airway Course Vital Signs: Vital signs: Vital Signs Temperature 98.0 F 11/04/25 22:31 Pulse Rate 128 H 11/04/25 22:31 Respiratory Rate 19 H 11/04/25 22:31 Blood Pressure 98/62 11/04/25 22:31 Pulse Oximetry 91 11/04/25 22:31 Oxygen Delivery Me thod Room Air 11/04/25 22: Oxygen Flow Rate 0 11/04/25 20:00 MDM - Extremity (Nontraumatic) Medical Decision Making See procedure note Lab Data 11/04/25 04:11 11/04/25 04:11 Radiology Impressions Knee X-Ray 10/29/25 22:01 IMPRESSION: 1. Right total knee arthroplasty with intact hardware. 2. Scattered foci of soft tissue gas, favored to represent postsurgical changes given recent surgery. Recommend clinical correlation for signs of infection. Chest X-Ray 11/04/25 21:08 IMPRESSION: No acute findings. Laboratory Results WBC 11.34 10^3/uL (3.29-11.43) 10/29/25 22:30 RBC 3.14 10^6/uL (3.85-5.65) L 10/29/25 22:30 Hgb 9.00 g/dL (11.27-16.99) L 10/29/25 22:30 Hct 27.8 % (36-47) L 10/29/25 22:30 MCV 88.5 fl (85-98) 10/29/25 22: MCH 28.7 pg (27-33) 10/29/25 22: MCHC 32.4 g/dL (30-55) 10/29/25 22:30 RDW 13.7 % (12.1-15.1) 10/29/25 22:30 Plt Count 285 10^3/cmm (157-399) 10/29/25 22:30 MPV 10.7 fL (7.4-10.4) H 10/29/25: Neut % (Auto) 80.3 % 10/29/25: Lymph % (Auto) 9.5 % 10/29/25: [place] % (Auto) 7.1 % 10/29/25: Eos % (Auto) 0.9 % 10/29/25: Baso % (Auto) 0.4 % 10/29/25: Neut # (Auto) 9.12 10^3/uL (1.8-7.7) H 10/29/25: Lymph # (Auto) 1.1 10^3/uL (0.8-4.8) 10/29/25: [place] # (Auto) 0.8 10^3/uL (0.2-0.9) 10/29/25: Eos # (Auto) 0.1 10^3/uL (0.0-0.8) 10/29/25: Baso # (Auto) 0.0 10^3/uL (0.0-0.1) 10/29/25: Nucleated RBC % (auto) 0 % 10/29/25: Nucleated RBCs # 0.0 /100WBC 10/29/25: ESR 27 mm/hr (0-15) H 10/29/25: Sodium 136 mmol/L (136-145) 10/29/25: Potassium 3.7 mmol/L (3.5-5.1) 10/29/25: Chloride 98 mmol/L (98-107) 10/29/25: Carbon Dioxide 27 mmol/L (22-29) 10/29/25: Anion Gap 14.7 (5-19) 10/29/25: BUN 24 mg/dL (6-20) H 10/29/25: Creatinine 1.1 mg/dL (0.5-0.9) H 10/29/25:30 GFR Calculation 51.4 mL/min (90-130) L 10/29/25: Glucose 109 mg/dL (65-115) 10/29/25: Calculated Osmolality 287 mOsm/kg (285-295) 12/22/25 22:30 Lactic Acid 1.0 mmol/L (0.5-2.2) 10/29/25 22:30 Calcium 9.3 mg/dL (8.5-10.5) 10/29/25:30 Total Bilirubin 0.6 mg/dL (0.15-1.2) 10/29/25 22:30 AST 19 U/L (0-32) 10/29/25:30 ALT 11 U/L (0-33) 10/29/25:30 Alkaline Phosphatase 140 U/L (35-105) H 10/29/25 22:30 C-Reactive Protein 313.1 mg/L (0.0-4.9) H 10/29/25:30 Total Protein 6.5 g/dL (6.6-8.7) L 10/29/25 22:30 Albumin 3.2 g/dL (3.5-5.2) L 10/29/25:30 Globulin 3.3 g/dL (1.3-4.6) 10/29/25 22:30 No radiology studies performed this visit Discharge Plan Discharge Patient Disposition: Admitted As Inpatient Admit Provider: Matthias Leblanc Clinical Impression: Cellulitis of knee, right Condition: Stable Coding Level of Care Code ED Resident Buyer for Senia Morales
--- NOTE | 2025-11-05 06:44 | PC.NURSE ---
Dr. Hawley - ID consult - notified at this time of patient expiration.
--- NOTE | 2025-11-05 06:46 | PC.NURSE ---
Dr. Sorto - Ortho consult - notified of patient expiration at this time.
== END 2025-11-04 23:42 | disposition expired | DRG 500 ==
LOC: ER 23:53 → MEDSURG 10-30 00:50
PROVIDERS: Orthopaedic Surgery; Student in an Organized Health Care Education/Training Program; Admitting Provider Family Medicine; Emergency Provider Physician Assistant; PCP Family Medicine; Visit Provider Internal Medicine
PROC: 0JDN0ZZ Extraction of Right Lower Leg Subcutaneous Tissue and Fascia, Open Approach (ICD-10-PCS; principal; 2025-10-30 18:00)
DX: T84.53XA Infection and inflammatory reaction due to internal right knee prosthesis, initial encounter (principal); I26.99 Other pulmonary embolism without acute cor pulmonale; M00.061 Staphylococcal arthritis, right knee; F33.1 Major depressive disorder, recurrent, moderate; L03.115 Cellulitis of right lower limb; N17.9 Acute kidney failure, unspecified; B95.61 Methicillin susceptible Staphylococcus aureus infection as the cause of diseases classified elsewhere; Y79.8 Miscellaneous orthopedic devices associated with adverse incidents, not elsewhere classified; I46.9 Cardiac arrest, cause unspecified; F43.12 Post-traumatic stress disorder, chronic; F41.1 Generalized anxiety disorder; M79.7 Fibromyalgia; R00.1 Bradycardia, unspecified; K59.00 Constipation, unspecified; E66.9 Obesity, unspecified; Z68.34 Body mass index [BMI] 34.0-34.9, adult; R55 Syncope and collapse; W01.198A Fall on same level from slipping, tripping and stumbling with subsequent striking against other object, initial encounter; Y92.230 Patient room in hospital as the place of occurrence of the external cause; Z79.51 Long term (current) use of inhaled steroids; Z82.49 Family history of ischemic heart disease and other diseases of the circulatory system
CPT/HCPCS: 36415; 36416; 36573; 36592; 71045; 73562; 80048; 80053; 80202; 82962; 83036; 83605; 83735; 83880; 84100; 84484; 85025; 85378; 85651; 86140; 87040; 87070; 87075; 87077; 87186; 87205; 93005; 93306; 96365; 96367; 96372; 96375; 97110; 97161; 97165; 97530; 97535; 99285; J0131; J0690; J1100; J1171; J1644; J1650; J1885; J2405; J2543; J2704; J3010; J3373; J7030; J7050; J9999